=== PATIENT | male | born 1940 | race Caucasian/White ===

== ENCOUNTER 2019-05-07 10:10 | Outpatient (CLI) | payer MEDICARE, OTHER, SELFPAY ==
--- NOTE | 2019-05-07 12:27 | ECG_ITS ---
Measurements Intervals [place] Rate: 60 P: 12 TX: 214 QRS: 8 QRSD: 88 T: 8 QT: 441 QTc: 444 Interpretive Statements SINUS RHYTHM WITH FIRST DEGREE AV BLOCK BASELINE ARTIFACT- I, II, III, AVF ABNORMAL ECG Electronically Signed On 05-07-2019 14:38:44 POT WASHER by Melvin Ivey D.O.
[2019-05-07 13:06] LABS: Basophils Percent Auto 0.3 % (0.2-1.2); Eosinophils Absolute Auto 0.1 K/mm3 (0-0.3); Eosinophils Percent Auto 1.1 % (0-4.4); Hematocrit 39.8 % (42.0-52.0); Hemoglobin 13.2 g/dL (14.0-18.0); Immature Granulocyte Absolute 0.03 K/mm3 (0.00-0.031); Immature Granulocyte Percent A 0.3 % (0-0.5); Lymphocytes Percent Auto 54.4 % (18.3-44.2); Mean Corpuscular HGB Conc 33.2 g/dl (32-36); Mean Corpuscular Hemoglobin 31.1 pg (26-34); Mean Corpuscular Volume 93.6 fl (80-100); Mean Platelet Volume 9.8 fl (7.4-10.4); Monocytes Absolute Auto 0.7 K/mm3 (0.1-0.6); Monocytes Percent Auto 7.4 % (2.6-8.5); Neutrophils Absolute Auto 3.2 K/mm3 (1.3-6.7); Neutrophils Percent Auto 36.5 % (45.5-73.1); Platelet Count Result 148 k/mm3 (150-375); Red Blood Count 4.25 M/mm3 (4.6-6.20); White Blood Count 8.8 K/mm3 (4.5-10.0)
[2019-05-07 13:14] LABS: Albumin Level 4.6 g/dL (3.5-5.1); Blood Urea Nitrogen 16 mg/dL (9-20); Calcium 9.2 mg/dL (8.4-10.2); Carbon Dioxide 27 mmol/L (22-30); Chloride 99 mmol/L (98-107); Estimated Glomerular Filt Rate > 60; Glucose 90 mg/dL (75-110); Sodium 137 mmol/L (137-145)
[2019-05-07 13:18] LABS: Hemoglobin A1C 5.2 % (<5.7)
[2019-05-07 13:23] LABS: Urine Cotinine NEGATIVE
== END 2019-05-07 10:11 | disposition home or self-care (01) ==
LOC: ANHSURGERY 10:17
PROVIDERS: PCP Internal Medicine; Visit Provider Orthopaedic Surgery
DX: Z41.9 Encounter for procedure for purposes other than remedying health state, unspecified (principal); I44.0 Atrioventricular block, first degree
CPT/HCPCS: 36415; 80048; 80307; 82040; 83036; 85025; 87070; 93005

== ENCOUNTER 2019-05-27 13:27 | Inpatient (IN) | payer MEDICARE, OTHER, SELFPAY ==
[2019-05-07 11:04] VITALS: BMI 27.6
[2019-05-07 11:53] VITALS: BP 154/74; PULSE 68; RESP 20; TEMP 37.1; O2SAT 98
--- NOTE | 2019-05-24 09:24 | HP_ITS ---
DATE OF SERVICE: ADMIT DIAGNOSIS: Degenerative joint disease, left hip. HISTORY OF PRESENT ILLNESS: The patient is a 78-year-old male patient of Dr. Fraser who presents today for left total hip arthroplasty, anterior approach. He has been having increasing pain in the left groin over the last several months. He is finding it difficult to go up and down stairs or trying to flex his hip. He has x-rays that show he has moderately severe arthritis in the hip. He has had his right hip replaced in the past with Dr. Lindsey. This has done very well. The patient is unable to take anti-inflammatories due to being on Plavix. He is finding it difficult to deal with the pain on a daily basis and would rather proceed with total hip arthroplasty rather than continuing nonsurgical treatment. PAST HISTORY: He has had his right hip replaced and left knee replaced in the past. He has had a history of an MA with stent placements in the past. He has also had a history of large B-cell lymphoma. CURRENT MEDICATIONS: He takes baby aspirin daily, Plavix 75 mg daily, metoprolol 25 mg daily, lovastatin 10 mg daily, Ventolin inhaler p.r.n., and oseltamivir 75 mg daily. ALLERGIES: HE HAS NO KNOWN DRUG ALLERGIES. FAMILY HISTORY: Noncontributory. SOCIAL HISTORY: He is a former smoker. He quit smoking in 2001. REVIEW OF SYSTEMS: Positive for the previous MA as well as stent placement. PHYSICAL EXAMINATION: VITAL SIGNS: He is 5 feet 7-1/2 inch, 197 pounds. Other vital signs per nursing on the morning of surgery. HEENT: Grossly normal. LUNGS: Clear bilaterally. HEART: Regular rate and rhythm. EXTREMITIES: He walks with a mild limp relative to pain in the left hip. Left hip flexes to 110 with sharp pains, anterolateral hip. External rotation is 0 causing mild anterolateral hip pain, external rotation to 20. Stinchfield maneuver causes a moderate anterolateral hip pain. He has normal abduction strength in the lateral position. No tenderness over the trochanteric bursa. There is no edema in the lower extremities. He has 5/5 strength in all muscle groups of the lower extremities. Skin is normal around the groin. Complains of no numbness or tingling. IMAGING: X-rays demonstrate moderately severe arthritis of the left hip. IMPRESSION: The patient has moderately severe arthritis in the left hip with significant symptoms. Again, patient would like to proceed with total hip arthroplasty. He is very happy with his right hip and would like to proceed with the left. Surgical procedure as well as risks and complications were discussed. All questions were answered and we will proceed. The patient will see his primary care doctor as well as his parent educator for clearance before surgery. He will stop his Plavix 1 week prior to surgery, but will maintain his baby aspirin through the time of surgery due to his stent history. Nasal swab was negative. Chem panel is all within normal limits. Creatinine 0.80 and GFR is greater than 60. Hemoglobin is 13.2, platelets are 148. D I MT: Benedict
[2019-05-27] VITALS (14 sets, daily range): BP systolic 107–156; BP diastolic 58–80; PULSE 62–107; RESP 12–20; TEMP 36.2–36.9; O2SAT 94–100; BMI 27.4
--- NOTE | ~2019-05-27 | XR_ITS ---
EXAMINATION: XR hip LT 1V w AP pelvis DATE: 05/27/2019 11:20 INDICATION: Left hip arthroplasty. Postop. TECHNIQUE: An anteroposterior view of the pelvis and single view of left hip were obtained. COMPARISON: None. FINDINGS: There are bilateral total hip arthroplasties in near-anatomic alignment. No fracture. There is soft tissue gas around the left hip consistent with recent surgery. There is a surgical drain on the left. IMPRESSION: 1. Bilateral total hip arthroplasties in near-anatomic alignment. Reviewed, dictated and finalized at location A. LION KEEPER
--- NOTE | ~2019-05-27 | XR_ITS ---
EXAMINATION: XR surgery orthopedic DATE: 05/27/2019 10:53 INDICATION: Total left hip arthroplasty. TECHNIQUE: A single intraoperative fluoroscopic view of left hip was obtained. I was not present. Flu oroscopy exposure time was 35 seconds. COMPARISON: None. FINDINGS: There is a total left hip arthroplasty in near-anatomic alignment. No fracture. IMPRESSION: 1. Total left hip arthroplasty in near-anatomic alignment. Reviewed, dictated and finalized at location A. OM SANDER
[2019-05-27] MEDS: LACTATED RINGERS 1,000 ML 30 ML IV CONT ×2 (06:45→11:20)
--- NOTE | 2019-05-27 06:50 | WPDANESEPPF ---
Anes - Initial Pre Proc Eval Procedure: Operation Date: 05/27/19 07:30 Proposed Procedures p Left Total Hip Arthroplasty, Anterior Approach - Alexis Lindsey MD Date/Time: 05/27/19 06:50 Surgeon: Alexis Lindsey MD Pre Op Diagnosis: OA Left Hip Patient Data Age: 78 Gender: M Height: 1.83 m Weight: 91.9 kg Last Vital Signs Temp 36.6 C 05/27/19 06:32 Pulse 65 05/27/19 06:32 Resp 18 05/27/19 06:32 BP 156/77 H 05/27/19 06:32 Pulse Ox 98 05/27/19 06:32 Allergies Allergy/AdvReac Type Severity Reaction Status Date / Time No Known Allergies Allergy Unverified 04/07/14 08:22 Home Medications Medication Instructions Recorded Confirmed Type aspirin 81 mg PO DAILY 05/07/19 05/07/19 History clopidogrel 75 mg PO BID 05/07/19 05/07/19 History metoprolol tartrate 25 mg PO DAILY 05/07/19 05/07/19 History multivitamin 1 tablet PO WEEKLY 05/07/19 05/07/19 History rosuvastatin 10 mg PO DAILY 05/07/19 05/07/19 History ECG: Date of Service: 05/07/19 Procedure(s): CA 12 lead EKG Accession Number(s): [id number] cc: ~ Measurements Intervals [place] Rate: 60 P: 12 [place]: 214 QRS: 8 QRSD: 88 T: 8 QT: 441 QTc: 444 Interpretive Statements SINUS RHYTHM WITH FIRST DEGREE AV BLOCK BASELINE ARTIFACT- I, II, III, AVF ABNORMAL ECG Electronically Signed On 05-07-2019 14:38:44 [employer]ARD GOODS SALESPERSON by Melvin Ivey D.O. Dictated By: Melvin Ivey DO 05/07/19 1302 Patient hx anesthesia problems: none Family hx anesthesia problems: none PMFSH Past Medical History Medical History (Updated 05/27/19 @ 06:54 by Michael Mo MD) CAD (coronary artery disease) DENIES CARDIAC SYMPTOMS, SEES DR. RUTHERFORD LAST APPROX 4-6 MONTHS AGO Cancer NON HODGKINS LYMPHOMA 2015 HTN (hypertension) Hyperlipidemia Osteoarthritis Surgical History Surgical History (Updated 05/27/19 @ 06:54 by Michael Mo MD) History of coronary artery stent placement DEC 2017 X1 Anes - Eval Final PreProcedure Day of Procedure 05/27/19 06:50 Patient weight: overweight Heart: regular rate and rhythm Lungs: clear to auscultation and normal air movement Airway: Mallampati scale class II Neurological: alert and oriented Last oral intake: >/= 8 hours ASA classification: III Emergent: no Anesthetic plan: proceed Anesthesia type and monitoring: general LMA Informed Consent: The patient's anesthetic plan and its attendant risks and benefits were discussed with the patient/family/POA. Questions were solicited and answers provided to the satisfaction of the patient/family/POA.
--- NOTE | 2019-05-27 07:22 | WPDHPUPDATE1 ---
History and Physical Update Update Date/Time: 05/27/19 07:22 History and Physical has been reviewed, including an updated exam of the patient. There are NO changes in the patient's condition. Risks, benefits, and alternatives have been discussed and questions answered. Patient agrees to proceed with procedure.
[2019-05-27] MEDS: ceFAZolin 2 GM/D5W 50 ML 2 GM/50 ML BAG IVPB (07:38)
[2019-05-27] MEDS: ceFAZolin SODIUM 1 GM VIAL 3 GM IRRIGATION (08:53)
[2019-05-27] MEDS: ceFAZolin SODIUM 1 GM VIAL IV PUSH (10:40)
--- NOTE | 2019-05-27 11:01 | PM.PROC ---
Procedure Note - Detailed Date of procedure: 05/27/19 Pre-op diagnosis: OA Left Hip Post-op diagnosis: same Procedure performed: Direct anterior approach left total hip arthroplasty Description of procedure: Patient was brought to the operating room and general anesthesia was administered. He received 2 g of Ancef weight based vancomycin 1 g of tranexamic acid preoperatively. Extra padding was placed on the feet and view the feet were placed in the boots in the was transferred to the [facility] table and the left hip prepped draped usual fashion. The arms were carefully positioned and padded because of his bilateral shoulder replacements in the had significant flexion contracture of his left elbow as well. A 10 cm longitudinal incision was made starting 3 cm lateral to the ASIS. Dissection was carried down the fascia over the tensor fascia carmelo which was longitudinally incised and elevated off the anterior 1/2 of the TFL muscle. Interval between tensor fascia carmelo and rectus femoris was developed. Crossing branches of ascending branch of lateral femoral circumflex vessels were isolated. The the bifurcation was right there and we tied all 3 limbs and divided the vessels. retractor was placed anterior to capsule inferiorly after elevation of ileal capsule areas. The leg was then abducted internally rotated and the gluteus minimus carefully elevated off the lateral capsule. the leg back to neutral position standard anterior capsulotomy was performed. Femoral neck osteotomy according to preoperative templating napkin ring of bone removed the femoral head removed without difficulty. We looked at the femoral neck osteotomy under fluoro and we were still a bit long and I felt I could remove remove another 5 mm certainly. Acetabulum was exposed labrum excised. Leg externally rotated extended and interval between conjoined tendon and piriformis tendon width was recessed allowing the piriformis to sublux and flipped posteriorly. capsule was elevated off the anterior cortex of the femur. the additional 5 mm of femoral neck was removed with a saw. the acetabulum was curetted and the medial eyes 2 at the 44 Reamer and we reamed to 49 and 51 and the 51 was a snug fit with the trial we reamed to 52 and the 52 G7 acetabular component was chosen. We impacted this at 40? of abduction and anteversion such that the anterior edge of the shell was a mm of the anterior wall and this left the posterior superior and superior shell about 6 or 7 mm proud. Excellent Press-Fit was achieved. Single screw was placed in the ilium. Insertion hole cap was placed on the shell and the 36 mm inner diameter 0? liner was impacted. this seated without difficulty. The leg was externally rotated extended and we broached up to a size 11 which seemed to get medial carmelo resistance and had excellent axial stability. we reduced this with the 0 head and this was quite stable if not just a little bit tight. We brought in intra operative fluoro again and saw that the we were a couple of mm long. I also felt I could probably go up to a size 12 the size E had in the other side. We were able to countersink the 11 about 5 mm in we and inserted the 12 to the appropriate depth and calcar planed another to 3 mm. The standard offset size 12 taper lock stem was chosen. This was impacted and came to rest exactly at the level of the neck cut with Sriram rodriguez no further. We trialed with the 0 head found we had appropriate stability and soft tissue tension and equal leg lengths. The ceramic 0 x 36 head mated with the 0 trunnion sleeve construct impacted onto the clean and dry trunnion after again changing our gloves. Wound was again irrigated antibiotic solution and the hip reduced stability reconfirmed. Local anesthetic cocktail was injected. We did earlier excise the anterior aspect of the lateral flap of capsule for additional exposure the capsular flaps were allowed to rest in situ. The fascia was reapproximated using 1. Ru
--- NOTE | 2019-05-27 12:49 | SUR.PHASEI ---
DR. SANCHEZ MADE AWARE OF HEMATURIA IN PACU. STATES NO LEAVE NOWAK INTACT AND CONSULT UROLOGY
[2019-05-27] MEDS: PROPARACAINE HCL 0.5% 15 ML OPHTH SOLN 1 DROP EACH EYE (13:15)
[2019-05-27] MEDS: DICLOFENAC SODIUM 0.1% OPHTH SOLN 2.5 ML BOTTLE 1 DROP EACH EYE (13:15)
--- NOTE | 2019-05-27 13:21 | PC.NURSE ---
This patient, Camron Casillas, was admitted to -. Patient/family oriented to hospital policies and general routines including ID bracelet, bed and alarms, visiting hours, pain management, procedures, bathroom and other care routines, personal items, smoking policy, room service/diet, and visiting hours. Valuables list has been completed. Information on how to activate the Rapid Response Team has been discussed. Patient/Family are encouraged to report perceived risks to care and to ask questions if they do not understand what they are told or what they should do.
[2019-05-27 13:51] LABS: Hematocrit 39.2 % (42.0-52.0); Hemoglobin 12.4 g/dL (14.0-18.0)
[2019-05-27] MEDS: ACETAMINOPHEN 500 MG TABLET 1000 MG PO ×2 (14:16→20:09)
[2019-05-27] MEDS: SODIUM CHLORIDE 0.9% IV 1,000 ML 125 ML IV CONT (14:18)
[2019-05-27] MEDS: SENNA/DOCUSATE SODIUM TABLET 2 TAB PO (16:12)
[2019-05-27] MEDS: MAG HYDROX/AL HYDROX/SIMETH 30 ML UDC PO (16:18)
--- NOTE | 2019-05-27 16:21 | ECG_ITS ---
Measurements Intervals [place] Rate: 99 P: 11 AR: 187 QRS: 11 QRSD: 80 T: -1 QT: 345 QTc: 444 Interpretive Statements SINUS RHYTHM CONSIDER INFERIOR INFARCT, AGE INDETERMINATE BASELINE WANDER- I, II, III, AVR, AVL AVF, V1, V3-V6 ABNORMAL ECG Electronically Signed On 05-27-2019 19:03:15 CHEMICAL MACHINE TENDER by Melvin Ivey D.O.
--- NOTE | 2019-05-27 16:30 | WPDCN ---
Assessment and Plan Assessment and plan (1) Osteoarthritis of left hip: Code(s): M16.12 - Unilateral primary osteoarthritis, left hip Status: Acute Assessment and Plan: Status post left total hip per Dr. Lindsey. Wound care and pain control will be deferred to Dr. Lindsey. Will also defer DVT prophylaxis to Dr. Lindsey. (2) Hypertension: Code(s): I10 - Essential (primary) hypertension Status: Acute Assessment and Plan: Blood pressures were reviewed and they are stable. Continue antihypertensives and monitor daily. (3) Hyperlipidemia: Code(s): E78.5 - Hyperlipidemia, unspecified Status: Acute Assessment and Plan: Continue statin. (4) History of coronary artery stent placement: Code(s): Z95.5 - Presence of coronary angioplasty implant and graft Status: Acute Assessment and Plan: No acute issues. Patient was not having active chest pain this evening, but instead had some mild indigestion. Resume aspirin and Plavix per Dr. Lindsey. Continue beta-nba and statin. Supervising physician for this medical consultation is Dr. Mario Alberto Bertrand. [facility] Data of Consult Date/Time: 05/27/19 1630 Requesting Physician: Alexis Lindsey MD Primary Care Provider: Katia Fraser MD Consult Narrative Narrative: Camron Casillas is a 78 year old male whom the hospitalist service has been consulted for postoperative medical management. His medical history is significant for osteoarthritis, coronary artery disease with history of inferior STEMI in December 2017 status post drug-eluting stent to the right coronary artery, hypertension, dyslipidemia, paroxysmal atrial fibrillation, history of large B-cell lymphoma, and GERD. I was called by the nurse not long after the consult was placed, concerned that the patient was may be having chest pain. When I go evaluate the patient, he tells me it feels as though he has gas pains, and once he drank a white soda and was able to belch the discomfort went away. Other than that he feels quite well. He has minimal discomfort about the left hip. At the time my evaluation, he is sitting in a chair at the side of the bed and is eating dinner. He has not had postoperative fever, chills, sweats, chest pain, shortness of breath, nausea, and vomiting. He also denies paresthesias, skin color, and temperature changes distal to the surgical site. Review of Systems Review of Systems: Narrative: Twelve systems were reviewed with pertinent positives and negatives as per HPI. No fever, chills, or sweats. No recent cold or flu symptoms. He has not had exertional chest pain or shortness of breath. He is adamant that the discomfort that he had earlier today was not cardiac related, but instead was GI related as he felt better after belching. No personal or family history of venous thromboembolism. Except as documented, all other systems were reviewed and are negative. [facility] Past Medical History Medical History (Updated 05/27/19 @ 21:43 by Zoila Tapia PA-C) Coronary artery disease History of inferior STEMI on 12/29/2017. Right coronary was totally occluded and was revascularized with a drug-eluting stent. He also had high-grade stenosis of the mid LAD, which was not intervened upon. GERD (gastroesophageal reflux disease) Hyperlipidemia Hypertension Non-Hodgkin lymphoma Large B-cell lymphoma treated in 2016 at [place]. Osteoarthritis Paroxysmal atrial fibrillation Seasonal rhinitis Surgical History Surgical History (Updated 05/27/19 @ 21:40 by Zoila Tapia PA-C) History of bilateral carpal tunnel release History of coronary artery stent placement Drug-eluting stent to the right coronary artery 12/29/2017. History of lumbar fusion History of surgery on arm Left arm ORIF. History of total replacement of both shoulder joints Status post arthroscopy of left knee Status post bilateral total h
[2019-05-27 17:23] LABS: Troponin I < 0.012 ng/mL (0.000-0.034)
[2019-05-27 20:01] LABS: Troponin I < 0.012 ng/mL (0.000-0.034)
[2019-05-27] MEDS: FAMOTIDINE 20 MG TABLET PO (20:10)
[2019-05-27 23:37] LABS: Troponin I < 0.012 ng/mL (0.000-0.034)
[2019-05-28] VITALS (7 sets, daily range): BP systolic 124–135; BP diastolic 60–75; PULSE 96–120; RESP 18; TEMP 37–37.3; O2SAT 93–98
[2019-05-28] MEDS: ACETAMINOPHEN 500 MG TABLET 1000 MG PO ×2 (02:17→08:15)
[2019-05-28] MEDS: NEOMYCIN/POLYMYXIN/BACITRACIN OINTMENT PACKET 1 PACKET (04:21)
--- NOTE | 2019-05-28 06:14 | PM.PNORT ---
Progress Note: A&P Additional Plan POD 1 alert avss labs-pending, wd-dry drain is out, pt was walking in halls yesterday,pain is well controlled, plan to send home after morning PT Subjective Subjective Date/Time Seen: 05/28/19 06:14 Objective Data Vital Signs Vital Signs: Vital Signs - 24 hr 05/27/19 06:32 05/27/19 11:20 05/27/19 11:35 Temperature 36.6 C 36.2 C L Pulse Rate 65 84 70 Respiratory Rate 18 20 15 Blood Pressure 156/77 H 119/65 135/72 Pulse Oximetry 98 98 100 05/27/19 11:50 05/27/19 12:05 05/27/19 12:20 Temperature Pulse Rate 70 62 68 Respiratory Rate 16 14 13 Blood Pressure 136/70 138/72 132/75 Pulse Oximetry 96 95 97 05/27/19 12:35 05/27/19 12:50 05/27/19 13:27 Temperature 36.3 C L Pulse Rate 65 68 70 Respiratory Rate 12 12 18 Blood Pressure 132/71 132/78 141/71 H Pulse Oximetry 95 95 97 05/27/19 13:42 05/27/19 14:12 05/27/19 16:00 Temperature 36.3 C L 36.3 C L 36.9 C Pulse Rate 71 73 100 Respiratory Rate 18 18 20 Blood Pressure 137/74 155/80 H 107/58 L Pulse Oximetry 98 99 95 05/27/19 20:00 05/27/19 22:00 05/28/19 00:00 Temperature 36.8 C Pulse Rate 107 H 104 H 105 H Respiratory Rate 18 Blood Pressure 119/77 Pulse Oximetry 94 05/28/19 02:00 05/28/19 04:00 05/28/19 06:00 Temperature 37.0 C 37.3 C Pulse Rate 120 H 108 H 96 Respiratory Rate 18 18 Blood Pressure 124/75 135/60 Pulse Oximetry 95 98 Intake/Output Intake/Output: Intake & Output 05/25/19 05/26/19 05/27/19 05/28/19 23:59 23:59 23:59 23:59 Intake Total 3856 550 Output Total 5661 7215 Balance 2801 -1175 Meds/Results Medications: Active Medications Generic Name Dose Route Start Last Admin Trade Name Freq PRN Reason Stop Dose Admin Acetaminophen 1,000 mg 02/24/20 20:00 05/28/19 02:17 Tylenol Tablet PO 1,000 mg Q6H FLAVIO Administration Al Hydrox/Mg Hydrox/Simethicone 30 ml 05/27/19 13:27 05/27/19 16:18 Mylanta PO 30 ml Q6H PRN Administration Indigestion Apixaban 2.5 mg 05/28/19 09:00 Eliquis PO 07/01/19 21:01 Q12HR FLAVIO Artificial Tears 1 drop 05/27/19 12:59 05/27/19 13:16 Artificial Tears EACH EYE 1 drop Q2H PRN Administration Dry Eye(s) Aspirin 81 mg 05/28/19 09:00 Aspirin Ec PO DAILY [facility] Famotidine 20 mg 05/27/19 21:00 05/27/19 20:10 Pepcid PO 20 mg Q12HR FLAVIO Administration Hydroxyzine HCl 50 mg 05/27/19 13:27 Atarax Tablet PO Q4H PRN Itching Cefazolin Sodium 1 gm in 50 mls @ 100 mls/hr 05/27/19 16:00 05/27/19 23:57 Ancef 1 Gm/D5w 50 Ml Pm IVPB 05/28/19 08:29 Infused Q8H [facility] Infusion Vancomycin HCl 1,000 mg in 250 mls @ 250 mls/hr 05/27/19 19:00 05/27/19 19:30 Vancomycin 1,000 Mg/D5w 250 Ml IVPB 05/28/19 07:59 Infused Q12H [facility] Infusion Magnesium Hydroxide 30 ml 05/27/19 13:27 Milk Of Magnesia PO BID PRN Constipation Metoprolol Tartrate 25 mg 05/28/19 09:00 Lopressor PO DAILY [facility] Morphine Sulfate 2 mg 05/27/19 13:27 Morphine Sulfate Inj IV PUSH Q3H PRN Pain Rated 7-10 Naloxone HCl 0.1 mg 05/27/19 13:27 Narcan IV PUSH Q2M PRN Opiate Reversal Ondansetron HCl 4 mg 05/27/19 13:27 Zofran Inj IV PUSH Q4H PRN Nausea And Vomiting Oxycodone HCl 5 mg 05/27/19 13:27 Roxicodone Ir Tablet PO Q4H PRN Pain Rated 4-6 Oxycodone HCl 5 mg 05/27/19 14:00 05/28/19 02:18 Roxicodone Ir Tablet PO 5 mg Q4H FLAVIO Administration Polyethylene Glycol 17 gm 05/28/19 09:00 Miralax PO QAM FLAVIO Rosuvastatin Calcium 10 mg 05/28/19 09:00 Crestor PO DAILY [facility] Senna/Docusate Sodium 2 tab 05/27/19 17:00 05/27/19 16:12 Senokot S Tablet PO 2 tab BID FLAVIO Administration Radiology Results: ITS Impressions Hip/Pelvis X-Ray 05/27/19 12:06 IMPRESSION: 1. Bilateral total hip arthroplasties in near-anatomic alignment. Intraoperative
[2019-05-28 06:29] LABS: Basophils Percent Auto 0.2 % (0.2-1.2); Hematocrit 29.8 % (42.0-52.0); Hemoglobin 9.9 g/dL (14.0-18.0); Immature Granulocyte Absolute 0.05 K/mm3 (0.00-0.031); Immature Granulocyte Percent A 0.5 % (0-0.5); Lymphocytes Absolute Auto 3.08 K/mm3 (0.9-3.2); Lymphocytes Percent Auto 29.4 % (18.3-44.2); Mean Corpuscular HGB Conc 33.2 g/dl (32-36); Mean Corpuscular Hemoglobin 30.7 pg (26-34); Mean Corpuscular Volume 92.3 fl (80-100); Mean Platelet Volume 9.8 fl (7.4-10.4); Monocytes Percent Auto 9.8 % (2.6-8.5); Neutrophils Absolute Auto 6.3 K/mm3 (1.3-6.7); Neutrophils Percent Auto 60.1 % (45.5-73.1); Platelet Count Result 135 k/mm3 (150-375); Red Blood Count 3.23 M/mm3 (4.6-6.20); White Blood Count 10.5 K/mm3 (4.5-10.0)
--- NOTE | 2019-05-28 06:38 | DS_ITS ---
DATE OF DISCHARGE: 05/28/2019 DIAGNOSIS: Degenerative joint disease, left hip. HOSPITAL COURSE: The patient is a 78-year-old male, who underwent anterior left total hip arthroplasty by Dr. Lindsey on 05/27. Underwent procedure without any complications. Postoperatively, he has been afebrile. Vital signs were stable. Neurovascularly intact. His drain is out. He is weightbearing as tolerated. He is on Eliquis for 5 weeks for DVT prophylaxis. He is maintaining his baby aspirin through the time of surgery as well as postoperatively due to his cardiac history. He will be discharged home 05/28. He will go home on a regular diet. He will advance. He is using a walker at this point, may advance the cane as his comfort allows. He is going home with scheduled Tylenol as well as oxycodone 5 mg for pain as well as Senokot and MiraLAX for constipation. He is off his Plavix at this point until he finishes his 5-week course Eliquis and then he will resume his Plavix at that time. At the time of dictation, morning labs were not done. Immediately postop, his hemoglobin was 12.4. The patient was advised if any questions or concerns, he is to call the office, otherwise we will see him at his appointed date. Jason I MT: Benedict
[2019-05-28 06:41] LABS: Blood Urea Nitrogen 14 mg/dL (9-20); Calcium 8.2 mg/dL (8.4-10.2); Carbon Dioxide 25 mmol/L (22-30); Chloride 102 mmol/L (98-107); Estimated CRCL calculation 67 ml/min; Estimated Glomerular Filt Rate > 60; Glucose 135 mg/dL (75-110); Potassium 4.2 mmol/L (3.4-5.0); Sodium 138 mmol/L (137-145)
[2019-05-28] MEDS: SENNA/DOCUSATE SODIUM TABLET 2 TAB PO (08:21)
[2019-05-28] MEDS: APIXABAN 2.5 MG TABLET PO (08:21)
[2019-05-28] MEDS: ASPIRIN 81 MG ENTERIC TABLET PO (08:21)
[2019-05-28] MEDS: METOPROLOL TARTRATE 25 MG TABLET PO (08:22)
[2019-05-28] MEDS: FAMOTIDINE 20 MG TABLET PO (08:22)
[2019-05-28] MEDS: ROSUVASTATIN 10 MG TABLET PO (08:24)
[2019-05-28] MEDS: polyethylene glycoL 3350 17 GM POWD.PACK PO (08:24)
--- NOTE | 2019-05-28 11:21 | PM.IMPN ---
Progress Note: A&P Assessment and Plan (1) Osteoarthritis of left hip: Code(s): M16.12 - Unilateral primary osteoarthritis, left hip Status: Acute Assessment and Plan: Status post left total hip per Dr. Lindsey. POD1. Wound care, dvt ppx, PT/OT, pain control will be deferred to Dr. Lindsey. Patient to be discharged today Patient okay for discharge from hospitalist standpoint if okay with other services (2) Hypertension: Code(s): I10 - Essential (primary) hypertension Status: Acute Assessment and Plan: Blood pressures were reviewed and they are stable; 130s sys this morning Continue antihypertensives (3) Hyperlipidemia: Code(s): E78.5 - Hyperlipidemia, unspecified Status: Acute Assessment and Plan: No acute issues Continue statin. (4) History of coronary artery stent placement: Code(s): Z95.5 - Presence of coronary angioplasty implant and graft Status: Acute Assessment and Plan: No acute issues. Patient was not having active chest pain/palpitations. Resume aspirin and Plavix per Dr. Lindsey recommendations Continue beta-nba and statin. Follow up with Cardiology as outpatient (5) Hematuria: Code(s): R31.9 - Hematuria, unspecified Status: Acute Assessment and Plan: Noted in [place] bag while in PACU. Patient denies any hematuria since; nursing states no visible hematuria today. Patient to follow up with PCP if he notices hematuria Additional Plan Thank you for allowing the Hospitalist team to care for this patient during their stay. Okay for discharge from Hospitalist standpoint if okay with other services; will sign off. Please call with any questions Subjective Date/time seen: 05/28/19 11:21 This is a Hospitalist Consult Progress Note Interval history: PAtient is a 78 yo M with history of osteoarthritis, coronary artery disease with history of inferior STEMI in December 2017 status post drug-eluting stent to the right coronary artery, hypertension, dyslipidemia, paroxysmal atrial fibrillation, history of large B-cell lymphoma, and GERD who is here for Left total hip repair per Dr. Lindsey POD 1; Hospitalist service has been consulted for medical management. Patient is doing well today; his left hip pain is well controlled and he states he was up walking with PT today without issues. He denies any dizziness/lightheadedness. He denies any hematuria or painful urination since yesterday while in the PACU. Denies f/c/ns, headaches, loc, changes in v/h, cp/palpitations, sob/cough, n/v/d/c, abd pain, dysphagia, melena, brbpr, dysuria, hematuria, cloudy urine, calf pain/swelling, s/sx of stroke Review of Systems Review of Systems: All systems reviewed & are unremarkable except as noted in HPI and below Exam Narrative: Exam Narrative: Patient sitting upright in chair at time of visit Const: General: cooperative, healthy appearing, comfortable, no acute distress, well developed and alert Nutritional Appearance: well nourished Orientation/consciousness: patient oriented x3 HENMT: Head: normocephalic and atraumatic Ears: external ears normal General nose exam: Normal nares present Face and sinus: face symmetric Mouth: Yes lip normal, Yes tongue normal and Yes moist mucous membranes Teeth and gingiva: fair dentition Throat: posterior oropharynx normal and uvula midline Eyes: General: appearance normal, both eyes and all related structures Sclera: sclerae normal Pupils: Equal, round and reactive pupils present EOM: EOMs intact bilaterally Neck: Neck: trachea midline and supple Resp: Effort & Inspection: normal respiratory effort Auscultation: clear to auscultation bilaterally Cardio: Rate: regular rate Rhythm: regular rhythm Heart sounds
== END 2019-05-28 11:50 | disposition home or self-care (01) | DRG 470 ==
LOC: ANH3MEDSUR 13:30
PROVIDERS: Physician Assistant; Physician Assistant Surgical; Admitting Provider Orthopaedic Surgery; PCP Internal Medicine; Visit Provider Orthopaedic Surgery
PROC: 0SRB04A Replacement of Left Hip Joint with Ceramic on Polyethylene Synthetic Substitute, Uncemented, Open Approach (ICD-10-PCS; CPT 27130; principal; 2019-05-27 07:30)
DX: M16.12 Unilateral primary osteoarthritis, left hip (principal); Z96.641 Presence of right artificial hip joint; I25.2 Old myocardial infarction; Z96.652 Presence of left artificial knee joint; Z95.5 Presence of coronary angioplasty implant and graft; Z85.72 Personal history of non-Hodgkin lymphomas; Z79.82 Long term (current) use of aspirin; Z79.01 Long term (current) use of anticoagulants; Z87.891 Personal history of nicotine dependence; E78.5 Hyperlipidemia, unspecified; Z96.612 Presence of left artificial shoulder joint; Z96.611 Presence of right artificial shoulder joint; K21.9 Gastro-esophageal reflux disease without esophagitis; I25.10 Atherosclerotic heart disease of native coronary artery without angina pectoris; I10 Essential (primary) hypertension; Z98.49 Cataract extraction status, unspecified eye
CPT/HCPCS: 36415; 73501; 80048; 84484; 85014; 85018; 85025; 86850; 86900; 86901; 93005; 97110; 97116; 97161; 97165; A9270; C1776; J0131; J0171; J0690; J1100; J1170; J1885; J2250; J2270; J2370; J2405; J2704; J2710; J2795; J3010; J3370; J7030; J7120

== ENCOUNTER 2019-06-07 10:39 | Outpatient (CLI) | payer MEDICARE, OTHER, SELFPAY ==
--- NOTE | ~2019-06-07 | US_ITS ---
EXAMINATION:US venous doppler LE BI INDICATION:Bilateral lower extremity venous Doppler TECHNIQUE: Multiple grayscale, color flow and Doppler images of the lower extremity deep venous syste ms were obtained and reviewed. COMPARISON:No prior studies for comparison. FINDINGS: The common femoral, superficial femoral and popliteal veins demonstrate normal respiratory variation, augmentation and compressibility. Color flow is also seen within the posterior tibial, pe roneal, greater saphenous and profunda veins. IMPRESSION: 1: No lower extremity deep venous thrombosis. Reviewed, dictated and finalized at location B. ING SUPERVISOR
== END 2019-06-07 10:40 | disposition home or self-care (01) ==
PROVIDERS: PCP Internal Medicine; Visit Provider Physician Assistant Surgical
DX: M79.89 Other specified soft tissue disorders (principal)
CPT/HCPCS: 93970

== ENCOUNTER 2020-02-18 10:08 | Outpatient (CLI) | payer MEDICARE, OTHER, SELFPAY ==
--- NOTE | ~2020-02-18 | US_ITS ---
EXAMINATION: US carotid duplex BI DATE: 02/18/2020 10:55 INDICATION: Carotid stenosis. TECHNIQUE: Grayscale, color Doppler, and pulsed Doppler images of the cervical carotid arteries were obtained. The degree of vessel stenosis is placed in one of the following categories: normal, <50%, 5 0-69%, >=70% but less than near-occlusion, near-occlusion, or total occlusion. Note that percent sten osis relative to normal distal artery lumen diameter is indirectly measured from velocity measurement s as described by Amador, et al. Radiology 2003; 229:340-346. COMPARISON: Ultrasound 06/22/2017, chest CT 12/29/2017 FINDINGS: RIGHT: The right common carotid artery (CCA) peak systolic velocity (PSV) is 58 cm/s. The right internal car otid artery (ICA) PSV is 109 cm/s. The right ICA end-diastolic velocity (EDV) is 23 cm/s. The right I CA/CCA PSV ratio is 1.9. Grayscale and color Doppler images yield an estimate of <50% diameter reduct ion from plaque in the ICA. There is antegrade flow in the right vertebral artery. LEFT: The left CCA PSV is 81 cm/s. The left ICA PSV is 100 cm/s. The left ICA EDV is 32 cm/s. The left ICA/ CCA PSV ratio is 1.2. Grayscale and color Doppler images yield an estimate of <50% diameter reduction from plaque in the ICA. There is antegrade flow in the left vertebral artery. IMPRESSION: 1. <50% stenosis in the right internal carotid artery. 2. <50% stenosis in the left internal carotid artery. Reviewed, dictated and finalized at location A. H MACHINE OPERATOR
== END 2020-02-18 10:09 | disposition home or self-care (01) ==
LOC: CHSIMG 10:12
PROVIDERS: PCP Internal Medicine; Visit Provider Internal Medicine
DX: I65.23 Occlusion and stenosis of bilateral carotid arteries (principal)
CPT/HCPCS: 93880

== ENCOUNTER 2020-05-08 07:22 | Outpatient (CLI) | payer MEDICARE, OTHER, SELFPAY ==
--- NOTE | ~2020-05-08 | CT_ITS ---
EXAMINATION: CT pelvis wo con DATE: 05/08/2020 08:10 INDICATION: Left iliac crest pain. TECHNIQUE: Computed tomography (CT) of the pelvis was performed without intravenous contrast. Automat ed exposure control and iterative reconstruction technique were employed. The dose-length product was 511.05 mGy-cm. COMPARISON: CT abdomen 12/29/2017, CT abdomen and pelvis 11/05/15 FINDINGS: There is diverticulosis of the colon without evidence of diverticulitis. There is severe lo wer lumbar spondylosis. There are bilateral total hip arthroplasties. No periprosthetic lucency to rm ggest loosening or infection. There are numerous enthesophytes at the iliac bones and proximal femora including at the left iliac crest. There is no acute hematoma. Osteitis pubis is noted. There is mod erate osteoarthritis of the sacroiliac joints. IMPRESSION: 1. Bilateral total hip arthroplasties in near-anatomic alignment. Reviewed, dictated and finalized at location A. ENTARY SCHOOL TEACHER'S AIDE
== END 2020-05-08 07:23 | disposition home or self-care (01) ==
PROVIDERS: PCP Internal Medicine; Visit Provider Orthopaedic Surgery
DX: R10.2 Pelvic and perineal pain (principal)
CPT/HCPCS: 72192

== ENCOUNTER → 2020-07-20 01:51 | Outpatient (CLI) | payer MEDICARE, OTHER, SELFPAY ==
[2020-07-20 19:04] LABS: SARS-CoV-2 RNA PCR Negative
== END ==
PROVIDERS: PCP Internal Medicine; Visit Provider Plastic Surgery
DX: Z01.812 Encounter for preprocedural laboratory examination (principal); Z20.822 Contact with and (suspected) exposure to COVID-19
CPT/HCPCS: C9803; U0003; U0005

== ENCOUNTER 2020-07-23 03:12 | Day surgery (SDC) | payer MEDICARE, OTHER, SELFPAY ==
[2020-07-10 13:08] VITALS: BMI 27.8
--- NOTE | 2020-07-23 06:57 | WPDHPUPDATE1 ---
History and Physical Update Update Date/Time: 07/23/20 06:57 History and Physical has been reviewed, including an updated exam of the patient. There are NO changes in the patient's condition. Risks, benefits, and alternatives have been discussed and questions answered. Patient agrees to proceed with procedure.
--- NOTE | 2020-07-23 07:11 | ECG_ITS ---
Measurements Intervals [place] Rate: 67 P: 30 MN: 234 QRS: 12 QRSD: 87 T: 14 QT: 421 QTc: 447 Interpretive Statements SINUS RHYTHM WITH FIRST DEGREE AV BLOCK BASELINE ARTIFACT- II, III, AVF ABNORMAL ECG Electronically Signed On 07-23-2020 9:15:51 CDT by Melvin Ivey D.O.
[2020-07-23 07:27] VITALS: BP 152/74; PULSE 69; RESP 18; TEMP 36.3; O2SAT 99
[2020-07-23] MEDS: LACTATED RINGERS 1,000 ML 30 ML IV CONT (07:55)
--- NOTE | 2020-07-23 08:06 | WPDANESEPPF ---
Anes - Initial Pre Proc Eval Procedure: Operation Date: 07/23/20 09:00 Proposed Procedures p Excision of Squamous Cell Carcinoma of Right Cheek with Frozen Section(Right) - Gurpreet Santana MD Date/Time: 07/23/20 08:06 Surgeon: Gurpreet Santana MD Pre Op Diagnosis: Squamous Cell Carcinoma of Right Cheek Patient Data Age: 79 Gender: M Height: 5 ft 10 in Weight: 89.2 kg Last Vital Signs Temp 97.4 F L 07/23/20 07:27 Pulse 69 07/23/20 07:27 Resp 18 07/23/20 07:27 BP 152/74 H 07/23/20 07:27 Pulse Ox 99 07/23/20 07:27 Allergies Allergy/AdvReac Type Severity Reaction Status Date / Time No Known Allergies Allergy Verified 07/23/20 07:33 Home Medications Medication Instructions Recorded Confirmed Type aspirin 81 mg PO DAILY 05/07/19 07/23/20 History metoprolol tartrate 25 mg PO BID 05/07/19 07/23/20 History rosuvastatin 15 mg PO DAILY 05/07/19 07/23/20 History acetaminophen 1,000 mg PO Q6H #90 tablet 05/28/19 07/23/20 Rx clopidogrel 75 mg PO DAILY 07/10/20 07/23/20 History Patient hx anesthesia problems: none Family hx anesthesia problems: none PMFSH Past Medical History Medical History (Updated 05/28/19 @ 11:40 by Tashi Burns PA-C) Coronary artery disease History of inferior STEMI on 12/29/2017. Right coronary was totally occluded and was revascularized with a drug-eluting stent. He also had high-grade stenosis of the mid LAD, which was not intervened upon. GERD (gastroesophageal reflux disease) Hyperlipidemia Hypertension Non-Hodgkin lymphoma Large B-cell lymphoma treated in 2016 at [place]. Osteoarthritis Paroxysmal atrial fibrillation Seasonal rhinitis Surgical History Surgical History (Updated 05/27/19 @ 21:40 by Zoila Tapia PA-C) History of bilateral carpal tunnel release History of coronary artery stent placement Drug-eluting stent to the right coronary artery 12/29/2017. History of lumbar fusion History of surgery on arm Left arm ORIF. History of total replacement of both shoulder joints Status post arthroscopy of left knee Status post bilateral total hip replacement Status post cataract extraction Status post total right knee replacement Family History Family History (Updated 05/27/19 @ 21:41 by Zoila Tapia PA-C) Father Hypertension Mother Acute myocardial infarction Social History Social History (Updated 05/27/19 @ 21:42 by Zoila Tapia PA-C) Social History: The patient has been since 2015 after his from lung cancer. He has 1 daughter and 2 sons. He designates his qptfwwec-ho-ymw Karen as his surrogate decision maker and he wishes to be a full code. He smoked up to 2 packs of cigarettes per day for 45 years and quit 1999. He denies alcohol and drug use. 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 Smoking packs per day: 1.5 Smoking cigarettes per day: 30.0 Years smoked: 42 Smoking pack-years: 63.00 Tobacco type: cigarettes Smoking end date: 04/03/99 Living arrangements: alone Spiritual care concerns: No Agree to blood products: Yes Anes - Eval Final PreProcedure Day of Procedure 07/23/20 08:06 Patient weight: overweight Heart: regular rate and rhythm Lungs: clear to auscultation Airway: Mallampati scale class II Neurological: alert and oriented Last oral intake: >/= 8 hours ASA classification: III Emergent: no Anesthetic plan: proceed Anesthesia type and monitoring: general GIVS (may use LMA) and standard monitoring Informed Consent: The patient's anesthetic plan and its attendant risks and benefits were discussed with the patient/family/POA. Questions were solicited and answers provided to the satisfaction of the patient/family/POA.
--- NOTE | 2020-07-23 08:30 | PM.OP ---
Procedure Note - Brief Procedure Note - Brief Date of procedure: 07/23/20 Pre-op diagnosis: Squamous Cell Carcinoma of Right Cheek Post-op diagnosis: same Procedure performed: 2 cm excision of SCC or right cheek with FS and complex 4.5 cm repair Anesthesia: MAC Surgeon: Gurpreet Santana MD Drains: No Packing: No Pathology: yes Complications: No immediate complications Condition: stable Disposition: same day
[2020-07-23] MEDS: LIDO 1%/EPINEPHRINE 1:100,000 50 ML VIAL INFILTRATE (08:44)
[2020-07-23] MEDS: BALANCED SALT SOLN OPHTH IRRIG 30 ML BTL 15 ML EACH EYE (08:45)
--- NOTE | 2020-07-23 09:23 | PM.PROC ---
Procedure Note - Detailed Date of procedure: 07/23/20 Pre-op diagnosis: Squamous Cell Carcinoma of Right Cheek Post-op diagnosis: same Procedure performed: 2 cm excision of squamous cell carcinoma of the right cheek with frozen section and complex repair 4.5 cm Description of procedure: The site was marked on the patient's cheek in the holding area. He was taken to the operating room and placed supine on the operating table. A time-out was held and confirmed. He was given IV sedation with an LMA. The face was prepped and draped in usual fashion. The site was carefully examined and marked for excision. The area was infiltrated with 1% lidocaine with epinephrine. The site was excised as marked extending to subcutaneous tissue. It was marked at the nasal tip and sent for frozen section. Pathologist revealed retained squamous cell carcinoma and foreign body. The margins were free. The wound was extensively undermined, over 2 cm, anteriorly inferiorly and laterally to allow advancement of the cheek. The upper aspect of the incision lay in the thin skin of the lower eyelid. Closure was accomplished with transverse application of tension to avoid deforming the lower lid. Closure was accomplished with intradermal 4-0 Vicryl. A dog leg standing cone was removed along the inferior margin of the lower lid anteriorly helping to redistribute the skin tension. The skin was closed with a running 6 0 nylon. Bacitracin ointment was applied to the suture line. Op he is being discharged with instructions in wound care and follow-up and a prescription for tramadol 50 mg 8. Anesthesia: MAC Surgeon: Gurpreet Santana MD Estimated blood loss (mL): 2 Drains: No Packing: No Pathology: yes Complications: No immediate complications Condition: stable Disposition: same day
[2020-07-23 09:24] VITALS: BP 118/61; PULSE 78; RESP 22; O2SAT 94
[2020-07-23 10:04] VITALS: BP 134/73; PULSE 74; RESP 18
[2020-07-23 10:20] VITALS: BP 134/64; PULSE 78; RESP 18
== END 2020-07-23 10:23 | disposition home or self-care (01) ==
PROVIDERS: PCP Internal Medicine; Visit Provider Plastic Surgery
PROC: (CPT 11642; principal; 2020-07-23 09:00)
DX: C44.329 Squamous cell carcinoma of skin of other parts of face (principal); T81.41XA Infection following a procedure, superficial incisional surgical site, initial encounter; L02.01 Cutaneous abscess of face; Y83.8 Other surgical procedures as the cause of abnormal reaction of the patient, or of later complication, without mention of misadventure at the time of the procedure; I25.10 Atherosclerotic heart disease of native coronary artery without angina pectoris; I10 Essential (primary) hypertension; I25.2 Old myocardial infarction; I48.0 Paroxysmal atrial fibrillation; E78.5 Hyperlipidemia, unspecified; K21.9 Gastro-esophageal reflux disease without esophagitis; Z95.5 Presence of coronary angioplasty implant and graft; Z79.02 Long term (current) use of antithrombotics/antiplatelets; Z79.82 Long term (current) use of aspirin; Z85.72 Personal history of non-Hodgkin lymphomas; Z98.1 Arthrodesis status; Z87.891 Personal history of nicotine dependence
CPT/HCPCS: 11642; 13132; 88305; 88331; 88332; 93005; A9270; J2704; J7120

== ENCOUNTER 2020-10-08 11:16 | Emergency (ER) | payer MEDICARE, OTHER, SELFPAY ==
[2020-10-08 11:22] VITALS: BP 140/89; PULSE 63; RESP 20; TEMP 36.8; O2SAT 99
--- NOTE | 2020-10-08 11:34 | ED.URI ---
HPI - URI/Sore Throat General Chief Complaint: Upper Respiratory Infection Stated Complaint: poss sinus infection Time Seen by Provider: 10/08/20 11:34 Source: patient and RN notes reviewed Mode of arrival: ambulatory Limitations: no limitations History of Present Illness HPI Narrative: 79-year-old male presents concern for nasal congestion, rhinorrhea, cough for 1 week. Reports trying oykw-eas-fhhboeo medications with no relief. Denies fever, body aches, chills, sweats, shortness of breath, loss of sense of taste or smell. He has been vaccinated for Covid. MD elicited complaint: nasal congestion Related Data Home Medications Medication Instructions Recorded Confirmed aspirin 81 mg PO DAILY 05/07/19 10/08/20 metoprolol tartrate 25 mg PO BID 05/07/19 10/08/20 rosuvastatin 15 mg PO DAILY 05/07/19 10/08/20 clopidogrel 75 mg PO DAILY 07/10/20 10/08/20 isxwcnwk-ypx-pmxo-vitamin K [Adult 1 tablet PO DAILY 10/08/20 10/08/20 Multivitamin with Iron] Allergies Allergy/AdvReac Type Severity Reaction Status Date / Time No Known Allergies Allergy Verified 10/08/20 11:40 Review of Systems Review of Systems: Narrative: CONSTITUTIONAL: Denies malaise, chills, sweats, or fever. EYES: Denies visual changes, redness, or discharge. ENT: Reports rhinorrhea, congestion, sinus pain. Denies otalgia and sore throat. CARDIOVASCULAR: Denies chest pain, palpitations, or edema. RESPIRATORY: Reports cough. Denies dyspnea. GASTROINTESTINAL: Denies abdominal pain, nausea, vomiting, diarrhea SKIN: Denies rash or itching. MUSCULOSKELETAL: Denies myalgia. NEUROLOGIC: Denies headache. All systems reviewed & are unremarkable except as noted in HPI and below PMFSH Past Medical History Medical History (Updated 10/08/20 @ 11:39 by Latricia Almanza NP) Coronary artery disease History of inferior STEMI on 12/29/2017. Right coronary was totally occluded and was revascularized with a drug-eluting stent. He also had high-grade stenosis of the mid LAD, which was not intervened upon. GERD (gastroesophageal reflux disease) Hyperlipidemia Hypertension Non-Hodgkin lymphoma Large B-cell lymphoma treated in 2016 at [place]. Osteoarthritis Paroxysmal atrial fibrillation Seasonal rhinitis Surgical History Surgical History (Updated 05/27/19 @ 21:40 by Zoila Tapia PA-C) History of bilateral carpal tunnel release History of coronary artery stent placement Drug-eluting stent to the right coronary artery 12/29/2017. History of lumbar fusion History of surgery on arm Left arm ORIF. History of total replacement of both shoulder joints Status post arthroscopy of left knee Status post bilateral total hip replacement Status post cataract extraction Status post total right knee replacement Family History Family History (Updated 05/27/19 @ 21:41 by Zoila Tapia PA-C) Father Hypertension Mother Acute myocardial infarction Social History Social History (Updated 05/27/19 @ 21:42 by Zoila Tapia PA-C) Social History: The patient has been since 2015 after his from lung cancer. He has 1 daughter and 2 sons. He designates his pwcdoftn-ab-dgd Karen as his surrogate decision maker and he wishes to be a full code. He smoked up to 2 packs of cigarettes per day for 45 years and quit 1999. He denies alcohol and drug use. 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 Smoking packs per day: 1.5 Smoking cigarettes per day: 30.0 Years smoked: 42 Smoking pack-years: 63.00 Tobacco type: cigarettes Smoking end date: 04/03/99 Spiritual care concerns: No Agree to blood products: Yes Comments At time of signature, agree with nursing past medical, surgical, social and family history. There is no relevant family history pertinent to the presenting complaint Exam Narrative: Exam Narrative: GENERAL: Well-appearing, well-nourished, and in no acute distress. HEAD: Normocephalic EYES: PERRLA, conjuncti
== END 2020-10-08 11:45 | disposition home or self-care (01) ==
PROVIDERS: Emergency Provider Nurse Practitioner
DX: J32.9 Chronic sinusitis, unspecified (principal); J40 Bronchitis, not specified as acute or chronic; I25.10 Atherosclerotic heart disease of native coronary artery without angina pectoris; I25.2 Old myocardial infarction; Z95.5 Presence of coronary angioplasty implant and graft; K21.9 Gastro-esophageal reflux disease without esophagitis; E78.5 Hyperlipidemia, unspecified; I10 Essential (primary) hypertension; Z85.72 Personal history of non-Hodgkin lymphomas; M19.90 Unspecified osteoarthritis, unspecified site; I48.91 Unspecified atrial fibrillation; Z96.643 Presence of artificial hip joint, bilateral; Z96.651 Presence of right artificial knee joint; Z98.49 Cataract extraction status, unspecified eye; Z96.612 Presence of left artificial shoulder joint; Z96.611 Presence of right artificial shoulder joint
CPT/HCPCS: 99213; G0463

== ENCOUNTER 2020-11-18 12:36 | Emergency (ER) | payer MEDICARE, OTHER, SELFPAY ==
--- NOTE | ~2020-11-18 | XR_ITS ---
XR pelvis 1-2V 11/18/2020 13:20 Indication: Pelvic and left leg pain Procedure: AP pelvis Comparison: 05/27/2019 Findings: There are bilateral hip arthroplasties. Pelvic rings are intact. Sacral foramen are symmetr ic. No acute fracture or traumatic malalignment. There is heterotopic ossification in the soft tissue s adjacent to the lesser trochanter. Impression: 1: No acute fracture. Reviewed, dictated and finalized at location A. Impression: 1: No acute fracture.
--- NOTE | ~2020-11-18 | XR_ITS ---
EXAMINATION: XR tibia fibula LT 2V DATE: 11/18/2020 13:21 INDICATION: Left lower leg injury and pain. TECHNIQUE: 2 views of left tibia and fibula on 4 radiographs were obtained. COMPARISON: None. FINDINGS: There is varus angulation at the knee. No fracture. There is severe osteoarthritis of the m edial compartment and mild osteoarthritis of the lateral and patellofemoral compartments of the knee. IMPRESSION: 1. Severe left knee osteoarthritis. Reviewed, dictated and finalized at location B.
--- NOTE | ~2020-11-18 | XR_ITS ---
EXAMINATION: XR femur LT min 2V DATE: 11/18/2020 13:20 INDICATION: Left thigh pain. TECHNIQUE: 2 views of left femur on 4 radiographs were obtained. COMPARISON: None. FINDINGS: There is a total left hip arthroplasty in near-anatomic alignment. No fracture. No peripros thetic lucency to suggest loosening or infection. Left knee demonstrates severe osteoarthritis of the medial compartment and mild osteoarthritis of the lateral and patellofemoral compartments. No knee j oint effusion. IMPRESSION: 1. Total left knee arthroplasty in near-anatomic alignment. 2. Severe left knee osteoarthritis. Reviewed, dictated and finalized at location B.
[2020-11-18 12:48] VITALS: BP 137/66; PULSE 76; RESP 18; TEMP 37; O2SAT 100
--- NOTE | 2020-11-18 13:21 | ED.LOWEXIN ---
HPI - Extremity Injury (Lower) General Chief Complaint: Extremity Injury, Lower Stated Complaint: left side injury Time Seen by Provider: 11/18/20 13:21 Source: patient Mode of arrival: ambulatory Limitations: no limitations History of Present Illness HPI Narrative: Camron Casillas is a 80 yo male with PMH of hypertension, high cholesterol, chronic anticoagulation, who fell last Monday on a slippery wheelchair ramp leading out of his house during the rain. He has extensive bruising on his left hip leg posterior knee that can partially be attributed to the anticoagulation but states that he has had swelling since Monday in his left leg and is concerned about pain around his knee Related Data Home Medications Medication Instructions Recorded Confirmed aspirin 81 mg PO DAILY 05/07/19 11/18/20 metoprolol tartrate 25 mg PO BID 05/07/19 11/18/20 rosuvastatin 15 mg PO DAILY 05/07/19 11/18/20 clopidogrel 75 mg PO DAILY 07/10/20 11/18/20 tmpxrrdn-rbi-qqhz-vitamin K [Adult 1 tablet PO DAILY 10/08/20 11/18/20 Multivitamin with Iron] Allergies Allergy/AdvReac Type Severity Reaction Status Date / Time No Known Allergies Allergy Verified 11/18/20 12:57 Review of Systems Review of Systems: CONSTITUTIONAL: Denies fever, chills, sweats. EYES: Denies visual changes, redness, discharge. ENT: Denies rhinorrhea, congestion, sore throat, otalgia. CARDIOVASCULAR: Denies chest pain, palpitations, edema. RESPIRATORY: Denies dyspnea, wheezing, cough GASTROINTESTINAL: Denies abdominal pain, nausea, vomiting, diarrhea. GENITOURINARY: Denies dysuria, hematuria, abnormal discharge SKIN: Denies rash or itching. NEUROLOGIC: Denies numbness, or focal weakness. PSYCHIATRIC: Denies anxiety or depression. Left knee pain at the level of the tibial plateau and bruising at the left hip and posterior femur and knee PMFSH Past Medical History Medical History Coronary artery disease History of inferior STEMI on 12/29/2017. Right coronary was totally occluded and was revascularized with a drug-eluting stent. He also had high-grade stenosis of the mid LAD, which was not intervened upon. GERD (gastroesophageal reflux disease) Hyperlipidemia Hypertension Non-Hodgkin lymphoma Large B-cell lymphoma treated in 2016 at [place]. Osteoarthritis Paroxysmal atrial fibrillation Seasonal rhinitis Surgical History Surgical History History of bilateral carpal tunnel release History of coronary artery stent placement Drug-eluting stent to the right coronary artery 12/29/2017. History of lumbar fusion History of surgery on arm Left arm ORIF. History of total replacement of both shoulder joints Status post arthroscopy of left knee Status post bilateral total hip replacement Status post cataract extraction Status post total right knee replacement Family History Family History Father Hypertension Mother Acute myocardial infarction Social History Social History Social History: The patient has been since 2015 after his from lung cancer. He has 1 daughter and 2 sons. He designates his ijnbuefl-df-tik Karen as his surrogate decision maker and he wishes to be a full code. He smoked up to 2 packs of cigarettes per day for 45 years and quit 1999. He denies alcohol and drug use. 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 Smoking packs per day: 1.5 Smoking cigarettes per day: 30.0 Years smoked: 42 Smoking pack-years: 63.00 Tobacco type: cigarettes Smoking end date: 04/03/99 Spiritual care concerns: No Agree to blood products: Yes Comments At time of signature, I agree with nursing past medical, surgical, social and family history. There is no relevant family history pertinent to the presenting complai
--- NOTE | 2020-11-18 13:27 | PC.NURSE ---
PT DECLINED WHEELCHAIR TO RADIOLOGY
== END 2020-11-18 13:55 | disposition home or self-care (01) ==
PROVIDERS: Emergency Provider Nurse Practitioner; PCP Orthopaedic Surgery
DX: T14.90XA Injury, unspecified, initial encounter (principal); W01.0XXA Fall on same level from slipping, tripping and stumbling without subsequent striking against object, initial encounter; I25.10 Atherosclerotic heart disease of native coronary artery without angina pectoris; I25.2 Old myocardial infarction; K21.9 Gastro-esophageal reflux disease without esophagitis; E78.5 Hyperlipidemia, unspecified; I10 Essential (primary) hypertension; M19.90 Unspecified osteoarthritis, unspecified site; I48.91 Unspecified atrial fibrillation; Z85.72 Personal history of non-Hodgkin lymphomas; Z95.5 Presence of coronary angioplasty implant and graft; Z96.612 Presence of left artificial shoulder joint; Z96.611 Presence of right artificial shoulder joint; Z96.643 Presence of artificial hip joint, bilateral; Z96.651 Presence of right artificial knee joint; Z96.652 Presence of left artificial knee joint; Z98.49 Cataract extraction status, unspecified eye; Z87.891 Personal history of nicotine dependence
CPT/HCPCS: 72170; 73552; 73590; 99214; G0463

== ENCOUNTER 2021-08-11 09:31 | Outpatient (CLI) | payer MEDICARE, OTHER, SELFPAY ==
--- NOTE | 2021-08-11 09:54 | ECG_ITS ---
Measurements Intervals Marvin Rate: 60 P: 52 KS: 222 QRS: 11 QRSD: 88 T: 15 QT: 438 QTc: 440 Interpretive Statements SINUS RHYTHM WITH FIRST DEGREE AV BLOCK BASELINE ARTIFACT- I, III, AVR, AVL, AVF ABNORMAL ECG Electronically Signed On 08-11-2021 12:41:13 CDT by Melvin Ivey D.O.
== END 2021-08-11 09:32 | disposition home or self-care (01) ==
PROVIDERS: PCP Internal Medicine; Visit Provider Orthopaedic Surgery
DX: Z01.818 Encounter for other preprocedural examination (principal); I10 Essential (primary) hypertension; R94.31 Abnormal electrocardiogram [ECG] [EKG]
CPT/HCPCS: 93005

== ENCOUNTER 2021-08-16 00:48 | Day surgery (SDC) | payer MEDICARE, OTHER, SELFPAY ==
[2021-07-23 12:37] VITALS: BMI 28.8
--- NOTE | 2021-07-23 12:43 | PC.NURSE ---
Report to the Outpatient Waiting Room, entrance under the green pavilion located off [facility], at time _0930_ on date _08/02/21_. OR Time: __1130_. - You and your visitor will be asked a series of questions to screen for COVID 19 for your protection. - A mask is required within the hospital. One visitor will be allowed to accompany the patient into the hospital. Patients visitor will be instructed to remain with patient at all times or leave the building. We will allow the visitor to come back to the postoperative area when patient is ready. Preoperative COVID Testing Requirements: NONE Patients may have clear liquids (water, carbonated beverages, clear teas, apple juice) until 3 hours prior to surgery (0830 AM) with a maximum of 20 ounces. - No food from midnight until time of surgery Take the following medications with a SIP of water the morning of surgery: _METOPROLOL_ Medications to discontinue _FOLLOW DR. SANCHEZ'S INSTRUCTIONS REGARDING ASPIRIN AND CLOPIDOGREL_ Please no deodorant, or body powder the day of surgery. No jewelry (including any body piercings) or valuables the day of surgery, leave them at home. Please take a shower or bath the night before, or the morning of, surgery with an antibacterial soap. Wear comfortable, loose fitting clothing. - Jewelry must be removed prior to entering the operating room. Rings and piercings that are not removed may be cut off. - The hospital will not accept responsibility for valuables. - Please leave all valuables, including medications, at home the day of surgery. If you are going home after surgery, a licensed team driver must drive you home. - NO public transportation without another adult. - We recommend that an adult stay with you for 24 hours following discharge. - We also recommend that you do not drive, make important decision, drink alcoholic beverages, or take any drugs that were not prescribed by your health care provider for at least 24 hours after your discharge time. Follow any additional instructions given to you from your surgeon. Telephone instructions given to ____PT and asked if any additional questions and then verbalized understanding. Patient advised to call surgeon office or pre surgery nurse liaison [phone] if any additional questions.
--- NOTE | 2021-08-05 13:23 | PC.NURSE ---
Report to the Outpatient Waiting Room, entrance under the green pavilion located off [facility], at time _1000_ on date _08/16/21_. OR Time: _1200_. - You and your visitor will be asked a series of questions to screen for COVID 19 for your protection. - Only one visitor is allowed at this time. - The patient visitor is requested to leave or wait in car when not with patient. - A mask is required within the hospital. Patients may have clear liquids (water, carbonated beverages, clear teas, apple juice) until 3 hours prior to surgery (0900 AM) with a maximum of 20 ounces. - No food from midnight until time of surgery Take the following medications with a SIP of water the morning of surgery: _METOPROLOL__ Medications to discontinue per DR. SANCHEZ'S INSTRUCTIONS ASPIRIN AND CLOPIDOGREL__ Date to take last dose Please no make-up, nail turkish, hairspray, perfume, deodorant, or body powder the day of surgery. No jewelry (including any body piercings) or valuables the day of surgery, leave them at home. Please take a shower or bath the night before, or the morning of, surgery with an antibacterial soap. Wear comfortable, loose fitting clothing. Children are encouraged to wear pajamas. - Jewelry must be removed prior to entering the operating room. Rings and piercings that are not removed may be cut off. - The hospital will not accept responsibility for valuables. - Please leave all valuables, including medications, at home the day of surgery. If you are going home after surgery, a licensed motorcycle delivery driver must drive you home. - NO public transportation without another adult. - We recommend that an adult stay with you for 24 hours following discharge. - We also recommend that you do not drive, make important decision, drink alcoholic beverages, or take any drugs that were not prescribed by your health care provider for at least 24 hours after your discharge time. Follow any additional instructions given to you from your surgeon. If you or anyone in your household have experienced Covid symptoms in the past week, please notify your surgeon or the nurse liaison at the phone number below for possible testing. Telephone instructions given to ___PT and asked if any additional questions and then verbalized understanding. Patient advised to call surgeon office or pre surgery nurse liaison [phone] if any additional questions.
--- NOTE | 2021-08-13 08:22 | PM.IMHP ---
H&P: HPI History of Present Illness Date/Time: 08/13/21 08:22 72-year-old male presents today for revision left carpal tunnel release. He originally had his surgery in the 90s. He has been developing numbness and tingling particularly in the long fingers of both hands. His left is more symptomatic at this point than the right. He has had a recent EMG study which does correlate to this. He has severe left carpal tunnel and moderate right carpal. He has also had an MRI scan of his cervical spine which shows no significant central canal stenosis. Patient's symptoms are rather bothersome on a daily basis. His symptoms are mostly the central 3 fingers he has no symptoms in the 5th finger or the ulnar half of the hand. <MARYSE Brownlee - Last Filed: 08/13/21 08:32> Chief Complaint: Left carpal tunnel syndrome <MARYSE Brownlee - Last Filed: 08/13/21 08:32> Review of Systems Review of Systems: All systems reviewed & are unremarkable except as noted in HPI and below <MARYSE Brownlee - Last Filed: 08/13/21 08:32> [facility]LY [facility] Past Medical History Medical History: Medical History Coronary artery disease History of inferior STEMI on 12/29/2017. Right coronary was totally occluded and was revascularized with a drug-eluting stent. He also had high-grade stenosis of the mid LAD, which was not intervened upon. GERD (gastroesophageal reflux disease) Hyperlipidemia Hypertension Non-Hodgkin lymphoma Large B-cell lymphoma treated in 2016 at [place]. Osteoarthritis Paroxysmal atrial fibrillation Seasonal rhinitis <MARYSE Brownlee - Last Filed: 08/13/21 08:32> Surgical History Surgical History: Surgical History History of bilateral carpal tunnel release History of coronary artery stent placement Drug-eluting stent to the right coronary artery 12/29/2017. History of lumbar fusion History of surgery on arm Left arm ORIF. History of total replacement of both shoulder joints Status post arthroscopy of left knee Status post bilateral total hip replacement Status post cataract extraction Status post total right knee replacement <MARYSE Brownlee - Last Filed: 08/13/21 08:32> Family History Family History: Family History Father Hypertension Mother Acute myocardial infarction <MARYSE Brownlee - Last Filed: 08/13/21 08:32> Social History Social History: Social History Social History: The patient has been since 2016 after his from lung cancer. He has 1 daughter and 2 sons. He designates his jtcfonil-sy-nlo Karen as his surrogate decision maker and he wishes to be a full code. He smoked up to 2 packs of cigarettes per day for 45 years and quit 1999. He denies alcohol and drug use. 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 Smoking packs per day: 1.5 Smoking cigarettes per day: 30.0 Years smoked: 42 Smoking pack-years: 63.00 Smoking status: Former smoker Tobacco type: cigarettes Second hand tobacco smoke exposure: No Smoking end date: 04/03/99 Alcohol intake: never Substance use: never Living arrangements: alone Spiritual care concerns: No Agree to blood products: Yes <MARYSE Brownlee - Last Filed: 08/13/21 08:32> Meds Home Medications and Allergies Home medications: Home Medications Medication Instructions Recorded Confirmed Type aspirin 81 mg PO DAILY 05/07/19 08/16/21 History metoprolol tartrate 25 mg PO BID 05/07/19 08/16/21 History rosuvastatin 15 mg PO QAM 05/07/19 08/16/21 History clopidogrel 75 mg PO DAILY 07/10/20 08/16/21 History <MARYSE Brownlee - Last Filed: 08/13/21 08:32> Allergies/Adverse reactions: Allergies Allergy/AdvReac Type Severity Reaction Status Date / Time No Known
[2021-08-16] VITALS (7 sets, daily range): BP systolic 96–157; BP diastolic 56–83; PULSE 59–64; RESP 14–16; TEMP 36.1; O2SAT 93–99
[2021-08-16] MEDS: ACETAMINOPHEN 500 MG TABLET 1000 MG PO (09:59)
--- NOTE | 2021-08-16 10:17 | WPDANESEPPF ---
Anes - Initial Pre Proc Eval Procedure: Operation Date: 08/16/21 12:00 Proposed Procedures p Revision Left Carpal Tunnel Release - Alexis Lindsey MD Date/Time: 08/16/21 10:17 Surgeon: Alexis Lindsey MD Pre Op Diagnosis: recurrent left carpal tunnel syndrome Patient Data Age: 80 Gender: M Height: 1.75 m Weight: 92.5 kg Last Vital Signs Temp 36.1 C L 08/16/21 09:49 Pulse 61 08/16/21 09:49 Resp 16 08/16/21 09:49 BP 157/75 H 08/16/21 09:49 Pulse Ox 99 08/16/21 09:49 Allergies Allergy/AdvReac Type Severity Reaction Status Date / Time No Known Allergies Allergy Verified 08/16/21 09:56 Home Medications Medication Instructions Recorded Confirmed Type aspirin 81 mg PO DAILY 05/07/19 08/16/21 History metoprolol tartrate 25 mg PO BID 05/07/19 08/16/21 History rosuvastatin 15 mg PO QAM 05/07/19 08/16/21 History clopidogrel 75 mg PO DAILY 07/10/20 08/16/21 History Patient hx anesthesia problems: none Family hx anesthesia problems: none Results Review: All pre-operative results and documents have been reviewed as part of the pre-operative evaluation. [facility] Past Medical History Medical History Coronary artery disease History of inferior STEMI on 12/29/2017. Right coronary was totally occluded and was revascularized with a drug-eluting stent. He also had high-grade stenosis of the mid LAD, which was not intervened upon. GERD (gastroesophageal reflux disease) Hyperlipidemia Hypertension Non-Hodgkin lymphoma Large B-cell lymphoma treated in 2016 at [place]. Osteoarthritis Paroxysmal atrial fibrillation Seasonal rhinitis Surgical History Surgical History History of bilateral carpal tunnel release History of coronary artery stent placement Drug-eluting stent to the right coronary artery 12/29/2017. History of lumbar fusion History of surgery on arm Left arm ORIF. History of total replacement of both shoulder joints Status post arthroscopy of left knee Status post bilateral total hip replacement Status post cataract extraction Status post total right knee replacement Family History Family History Father Hypertension Mother Acute myocardial infarction Social History Social History Social History: The patient has been since 2016 after his from lung cancer. He has 1 daughter and 2 sons. He designates his krzduyov-bb-xhg Karen as his surrogate decision maker and he wishes to be a full code. He smoked up to 2 packs of cigarettes per day for 45 years and quit 1999. He denies alcohol and drug use. 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 Smoking packs per day: 1.5 Smoking cigarettes per day: 30.0 Years smoked: 42 Smoking pack-years: 63.00 Smoking status: Former smoker Tobacco type: cigarettes Second hand tobacco smoke exposure: No Smoking end date: 04/03/99 Alcohol intake: never Substance use: never Living arrangements: alone Spiritual care concerns: No Agree to blood products: Yes Anes - Eval Final PreProcedure Day of Procedure 08/16/21 10:17 Patient weight: obese Heart: regular rate and rhythm Lungs: clear to auscultation and normal air movement Airway: Mallampati scale class II Neurological: alert and oriented Last oral intake: >/= 8 hours ASA classification: III Emergent: no Anesthetic plan: proceed Anesthesia type and monitoring: general GIVS and LMA Results Review: All pre-operative results and documents have been reviewed as part of the pre-operative evaluation. Informed Consent: The patient's anesthetic plan and its attendant risks and benefits were discussed with the patient/family/POA. Questions were solicited and answers provided to the satisfaction of the patient/family/POA.
[2021-08-16] MEDS: LACTATED RINGERS 1,000 ML 30 ML IV CONT (10:21)
[2021-08-16] MEDS: KETOROLAC 15 MG/ML VIAL (*BKC) IV PUSH (10:21)
--- NOTE | 2021-08-16 11:00 | WPDHPUPDATE1 ---
History and Physical Update Update Date/Time: 08/16/21 11:00 History and Physical has been reviewed, including an updated exam of the patient. There are NO changes in the patient's condition. Risks, benefits, and alternatives have been discussed and questions answered. Patient agrees to proceed with procedure.
[2021-08-16] MEDS: ceFAZolin 2 GM/D5W 50 ML 2 GM/50 ML BAG IVPB (11:26)
--- NOTE | 2021-08-16 11:59 | W.PM.PROC2 ---
Procedure Note - Detailed Date of Procedure 08/16/21 Pre-op Diagnosis recurrent left carpal tunnel syndrome Post-op Diagnosis Same Procedure Performed Left carpal tunnel release Surgeon Alexis Lindsey MD Transmitter Engineer In Charge ray Anesthesia General Description of Procedure Patient was brought to the operating room. He was given sedation the left arm prepped draped usual fashion. Even though he was sedated he tended to constantly move even before tourniquet elevation so we converted to an IV general with LMA. Local anesthesia was injected with 1% plain lidocaine. Limb was exsanguinated tourniquet elevated to 250 mmHg. The previous 1 in incision was utilized. We increased this to about 1-1/4 inches for optimal exposure. We carefully dissected down through the scar tissue and enter the carpal tunnel on the far ulnar aspect of the transverse carpal ligament. Once this was entered we then released all the way proximally and a [place] elevator was passed underneath the fascia the from the underlying nerve and the subcutaneous tissue was elevated off the distal volar forearm fascia and the fascia split for a distance of 3 cm proximal to the flexor crease of the wrist completing the decompression. The nerve was surrounded by a little bit of scar tissue in looked a little bit flattened and hyperemic but otherwise no other abnormalities. Tourniquet was released and hemostasis was achieved easily. The wound irrigated with saline and closed with 4-0 nylon suture in a soft bulky dressing applied the patient transferred postop recovery room in stable condition. Estimated Blood Loss 0 Tourniquet Time 10 Drains No Packing No Pathology None sent Complications No immediate complications Condition Stable Disposition PACU
== END 2021-08-16 13:55 | disposition home or self-care (01) ==
PROVIDERS: PCP Internal Medicine; Visit Provider Orthopaedic Surgery
PROC: (CPT 64721; principal; 2021-08-16 12:00)
DX: G56.02 Carpal tunnel syndrome, left upper limb (principal); I10 Essential (primary) hypertension; I48.0 Paroxysmal atrial fibrillation; I25.10 Atherosclerotic heart disease of native coronary artery without angina pectoris; I25.2 Old myocardial infarction; E78.5 Hyperlipidemia, unspecified; K21.9 Gastro-esophageal reflux disease without esophagitis; Z85.72 Personal history of non-Hodgkin lymphomas; Z95.5 Presence of coronary angioplasty implant and graft; Z87.891 Personal history of nicotine dependence; Z79.02 Long term (current) use of antithrombotics/antiplatelets; Z79.82 Long term (current) use of aspirin; E66.9 Obesity, unspecified; Z68.30 Body mass index [BMI] 30.0-30.9, adult
CPT/HCPCS: 64721; A9270; J0690; J1100; J1885; J2250; J2405; J2704; J3010; J7120

== ENCOUNTER 2021-10-11 01:06 | Day surgery (SDC) | payer MEDICARE, OTHER, SELFPAY ==
[2021-09-28 13:10] VITALS: BMI 29.1
--- NOTE | 2021-09-28 13:27 | PC.NURSE ---
Report to the Outpatient Waiting Room, entrance under the green pavilion located off [facility], at time _10:00AM on date __10/11/21 . OR Time: __12:00PM . - You and your visitor will be asked a series of questions to screen for COVID 19 for your protection. - Only one visitor is allowed at this time. - The patient visitor is requested to leave or wait in car when not with patient. - A mask is required within the hospital. Patients may have clear liquids (water, carbonated beverages, clear teas, apple juice) until 3 hours prior to surgery with a maximum of 20 ounces. - No food from midnight until time of surgery Take the following medications with a SIP of water the morning of surgery: __METOPROLOL Medications to discontinue per physician __HOLD PLAVIX 7 DAYS PRE-OP- LAST DOSE 10/04/21. NO NEED TO HOLD ASPIRIN PER DR SANCHEZ. Please no make-up, nail hungarian, hairspray, perfume, deodorant, or body powder the day of surgery. No jewelry (including any body piercings) or valuables the day of surgery, leave them at home. Please take a shower or bath the night before, or the morning of, surgery with an antibacterial soap. Wear comfortable, loose fitting clothing. Children are encouraged to wear pajamas. - Jewelry must be removed prior to entering the operating room. Rings and piercings that are not removed may be cut off. - The hospital will not accept responsibility for valuables. - Please leave all valuables, including medications, at home the day of surgery. If you are going home after surgery, a licensed local truck driver must drive you home. - NO public transportation without another adult. - We recommend that an adult stay with you for 24 hours following discharge. - We also recommend that you do not drive, make important decision, drink alcoholic beverages, or take any drugs that were not prescribed by your health care provider for at least 24 hours after your discharge time. Follow any additional instructions given to you from your surgeon. If you or anyone in your household have experienced Covid symptoms in the past week, please notify your surgeon or the nurse liaison at the phone number below for possible testing. Telephone instructions given to __PATIENT and asked if any additional questions and then verbalized understanding. Patient advised to call surgeon office or pre surgery nurse liaison [phone] if any additional questions.
--- NOTE | 2021-10-08 08:34 | PM.IMHP ---
H&P: HPI History of Present Illness Date/Time: 10/08/21 08:34 Chief Complaint: Numbness right hand Narrative: 80-year-old male who presents today for revision right carpal tunnel release. He had the original surgery more than 20 years ago. He has had recurrence of his carpal tunnel in both of his hands. He had his left hand revised in August of this year which is doing well. His right hand continues to be symptomatic for him. It is the central 3 fingers that he gets numbness in. He has had a nerve conduction study which did show moderate right carpal tunnel syndrome. He feels that he is ready proceed with revision of the right carpal tunnel at this time. [facility] Past Medical History Medical History Coronary artery disease History of inferior STEMI on 12/29/2017. Right coronary was totally occluded and was revascularized with a drug-eluting stent. He also had high-grade stenosis of the mid LAD, which was not intervened upon. GERD (gastroesophageal reflux disease) Hyperlipidemia Hypertension Non-Hodgkin lymphoma Large B-cell lymphoma treated in 2016 at [place]. Osteoarthritis Paroxysmal atrial fibrillation Seasonal rhinitis Surgical History Surgical History History of bilateral carpal tunnel release History of coronary artery stent placement Drug-eluting stent to the right coronary artery 12/29/2017. History of lumbar fusion History of surgery on arm Left arm ORIF. History of total replacement of both shoulder joints Status post arthroscopy of left knee Status post bilateral total hip replacement Status post cataract extraction Status post total right knee replacement Family History Family History Father Hypertension Mother Acute myocardial infarction Social History Social History Social History: The patient has been since 2016 after his from lung cancer. He has 1 daughter and 2 sons. He designates his uijwbzcj-mr-jwq Karen as his surrogate decision maker and he wishes to be a full code. He smoked up to 2 packs of cigarettes per day for 45 years and quit 1999. He denies alcohol and drug use. 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 Smoking packs per day: 2 Smoking cigarettes per day: 40.0 Years smoked: 45 Smoking pack-years: 90.00 Smoking status: Former smoker Tobacco type: cigarettes Second hand tobacco smoke exposure: No Smoking end date: 10/01/01 Alcohol intake: never Alcohol use details: HEAVIER DRINKER IN PAST Substance use: never Gender identity (if verbalized by the patient): Male Sexual Orientation (if Verbalized by the Patient): Straight or Heterosexual Spiritual care concerns: No Agree to blood products: Yes Meds Home Medications and Allergies Home Medications Medication Instructions Recorded Confirmed Type aspirin 81 mg tablet,delayed 81 mg PO DAILY 05/07/19 09/28/21 History release metoprolol tartrate 25 mg tablet 25 mg PO BID 05/07/19 09/28/21 History rosuvastatin 10 mg tablet 15 mg PO QAM 05/07/19 09/28/21 History clopidogrel 75 mg tablet 75 mg PO DAILY 07/10/20 09/28/21 History Allergies Allergy/AdvReac Type Severity Reaction Status Date / Time No Known Allergies Allergy Verified 09/28/21 13:07 Exam Narrative: 80-year-old male alert pleasant. He has full range of motion of his wrist and fingers. He has a positive carpal tunnel compression test to the right wrist. Positive Tinel's over the median nerve. He has no symptoms in the 5th finger. He does complain of decreased sensation through the 1st through 4th finger. +radial pulse. Negative Tinel's over the cubital tunnel. Resp: Auscultation: clear to auscultation bilaterally Cardio: Rate: regular rate Rhythm: regular rhythm Assessment and Plan
--- NOTE | 2021-10-08 12:54 | WPDANESEPPF ---
Anes - Initial Pre Proc Eval Procedure: Operation Date: 10/11/21 12:00 Proposed Procedures p Revision Right Carpal Tunnel Release - Alexis Lindsey MD Date/Time: 10/08/21 12:54 Surgeon: Alexis Lindsey MD Pre Op Diagnosis: right carpal tunnel syndrome recurrence Patient Data Age: 80 Gender: M Height: 1.73 m Weight: 87 kg Allergies Allergy/AdvReac Type Severity Reaction Status Date / Time No Known Allergies Allergy Verified 09/28/21 13:07 Home Medications Medication Instructions Recorded Confirmed Type aspirin 81 mg tablet,delayed 81 mg PO DAILY 05/07/19 09/28/21 History release metoprolol tartrate 25 mg tablet 25 mg PO BID 05/07/19 09/28/21 History rosuvastatin 10 mg tablet 15 mg PO QAM 05/07/19 09/28/21 History clopidogrel 75 mg tablet 75 mg PO DAILY 07/10/20 09/28/21 History Patient hx anesthesia problems: none Family hx anesthesia problems: none Results Review: All pre-operative results and documents have been reviewed as part of the pre-operative evaluation. [facility] Past Medical History Medical History Coronary artery disease History of inferior STEMI on 12/29/2017. Right coronary was totally occluded and was revascularized with a drug-eluting stent. He also had high-grade stenosis of the mid LAD, which was not intervened upon. GERD (gastroesophageal reflux disease) Hyperlipidemia Hypertension Non-Hodgkin lymphoma Large B-cell lymphoma treated in 2016 at [facility]. Osteoarthritis Paroxysmal atrial fibrillation Seasonal rhinitis Surgical History Surgical History History of bilateral carpal tunnel release History of coronary artery stent placement Drug-eluting stent to the right coronary artery 12/29/2017. History of lumbar fusion History of surgery on arm Left arm ORIF. History of total replacement of both shoulder joints Status post arthroscopy of left knee Status post bilateral total hip replacement Status post cataract extraction Status post total right knee replacement Family History Family History Father Hypertension Mother Acute myocardial infarction Social History Social History Social History: The patient has been since 2016 after his from lung cancer. He has 1 daughter and 2 sons. He designates his [id number] Karen as his surrogate decision maker and he wishes to be a full code. He smoked up to 2 packs of cigarettes per day for 45 years and quit 1999. He denies alcohol and drug use. 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 Smoking packs per day: 2 Smoking cigarettes per day: 40.0 Years smoked: 45 Smoking pack-years: 90.00 Smoking status: Former smoker Tobacco type: cigarettes Second hand tobacco smoke exposure: No Smoking end date: 10/01/01 Alcohol intake: never Alcohol use details: HEAVIER DRINKER IN PAST Substance use: never Living arrangements: alone Gender identity (if verbalized by the patient): Male Sexual Orientation (if Verbalized by the Patient): Straight or Heterosexual Spiritual care concerns: No Agree to blood products: Yes Anes - Eval Final PreProcedure Day of Procedure 10/08/21 12:54 Patient weight: normal Heart: regular rate and rhythm Lungs: clear to auscultation Airway: Mallampati scale class II Neurological: alert and oriented Last oral intake: >/= 8 hours ASA classification: III Emergent: no Anesthetic plan: proceed Anesthesia type and monitoring: general LMA and standard monitoring Results Review: All pre-operative results and documents have been reviewed as part of the pre-operative evaluation. Informed Consent: The patient's anesthetic plan and its attendant risks and benefits were discussed with the patient/family/POA. Questions were solicited and an
[2021-10-11] VITALS (8 sets, daily range): BP systolic 124–159; BP diastolic 61–78; PULSE 68–76; RESP 14–16; TEMP 36.3–36.4; O2SAT 94–99
[2021-10-11] MEDS: LACTATED RINGERS 1,000 ML 30 ML IV CONT (11:00)
[2021-10-11] MEDS: ACETAMINOPHEN 500 MG TABLET 1000 MG PO (11:15)
[2021-10-11] MEDS: KETOROLAC 15 MG/ML VIAL (*BKC) IV PUSH (11:15)
--- NOTE | 2021-10-11 11:25 | WPDHPUPDATE1 ---
History and Physical Update Update Date/Time: 10/11/21 11:25 History and Physical has been reviewed, including an updated exam of the patient. There are NO changes in the patient's condition. Risks, benefits, and alternatives have been discussed and questions answered. Patient agrees to proceed with procedure.
[2021-10-11] MEDS: ceFAZolin 2 GM/D5W 50 ML 2 GM/50 ML BAG IVPB (12:00)
--- NOTE | 2021-10-11 12:27 | P.OP_ITS ---
Procedure Note - Detailed Date of Procedure 10/11/21 Pre-op Diagnosis right carpal tunnel syndrome recurrence Post-op Diagnosis Same Procedure Performed Revision right carpal tunnel release Surgeon Alexis Lindsey MD Environmental Permitting Specialist Lisandra Anesthesia General Description of Procedure Patient was brought to the operating room general anesthesia was administered the right arm prepped draped usual fashion. Local anesthesia was administered into the subcutaneous tissues with 1% plain lidocaine. Tourniquet was elevated to 250 mmHg. Previous 2.5 cm longitudinal incision was used. The knife traversed the scar tissue over the carpal tunnel distally and a Newport elevator passed underneath the carpal tunnel ligament scar tissue and complete release was achieved distally proximally. Subcutaneous fat was elevated off the distal volar forearm fascia under Newport underneath a Newport elevator passed underneath the psoas fascia from the underlying nerve the fascia was split for a distance of 3 cm proximal to the flexor crease of the wrist staying ulnar to midline and this completed the decompression. The nerve was visualized under the ulnar flap of ligament hyperemic. There was some bland tenosynovitis the tendons no masses palpable. Tourniquet was released hemostasis was achieved with pressure wound irrigated closed with 4-0 nylon suture in a soft bulky dressing applied.
== END 2021-10-11 14:02 | disposition home or self-care (01) ==
PROVIDERS: PCP Internal Medicine; Visit Provider Orthopaedic Surgery
PROC: (CPT 64721; principal; 2021-10-11 12:00)
DX: G56.01 Carpal tunnel syndrome, right upper limb (principal); I25.10 Atherosclerotic heart disease of native coronary artery without angina pectoris; K21.9 Gastro-esophageal reflux disease without esophagitis; E78.5 Hyperlipidemia, unspecified; I10 Essential (primary) hypertension; I48.0 Paroxysmal atrial fibrillation; Z85.72 Personal history of non-Hodgkin lymphomas; Z87.891 Personal history of nicotine dependence
CPT/HCPCS: 64721; A9270; J0690; J1100; J1885; J2405; J2704; J3010; J7120

== ENCOUNTER 2022-10-05 09:57 | Outpatient (CLI) | payer MEDICARE, OTHER, SELFPAY ==
[2022-10-05 10:38] LABS: Anion Gap 11 mmol/L (8-16); Blood Urea Nitrogen 17 mg/dL (7-18); Calcium 8.6 mg/dL (8.5-10.1); Carbon Dioxide 27 mmol/L (21-32); Chloride 103 mmol/L (98-108); Estimated Glomerular Filt Rate > 60; Glucose 100 mg/dL (70-99); Osmolality Calculated 293 mOsm/kg (285-295); Sodium 141 mmol/L (136-145)
== END 2022-10-05 09:58 | disposition home or self-care (01) ==
LOC: CHSLAB 09:58
PROVIDERS: PCP Internal Medicine; Visit Provider Internal Medicine
DX: I10 Essential (primary) hypertension (principal)
CPT/HCPCS: 36415; 80048

== ENCOUNTER 2023-05-26 10:25 | Outpatient (CLI) | payer MEDICARE, OTHER, SELFPAY ==
--- NOTE | ~2023-05-26 | CT_ITS ---
EXAMINATION: CTA chest PE protocol DATE: 05/26/2023 11:50 INDICATION: Chest pain and shortness of breath, history of non-Hodgkin lymphoma TECHNIQUE: Computed tomography angiography (CTA) of the chest was performed with 100 mL Omnipaque-350 intravenous contrast timed to evaluate the pulmonary arteries. Coronal maximum intensity projection 3D-reconstructions were created by the technologist. The dose-length product (DLP) was 903.17 mGy-cm. Automated exposure control and iterative reconstruction technique were employed. COMPARISON: 12/29/2017 FINDINGS: The pulmonary arteries are well-opacified. Although limited by respiratory motion, no pulmo nary embolism is identified. There are small to moderate-sized pleural effusions. Cardiomegaly is not ed. There is a small pericardial effusion. There is mild bilateral hilar lymphadenopathy. There are p atchy airspace opacities of the mid and lower lung zones. There to be areas of smooth interlobular se ptal thickening. There is no pneumothorax. Streak artifact from bilateral shoulder arthroplasties sli ghtly limits the examination. Cysts of the partially visualized kidneys measure up to 6.7 cm on the l eft. There is mild periportal lymphadenopathy. IMPRESSION: 1. No pulmonary embolus identified, sensitivity slightly limited by respiratory motion. 2. Small to moderate-sized pleural effusions. 3. Patchy airspace opacities of the mid and lower lung zones, consistent with pneumonia and/or pulmon vinod edema. 4. Cardiomegaly with small pericardial effusion. 5. Mild bilateral hilar lymphadenopathy, likely reactive. 6. Periportal lymphadenopathy of unclear significance. Follow-up is recommended given patient's histo ry of non-Hodgkin lymphoma. Reviewed, dictated and finalized at location B. E ALIGNER IMPRESSION: 1. No pulmonary embolus identified, sensitivity slightly limited by respiratory motion. 2. Small to moderate-sized pleural effusions. 3. Patchy airspace opacities of the mid and lower lung zones, consistent with p neumonia and/or pulmonary edema. 4. Cardiomegaly with small pericardial effusion. 5. Mild bilateral hilar lymphadenopathy, likely reactive. 6. Periportal lymphadenopathy of unclear significance. Follow-up is recommended given patient's history of non-Hodgkin lymphoma.
[2023-05-26 10:45] LABS: Hematocrit 32.5 % (37.0-46.0); Hemoglobin 10.1 g/dL (12.4-15.3); Mean Corpuscular HGB Conc 31.1 g/dL (32.0-36.0); Mean Corpuscular Hemoglobin 30.6 pg (27.0-31.0); Mean Corpuscular Volume 98.5 fL (78.0-102.0); Mean Platelet Volume 9.6 fl (8.7-11.0); Platelet Count Result 249 K/mm3 (150-420); Red Cell Distribution Width 15.4 % (11.6-14.4)
[2023-05-26 10:50] LABS: White Blood Count 38.5 K/mm3 (4.8-10.8)
[2023-05-26 11:05] LABS: D Dimer 0.79 mg/L (0.19-0.50)
[2023-05-26 11:22] LABS: Alanine Aminotransferase 29 U/L (16-63); Albumin Level 3.7 g/dL (3.4-5.0); Alkaline Phosphatase 120 U/L (46-116); Anion Gap 12 mmol/L (8-16); Aspartate Amino Transferase 22 U/L (15-37); Bilirubin,Total 0.8 mg/dL (0.00-1.00); Blood Urea Nitrogen 20 mg/dL (7-18); Calcium 8.7 mg/dL (8.5-10.1); Carbon Dioxide 22 mmol/L (21-32); Chloride 107 mmol/L (98-108); Estimated Glomerular Filt Rate 59; Glucose 109 mg/dL (70-99); Lactate Dehydrogenase 395 U/L (85-227); NT Pro B Type Natriuretic Pept 3590 pg/mL (0-450); Osmolality Calculated 295 mOsm/kg (285-295); Potassium 4.1 mmol/L (3.5-5.1); Sodium 141 mmol/L (136-145); Total Protein 7.5 g/dL (6.4-8.2); Troponin I 18.9 ng/L (0.00-60.4)
[2023-05-26 11:26] LABS: Band Neutrophils Percent 0 % (0-6); Basophils Percent Manual 0 % (0-1); Eosinophils Absolute Manual 0.38 K/mm3 (0.02-0.5); Eosinophils Percent Manual 1 % (1-6); Lymphocytes Absolute Manual 30.41 K/mm3 (1.1-4.5); Lymphocytes Percent Manual 79 % (18-44); Monocytes Absolute Manual 0.38 K/mm3 (0.1-0.90); Monocytes Percent Manual 1 % (3-9); Neutrophils Absolute Manual 7.31 K/mm3 (1.3-6.7); Neutrophils Percent Manual 19 % (46-73); Platelet Estimate Adequate (Adequate); Total Cells Counted 100
[2023-05-26 14:30] LABS: Creatine Kinase 82 U/L (39-308)
== END 2023-05-26 10:26 | disposition home or self-care (01) ==
LOC: CHSLAB 10:28
PROVIDERS: PCP Internal Medicine; Visit Provider Internal Medicine
DX: R07.9 Chest pain, unspecified (principal); R06.00 Dyspnea, unspecified; J90 Pleural effusion, not elsewhere classified; R91.8 Other nonspecific abnormal finding of lung field; I51.7 Cardiomegaly; R59.0 Localized enlarged lymph nodes
CPT/HCPCS: 36415; 71275; 80053; 82550; 82553; 83615; 83880; 84484; 85025; 85380; Q9967

== ENCOUNTER 2023-05-29 14:02 | Outpatient (CLI) | payer MEDICARE, SELFPAY ==
[2023-05-29 14:18] LABS: Hematocrit 33.6 % (37.0-46.0); Hemoglobin 10.4 g/dL (12.4-15.3); Mean Corpuscular Hemoglobin 30.6 pg (27.0-31.0); Mean Corpuscular Volume 98.8 fL (78.0-102.0); Mean Platelet Volume 9.7 fl (8.7-11.0); Platelet Count Result 278 K/mm3 (150-420); Red Cell Distribution Width 15.5 % (11.6-14.4)
[2023-05-29 14:27] LABS: Anion Gap 13 mmol/L (8-16); Blood Urea Nitrogen 24 mg/dL (7-18); Calcium 8.6 mg/dL (8.5-10.1); Carbon Dioxide 24 mmol/L (21-32); Chloride 103 mmol/L (98-108); Estimated Glomerular Filt Rate 48; Glucose 116 mg/dL (70-99); Osmolality Calculated 295 mOsm/kg (285-295); Potassium 4.3 mmol/L (3.5-5.1); Sodium 140 mmol/L (136-145)
[2023-05-29 14:34] LABS: Band Neutrophils Percent 77 % (0-6); Eosinophils Absolute Manual 0.39 K/mm3 (0.02-0.5); Eosinophils Percent Manual 1 % (1-6); Lymphocytes Absolute Manual 1.95 K/mm3 (1.1-4.5); Lymphocytes Percent Manual 5 % (18-44); Monocytes Absolute Manual 0.39 K/mm3 (0.1-0.90); Monocytes Percent Manual 1 % (3-9); Neutrophils Absolute Manual 36.27 K/mm3 (1.3-6.7); Neutrophils Percent Manual 16 % (46-73); Total Cells Counted 100
[2023-05-29 14:35] LABS: Platelet Estimate Adequate (Adequate)
[2023-05-29 15:41] LABS: NT Pro B Type Natriuretic Pept 2159 pg/mL (0-450)
== END 2023-05-29 14:03 | disposition home or self-care (01) ==
LOC: CHSLAB 14:04
PROVIDERS: PCP Internal Medicine; Visit Provider Internal Medicine
DX: I50.9 Heart failure, unspecified (principal)
CPT/HCPCS: 36415; 80048; 83880; 85025

== ENCOUNTER 2023-12-15 09:31 | Outpatient (CLI) | payer MEDICARE, OTHER, SELFPAY ==
--- NOTE | ~2023-12-15 | XR_ITS ---
EXAMINATION: XR chest 2V DATE: 12/15/2023 09:51 INDICATION: Cough and congestion. TECHNIQUE: Frontal and lateral views of the chest were obtained. COMPARISON: None. FINDINGS: There is no pneumonia, pleural effusion, or pneumothorax. The heart size is normal. There a re bilateral shoulder arthroplasties. There is mild chronic anterior wedging of T11 and T12 vertebral bodies. IMPRESSION: 1. No acute cardiopulmonary disease. Reviewed, dictated and finalized at location A.
[2023-12-15 09:48] LABS: Hematocrit 38.2 % (37.0-46.0); Hemoglobin 12.1 g/dL (12.4-15.3); Mean Corpuscular HGB Conc 31.7 g/dL (32-36); Mean Corpuscular Hemoglobin 30.7 pg (27.0-31.0); Mean Platelet Volume 9.8 fl (8.7-11.0); Platelet Count Result 246 K/mm3 (150-420); Red Blood Count 3.94 M/mm3 (4.70-6.10); Red Cell Distribution Width 14.9 % (11.6-14.4)
[2023-12-15 10:22] LABS: White Blood Count 70.9 K/mm3 (4.8-10.8)
[2023-12-15 12:39] LABS: Band Neutrophils Percent 0 % (0-6); Blastocytes 4 %; Lymphocytes Absolute Manual 58.84 K/mm3 (1.1-4.5); Lymphocytes Percent Manual 83 % (18-44); Monocytes Absolute Manual 2.12 K/mm3 (0.1-0.90); Monocytes Percent Manual 3 % (3-9); Neutrophils Absolute Manual 7.09 K/mm3 (1.3-6.7); Neutrophils Percent Manual 10 % (46-73); Smudge Cells MODERATE; Total Cells Counted 100
[2023-12-15 12:41] LABS: Platelet Estimate Adequate (Adequate); Schistocytes None Seen
[2023-12-15 14:12] LABS: Alanine Aminotransferase 44 U/L (16-63); Albumin Level 3.9 g/dL (3.4-5.0); Alkaline Phosphatase 176 U/L (46-116); Anion Gap 11 mmol/L (4-12); Aspartate Amino Transferase 34 U/L (15-37); Bilirubin,Total 0.4 mg/dL (0.00-1.00); Blood Urea Nitrogen 17 mg/dL (7-18); Calcium 9.3 mg/dL (8.5-10.1); Carbon Dioxide 24 mmol/L (21-32); Chloride 104 mmol/L (98-108); Estimated Glomerular Filt Rate 30; Glucose 108 mg/dL (70-99); NT Pro B Type Natriuretic Pept 2244 pg/mL (0-450); Osmolality Calculated 290 mOsm/kg (285-295); Potassium 3.8 mmol/L (3.5-5.1); Sodium 139 mmol/L (136-145); Total Protein 7.5 g/dL (6.4-8.2)
== END 2023-12-15 09:32 | disposition home or self-care (01) ==
LOC: CHSLAB 09:33
PROVIDERS: PCP Internal Medicine; Visit Provider Internal Medicine
DX: R05.9 Cough, unspecified (principal); I50.9 Heart failure, unspecified
CPT/HCPCS: 36415; 71046; 80053; 83880; 85025

== ENCOUNTER 2024-03-26 12:26 | Emergency (ER) | payer MEDICARE, OTHER, SELFPAY ==
[2024-03-26 12:27] VITALS: BP 125/73; PULSE 76; RESP 16; TEMP 36.4; O2SAT 100
[2024-03-26 12:52] VITALS: BP 132/69; PULSE 87; RESP 18; O2SAT 96
--- NOTE | 2024-03-26 12:58 | ED.RECABL ---
HPI - Recheck/Abnormal Lab/Rx General Chief Complaint: Recheck/Abnormal Lab/Rx Stated Complaint: abn labs Time Seen by Provider: 03/26/24 12:55 Source: patient Mode of arrival: ambulatory Limitations: no limitations History of Present Illness HPI narrative: This is an 83-year-old male who presents to the ED for evaluation of difficulty with urination. States that he did have a very small urine output overnight but he is usually a up in going multiple times per night. Reports that he did have some abnormal lab studies regarding kidney function outpatient. He gets these drawn once a month for routine with cancer treatment. Reporting a creatinine of 1.84 and a low GFR. He is currently on chemo pill for lymphoma. States that he has no other medical complaints at this time. Denies any pain with urination or abdominal pain. Denies hematuria, flank pain, fevers, chills, nausea, vomiting. Related Data Home Medications ?Medication ?Instructions ?Recorded ?Confirmed ?Last Taken ?Type aspirin 81 mg tablet,delayed 81 mg PO DAILY 05/07/19 10/11/21 10/08/21 History release metoprolol tartrate 25 mg tablet 25 mg PO BID 05/07/19 10/11/21 10/10/21 21:00 History rosuvastatin 10 mg tablet 15 mg PO QAM 05/07/19 09/28/21 08/16/21 History clopidogrel 75 mg tablet 75 mg PO DAILY 07/10/20 10/11/21 10/04/21 History Allergies Allergy/AdvReac Type Severity Reaction Status Date / Time No Known Allergies Allergy Verified 03/26/24 12:35 Review of Systems Review of Systems: All systems as dictated in HPI [facility] Past Medical History Medical History Coronary artery disease History of inferior STEMI on 12/29/2017. Right coronary was totally occluded and was revascularized with a drug-eluting stent. He also had high-grade stenosis of the mid LAD, which was not intervened upon. GERD (gastroesophageal reflux disease) Hyperlipidemia Hypertension Non-Hodgkin lymphoma Large B-cell lymphoma treated in 2016 at [place]. Osteoarthritis Paroxysmal atrial fibrillation Seasonal rhinitis Surgical History Surgical History History of bilateral carpal tunnel release History of coronary artery stent placement Drug-eluting stent to the right coronary artery 12/29/2017. History of lumbar fusion History of surgery on arm Left arm ORIF. History of total replacement of both shoulder joints Status post arthroscopy of left knee Status post bilateral total hip replacement Status post cataract extraction Status post total right knee replacement Family History Family History Father Hypertension Mother Acute myocardial infarction Social History Social History Social History: The patient has been since 2016 after his from lung cancer. He has 1 daughter and 2 sons. He designates his [id number] Karen as his surrogate decision maker and he wishes to be a full code. He smoked up to 2 packs of cigarettes per day for 45 years and quit 1999. He denies alcohol and drug use. 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 Smoking packs per day: 2 Smoking cigarettes per day: 40.0 Years smoked: 45 Smoking pack-years: 90.00 Smoking status: Former smoker Tobacco type: cigarettes Second hand tobacco smoke exposure: No Smoking end date: 10/01/01 Alcohol intake: never Alcohol use details: HEAVIER DRINKER IN PAST Substance use: never Living arrangements: alone Gender identity (if verbalized by the patient): Male Sexual Orientation (if Verbalized by the Patient): Straight or Heterosexual Spiritual care concerns: No Agree to blood products: Yes Exam Narrative: GENERAL: Well-appearing, well-nourished, and in no acute distress. HEAD: Normocephalic, atraumatic. EYES: PERRLA and EOMI. ENT: Nares clear, no rhinorrhea or epistaxis. Mucous membranes moist. Oropharynx without tonsillar hypertrophy exudate or other lesions. NECK: Supple. No adenopathy or masses. CHEST: No respiratory distress. Clear to auscultation. No wheezes rales or rhonchi HEART: Regular rate and rhythm. No murmur heard. Normal peripheral pulses. ABDOMEN: Soft, nontender, nondistended, normal active bowel sounds. MSK: Normal range of motion. No edema. SKIN: Warm, dry, no rash. NEURO: Alert and oriented x4. No focal deficits. PSYCH: Normal mood and affect. Course Reevaluation(s) Reevaluation #1: Patient is notified nursing staff and myself that he is feeling better after having adequate episode of urination. He would like to be discharged home and does not want any blood work drawn. His postvoid residual was 53. Date: 03/26/24 Time: 14:07 Vital Signs Vital signs: Vital Signs Temperature 97.5 F L 03/26/24 12:27 Pulse Rate 76 03/26/24 12:27 Respiratory Rate 16 03/26/24 12:27 Blood Pressure 125/73 03/26/24 12:27 Pulse Oximetry 100 03/26/24 12:27 Oxygen Delivery Room Air 03/26/24 12:27 Temperature 97.5 F L 03/26/24 12:27 Pulse Rate 87 03/26/24 12:52 Respiratory Rate 18 03/26/24 12:52 Blood Pressure 132/69 03/26/24 12:52 Pulse Oximetry 96 03/26/24 12:52 Oxygen Delivery Room Air 03/26/24 12:27 MDM - Recheck/Abnormal Lab/Rx MDM Narrative Medical decision making narrative: This is a 83-year-old male who presents to the ED for chief complaint of difficulty with urination. Vitals are normal. Exam is unremarkable. He is undergoing cancer treatment and was concern for possible elevated creatinine. He was able to give a full urine sample here. His postvoid residuals 53. He is feeling improved after giving the urine sample and does not want to have any lab work taken today. Patient will be discharged in stable condition. Supportive measures discussed and return precautions given. Patient is understanding and agreeable with plan for discharge with PCP follow-up. Lab Data Labs: Lab Results 03/26/24 Range/Units 13:57 Urine Color Yellow (Yellow) Urine Appearance Clear (Clear) Urine pH 6.0 (5.0-9.0) Ur Specific Douglass 1.006 (1.001-1.035) Urine Protein 2+ H (Negative) mg/dL Urine Glucose (UA) Negative (Negative) mg/dL Urine Ketones Negative (Negative) mg/dL Ur Blood (Man) Negative (Negative) Urine Nitrate Negative (Negative) Urine Bilirubin Negative (Negative) Urine Urobilinogen 0.2 (<2.0) mg/dL Leukocyte Esterase Rfl Negative (Negative) MANDEEP/UL Urine RBC 0-2 (0-2) /hpf Urine WBC 0-5 (0-3) /hpf Ur Squamous Epith Cells None seen (Few) /hpf Urine Bacteria None seen /hpf Urine Casts 0-2 Discharge Plan Discharge Clinical Impression: Difficulty in urination Patient Disposition: Home, Self-Care Condition: Stable Instructions: Antibiotic Form Additional Instructions: Exam is reassuring today. Your postvoid residual volume was good. Please follow-up with your regular doctors regarding your laboratory studies. If you have any new or worsening symptoms please return to the ER for further evaluation. Patient Language: Wolof Prescriptions: No Action aspirin 81 mg Tablet,Delayed Release (Dr/Ec) 81 mg PO DAILY rosuvastatin 10 mg Tablet 15 mg PO QAM metoprolol tartrate 25 mg Tablet 25 mg PO BID clopidogrel 75 mg tablet 75 mg PO DAILY cephalexin 500 mg capsule 500 mg PO Q6H Qty: 8 0RF hydrocodone-acetaminophen 5-325 mg tablet 1 tablet PO Q4H Qty: 20 0RF Follow-up/Referrals: Katia Fraser MD [Primary Care Provider] - Time of Disposition: 14:08
[2024-03-26 14:06] LABS: Add Urine Microscopic? YES; Appearance Urine Clear (Clear); Bacteria Urine None Seen /hpf; Bilirubin Urine Negative (Negative); Blood Urine Negative (Negative); Color Urine Yellow (Yellow); Glucose Urine UA Negative (Negative); Ketones Urine Negative (Negative); Leukocyte Esterase Ur Negative LEU/UL (Negative); Nitrate Urine Negative (Negative); Non Pathogenic Casts 0-2; Protein Urine 2+ mg/dL (Negative); RBC Urine 0-2 /hpf (0-2); Specific Grav Ur 1.006 (1.001-1.035); Squamous Epithelial Cell Urine None Seen /hpf (Few); Urobilinogen Urine 0.2 mg/dL (<2.0); WBC Urine 0-5 /hpf (0-3)
== END 2024-03-26 14:19 | disposition home or self-care (01) ==
PROVIDERS: Emergency Provider Physician Assistant; PCP Internal Medicine
DX: R30.0 Dysuria (principal); I25.10 Atherosclerotic heart disease of native coronary artery without angina pectoris; I25.2 Old myocardial infarction; K21.9 Gastro-esophageal reflux disease without esophagitis; E78.5 Hyperlipidemia, unspecified; I10 Essential (primary) hypertension; M19.90 Unspecified osteoarthritis, unspecified site; Z85.72 Personal history of non-Hodgkin lymphomas
CPT/HCPCS: 81001; 99283

== ENCOUNTER 2024-04-26 08:03 | Outpatient (CLI) | payer MEDICARE, OTHER, SELFPAY ==
--- NOTE | ~2024-04-26 | US_ITS ---
EXAMINATION: US carotid duplex BI DATE: 04/26/2024 08:29 INDICATION: Carotid stenosis. TECHNIQUE: Grayscale, color Doppler, and pulsed Doppler images of the cervical carotid arteries were obtained. The degree of vessel stenosis is placed in one of the following categories: normal, <50%, 5 0-69%, >=70% but less than near-occlusion, near-occlusion, or total occlusion. Note that percent sten osis relative to normal distal artery lumen diameter is indirectly measured from velocity measurement s as described by Amador, et al. Radiology 2003; 229:340-346. COMPARISON: Ultrasound 02/18/2020 FINDINGS: RIGHT: The right common carotid artery (CCA) peak systolic velocity (PSV) is 122 cm/s. The right internal ca rotid artery (ICA) PSV is 153 cm/s. The right ICA end-diastolic velocity (EDV) is 42 cm/s. The right ICA/CCA PSV ratio is 1.3. Grayscale and color Doppler images yield an estimate of >=50% diameter redu ction from plaque in the ICA. There is antegrade flow in the right vertebral artery. LEFT: The left CCA PSV is 117 cm/s. The left ICA PSV is 142 cm/s. The left ICA EDV is 33 cm/s. The left ICA /CCA PSV ratio is 1.2. Grayscale and color Doppler images yield an estimate of >= 50% diameter reduct ion from plaque in the ICA. There is antegrade flow in the left vertebral artery. IMPRESSION: 1. 50-69% stenosis in the right internal carotid artery. 2. 50-69% stenosis in the left internal carotid artery. Reviewed, dictated and finalized at location B. ASSEMBLER
== END 2024-04-26 08:04 | disposition home or self-care (01) ==
LOC: CHSIMG 08:06
PROVIDERS: PCP Internal Medicine; Visit Provider Internal Medicine
DX: I65.23 Occlusion and stenosis of bilateral carotid arteries (principal)
CPT/HCPCS: 93880

== ENCOUNTER 2024-06-01 09:22 | Emergency (ER) | payer MEDICARE, OTHER, SELFPAY ==
[2024-06-01 09:30] VITALS: BP 106/58; PULSE 78; RESP 16; TEMP 36.5; O2SAT 99
--- NOTE | 2024-06-01 09:31 | ED.MALEGU ---
HPI - Male Genitourinary General Chief complaint: Urogenital-Male Stated complaint: Urinary Problem Time Seen by Provider: 06/01/24 09:46 Source: patient and RN notes reviewed Mode of arrival: ambulatory Limitations: no limitations History of Present Illness HPI Narrative: 83-year-old male presents concern for hematuria, general malaise. Reports he had right flank pain yesterday and today has left flank pain. He denies dysuria, urgency. Reports slightly increased frequency. He denies nausea, vomiting, chills, sweats, fever. He denies testicular redness, swelling, warmth. Denies abdominal pain. He is taking an oral chemotherapy medication currently MD Complaint: other (hematuria) Related Data Home Medications ?Medication ?Instructions ?Recorded ?Confirmed ?Last Taken ?Type aspirin 81 mg tablet,delayed 81 mg PO DAILY 05/07/19 10/11/21 10/08/21 History release metoprolol tartrate 25 mg tablet 25 mg PO BID 05/07/19 10/11/21 10/10/21 21:00 History rosuvastatin 10 mg tablet 15 mg PO QAM 05/07/19 09/28/21 08/16/21 History clopidogrel 75 mg tablet 75 mg PO DAILY 07/10/20 10/11/21 10/04/21 History acalabrutinib maleate 100 mg mg PO 06/01/24 Unknown History tablet (Calquence (acalabrutinib maleate)) Allergies Allergy/AdvReac Type Severity Reaction Status Date / Time No Known Allergies Allergy Verified 06/01/24 09:31 Review of Systems Review of Systems: CONSTITUTIONAL: Reports malaise. Denies chills, sweats, or fever. CARDIOVASCULAR: Denies chest pain, palpitations, or edema. RESPIRATORY: Denies cough or dyspnea. GASTROINTESTINAL: Denies abdominal pain, nausea, vomiting, diarrhea GENITOURINARY: Denies dysuria, urgency, suprapubic pressure. Reports flank pain and hematuria. Reports mild increased frequency SKIN: Denies rash or itching. MUSCULOSKELETAL: Denies back pain or myalgia. All systems reviewed & are unremarkable except as noted in HPI and below PMFSH Past Medical History Medical History Coronary artery disease History of inferior STEMI on 12/29/2017. Right coronary was totally occluded and was revascularized with a drug-eluting stent. He also had high-grade stenosis of the mid LAD, which was not intervened upon. GERD (gastroesophageal reflux disease) Hyperlipidemia Hypertension Non-Hodgkin lymphoma Large B-cell lymphoma treated in 2016 at [place]. Osteoarthritis Paroxysmal atrial fibrillation Seasonal rhinitis Surgical History Surgical History History of bilateral carpal tunnel release History of coronary artery stent placement Drug-eluting stent to the right coronary artery 12/29/2017. History of lumbar fusion History of surgery on arm Left arm ORIF. History of total replacement of both shoulder joints Status post arthroscopy of left knee Status post bilateral total hip replacement Status post cataract extraction Status post total right knee replacement Family History Family History Father Hypertension Mother Acute myocardial infarction Social History Social History Social History: The patient has been since 2016 after his from lung cancer. He has 1 daughter and 2 sons. He designates his [id number]-hoc Karen as his surrogate decision maker and he wishes to be a full code. He smoked up to 2 packs of cigarettes per day for 45 years and quit 1999. He denies alcohol and drug use. 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 Smoking packs per day: 2 Smoking cigarettes per day: 40.0 Years smoked: 45 Smoking pack-years: 90.00 Smoking status: Former smoker Tobacco type: cigarettes Second hand tobacco smoke exposure: No Smoking end date: 10/01/01 Alcohol intake: never Alcohol use details: HEAVIER DRINKER IN PAST Substance use: never Living arrangements: alone Gender identity (if verbalized by the patient): Male Sexual Orientation (if Verbalized by the Patient): Straight or Heterosexual Spiritual care concerns: No Agree to blood products: Yes Comments At time of signature, agree with nursing past medical, surgical, social and family history. There is no relevant family history pertinent to the presenting complaint Exam Narrative: GENERAL: Well-appearing, well-nourished, and in no acute distress. HEAD: Normocephalic. EYES: PERRLA, conjunctivae clear. NECK: Supple. No lymphadenopathy CHEST: Clear to auscultation. No respiratory distress. HEART: Regular rate and rhythm. ABDOMEN: Soft, nontender upon palpation, nondistended, normal active bowel sounds, no palpable or pulsatile masses, no guarding. No CVA tenderness SKIN: Warm, dry, no rash. NEURO: Alert and oriented x3. PSYCH: Normal mood and affect Course Course Emergency Course: I discussed exam findings, UA and x-ray findings with patient. No obvious cause at this time for his hematuria. Concern for clotting factors based on patient's chemotherapy medication. Offered transfer to emergency room for further evaluation, patient prefers to call his doctor on Monday. I gave him reasons to go to the emergency room if symptoms worsen or change in the meantime. Patient and daughter are aware of, understands and agrees to treatment plan. Anticipatory guidance given. Patient agrees to follow-up as directed and is aware of reasons to seek care at the emergency department. Portions of this record may have been created with voice recognition software Level of Care: Express Care Visit Vital Signs Vital signs: Reviewed. MDM - Male Genitourinary Imaging Data My impression: Images reviewed, interpreted by radiologist, agree, see report. Radiologist's impression: EXAMINATION: XR abdomen/kub 1V DATE: 06/01/2024 10:05 INDICATION: Hematuria. Flank pain. TECHNIQUE: A supine view of the abdomen on 2 radiographs was obtained. COMPARISON: CT dated 12/21/2017 FINDINGS: Moderate amount of gas and some stool scattered throughout the colon. There is gas scattered throughout additional nondilated loops of small bowel in the abdomen. No dilated gas-filled bowel to suggest obstruction. Couple phlebolith in the inferior right pelvis, minimal linear atherosclerotic calcifications along the iliac arteries in the pelvis and prostatic calcifications projecting over the pubic symphysis. No calcification suspicious for urolithiasis identified in the abdomen or pelvis. Mild lumbar levocurvature with moderate spondylosis. Bilateral total hip arthroplasties. IMPRESSION: 1. Nonobstructive bowel gas pattern. No evident urolithiasis. Critical Care Time Critical Care Time Critical Care Time: No Discharge Plan Discharge Clinical Impression: Hematuria Patient Disposition: Home, Self-Care Condition: Stable Instructions: Hematuria (ED) Additional Instructions: 1) Please follow-up with your primary care doctor in the next 1-2 days. 2) If you have any worsening of symptoms or any other urgent concerns please go to the ER. 3) Please take medications as prescribed and continue taking your home medications as usual. 4) Please read and follow information included in discharge instructions. Please tell your doctor the symptoms you have been having, that you were seen in urgent care and had a normal KUB xray and no signs of infection. Please remind them that you take Calquence. Patient Language: Arabic Prescriptions: No Action Calquence (acalabrutinib mal) 100 mg tablet PO aspirin 81 mg Tablet,Delayed Release (Dr/Ec) 81 mg PO DAILY rosuvastatin 10 mg Tablet 15 mg PO QAM metoprolol tartrate 25 mg Tablet 25 mg PO BID clopidogrel 75 mg tablet 75 mg PO DAILY Follow-up/Referrals: Katia Fraser MD [Primary Care Provider] - Time of Disposition: 10:24
[2024-06-01 09:44] LABS: EDUAAPPEAR Cloudy; EDUABILI Negative (Negative); EDUABLOOD 3+ (Negative); EDUACOLOR1 Light/Pale; EDUAGLUCOSE Negative (Negative); EDUAKETONE Negative (Negative); EDUALEUKO Negative (Negative); EDUANITRATE Negative (Negative); EDUAPH 6.5; EDUAPROTEIN 2+ (Negative); EDUASPGRAVITY 1.025; EDUAUROBILI 0.2
== END 2024-06-01 10:26 | disposition home or self-care (01) ==
PROVIDERS: Emergency Provider Nurse Practitioner; PCP Internal Medicine
DX: R31.9 Hematuria, unspecified (principal); I25.10 Atherosclerotic heart disease of native coronary artery without angina pectoris; E78.5 Hyperlipidemia, unspecified; I10 Essential (primary) hypertension; I48.0 Paroxysmal atrial fibrillation; Z85.72 Personal history of non-Hodgkin lymphomas; Z87.891 Personal history of nicotine dependence
CPT/HCPCS: 74018; 81003; 99213; G0463

== ENCOUNTER 2024-06-02 08:46 | Emergency (ER) | payer MEDICARE, OTHER, SELFPAY ==
[2024-06-02 08:52] VITALS: BP 137/70; PULSE 65; RESP 16; TEMP 36.6; O2SAT 97
[2024-06-02 09:16] VITALS: BP 126/70; PULSE 63; RESP 16; TEMP 36.6; O2SAT 97
[2024-06-02 09:22] LABS: Basophils Percent Auto 0.5 % (0.2-1.2); Eosinophils Absolute Auto 0.1 K/mm3 (0-0.3); Eosinophils Percent Auto 2.2 % (0-4.4); Hematocrit 28.5 % (42.0-52.0); Hemoglobin 8.7 g/dL (14.0-18.0); Immature Granulocyte Absolute 0.02 K/mm3 (0.00-0.031); Immature Granulocyte Percent A 0.3 % (0-0.5); Lymphocytes Absolute Auto 2.86 K/mm3 (0.9-3.2); Lymphocytes Percent Auto 45.5 % (18.3-44.2); Mean Corpuscular HGB Conc 30.5 g/dl (32-36); Mean Corpuscular Hemoglobin 29.1 pg (26-34); Mean Corpuscular Volume 95.3 fl (80-100); Mean Platelet Volume 10.1 fl (7.4-10.4); Monocytes Absolute Auto 0.7 K/mm3 (0.1-0.6); Monocytes Percent Auto 11.1 % (2.6-8.5); Neutrophils Absolute Auto 2.5 K/mm3 (1.3-6.7); Neutrophils Percent Auto 40.4 % (45.5-73.1); Platelet Count Result 165 k/mm3 (150-375); Red Blood Count 2.99 M/mm3 (4.6-6.20); Red Cell Distribution Width 15.6 % (11.5-14.5); White Blood Count 6.3 K/mm3 (4.5-10.0)
[2024-06-02 09:34] LABS: Alanine Aminotransferase 18 U/L (6-50); Alkaline Phosphatase 87 U/L (38-126); Anion Gap 12 mmol/L (4-12); Aspartate Amino Transferase 21 U/L (17-59); Bilirubin,Total 0.5 mg/dL (0.2-1.3); Blood Urea Nitrogen 25 mg/dL (9-20); Calcium 9.3 mg/dL (8.4-10.2); Carbon Dioxide 22 mmol/L (22-30); Chloride 108 mmol/L (98-107); Estimated CRCL calculation 31 ml/min; Estimated Glomerular Filt Rate 38; Glucose 95 mg/dL (65-110); Sodium 142 mmol/L (137-145)
[2024-06-02 09:36] LABS: INR 1.1; Prothrombin Time 14.6 Seconds (11.1-14.7)
[2024-06-02 09:36] LABS: Bacteria Urine None Seen /hpf; Need Manual Microscopic Reviewed; Non Pathogenic Casts >20; RBC Urine >100 /hpf (0-2); Squamous Epithelial Cell Urine Occasional /hpf (Few)
[2024-06-02 09:37] LABS: Add Urine Microscopic? YES; Appearance Urine Turbid (Clear); Bilirubin Urine Negative (Negative); Blood Urine 3+ (Negative); Glucose Urine UA Negative (Negative); Ketones Urine Negative (Negative); Leukocyte Esterase Ur 1+ LEU/UL (Negative); Nitrate Urine Negative (Negative); Protein Urine 3+ mg/dL (Negative); Specific Grav Ur 1.019 (1.001-1.035); Urobilinogen Urine 0.2 mg/dL (<2.0)
[2024-06-02 09:37] LABS: Partial Thromboplastin Time 31.7 Seconds (22.3-36.8)
[2024-06-02 09:38] LABS: Color Urine Red (Yellow)
[2024-06-02 11:14] VITALS: BP 134/67; PULSE 71; RESP 16; O2SAT 100
--- NOTE | 2024-06-02 11:19 | ED.MALEGU ---
HPI - Male Genitourinary General Chief complaint: Urogenital-Male Stated complaint: hematuria Time Seen by Provider: 06/02/24 09:02 History of Present Illness HPI Narrative: Patient is an 83-year-old male who presents ER with reports hematuria. Ongoing over last 2 days. Was seen in urgent care yesterday and told that he should either come to the ER follow-up with PCP. He decided come in today. No urinary frequency urgency or dysuria. No trauma. Quit smoking 20 years ago. He does take Plavix/aspirin. Related Data Home Medications ?Medication ?Instructions ?Recorded ?Confirmed ?Last Taken ?Type aspirin 81 mg tablet,delayed 81 mg PO DAILY 05/07/19 10/11/21 10/08/21 History release metoprolol tartrate 25 mg tablet 25 mg PO BID 05/07/19 10/11/21 10/10/21 21:00 History rosuvastatin 10 mg tablet 15 mg PO QAM 05/07/19 09/28/21 08/16/21 History clopidogrel 75 mg tablet 75 mg PO DAILY 07/10/20 10/11/21 10/04/21 History acalabrutinib maleate 100 mg mg PO 06/01/24 Unknown History tablet (Calquence (acalabrutinib maleate)) Allergies Allergy/AdvReac Type Severity Reaction Status Date / Time No Known Allergies Allergy Verified 06/01/24 09:31 Review of Systems Review of Systems: All systems reviewed & are unremarkable except as noted in HPI and below Constitutional: Constitutional: Reports no additional constitutional complaints Cardiovascular: Cardiovascular: Reports no additional cardiovascular complaints Respiratory: Respiratory: Reports no additional respiratory complaints Gastrointestinal: Gastrointestinal: Reports no additional gastrointestinal complaints Genitourinary: Genitourinary: Reports no additional male genitourinary complaints [facility] Past Medical History Medical History Coronary artery disease History of inferior STEMI on 12/29/2017. Right coronary was totally occluded and was revascularized with a drug-eluting stent. He also had high-grade stenosis of the mid LAD, which was not intervened upon. GERD (gastroesophageal reflux disease) Hyperlipidemia Hypertension Non-Hodgkin lymphoma Large B-cell lymphoma treated in 2016 at [place]. Osteoarthritis Paroxysmal atrial fibrillation Seasonal rhinitis Surgical History Surgical History History of bilateral carpal tunnel release History of coronary artery stent placement Drug-eluting stent to the right coronary artery 12/29/2017. History of lumbar fusion History of surgery on arm Left arm ORIF. History of total replacement of both shoulder joints Status post arthroscopy of left knee Status post bilateral total hip replacement Status post cataract extraction Status post total right knee replacement Family History Family History Father Hypertension Mother Acute myocardial infarction Social History Social History Social History: The patient has been since 2016 after his from lung cancer. He has 1 daughter and 2 sons. He designates his [id number] Karen as his surrogate decision maker and he wishes to be a full code. He smoked up to 2 packs of cigarettes per day for 45 years and quit 1999. He denies alcohol and drug use. 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 Smoking packs per day: 2 Smoking cigarettes per day: 40.0 Years smoked: 45 Smoking pack-years: 90.00 Smoking status: Former smoker Tobacco type: cigarettes Second hand tobacco smoke exposure: No Smoking end date: 10/01/01 Alcohol intake: never Alcohol use details: HEAVIER DRINKER IN PAST Substance use: never Living arrangements: alone Gender identity (if verbalized by the patient): Male Sexual Orientation (if Verbalized by the Patient): Straight or Heterosexual Spiritual care concerns: No Agree to blood products: Yes Exam Narrative: GENERAL: Well-appearing, well-nourished, and in no acute distress. HEAD: Normocephalic, atraumatic. ENT: Mucous membranes moist. CHEST: Clear to auscultation. No respiratory distress. HEART: Regular rate and rhythm. Normal peripheral pulses. ABDOMEN: Soft, nontender, nondistended. EXTREMITIES: Normal range of motion. No edema. SKIN: Warm, dry, no rash. NEURO: Alert and oriented x3. PSYCH: Normal mood and affect. Course Course Emergency Course: Urine at the bedside has a pink tend but is not yang blood. Mild anemia the patient reports is chronic. Discussed with urology. Appropriate for outpatient follow-up. Will place on antibiotic for possibility of mild infection. Vital Signs Vital signs: Vital Signs Temperature 97.9 F 06/02/24 08:52 Pulse Rate 65 06/02/24 08:52 Respiratory Rate 16 06/02/24 08:52 Blood Pressure 137/70 06/02/24 08:52 Pulse Oximetry 97 06/02/24 08:52 Oxygen Delivery Room Air 06/02/24 08:52 Temperature 97.8 F 06/02/24 09:16 Pulse Rate 71 06/02/24 11:14 Respiratory Rate 16 06/02/24 11:14 Blood Pressure 134/67 06/02/24 11:14 Pulse Oximetry 100 06/02/24 11:14 Oxygen Delivery Room Air 06/02/24 08:52 MDM - Male Genitourinary Lab Data 06/02/24 09:10 06/02/24 09:10 Labs: Lab Results 06/02/24 06/02/24 Range/Units 09:10 09:15 WBC 6.3 (4.5-10.0) K/mm3 RBC 2.99 L (4.6-6.20) M/mm3 Hgb 8.7 L (14.0-18.0) g/dL Hct 28.5 L (42.0-52.0) % MCV 95.3 (80-100) fl MCH 29.1 (26-34) pg MCHC 30.5 L (32-36) g/dl RDW 15.6 H (11.5-14.5) % Plt Count 165 (150-375) k/mm3 MPV 10.1 (7.4-10.4) fl Immature Gran % (Auto) 0.3 (0-0.5) % Neut % (Auto) 40.4 L (45.5-73.1) % Lymph % (Auto) 45.5 H (18.3-44.2) % [place] % (Auto) 11.1 H (2.6-8.5) % Eos % (Auto) 2.2 (0-4.4) % Baso % (Auto) 0.5 (0.2-1.2) % Lymph # (Auto) 2.86 (0.9-3.2) K/mm3 [place] # (Auto) 0.7 H (0.1-0.6) K/mm3 Eos # (Auto) 0.1 (0-0.3) K/mm3 Baso # (Auto) 0.0 (0.0-0.1) K/mm3 Abs Immat Gran (auto) 0.02 (0.00-0.031) K/mm3 Absolute Neuts (auto) 2.5 (1.3-6.7) K/mm3 Absolute Nucleated RBC 0.000 (0.0-0.012) K/mm3 Nucleated RBC % 0.0 (0.0-0.2) % PT 14.6 (11.1-14.7) Seconds INR 1.1 APTT 31.7 (22.3-36.8) Seconds Sodium 142 (137-145) mmol/L Potassium 4.0 (3.4-5.0) mmol/L Chloride 108 H (98-107) mmol/L Carbon Dioxide 22 (22-30) mmol/L Anion Gap 12 (4-12) mmol/L BUN 25 H D (9-20) mg/dL Creatinine 1.73 H (0.7-1.3) mg/dL Estim Creat Clear Calc 31 ml/min Estimated GFR 38 L (59 - ) Glucose 95 (65-110) mg/dL Calcium 9.3 (8.4-10.2) mg/dL Total Bilirubin 0.5 (0.2-1.3) mg/dL AST 21 (17-59) U/L ALT 18 (6-50) U/L Alkaline Phosphatase 87 (38-126) U/L Total Protein 7.0 (6.3-8.2) g/dL Albumin 4.0 (3.5-5.1) g/dL Urine Color Red H (Yellow) Urine Appearance Turbid H (Clear) Urine pH 5.0 (5.0-9.0) Ur Specific [place] 1.019 (1.001-1.035) Urine Protein 3+ H (Negative) mg/dL Urine Glucose (UA) Negative (Negative) mg/dL Urine Ketones Negative (Negative) mg/dL Ur Blood (Man) 3+ H (Negative) Urine Nitrate Negative (Negative) Urine Bilirubin Negative (Negative) Urine Urobilinogen 0.2 (<2.0) mg/dL Add Ur Microanalysis Reviewed Leukocyte Esterase Rfl 1+ H (Negative) MANDEEP/UL Urine RBC >100 H (0-2) /hpf Urine WBC 11-20 H (0-3) /hpf Ur Squamous Epith Cells Occasional (Few) /hpf Urine Bacteria None seen /hpf Urine Casts >20 Imaging Data Radiologist's impression: ITS Impressions Abdomen/Pelvis CT 06/02/24 09:47 Impression: No etiology for hematuria identified. Urinary bladder and distal ureters are somewhat poorly evaluated due to extensive streak artifact in the pelvis from bilateral hip arthroplasty. Moderate pericardial effusion. Discharge Plan Discharge Clinical Impression: Hematuria Patient Disposition: Home, Self-Care Condition: Stable Instructions: Antibiotic Form, Hematuria (ED) Additional Instructions: Your passing blood in your urine. You need to follow-up with a urologist. Start an antibiotic in case there is mild infection. Return the ER if you are unable to urinate, you have lower abdominal pain, or you have additional concerns. Patient Language: Comoran Prescriptions: New cefuroxime axetil 500 mg tablet 500 mg PO BID Qty: 20 0RF No Action Calquence (acalabrutinib mal) 100 mg tablet PO aspirin 81 mg Tablet,Delayed Release (Dr/Ec) 81 mg PO DAILY rosuvastatin 10 mg Tablet 15 mg PO QAM metoprolol tartrate 25 mg Tablet 25 mg PO BID clopidogrel 75 mg tablet 75 mg PO DAILY Follow-up/Referrals: Dwayne Burns MD [Physician] - 1 Week
== END 2024-06-02 12:00 | disposition home or self-care (01) ==
PROVIDERS: Emergency Provider Emergency Medicine; PCP Internal Medicine
DX: R31.9 Hematuria, unspecified (principal); I25.10 Atherosclerotic heart disease of native coronary artery without angina pectoris; I25.2 Old myocardial infarction; I10 Essential (primary) hypertension; I48.0 Paroxysmal atrial fibrillation; E78.5 Hyperlipidemia, unspecified; D64.9 Anemia, unspecified; M19.90 Unspecified osteoarthritis, unspecified site; K21.9 Gastro-esophageal reflux disease without esophagitis; Z98.1 Arthrodesis status; Z95.5 Presence of coronary angioplasty implant and graft; Z96.612 Presence of left artificial shoulder joint; Z96.611 Presence of right artificial shoulder joint; Z96.643 Presence of artificial hip joint, bilateral; Z96.651 Presence of right artificial knee joint; Z85.72 Personal history of non-Hodgkin lymphomas; Z87.891 Personal history of nicotine dependence; Z98.49 Cataract extraction status, unspecified eye; Z79.82 Long term (current) use of aspirin; Z79.02 Long term (current) use of antithrombotics/antiplatelets; Z79.899 Other long term (current) drug therapy; I31.39 Other pericardial effusion (noninflammatory)
CPT/HCPCS: 36415; 74176; 80053; 81001; 85025; 85610; 85730; 87086; 99284

== ENCOUNTER 2024-07-30 00:35 | Day surgery (SDC) | payer MEDICARE, OTHER, SELFPAY ==
[2024-07-18 09:23] VITALS: BMI 26.6
--- NOTE | 2024-07-18 09:39 | PC.NURSE ---
Spoke with patient regarding medication Plavix. Patient verbalizes understanding that the last dose is to be taken on 07/24/2024 and the Endoscopist will instruct them when to restart after the procedure.
--- NOTE | 2024-07-29 14:31 | WPDANESEPPF ---
Anes - Initial Pre Proc Eval Procedure: Operation Date: 07/30/24 09:30 Proposed Procedures p Screening Colonoscopy - Glenroy Lauren DO Date/Time: 07/29/24 14:31 Surgeon: Glenroy Lauren DO Pre Op Diagnosis: Screening for malignant neoplasm of colon Patient Data Age: 83 Gender: M Height: 1.75 m Weight: 81.7 kg Allergies Allergy/AdvReac Type Severity Reaction Status Date / Time No Known Allergies Allergy Verified 07/30/24 08:27 Home Medications ?Medication ?Instructions ?Recorded ?Confirmed ?Type metoprolol tartrate 25 mg tablet 25 mg PO BID 05/07/19 07/30/24 History clopidogrel 75 mg tablet 75 mg PO DAILY 07/10/20 07/30/24 History acalabrutinib maleate 100 mg 100 mg PO DAILY 06/01/24 07/30/24 History tablet (Calquence (acalabrutinib maleate)) Vitamin B12 PO 07/24/24 07/24/24 History rosuvastatin 10 mg tablet 10 mg PO QAM 07/24/24 07/30/24 History Patient hx anesthesia problems: none Family hx anesthesia problems: none Results Review: All pre-operative results and documents have been reviewed as part of the pre-operative evaluation. [facility] Past Medical History Medical History Seasonal rhinitis GERD (gastroesophageal reflux disease) Paroxysmal atrial fibrillation Hypertension Non-Hodgkin lymphoma Large B-cell lymphoma treated in 2016 at [place]. Coronary artery disease History of inferior STEMI on 12/29/2017. Right coronary was totally occluded and was revascularized with a drug-eluting stent. He also had high-grade stenosis of the mid LAD, which was not intervened upon. Osteoarthritis Hyperlipidemia Surgical History Surgical History History of lumbar fusion History of surgery on arm Left arm ORIF. Status post total right knee replacement Status post bilateral total hip replacement History of total replacement of both shoulder joints Status post arthroscopy of left knee History of bilateral carpal tunnel release Status post cataract extraction History of coronary artery stent placement Drug-eluting stent to the right coronary artery 12/29/2017. Family History Family History Father Hypertension Mother Acute myocardial infarction Social History Social History (Updated 07/24/24 @ 13:35 by Estephania [place] [facility]) Social History: The patient has been since 2016 after his from lung cancer. He has 1 daughter and 2 sons. He designates his [id number]-zv-fct Karen as his surrogate decision maker and he wishes to be a full code. He smoked up to 2 packs of cigarettes per day for 45 years and quit 1999. He denies alcohol and drug use. 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 Smoking packs per day: 2 Smoking cigarettes per day: 40.0 Years smoked: 45 Smoking pack-years: 90.00 Smoking status: Former smoker Tobacco type: cigarettes Second hand tobacco smoke exposure: No Smoking end date: 10/01/01 Alcohol intake: never Alcohol use details: HEAVIER DRINKER IN PAST Substance use: never Substance use type: does not use Current Housing: Decline to Answer Concerned About Future Housing: Decline to Answer Difficulty Paying Gas/Electric Bills: Decline to Answer Difficulty Paying for Meds: Decline to Answer Currently Unemployed: Decline to Answer Education: Decline to Answer Difficulty w/ Childcare or Family Care: Decline to Answer Living arrangements: alone Gender identity (if verbalized by the patient): Male Sexual Orientation (if Verbalized by the Patient): Straight or Heterosexual Spiritual care concerns: No Agree to blood products: Yes Anes - Eval Final PreProcedure Day of Procedure 07/29/24 14:31 Patient weight: overweight Heart: regular rate and rhythm Lungs: clear to auscultation Airway: Mallampati scale class II Neurological: alert and oriented Last oral intake: >/= 8 hours ASA classification: III Emergent: no Anesthetic plan: proceed Anesthesia type and monitoring: general GIVS and standard monitoring Results Review: All pre-operative results and documents have been reviewed as part of the pre-operative evaluation. Informed Consent: The patient's anesthetic plan and its attendant risks and benefits were discussed with the patient/family/POA. Questions were solicited and answers provided to the satisfaction of the patient/family/POA.
--- OUTSIDE RECORDS SUMMARY | 2024-07-30 00:42 | XMS_ITS | Referral Summary ---
Author Organization [facility] Address [address] [place] [address] Care Team Providers Care Manager [employer] Name Role Phone Katia Fraser MD Primary Care Provider Encounters Date Type Department Care Team Description 07/11/[address] [facility] Gastroenterology at [address] [place] [address] Joaquina Courtney 07/10/[address] [facility] Gastroenterology at [address] [place] [address] Joaquina Courtney 06/17/2024 2:30 PM CDT Lab [facility] - Lab Collection [facility] [address] [place] [address] B12 deficiency; Iron deficiency anemia, unspecified iron deficiency anemia type; CLL (chronic lymphocytic leukemia) (HCC) 06/17/2024 2:15 PM CDT Lab [facility]0 [facility] 6 [place] [address] 06/17/2024 3:15 PM CDT Office Visit [facility] [address] [place] [address] 6 [place] [address] Marcy Hopkins MD B12 deficiency (Primary Dx); Iron deficiency anemia, unspecified iron deficiency anemia type; CLL (chronic lymphocytic leukemia) (HCC) 06/07/2024 Telephone [facility] [address] [place] [address] 6 [place] [address] Chani Clark RN 05/24/2024 Orders Only [facility] [address] [facility] Floor 6 [place] [address] Chani Clark RN CLL (chronic lymphocytic leukemia) (HCC) (Primary Dx); Anemia, unspecified type from Last 3 Months Allergies Active Allergy Reactions Criticality Noted Date Comments Haris Inhibitors Cough Low Medications levocetirizine (XYZAL) 5 mg tablet Take 1 tablet (5 mg total) by mouth nightly 4 Active acalabrutinib maleate (CALQUENCE) 100 mg tabletIndication s:Chronic Lymphocytic Leukemia Take 1 tablet (100 mg total) by mouth daily Swallow whole with water and with or without food 30 tablet 11 4 Active torsemide (DEMADEX) 10 mg tablet Take 1 tablet (10 mg total) by mouth daily 90 tablet 3 4 02/07/20 25 Active ferrous sulfate 325 mg (65 mg of elemental iron) tabletIndication s:Iron Deficiency Anemia Take 1 tablet (325 mg total) by mouth daily with breakfast 30 tablet 2 5 Active metoprolol tartrate (LOPRESSOR) 25 mg immediate release tablet Take 1 tablet by mouth twice daily 180 tablet 5 Active rosuvastatin (CRESTOR) 10 mg tablet Take 1 tablet by mouth once daily 90 tablet 5 Active clopidogreL (PLAVIX) 75 mg tablet TAKE 1 TABLET BY MOUTH ONCE DAILY IN THE MORNING 90 tablet 5 Active cyanocobalamin (Vitamin B-12) 1,000 mcg sublingual tabletIndication s:B12 deficiency Take 1 tablet (1,000 mcg total) by mouth daily 30 tablet 2 5 Active Active Problems Problem Noted Date Diagnosed Date History of colonic polyps 07/10/2024 Chronic diastolic heart failure 08/07/2023 CAD S/P percutaneous coronary angioplasty 2022 Preop cardiovascular exam 10/24/2022 Visit for wound check 04/02/2018 Coronary artery disease invo lving [place] coronary artery of [place] heart without angina pectoris 02/19/2018 Assessment & Plan (02/25/2018 1:56 PM [facility] At this time continue aspirin, Brilinta. Continue metoprolol. Patient has mid LAD stenosis that I will order a stress test to assess the significance of this stenosis. 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 I will increase Crestor from 5 mg to 10 mg daily. DLBCL (diffuse large B cell lymphoma) 11/23/2015 Hypertension 08/17/2013 Overview (07/07/2016): HYPERTENSION NOS Assessment & Plan (02/25/2018 1:57 PM [facility] Blood pressure controlled. Continue current treatment Insomnia 08/17/2013 Overview (07/07/2016): INSOMNIA NEC Hyperlipidemia 08/17/2013 Overview (07/09/2016): HYPERLIPIDEMIA NEC/NOS Depression 08/17/2013 Overview (07/09/2016): DEPRESSIVE DISORDER NEC Resolved Problems Problem Noted Date Diagnosed Date Resolved Date Preoperative cardiovascular examination 12/10/2018 11/22/2021 Immunizations Immunization Administration Dates Next Due Influenza, Quadrivalent, Split, Intramuscular Influenza, Quadrivalent, Spl it, Preservative Free, Intramuscular 01/01/2015 Influenza, Split 02/21/2013 Influenza, Trivalent, High D ose, Split, Preservative Free, Intramuscular 01/12/2019,01/01/2014 Influenza, Trivalent, Preservative Free, Intramu scular 02/21/2013 Influenza, Unspecified 01/06/2017 Pneumococcal Polysaccharide PPV23 04/12/2010 Tdap 05/04/2014 Social History Tobacco Use Types Packs/Day Years Used Date Smoking Tobacco: Former Cigarettes Q uit: 02/20/2000 Passive Smoke Exposure: Past Smokeless Tobacco: Former Tobacco Cessation:Counseling Given: Not Answered Comments:Smoking History Packs/day: 1 Cigarettes Alcohol Use Standard Drinks/Week Comments Yes 1 (1 standard drink = 0.6 oz pur e alcohol) occassionally AUDIT-C Answer Date Recorded Q1: How often do you have a drink containing alc ohol? Monthly or less 11/22/2022 Q2: How many drinks containi ng alcohol do you have on a typical day when you are drinking? 1 or 2 11/22/2022 Q3: How often do you have si x or more drinks on one occasion? Never 11/22/2022 Personal Safety Answer Date Recorded Have you ever been in or are you currently in a harmful physical or emotional relationship or is someone making you feel afraid or unsafe? Denies 05/23/2023 Sex and Gender Information Value Date Recorded Sex Assigned at Not on file Legal Sex Male 11:33 PM [facility] Gender Identity Male 07/19/2023 9:40 PM CDT Sexual Orientation Straight 07/19/2023 9: 40 PM CDT Last Filed Vital Signs Vital Sign Reading Time Taken Comments Blood Pressure 122/61 06/17/2024 2:45 PM CDT Pulse 73 06/17/2024 2:45 PM CDT Temperature 36.3 C (97.3 F) 06/17/2024 2:45 PM CDT Respiratory Rate 18 12/08/2023 10:51 AM CDT Oxygen Saturation 97% 06/17/2024 2:45 PM CDT Inhaled Oxygen Concentration - - Weight 85.3 kg (188 lb) 06/17/2024 2:45 PM CDT Height 171.2 cm (5' 7.4 ) 06/17/2024 2:45 PM CDT Body Mass Index 29.1 06/17/2024 2:45 PM CDT Plan of Treatment Not on file Medical Devices Implanted Type Area Bench Mechanic Device Identifier Shelf Expiration Date Model / Serial / Lot [employer] Jose Synergy Xd Monorail 3.5mm 24mm 144cm Delivery System 1 Access [id number] - [id number] Implanted:Qty: 1 on 11/22/2022 by Renetta Bai MD at [employer] 12/16/2023 [id number] / / [id number] [employer] Device Vascular Closure Femoral Artery Bioabsorbable Dual Method Vascade 6-7fr Collagen [id number] - [id number] Implanted:Qty: 1 on 11/22/2022 by Renetta Bai MD at [employer] 07/11/2024 [id number] / / [id number] Procedures Procedure Name Priority Date/Time Associated Diagnosis Comments LACTATE DEHYDROGENASE Routine 07/15/2024 1:23 PM CDT CLL (chronic lymphocytic leukemia) (HCC) CBC WITH AUTO DIFFERENTIAL Routine 07/15/2024 1:23 PM CDT CLL (chronic lymphocytic leukemia) (HCC) COMPREHENSIVE METABOLIC PANEL Routine 07/15/2024 1:23 PM CDT CLL (chronic lymphocytic leukemia) (HCC) EGFR Routine 06/17/2024 2:31 PM CDT CLL (chronic lymphocytic leukemia) (HCC) DIFFERENTIAL AUTO Routine 06/17/2024 2:3 1 PM CDT CLL (chronic lymphocytic leukemia) (HCC) CBC WITH AUTO DIFFERENTIAL Routine 06/17/2024 2:31 PM CDT CLL (chronic lymphocytic leukemia) (HCC) LACTATE DEHYDROGENASE Routine 06/17/2024 2:31 PM CDT CLL (chronic lymphocytic leukemia) (HCC) RETICULOCYTES Routine 06/17/2024 2:31 PM CDT CLL (chronic lymphocytic leukemia) (HCC) COMPREHENSIVE METABOLIC PANEL Routine 06/17/2024 2:31 PM CDT CLL (chronic lymphocytic leukemia) (HCC) VITAMIN B12 Routine 06/17/2024 2:31 PM CDT Iron deficiency anemia, unspecified iron deficiency anemia type IRON PROFILE W/ IBC Routine 06/17/2024 2 :31 PM CDT B12 deficiency FERRITIN Routine 06/17/2024 2:31 PM CDT B12 deficiency VITAMIN B12 Routine 05/27/2024 10:22 AM [facility] Anemia, unspecified type FOLATE Routine 05/27/2024 10:22 AM [facility] Anemia, unspecified type FERRITIN Routine 05/27/2024 10:22 AM [facility] Anemia, unspecified type RETICULOCYTES Routine 05/27/2024 10:22 AM [facility] Anemia, unspecified type IRON PROFILE W/ IBC Routine 05/27/2024 1 0:22 AM [facility] Anemia, unspecified type CBC WITH AUTO DIFFERENTIAL Routine 05/27/2024 10:22 AM [facility] Anemia, unspecified type COMPREHENSIVE METABOLIC PANEL Routine 05/16/2024 12:49 PM [facility] CLL (chronic lymphocytic leukemia) (HCC) CBC WITH AUTO DIFFERENTIAL Routine 05/16/2024 12:48 PM [facility] CLL (chronic lymphocytic leukemia) (HCC) LACTATE DEHYDROGENASE Routine 05/16/2024 12:46 PM [facility] CLL (chronic lymphocytic leukemia) (HCC) CT CHEST ABDOMEN PELVIS W CONTRAST Schedule Routine, Read Routine (OP Routine) 08/11/2023 9:41 AM CDT Diffuse large B-cell lymphoma, unspecified body region (HCC) from Last 3 Months or Most Recently Relevant to Health Maintenance Results * (ABNORMAL) CBC with auto differential (07/15/2024 1:23 PM CDT) Pathologist [facility] WBC 7.1 3.8 - 10.8 Thousand/u L [facility] RBC, POC 3.57(L) 4.20 - 5.80 Million/uL [facility] Hgb 10.7(L) 13.2 - 17.1 g/dL [facility] Hct 33.8(L) 38.5 - 50.0 % [facility] MCV 94.7 80.0 - 100.0 fL [facility] MCH 30.0 27.0 - 33.0 pg [facility] MCHC 31.7(L) 32.0 - 36.0 g/dL [facility] Comment: For adults, a slight decrease in the calculated MCHC value (in the range of 30 to 32 g/dL) is most likely not clinically significant; however, it should be interpreted with caution in correlation with other red cell parameters and the patient's clinical condition. Rdw 14.5 11.0 - 15.0 % [facility] Platelets 212 140 - 400 Thousand/u L [facility] MPV 10.7 7.5 - 12.5 fL [facility] Neutrophils, abs 3,522 1,500 - 7,800 cells/uL [facility] Lymphocytes, abs 2,840 850 - 3,900 cells/uL [facility] Monocyte abs 582 200 - 950 cells/uL [facility] Eosinophils, abs 128 15 - 500 cells/uL [facility] Basophils, abs 28 0 - 200 cells/uL [facility] Neutrophils 49.6 % [facility] Lymphocyte pct 40.0 % [facility] Monocytes 8.2 % [facility] Eosinophils 1.8 % [facility] Basophils 0.4 % [facility] Blood 07/15/2024 1:23 PM CDT 07/15/2024 1:23 PM CDT Narrative [facility] - 07/16/2024 7:31 AM CDT FASTING:NO FASTING: NO Marcy Hopkins MD LAB BLOOD ORDERABLES Final Result [facility] [address] [place] [address] * Lactate dehydrogenase (LD) (07/15/2024 1:23 PM CDT) Lactate dehydrogenase (LDH) 175 120 - 250 U/L [facility] Blood 07/15/2024 1:23 PM CDT 07/15/2024 1:23 PM CDT Narrative [facility] - 07/16/2024 7:31 AM CDT FASTING:NO FASTING: NO Marcy Hopkins MD LAB BLOOD ORDERABLES Final Result [facility] [address] [place] [address] * (ABNORMAL) Comprehensive metabolic panel (07/15/2024 1:23 PM CDT) Pathologist [facility] Glucose 154(H) 65 - 139 mg/dL [facility] Comment: Non-fasting reference interval BUN 21 7 - 25 mg/dL [facility] Creatinine 1.81(H) 0.70 - 1.22 mg/dL [facility] eGFR 37(L) > OR = 60 mL/min/1.7 3m2 [facility] BUN/creat ratio 12 6 - 22 (calc) [facility] Sodium 140 135 - 146 mmol/L [facility] Potassium, pl 3.8 3.5 - 5.3 mmol/L [facility] Chloride 109 98 - 110 mmol/L [facility] CO2 23 20 - 32 mmol/L [facility] Calcium 9.1 8.6 - 10.3 mg/dL [facility] Protein, sr 6.4 6.1 - 8.1 g/dL [facility] Albumin 4.1 3.6 - 5.1 g/dL [facility] GLOBULIN 2.3 1.9 - 3.7 g/dL (calc) [facility] Alb/glob ratio 1.8 1.0 - 2.5 (calc) [facility] Bilirubin, total 0.4 0.2 - 1.2 mg/dL [facility] Alk phos 92 35 - 144 U/L [facility] AST 18 10 - 35 U/L [facility] ALT (SGPT) 19 9 - 46 U/L [facility] Blood 07/15/2024 1:23 PM CDT 07/15/2024 1:23 PM CDT Narrative [facility] - 07/16/2024 7:31 AM CDT FASTING:NO FASTING: NO Marcy Hopkins MD LAB BLOOD ORDERABLES Final Result [facility] [address] [place] [address] * (ABNORMAL) eGFR (06/17/2024 2:31 PM CDT) eGFR 42(L) >=60 mL/min/1. 73 m2 Comment: Interpretive Data Reference Interval Normal >/= 90 mL/min/1.73m2 Mildly decreased* 60 - 89 mL/min/1.73m2 Mildly to moderately decreased 45 - 59 mL/min/1.73m2 Moderately to severely decreased 30 - 44 mL/min/1.73m2 Severely decreased 15 - 29 mL/min/1.73m2 Kidney Failure < 15 mL/min/1.73m2 *Relative to young adult level Estimated glomerular filtration rate is determined by the 2020 CKD-EPI equation recommended by the National Kidney Foundation (A Unifying Approach to GFR Estimation: Recommendations of the NKF-ASK Task Force on Reassessing the Inclusion of Race in Diagnosing Kidney Disease, JASN 2020). The CKD-EPI equation should not be used for patients with unstable renal function and has not been validated in children and those over 70. Current interpretive data was last reviewed 2021. Blood 06/17/2024 2:31 PM CDT 06/17/2024 2:47 PM CDT Marcy Hopkins MD LAB BLOOD ORDERABLES Final Result [facility] [place] [address] * Differential, auto (06/17/2024 2:31 PM CDT) Neutrophil abs 2.8 1.5 - 6.5 K/cumm Comment:Testing performed by : [facility], [address] [place] [address], [place] [phone] Lymphocyte abs 2.5 0.8 - 3.3 K/cumm [facility] Comment:Testing performed by : [facility], [facility] [place] [address] Monocyte abs 0.6 0.2 - 0.8 K/cumm [facility] Comment:Testing performed by : [facility], [address] [place] [phone] Eosinophil abs 0.1 0.0 - 0.5 K/cumm [facility] Comment:Testing performed by : [facility], [address] [place] [phone] Basophil abs 0.0 0.0 - 0.1 K/cumm [facility] Comment:Testing performed by : [facility], [address] [place] [phone] Neutrophil pct 45.2 % [facility] Comment: Interpretive Data Percent cell count reference ranges are not reported, since discordance with absolute values may lead to misinterpretation of CBC data. Current Interpretive Data was last revised on 2017. Testing performed by: [facility], [address] [place] [phone] Lymphocyte pct 41.7 % [facility] Comment: Interpretive Data Percent cell count reference ranges are not reported, since discordance with absolute values may lead to misinterpretation of CBC data. Current Interpretive Data was last revised on 2017. Testing performed by: [facility], [address] [place] [phone] Monocyte pct 10.6 % [facility] Comment: Interpretive Data Percent cell count reference ranges are not reported, since discordance with absolute values may lead to misinterpretation of CBC data. Current Interpretive Data was last revised on 2017. Testing performed by: [facility], [address] [place] [phone] Eosinophil pct 2.0 % [facility] Comment: Interpretive Data Percent cell count reference ranges are not reported, since discordance with absolute values may lead to misinterpretation of CBC data. Current Interpretive Data was last revised on 2017. Testing performed by: [facility], [address] [place] [phone] Basophil pct 0.5 % [facility] Comment: Interpretive Data Percent cell count reference ranges are not reported, since discordance with absolute values may lead to misinterpretation of CBC data. Current Interpretive Data was last revised on 2017. Testing performed by: [facility], [address] [place] [phone] Blood 06/17/2024 2:31 PM CDT 06/17/2024 2:44 PM CDT Marcy Hopkins MD LAB BLOOD ORDERABLES Final Result [facility] [place] [address] * (ABNORMAL) Iron profile w/ IBC (06/17/2024 2:31 PM CDT) Pathologist [facility] Iron 165(H) 50 - 150 mcg/dL TIBC 321 250 - 400 mcg/dL [facility] Transferrin saturation 51(H) 20 - 50 % [facility] Blood 06/17/2024 2:31 PM CDT 06/17/2024 2:47 PM CDT Marcy Hopkins MD LAB BLOOD ORDERABLES Final Result Performing Organization Address City/[facility]/ZIP Co de Phone Number [facility] [place] [address] * (ABNORMAL) CBC with auto differential (06/17/2024 2:31 PM CDT) WBC 6.1 3.8 - 9.9 K/cumm Comment:Testing performed by : [facility], [address] [place] [phone] Hgb 10.0(L) 13.0 - 17.5 g/dL [facility] Comment:Testing performed by : [facility], [address] [place] [phone] Hct 30.5(L) 38.9 - 50.3 % [facility] Comment:Testing performed by : [facility], [address] [place], [place] [phone] Plt 170 150 - 400 K/cumm [facility] Comment:Testing performed by : [facility], [address] [place], [place] [phone] MPV 8.1 6.8 - 10.4 fL [facility] Comment:Testing performed by : [facility], [address] [place], [place] [phone] RBC 3.35(L) 4.30 - 5.80 M/cumm [facility] Comment:Testing performed by : [facility], [address] [place], [place] [phone] MCV 91.0 81.3 - 96.4 fL [facility] Comment:Testing performed by : [facility], [address] [place], [place] [phone] MCH 29.9 27.1 - 33.3 pg [facility] Comment:Testing performed by : [facility], [address] [place], [place] [phone] MCHC 32.9 32.3 - 35.7 g/dL [facility] Comment:Testing performed by : [facility], [address] [place], [place] [phone] RDW CV 17.3(H) 11.1 - 14.9 % [facility] Comment:Testing performed by : [facility], [address] [place], [place] [phone] NRBC abs 0.00 0.00 - 0.01 K/cumm [facility] Comment:Testing performed by : [facility], [address] [place], [place] [phone] Blood 06/17/2024 2:31 PM CDT 06/17/2024 2:44 PM CDT us Marcy Hopkins MD LAB BLOOD [place] [address] * (ABNORMAL) Reticulocyte Count (06/17/2024 2:31 PM CDT) [facility] Retics, absolute 0.097 0.020 - 0.100 M/cumm Comment:Testing performed by : [facility], [address] [place] [phone] Retics 2.9(H) 0.5 - 1.8 % [facility] Comment:Testing performed by : [facility], [address] [place] [phone] Blood 06/17/2024 2:31 PM CDT 06/17/2024 2:44 PM CDT us Marcy Hopkins MD LAB BLOOD [place] [address] * Lactate dehydrogenase (LD) (06/17/2024 2:31 PM CDT) [facility] Lactate dehydrogenase (LDH) 208 100 - 250 Units/L Blood 06/17/2024 2:31 PM CDT 06/17/2024 2:47 PM CDT us Marcy Hopkins MD LAB BLOOD [place] [address] * Ferritin (06/17/2024 2:31 PM CDT) [facility] Ferritin 78 30 - 400 ng/mL Blood 06/17/2024 2:31 PM CDT 06/17/2024 2:47 PM CDT us Marcy Hopkins MD LAB BLOOD ORDERABLES Final Result [facility] Department [place] [address] * Vitamin B12 (06/17/2024 2:31 PM CDT) [facility] Vitamin B12 549 230 - 1,250 pg/mL Blood 06/17/2024 2:31 PM CDT 06/17/2024 3:08 PM CDT Marcy Hopkins MD LAB BLOOD ORDERABLES Final Result Performing Organization Address [facility] Co de Phone Number [facility] Department [place] [address] * (ABNORMAL) Comprehensive metabolic panel (06/17/2024 2:31 PM CDT) [facility] Sodium 142 135 - 145 mmol/L Potassium, pl 4.0 3.3 - 4.9 mmol/L [facility] Chloride 109 97 - 110 mmol/L [facility] CO2 24 22 - 32 mmol/L [facility] Anion gap 9 2 - 15 mmol/L [facility] BUN 20 6 - 25 mg/dL [facility] Creatinine 1.64(H) 0.80 - 1.30 mg/dL [facility] Glucose 93 70 - 199 mg/dL [facility] Comment: Interpretive Data Fasting glucose >/= 126 mg/dl is diagnostic for diabetes. Fasting is defined as no caloric intake for at least 8 hours. Fasting glucose between 100 mg/dl to 125 mg/dl is diagnostic of prediabetes. In a patient with classic symptoms of hyperglycemia or hyperglycemic crisis, a random glucose >/= 200 mg/dl is diagnostic for diabetes. In the absence of unequivocal hyperglycemia, results should be confirmed by repeat testing. The classification and Diagnosis of Diabetes Diabetes Care 2021; 46: S19-S40. Current interpretive data was last revised 2022. Calcium 9.9 8.5 - 10.3 mg/dL [facility] Bilirubin, total 0.3 0.1 - 1.2 mg/dL [facility] Protein, pl 7.4 6.5 - 8.5 g/dL [facility] Albumin 4.3 3.5 - 5.0 g/dL [facility] Alk phos 102 40 - 130 Units/L [facility] ALT 18 7 - 55 Units/L [facility] AST 23 10 - 50 Units/L [facility] Blood 06/17/2024 2:31 PM CDT 06/17/2024 2:47 PM CDT aMrcy Hopkins MD LAB BLOOD ORDERABLES Final Result Performing Organization Address City/[facility]/ZIP Co de Phone Number [facility] Department [place] [address] * (ABNORMAL) Iron profile w/ IBC (05/27/2024 10:22 AM [facility]) Pathologist [facility] Iron 46(L) 50 - 180 mcg/dL [facility] TIBC 356 250 - 425 mcg/dL (calc) [facility] Iron saturation 13(L) 20 - 48 % (calc) [facility] Blood 05/27/2024 10:2 2 AM [facility] 05/27/2024 10:22 AM [facility] Narrative [facility] - 05/28/2024 6:11 AM [facility] FASTING:NO FASTING: NO Marcy Hopkins MD LAB BLOOD ORDERABLES Final Result [facility] [address] [place] [address] * (ABNORMAL) CBC with auto differential (05/27/2024 10:22 AM [facility]) Pathologist [facility] WBC 5.9 3.8 - 10.8 Thousand/u L [facility] RBC, POC 3.05(L) 4.20 - 5.80 Million/uL [facility] Hgb 8.9(L) 13.2 - 17.1 g/dL [facility] Hct 28.6(L) 38.5 - 50.0 % [facility] MCV 93.8 80.0 - 100.0 fL [facility] MCH 29.2 27.0 - 33.0 pg [facility] MCHC 31.1(L) 32.0 - 36.0 g/dL [facility] Comment: For adults, a slight decrease in the calculated MCHC value (in the range of 30 to 32 g/dL) is most likely not clinically significant; however, it should be interpreted with caution in correlation with other red cell parameters and the patient's clinical condition. Rdw 13.8 11.0 - 15.0 % [facility] Platelets 164 140 - 400 Thousand/u L [facility] MPV 10.5 7.5 - 12.5 fL [facility] Neutrophils, abs 2,496 1,500 - 7,800 cells/uL [facility] Lymphocytes, abs 2,572 850 - 3,900 cells/uL [facility] Monocyte abs 667 200 - 950 cells/uL [facility] Eosinophils, abs 148 15 - 500 cells/uL [facility] Basophils, abs 18 0 - 200 cells/uL [facility] Neutrophils 42.3 % [facility] Lymphocyte pct 43.6 % [facility] Monocytes 11.3 % [facility] Eosinophils 2.5 % [facility] Basophils 0.3 % [facility] Blood 05/27/2024 10:2 2 AM [facility] 05/27/2024 10:22 AM [facility] Narrative [facility] - 05/28/2024 6:11 AM [facility] FASTING:NO FASTING: NO us Marcy Hopkins MD LAB BLOOD ORDERABLES Final Result [facility] [address] [address] * Reticulocyte Count (05/27/2024 10:22 AM [facility]) [facility] Reticulocyte count, automated 2.6 % [facility] Reticulocyte, absolute 79,300 25,000 - 90,000 cells/uL [facility] Blood 05/27/2024 10:2 2 AM [facility] 05/27/2024 10:22 AM [facility] Narrative [facility] - 05/28/2024 6:11 AM [facility] FASTING:NO FASTING: NO Marcy Hopkins MD LAB BLOOD ORDERABLES Final Result [facility] [address] [place] [address] * Folate (05/27/2024 10:22 AM [facility]) [facility] Folate, Serum 12.0 ng/mL [facility] Comment: Reference Range Low: <3.4 Borderline: 3.4-5.4 Normal: >5.4 Blood 05/27/2024 10:2 2 AM [facility] 05/27/2024 10:22 AM [facility] Narrative [facility] - 05/28/2024 6:11 AM [facility] FASTING:NO FASTING: NO us Marcy Hopkins MD LAB BLOOD ORDERABLES Final Result Performing Organization Address [facility] Co de Phone Number [facility] [address] [place] [address] * Ferritin (05/27/2024 10:22 AM [facility]) [facility] Ferritin 52 24 - 380 ng/mL [facility] Blood 05/27/2024 10:2 2 AM [facility] 05/27/2024 10:22 AM [facility] Narrative [facility] - 05/28/2024 6:11 AM [facility] FASTING:NO FASTING: NO us Marcy Hopkins MD LAB BLOOD ORDERABLES Final Result [facility] [address] [place] [address] * Vitamin B12 (05/27/2024 10:22 AM [facility]) [facility] Vitamin B12 258 200 - 1,100 pg/mL [facility] Comment: Please Note: Although the reference range for vitamin B12 is 200-1100 pg/mL, it has been reported that between 5 and 10% of patients with values between 200 and 400 pg/mL may experience neuropsychiatric and hematologic abnormalities due to occult B12 deficiency; less than 1% of patients with values above 400 pg/mL will have symptoms. Blood 05/27/2024 10:2 2 AM [facility] 05/27/2024 10:22 AM [facility] Narrative [facility] - 05/28/2024 6:11 AM [facility] FASTING:NO FASTING: NO Marcy Hopkins MD LAB BLOOD ORDERABLES Final Result Performing Organization Address City/State/[facility] Co de Phone Number [facility] [address] [place] [address] * (ABNORMAL) Comprehensive metabolic panel (05/16/2024 12:49 PM [facility]) [facility] Glucose 106(H) 65 - 99 mg/dL [facility] Comment: Fasting reference interval For someone without known diabetes, a glucose value between 100 and 125 mg/dL is consistent with prediabetes and should be confirmed with a follow-up test. BUN 18 7 - 25 mg/dL [facility] Creatinine 1.63(H) 0.70 - 1.22 mg/dL [facility] eGFR 42(L) > OR = 60 mL/min/1.7 3m2 [facility] BUN/creat ratio 11 6 - 22 (calc) [facility] Sodium 140 135 - 146 mmol/L [facility] Potassium, pl 3.7 3.5 - 5.3 mmol/L [facility] Chloride 110 98 - 110 mmol/L [facility] CO2 25 20 - 32 mmol/L [facility] Calcium 9.0 8.6 - 10.3 mg/dL [facility] Protein, sr 6.6 6.1 - 8.1 g/dL [facility] Albumin 4.1 3.6 - 5.1 g/dL [facility] GLOBULIN 2.5 1.9 - 3.7 g/dL (calc) [facility] Alb/glob ratio 1.6 1.0 - 2.5 (calc) [facility] Bilirubin, total 0.6 0.2 - 1.2 mg/dL [facility] Alk phos 86 35 - 144 U/L [facility] AST 12 10 - 35 U/L [facility] ALT (SGPT) 11 9 - 46 U/L [facility] Blood 05/16/2024 12:4 9 PM [facility] 05/16/2024 12:50 PM [facility] Narrative [facility] - 05/17/2024 5:54 AM [facility] FASTING:YES FASTING: YES us Marcy Hopkins MD LAB BLOOD ORDERABLES Final Result [facility] [address] [place] [address] * (ABNORMAL) CBC with auto differential (05/16/2024 12:48 PM [facility]) WBC 6.7 3.8 - 10.8 Thousand/u L [facility] RBC, POC 3.01(L) 4.20 - 5.80 Million/uL [facility] Hgb 9.0(L) 13.2 - 17.1 g/dL [facility] Hct 28.2(L) 38.5 - 50.0 % [facility] MCV 93.7 80.0 - 100.0 fL [facility] MCH 29.9 27.0 - 33.0 pg [facility] MCHC 31.9(L) 32.0 - 36.0 g/dL [facility] Comment: For adults, a slight decrease in the calculated MCHC value (in the range of 30 to 32 g/dL) is most likely not clinically significant; however, it should be interpreted with caution in correlation with other red cell parameters and the patient's clinical condition. Rdw 13.7 11.0 - 15.0 % [facility] Platelets 181 140 - 400 Thousand/u L [facility] MPV 10.8 7.5 - 12.5 fL [facility] Neutrophils, abs 2,995 1,500 - 7,800 cells/uL [facility] Lymphocytes, abs 2,901 850 - 3,900 cells/uL [facility] Monocyte abs 623 200 - 950 cells/uL [facility] Eosinophils, abs 141 15 - 500 cells/uL [facility] Basophils, abs 40 0 - 200 cells/uL [facility] Neutrophils 44.7 % [facility] Lymphocyte pct 43.3 % [facility] Monocytes 9.3 % [facility] Eosinophils 2.1 % [facility] Basophils 0.6 % [facility] Blood 05/16/2024 12:4 8 PM [facility] 05/16/2024 12:48 PM [facility] Narrative [facility] - 05/17/2024 6:17 AM [facility] FASTING:NO FASTING: NO Marcy Hopkins MD LAB BLOOD ORDERABLES Final Result [facility] [address] [place] [address] * Lactate dehydrogenase (LD) (05/16/2024 12:46 PM [facility]) Lactate dehydrogenase (LDH) 164 120 - 250 U/L [facility] Blood 05/16/2024 12:4 6 PM [facility] 05/16/2024 12:47 PM [facility] Narrative [facility] - 05/17/2024 4:49 AM [facility] FASTING:NO FASTING: NO us Marcy Hopkins MD LAB BLOOD ORDERABLES Final Result [facility] [address] [address] * CT Chest Abdomen Pelvis W Contrast (08/11/2023 9:41 AM CDT) Anatomical Region Laterality Modality Body N/A Computed Tomogra phy 08/11/2023 10:3 9 AM CDT Impressions 08/11/2023 10:46 AM CDT 1. Slight increased prominence of multiple lymph nodes above and below the diaphragm, left perinephric and omental fat stranding, which are nonspecific but could represent recurrent lymphoma. Recommend further characterization with PET/CT to determine the most appropriate site for possible biopsy. Dictated by: Baltazar Mir MD The radiology attending physician has personally reviewed this study, and had reviewed and/or edited this written report and agrees with it. Electronically signed by: Sonu Silva M.D. Narrative 08/11/2023 10:46 AM CDT EXAMINATION: Computed tomography of the chest, abdomen and pelvis with intravenous contrast HISTORY: History of diffuse large B-cell lymphoma, increased white blood cell count, concerning for recurrence TECHNIQUE: Transaxial computed tomographic images of the chest, abdomen and pelvis were obtained with intravenous contrast according to the standard protocol after the uneventful administration of 56 mL Opti-Ray 350 intravenous contrast. COMPARISON: Multiple prior CTs, most recently 01/07/2022 FINDINGS: Chest: Stable 2.6 x 2.0 cm right hemithyroid nodule, previously characterized as benign on biopsy. Increased prominence of multiple bilateral axillary lymph nodes. For example a left axillary lymph node measuring 1.4 cm in short axis (series 3 image 37). Mild prominence of several mediastinal lymph nodes is not significantly changed since 01/07/2022. Normal heart size. Severe coronary artery calcifications. There is a slightly increased small pericardial effusion with density slightly above that of simple fluid. No suspicious pulmonary nodules. 5 mm left lower lobe nodule (series 4 image 51). Mild basilar atelectasis. No pleural effusion or pneumothorax. Abdomen/Pelvis: Multiple hypoattenuating lesions in the liver, too small to characterize, are unchanged since 01/07/2022. Normal gallbladder. No intrahepatic or extrahepatic bile duct dilation. The portal, splenic, and superior mesenteric veins are patent. Normal pancreas, spleen, and adrenal glands. Multiple unchanged bilateral renal cysts. The kidneys enhance symmetrically. Mild nonspecific left perinephric and omental fat stranding (series 3 image 171). There is retained contrast material within the collecting system of the kidneys and bilateral ureters. Normal bladder. The prostate is present. Colonic diverticulosis without evidence of acute diverticulitis. Normal appendix. No evidence of small bowel obstruction or inflammation. Moderate atherosclerotic changes of the abdominal aorta and branch vessels. Slight increased prominence of multiple abdominal lymph nodes. For example, a 1.5 cm portacaval lymph node (series 3 image 137, previously 1.0 cm). Several prominent right external iliac lymph nodes. Multiple redemonstrated subcentimeter mesenteric lymph nodes. For example, an 8 mm lymph node (series 3 image 195). No suspicious osseous lesions. Partially imaged bilateral total hip and shoulder arthroplasties. Procedure Note Sonu Silva MD - 08/11/2023 EXAMINATION: Computed tomography of the chest, abdomen and pelvis with intravenous contrast HISTORY: History of diffuse large B-cell lymphoma, increased white blood cell count, concerning for recurrence TECHNIQUE: Transaxial computed tomographic images of the chest, abdomen and pelvis were obtained with intravenous contrast according to the standard protocol after the uneventful administration of 56 mL Opti-Ray 350 intravenous contrast. COMPARISON: Multiple prior CTs, most recently 01/07/2022 FINDINGS: Chest: Stable 2.6 x 2.0 cm right hemithyroid nodule, previously characterized as benign on biopsy. Increased prominence of multiple bilateral axillary lymph nodes. For example a left axillary lymph node measuring 1.4 cm in short axis (series 3 image 37). Mild prominence of several mediastinal lymph nodes is not significantly changed since 01/07/2022. Normal heart size. Severe coronary artery calcifications. There is a slightly increased small pericardial effusion with density slightly above that of simple fluid. No suspicious pulmonary nodules. 5 mm left lower lobe nodule (series 4 image 51). Mild basilar atelectasis. No pleural effusion or pneumothorax. Abdomen/Pelvis: Multiple hypoattenuating lesions in the liver, too small to characterize, are unchanged since 01/07/2022. Normal gallbladder. No intrahepatic or extrahepatic bile duct dilation. The portal, splenic, and superior mesenteric veins are patent. Normal pancreas, spleen, and adrenal glands. Multiple unchanged bilateral renal cysts. The kidneys enhance symmetrically. Mild nonspecific left perinephric and omental fat stranding (series 3 image 171). There is retained contrast material within the collecting system of the kidneys and bilateral ureters. Normal bladder. The prostate is present. Colonic diverticulosis without evidence of acute diverticulitis. Normal appendix. No evidence of small bowel obstruction or inflammation. Moderate atherosclerotic changes of the abdominal aorta and branch vessels. Slight increased prominence of multiple abdominal lymph nodes. For example, a 1.5 cm portacaval lymph node (series 3 image 137, previously 1.0 cm). Several prominent right external iliac lymph nodes. Multiple redemonstrated subcentimeter mesenteric lymph nodes. For example, an 8 mm lymph node (series 3 image 195). No suspicious osseous lesions. Partially imaged bilateral total hip and shoulder arthroplasties. IMPRESSION: 1. Slight increased prominence of multiple lymph nodes above and below the diaphragm, left perinephric and omental fat stranding, which are nonspecific but could represent recurrent lymphoma. Recommend further characterization with PET/CT to determine the most appropriate site for possible biopsy. Dictated by: Baltazar Mir MD The radiology attending physician has personally reviewed this study, and had reviewed and/or edited this written report and agrees with it. Electronically signed by: Sonu Silva M.D. 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
--- OUTSIDE RECORDS SUMMARY | 2024-07-30 00:42 | XMS_ITS ---
Author Organization [facility] Address [address] [place] [address] Care Team Providers Care Hot Roller Name Role Phone Katia Fraser MD Primary Care Provider + [phone] Active Problems Problem Noted Date Diagnosed Date History of colonic polyps 07/10/2024 Chronic diastolic heart failure 08/07/2023 CAD S/P percutaneous coronary angioplasty 2022 Preop cardiovascular exam 10/24/2022 Visit for wound check 04/02/2018 Coronary artery disease invo lving [place] coronary artery of [place] heart without angina pectoris 02/19/2018 Assessment & Plan (02/25/2018 1:56 PM PROCESS STRIPPER): At this time continue aspirin, Brilinta. Continue [...] NOS Assessment & Plan (02/25/2018 1:57 PM PROCESS STRIPPER): Blood pressure controlled. Continue current treatment Insomnia 08/17/2013 Overview (07/07/2016): INSOMNIA NEC Hyperlipidemia 08/17/2013 Overview (07/09/2016): HYPERLIPIDEMIA NEC/NOS Depression 08/17/2013 Overview (07/09/2016): DEPRESSIVE DISORDER NEC Current Treatment and Therapy Plans No current plan information found. Past Treatment and Therapy Plans No past plan information found. Lifetime Dose Tracking * Chemical Lifetime Dose Automatic Entry Manual Entr y Air kerma at the reference point (Ka,r) 1,172 mGy 0 mGy 1,172 mGy DLP 8,201 mGycm 8,201 mGycm 0 mGycm Resolved Problems Problem Noted Date Diagnosed Date Resolved Date Preoperative cardiovascular examination 12/10/2018 11/22/2021
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
--- OUTSIDE RECORDS SUMMARY | 2024-07-30 00:42 | XMS_ITS | Encounter Summary ---
Author Organization [facility] Address [address] [place] [address] Phone Care Team Providers Care Sheriff'S Officer Name Role Phone Katia Fraser MD Primary Care Provider + [phone] Encounter Details Date Type Department Care Team (Latest Contact Info) Description 01/22/2024 Orders Only [facility] Scanning, Provider Social History Tobacco Use Types Packs/Day Years Used Date Smoking Tobacco: Former Cigarettes Q uit: 02/20/2000 Passive Smoke Exposure: Past Smokeless Tobacco: Former Comments:Smoking History Pac ks/day: 1 Cigarettes Alcohol Use Standard Drinks/Week Comments [...] on file 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 Gender Identity Male 07/19/2023 9:40 PM CDT Sexual Orientation Straight 07/19/2023 9: 40 PM CDT documented as of this encounter Plan of Treatment Not on file documented as of this encounter Procedures Procedure Name Priority Date/Time Associated Diagnosis Comments SCAN - LABS 01/22/2024 documented in this encounter Results * SCAN - LABS (01/22/2024) us Provider Scanning Final Result documented in this encounter Visit Diagnoses Not on filedocumented in this encounter Care Teams Sheriff'S Officer Relationship Specialty Start Date End Date Katia Fraser MD [address] [place] [address] PCP - General 06/20/17 documented as of this encounter
--- OUTSIDE RECORDS SUMMARY | 2024-07-30 00:42 | XMS_ITS | Encounter Summary ---
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 Gender Identity Male 07/19/2023 9:40 PM CDT Sexual Orientation Straight 07/19/2023 9: 40 PM CDT documented as of this encounter Plan of Treatment Not on file documented as of this encounter Procedures Procedure Name Priority Date/Time Associated Diagnosis Comments SCAN - RADIOLOGY/IMAGING 05/26/2023 documented in this encounter Results * SCAN - RADIOLOGY/IMAGING (05/26/2023) Anatomical Region Laterality Modality Other us Provider Scanning Final Result documented in this encounter Visit Diagnoses Not on filedocumented in this encounter Care Teams Merit System Director Relationship Specialty Start Date End Date Katia Fraser MD [address] [place], [place] [id number] PCP - General 06/20/17 documented as of this encounter
[2024-07-30 08:30] VITALS: BP 130/71; PULSE 68; RESP 16; TEMP 36; O2SAT 98
--- NOTE | 2024-07-30 09:02 | PM.IMHP ---
H&P: HPI History of Present Illness Date/Time: 07/30/24 09:02 Chief Complaint: history of colon polyps Narrative: this is an 83-year-old man who presents for colonoscopy. He has a history of polyps from previous colonoscopies. His last colonoscopy was 9-10 years ago. He denies any hematochezia or melena. He denies family history colon cancer. Review of Systems Review of Systems: All systems reviewed & are unremarkable except as noted in HPI and below Constitutional: Constitutional: Denies chills, Denies fever(s), Denies headache(s) and Denies weight loss Eyes: Eyes: Denies change in vision ENT: Denies dizziness, Denies headache(s), Denies neck mass and Denies throat swelling Cardiovascular: Cardiovascular: Denies chest pain, Denies lightheadedness and Denies dyspnea Respiratory: Respiratory: Denies cough, Denies dyspnea and Denies wheezing Gastrointestinal: Gastrointestinal: Denies abdominal pain, Denies change in bowel habits, Denies nausea and Denies vomiting Genitourinary: Genitourinary: Denies hematuria and Denies dysuria Musculoskeletal: Musculoskeletal: Reports as per HPI Integumentary/Breasts: Skin/Breast: Reports as per HPI Neurologic: Denies dizziness and Denies headache(s) Allergic/Immunologic: Allergic/Immunologic: Denies throat swelling and Denies wheezing [facility] Past Medical History Medical History Seasonal rhinitis GERD (gastroesophageal reflux disease) Paroxysmal atrial fibrillation Hypertension Non-Hodgkin lymphoma Large B-cell lymphoma treated in 2016 at [facility]. Coronary artery disease History of inferior STEMI on 12/29/2017. Right coronary was totally occluded and was revascularized with a drug-eluting stent. He also had high-grade stenosis of the mid LAD, which was not intervened upon. Osteoarthritis Hyperlipidemia Surgical History Surgical History History of lumbar fusion History of surgery on arm Left arm ORIF. Status post total right knee replacement Status post bilateral total hip replacement History of total replacement of both shoulder joints Status post arthroscopy of left knee History of bilateral carpal tunnel release Status post cataract extraction History of coronary artery stent placement Drug-eluting stent to the right coronary artery 12/29/2017. Family History Family History Father Hypertension Mother Acute myocardial infarction Social History Social History (Updated 07/24/24 @ 13:35 by Estephania Bay [facility]) Social History: The patient has been since 2015 after his from lung cancer. He has 1 daughter and 2 sons. He designates his [id number] Karen as his surrogate decision maker and he wishes to be a full code. He smoked up to 2 packs of cigarettes per day for 45 years and quit 1999. He denies alcohol and drug use. 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 Smoking packs per day: 2 Smoking cigarettes per day: 40.0 Years smoked: 45 Smoking pack-years: 90.00 Smoking status: Former smoker Tobacco type: cigarettes Second hand tobacco smoke exposure: No Smoking end date: 10/01/01 Alcohol intake: never Alcohol use details: HEAVIER DRINKER IN PAST Substance use: never Substance use type: does not use Current Housing: Decline to Answer Concerned About Future Housing: Decline to Answer Difficulty Paying Gas/Electric Bills: Decline to Answer Difficulty Paying for Meds: Decline to Answer Currently Unemployed: Decline to Answer Education: Decline to Answer Difficulty w/ Childcare or Family Care: Decline to Answer Living arrangements: alone Gender identity (if verbalized by the patient): Male Sexual Orientation (if Verbalized by the Patient): Straight or Heterosexual Spiritual care concerns: No Agree to blood products: Yes Meds Home Medications and Allergies Home Medications ?Medication ?Instructions ?Recorded ?Confirmed ?Type metoprolol tartrate 25 mg tablet 25 mg PO BID 05/07/19 07/30/24 History clopidogrel 75 mg tablet 75 mg PO DAILY 07/10/20 07/30/24 History acalabrutinib maleate 100 mg 100 mg PO DAILY 06/01/24 07/30/24 History tablet ([place] (acalabrutinib maleate)) Vitamin B12 PO 07/24/24 07/24/24 History rosuvastatin 10 mg tablet 10 mg PO QAM 07/24/24 07/30/24 History Allergies Allergy/AdvReac Type Severity Reaction Status Date / Time No Known Allergies Allergy Verified 07/30/24 08:27 Vital Signs Vital Signs - 24 hr 07/30/24 08:30 Temperature 96.8 F L Pulse Rate 68 Respiratory Rate 16 Blood Pressure 130/71 Pulse Oximetry 98 Oxygen Delivery Room Air Exam Const: General: no acute distress and alert Orientation/consciousness: patient oriented x3 HENMT: Head: normocephalic and atraumatic Ears: hearing grossly normal bilaterally Face/Nose/Sinus: Normal nares present Mouth: Yes Normal oral and palatal mucosa present Eyes: Periorbital: periorbital findings normal Sclera: sclerae normal EOM: EOMs intact bilaterally Neck: Neck: normal visual inspection, no lymphadenopathy and trachea midline Chest: Chest palpation & inspection: normal inspection of the chest Resp: Effort & Inspection: normal respiratory effort Auscultation: clear to auscultation bilaterally Cardio: Jugular venous distension: no JVD Rate: regular rate Rhythm: regular rhythm Heart sounds: S1 normal heart sound present and S2 normal heart sound present Peripheral pulses: Peripheral pulses 2+ throughout GI: Inspection: normal to inspection GI Palp: Yes Soft to palpation, No Tenderness to palpation present (GI), No Guarding due to palpation present (GI) and No Rebound tenderness present Percussion: Yes normal to percussion Auscultation: normal bowel sounds : General: Yes no CVA tenderness Back/Spine/Pelvis: Back: no CVA tenderness Neuro: General: patient oriented x3, no focal motor deficits and CN's II-XI intact bilaterally Cognition (Neuro): normal cognition Speech: normal speech Motor exam (neuro): 5/5 motor strength present throughout Extrem: General: capillary refill normal and no clubbing, cyanosis or edema Assessment and Plan Assessment and plan (1) Hx of colonic polyps: Code(s): Z86.0100 - Personal history of colon polyps, unspecified Status: Acute Assessment and Plan: I have recommended colonoscopy. I have discussed the procedure, risks, benefits, and alternatives. Questions were answered. Patient is agreeable to proceed.
[2024-07-30] MEDS: LACTATED RINGERS 1,000 ML 150 ML IV CONT (09:46)
[2024-07-30 10:10] VITALS: BP 80/42; PULSE 55; RESP 17; O2SAT 96
[2024-07-30 10:20] VITALS: BP 128/67; PULSE 54; RESP 16; O2SAT 96
[2024-07-30 10:30] VITALS: BP 124/64; PULSE 60; RESP 14; O2SAT 96
== END 2024-07-30 10:43 | disposition home or self-care (01) ==
PROVIDERS: PCP Internal Medicine; Visit Provider Surgery
PROC: 0DJD8ZZ Inspection of Lower Intestinal Tract, Via Natural or Artificial Opening Endoscopic (ICD-10-PCS; CPT 45378; principal; 2024-07-30 09:30)
DX: Z12.11 Encounter for screening for malignant neoplasm of colon (principal); K57.30 Diverticulosis of large intestine without perforation or abscess without bleeding; I10 Essential (primary) hypertension; E78.5 Hyperlipidemia, unspecified; K21.9 Gastro-esophageal reflux disease without esophagitis; I25.10 Atherosclerotic heart disease of native coronary artery without angina pectoris; I48.0 Paroxysmal atrial fibrillation; M19.90 Unspecified osteoarthritis, unspecified site; Z79.02 Long term (current) use of antithrombotics/antiplatelets; Z98.890 Other specified postprocedural states; Z98.1 Arthrodesis status; Z95.5 Presence of coronary angioplasty implant and graft; Z87.891 Personal history of nicotine dependence; Z86.0100 Personal history of colon polyps, unspecified; Z85.72 Personal history of non-Hodgkin lymphomas; Z82.49 Family history of ischemic heart disease and other diseases of the circulatory system
CPT/HCPCS: G0105; J2704; J7120

== ENCOUNTER 2024-09-30 10:53 | Outpatient (CLI) | payer MEDICARE, OTHER, SELFPAY ==
--- NOTE | ~2024-09-30 | US_ITS ---
EXAMINATION: US venous doppler UE RT DATE: 09/30/2024 11:23 INDICATION: Right upper limb swelling TECHNIQUE: Grayscale images without and with compression and Doppler images of the right upper extrem ity veins were obtained. COMPARISON: None. FINDINGS: The right internal jugular vein, subclavian vein, axillary vein, brachial vein, basilic vein, cephali c vein, radial vein, and ulnar vein are patent. Subcutaneous edema at the ulnar side of the right for earm. IMPRESSION: 1. Patent right upper extremity veins. No evidence of venous thrombosis. Reviewed, dictated and finalized at location B.
--- OUTSIDE RECORDS SUMMARY | 2024-09-30 11:32 | XMS_ITS | Encounter Summary ---
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
--- OUTSIDE RECORDS SUMMARY | 2024-09-30 11:32 | XMS_ITS | Encounter Summary ---
Author Organization [facility] Address [address] [place] [address] Care Team Providers Care Human Factors Advisor Lead Name Role Phone Katia Fraser MD Primary Care Provider + [phone] Encounter Details Date Type Department Care Team (Late st Contact Info) Description 12/30/2017 Orders Only 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 Gender Identity Male 07/19/2023 9:40 PM CDT Sexual Orientation Straight 07/19/2023 9: 40 PM CDT documented as of this encounter Plan of Treatment Not on file documented as of this encounter Procedures Procedure Name Priority Date/Time Associated Diagnosis Comments SCAN - RADIOLOGY/IMAGING 12/30/2017 CARDIOLOGY DOCUMENT SCAN 12/30/2017 documented in this encounter Results * SCAN - RADIOLOGY/IMAGING (12/30/2017) Anatomical Region Laterality Modality Other us Provider Scanning Final Result * Cardiology Document Scan (12/30/2017) Anatomical Region Laterality Modality Other us Provider Scanning [facility] CARDIAC SERVICES PROCEDURES Final Result documented in this encounter Visit Diagnoses Not on filedocumented in this encounter Care Teams Human Factors Advisor Lead Relationship Specialty Start Date End Date Katia Fraser MD [address] [id number] PCP - General 06/20/17 documented as of this encounter
--- OUTSIDE RECORDS SUMMARY | 2024-09-30 11:32 | XMS_ITS | Clinical Summary ---
Author Organization [facility] Address [address] [place] [address] Care Team Providers Care Pattern Grader Cutter Name Role Phone Katia Fraser MD Primary Care Provider [phone] Allergies Active Allergy Reactions Criticality Noted Date Comments Haris Inhibitors Cough Low Medications acalabrutinib maleate (CALQUENCE) 100 mg tabletIndication s:Chronic Lymphocytic Leukemia Take 1 tablet (100 mg total) by mouth daily Swallow whole with water and with or without food 30 tablet 11 4 Active ferrous sulfate 325 mg (65 mg [...] check 04/02/2018 Coronary artery disease invo lving pechanga coronary artery of pechanga heart without angina pectoris 02/19/2018 Assessment & Plan (02/25/2018 1:56 PM ADVANCED MANUFACTURING VICE PRESIDENT): At this time continue aspirin, Brilinta. Continue [...] NOS Assessment & Plan (02/25/2018 1:57 PM ADVANCED MANUFACTURING VICE PRESIDENT): Blood pressure controlled. Continue current treatment Insomnia 08/17/2013 Overview (07/07/2016): INSOMNIA NEC Hyperlipidemia 08/17/2013 Overview (07/09/2016): HYPERLIPIDEMIA NEC/NOS Depression 08/17/2013 Overview (07/09/2016): DEPRESSIVE DISORDER NEC Resolved Problems Problem Noted Date Diagnosed Date Resolved Date Preoperative cardiovascular examination 12/10/2018 11/22/2021 Encounters Date Type Department Care Team Description 09/02/2024 10:15 AM CDT Office Visit [facility] Hematology [address] [place] [phone] Marcy Hopkins MD B12 deficiency; Iron deficiency anemia, unspecified iron deficiency anemia type; CLL (chronic lymphocytic leukemia) ([facility]) 09/02/2024 9:30 AM CDT Lab [facility] [address] [place] [address] B12 deficiency; Iron deficiency anemia, unspecified iron deficiency anemia type; CLL (chronic lymphocytic leukemia) ([facility]) 09/02/2024 9:15 AM CDT Lab [facility] Oncology Lab [address] [place] [phone] B12 deficiency; Iron deficiency anemia, unspecified iron deficiency anemia type; CLL (chronic lymphocytic leukemia) ([facility]) 08/15/2024 Results Follow-Up [facility] Bone Marrow Transplant [address] [facility] [address] [place] [address] Marcy Hopkins MD Comprehensive metabolic panel, Comprehensive metabolic panel, CBC with auto differential, Additional followed-up results: 3 08/12/2024 12:00 PM CDT Office Visit [facility] Cardiology [address] [place] [phone] Renetta Bai MD Coronary artery disease involving pechanga coronary artery of pechanga heart without angina pectoris (Primary Dx); Primary hypertension; Mixed hyperlipidemia 07/11/2024 Telephone [facility] Gastroenterology at [address] [place] [address] Joaquina Courtney 07/10/2024 Telephone [facility] Gastroenterology at [address] [place] [address] Joaquina Courtney from Last 3 Months Immunizations Immunization Administration [...] disease Hypertension Cancer (HCC) large cell lymph donnie Family History Medical History Relation Name Comments [...] on file Legal Sex Male 11:33 PM ADVANCED MANUFACTURING VICE PRESIDENT Gender Identity Male 07/19/2023 9:40 PM CDT Sexual Orientation Straight 07/19/2023 9: 40 PM CDT Obstetrics History Last Filed Vital Signs Vital Sign Reading Time Taken Comments Blood Pressure 147/75 09/02/2024 10:13 AM CDT Pulse 54 09/02/2024 10:13 AM CDT Temperature 36.2 C (97.2 F) 09/02/2024 10:13 AM CDT Respiratory Rate 18 09/02/2024 10:1 3 AM CDT Oxygen Saturation 99% 09/02/2024 10: 13 AM CDT Inhaled Oxygen Concentration - - Weight 83.8 kg (184 lb 12.8 oz) 025 10:13 AM CDT Height 175.3 cm (5' 9) 08/12/2024 11:5 8 AM CDT Body Mass Index 27.29 08/12/2024 11:58 AM CDT Plan of Treatment Health Maintenance Due [...] history exists Medical Devices Implanted Type Area Waste Treatment Operator Device Identifier Shelf Expiration Date Model / Serial / Lot [employer] Synergy Xd Monorail 3.5mm 24mm 144cm Delivery System 1 Access [id number] - [id number] Implanted:Qty: 1 on 11/22/2022 by Renetta Bai MD at [facility] Stent [employer] 12/16/2023 [id number] / / [id number] [id number] Device Vascular Closure Femoral Artery Bioabsorbable Dual Method Vascade 6-7fr Collagen [id number] - [id number] Implanted:Qty: 1 on 11/22/2022 by Renetta Bai MD at [facility] [employer] 07/11/2024 [id number] / / [id number] Procedures Procedure Name Priority Date/Time Associated Diagnosis Comments EGFR Routine 09/02/2024 9:21 AM CDT B12 deficiency Iron deficiency anemia, unspecified iron deficiency anemia type CLL (chronic lymphocytic leukemia) (HCC) DIFFERENTIAL AUTO Routine 09/02/2024 9:2 1 AM CDT B12 deficiency Iron deficiency anemia, unspecified iron deficiency anemia type CLL (chronic lymphocytic leukemia) (HCC) CBC WITH AUTO DIFFERENTIAL Routine 09/02/2024 9:21 AM CDT B12 deficiency Iron deficiency anemia, unspecified iron deficiency anemia type CLL (chronic lymphocytic leukemia) (HCC) RETICULOCYTES Routine 09/02/2024 9:21 AM CDT B12 deficiency Iron deficiency anemia, unspecified iron deficiency anemia type CLL (chronic lymphocytic leukemia) (HCC) COMPREHENSIVE METABOLIC PANEL Routine 09/02/2024 9:21 AM CDT B12 deficiency Iron deficiency anemia, unspecified iron deficiency anemia type CLL (chronic lymphocytic leukemia) (HCC) LACTATE DEHYDROGENASE Routine 09/02/2024 9:21 AM CDT B12 deficiency Iron deficiency anemia, unspecified iron deficiency anemia type CLL (chronic lymphocytic leukemia) (HCC) FERRITIN Routine 09/02/2024 9:21 AM CDT B12 deficiency Iron deficiency anemia, unspecified iron deficiency anemia type CLL (chronic lymphocytic leukemia) (HCC) IRON PROFILE W/ IBC Routine 09/02/2024 9 :21 AM CDT B12 deficiency Iron deficiency anemia, unspecified iron deficiency anemia type CLL (chronic lymphocytic leukemia) (HCC) VITAMIN B12 Routine 09/02/2024 9:21 AM CDT B12 deficiency Iron deficiency anemia, unspecified iron deficiency anemia type CLL (chronic lymphocytic leukemia) (HCC) CBC WITH AUTO DIFFERENTIAL Routine 08/14/2024 1:18 PM CDT CLL (chronic lymphocytic leukemia) (HCC) COMPREHENSIVE METABOLIC PANEL Routine 08/14/2024 1:16 PM CDT CLL (chronic lymphocytic leukemia) (HCC) LACTATE DEHYDROGENASE Routine 08/14/2024 1:14 PM CDT CLL (chronic lymphocytic leukemia) (HCC) LACTATE DEHYDROGENASE Routine 07/15/2024 1:23 PM CDT CLL (chronic lymphocytic leukemia) (HCC) CBC WITH AUTO DIFFERENTIAL Routine 07/15/2024 1:23 PM CDT CLL (chronic lymphocytic leukemia) (HCC) COMPREHENSIVE METABOLIC PANEL Routine 07/15/2024 1:23 PM CDT CLL (chronic lymphocytic leukemia) (HCC) CT CHEST ABDOMEN PELVIS W CONTRAST Schedule Routine, Read Routine (OP Routine) 08/11/2023 9:41 AM CDT Diffuse large B-cell lymphoma, unspecified body region (HCC) from Last 3 Months or Most Recently Relevant to Health Maintenance Results * (ABNORMAL) eGFR (09/02/2024 9:21 AM CDT) eGFR 42(L) >=60 mL/min/1. 73 m2 [...] interpretive data was last reviewed 2021. Blood 09/02/2024 9:21 AM CDT 09/02/2024 9:43 AM CDT Marcela Mane PATENT PROSECUTION PARALEGAL LAB BLOOD ORDERABLES Final Result ED [facility] [place] [address] * Differential, auto (09/02/2024 9:21 AM CDT) Neutrophil abs 2.95 1.50 - 6.50 K/cumm Comment:Testing performed by : [facility], [address] [place] [phone] Lymphocyte abs 2.77 0.80 - 3.30 K/cumm ED [facility] Comment:Testing performed by : [facility], [address] [place] [phone] Monocyte abs 0.70 0.20 - 0.80 K/cumm [facility] Comment:Testing performed by : [facility], [facility] [place] [address] Eosinophil abs 0.17 0.00 - 0.50 K/cumm [facility] Comment:Testing performed by : [facility], [address] [place] [phone] Basophil abs 0.03 0.00 - 0.10 K/cumm [facility] Comment:Testing performed by : [facility], [address] [place] [phone] Neutrophil pct 44.7 % [facility] Comment: Interpretive Data Percent cell count reference ranges are not reported, since discordance with absolute values may lead to misinterpretation of CBC data. Current Interpretive Data was last revised on 2017. Testing performed by: [facility], [address] [place] [phone] Lymphocyte pct 41.9 % [facility] Comment: Interpretive Data Percent cell count reference ranges are not reported, since discordance with absolute values may lead to misinterpretation of CBC data. Current Interpretive Data was last revised on 2017. Testing performed by: [facility], [address] [place] [phone] Monocyte pct 10.6 % [facility] Comment: Interpretive Data Percent cell count reference ranges are not reported, since discordance with absolute values may lead to misinterpretation of CBC data. Current Interpretive Data was last revised on 2017. Testing performed by: [facility], [address] [place] [phone] Eosinophil pct 2.5 % [facility] Comment: Interpretive Data Percent cell count reference ranges are not reported, since discordance with absolute values may lead to misinterpretation of CBC data. Current Interpretive Data was last revised on 2017. Testing performed by: [facility], [address] [place] [phone] Basophil pct 0.4 % [facility] Comment: Interpretive Data Percent cell count reference ranges are not reported, since discordance with absolute values may lead to misinterpretation of CBC data. Current Interpretive Data was last revised on 2017. Testing performed by: [facility], [address] [place] [phone] Blood 09/02/2024 9:21 AM CDT 09/02/2024 9:39 AM CDT Macrela Mane PATENT PROSECUTION PARALEGAL LAB BLOOD ORDERABLES Final Result Performing Organization Address City/[facility]/ZIP Co de Phone Number [facility] Department [place] [address] * Iron profile w/ IBC (09/02/2024 9:21 AM CDT) Pathologist [facility] Iron 77 50 - 150 mcg/dL TIBC 268 250 - 400 mcg/dL [facility] Transferrin saturation 29 20 - 50 % [facility] Blood 09/02/2024 9:21 AM CDT 09/02/2024 9:43 AM CDT Marcela Mane PATENT PROSECUTION PARALEGAL LAB BLOOD ORDERABLES Final Result Performing Organization Address City/[facility] Co de Phone Number [facility] Department [place] [address] * (ABNORMAL) CBC with auto differential (09/02/2024 9:21 AM CDT) Pathologist [facility] WBC 6.60 3.80 - 9.90 K/cumm Comment:Testing performed by : [facility], [address] [place] [phone] Hgb 11.3(L) 13.0 - 17.5 g/dL [facility] Comment:Testing performed by : [facility], [address] [place] [phone] Hct 33.9(L) 38.9 - 50.3 % [facility] Comment:Testing performed by : [facility], [address] [place] [address] Plt 170 150 - 400 K/cumm [facility] Comment:Testing performed by : [facility], [address] [place] [address] MPV 8.0 6.8 - 10.4 fL [facility] Comment:Testing performed by : [facility], [address] [place] [address] RBC 3.71(L) 4.30 - 5.80 M/cumm ED [facility] Comment:Testing performed by : [facility], [address] [place] [address] MCV 91.4 81.3 - 96.4 fL [facility] Comment:Testing performed by : [facility], [address] [place] [address] MCH 30.6 27.1 - 33.3 pg [facility] Comment:Testing performed by : [facility], [address] [place] [address] MCHC 33.5 32.3 - 35.7 g/dL [facility] Comment:Testing performed by : [facility], [address] [place] [address] RDW CV 15.5(H) 11.1 - 14.9 % [facility] Comment:Testing performed by : [facility], [address] [place] [address] NRBC abs 0.00 0.00 - 0.01 K/cumm [facility] Comment:Testing performed by : [facility], [address] [place] [address] Blood 09/02/2024 9:21 AM CDT 09/02/2024 9:39 AM CDT Marcela Mane PATENT PROSECUTION PARALEGAL LAB BLOOD ORDERABLES Final Result [facility] Department [place] [address] * (ABNORMAL) Reticulocyte Count (09/02/2024 9:21 AM CDT) Pathologist [facility] Retics, absolute 90 20 - 100 K/cumm Comment:Testing performed by : [facility], [address] [place] [phone] Retics 2.4(H) 0.5 - 1.8 % [facility] Comment:Testing performed by : [facility], [address] [place] [phone] Blood 09/02/2024 9:21 AM CDT 09/02/2024 9:39 AM CDT Marcela Mane PATENT PROSECUTION PARALEGAL LAB BLOOD ORDERABLES Final Result Performing Organization Address City/[facility]/ZIP Co de Phone Number [facility] [place] [address] * Lactate dehydrogenase (LD) (09/02/2024 9:21 AM CDT) [facility] Lactate dehydrogenase (LDH) 187 100 - 250 Units/L Blood 09/02/2024 9:21 AM CDT 09/02/2024 9:43 AM CDT Marcela Mane PATENT PROSECUTION PARALEGAL LAB BLOOD ORDERABLES Final Result Performing Organization Address City/[facility] Co de Phone Number [facility] Department [place] [address] * Ferritin (09/02/2024 9:21 AM CDT) Pathologist [facility] Ferritin 84 30 - 400 ng/mL Blood 09/02/2024 9:21 AM CDT 09/02/2024 9:43 AM CDT Marcela Mane PATENT PROSECUTION PARALEGAL LAB BLOOD ORDERABLES Final Result [facility] Department [place] [address] * Vitamin B12 (09/02/2024 9:21 AM CDT) Vitamin B12 1,002 230 - 1,250 pg/mL Blood 09/02/2024 9:21 AM CDT 09/02/2024 10:01 AM CDT Marcela Tammie Antonietta PATENT PROSECUTION PARALEGAL LAB BLOOD ORDERABLES Final Result [facility] Department [place] [address] * (ABNORMAL) Comprehensive metabolic panel (09/02/2024 9:21 AM CDT) Pathologist [facility] Sodium 139 135 - 145 mmol/L Potassium, pl 3.7 3.3 - 4.9 mmol/L [facility] Chloride 108 97 - 110 mmol/L [facility] CO2 22 22 - 32 mmol/L [facility] Anion gap 9 2 - 15 mmol/L [facility] BUN 18 6 - 25 mg/dL [facility] Creatinine 1.63(H) 0.80 - 1.30 mg/dL [facility] Glucose 83 70 - 199 mg/dL [facility] Comment: Interpretive Data Fasting glucose >/= 126 [...] interpretive data was last revised 2022. Calcium 9.6 8.5 - 10.3 mg/dL [facility] Bilirubin, total 0.4 0.1 - 1.2 mg/dL [facility] Protein, pl 7.0 6.5 - 8.5 g/dL [facility] Albumin 4.2 3.5 - 5.0 g/dL [facility] Alk phos 95 40 - 130 Units/L [facility] ALT 19 7 - 55 Units/L [facility] AST 17 10 - 50 Units/L [facility] Blood 09/02/2024 9:21 AM CDT 09/02/2024 9:43 AM CDT Marcela Riverse Antonietta PATENT PROSECUTION PARALEGAL LAB BLOOD ORDERABLES Final Result [facility] Department [place] [address] * (ABNORMAL) CBC with auto differential (08/14/2024 1:18 PM CDT) WBC 6.1 3.8 - 10.8 Thousand/u L [facility] RBC, POC 3.64(L) 4.20 - 5.80 Million/uL [facility] Hgb 11.1(L) 13.2 - 17.1 g/dL [facility] Hct 34.6(L) 38.5 - 50.0 % [facility] MCV 95.1 80.0 - 100.0 fL [facility] MCH 30.5 27.0 - 33.0 pg [facility] MCHC 32.1 32.0 - 36.0 g/dL [facility] Comment: For adults, a slight decrease in the calculated MCHC value (in the range of 30 to 32 g/dL) is most likely not clinically significant; however, it should be interpreted with caution in correlation with other red cell parameters and the patient's clinical condition. Rdw 13.9 11.0 - 15.0 % [facility] Platelets 177 140 - 400 Thousand/u L [facility] MPV 10.2 7.5 - 12.5 fL [facility] Neutrophils, abs 3,172 1,500 - 7,800 cells/uL [facility] Lymphocytes, abs 2,178 850 - 3,900 cells/uL [facility] Monocyte abs 628 200 - 950 cells/uL [facility] Eosinophils, abs 92 15 - 500 cells/uL [facility] Basophils, abs 31 0 - 200 cells/uL [facility] Neutrophils 52 % [facility] Lymphocyte pct 35.7 % [facility] Monocytes 10.3 % [facility] Eosinophils 1.5 % [facility] Basophils 0.5 % [facility] Blood 08/14/2024 1:18 PM CDT 08/14/2024 1:18 PM CDT Narrative [facility] - 08/15/2024 4:43 AM CDT FASTING:NO FASTING: NO us Marcy Hopkins MD LAB BLOOD ORDERABLES Final Result [facility] [address] [place] [address] * (ABNORMAL) Comprehensive metabolic panel (08/14/2024 1:16 PM CDT) Pathologist [facility] Glucose 91 65 - 139 mg/dL [facility] Comment: Non-fasting reference interval BUN 23 7 - 25 mg/dL [facility] Creatinine 1.85(H) 0.70 - 1.22 mg/dL [facility] eGFR 36(L) > OR = 60 mL/min/1.7 3m2 [facility] BUN/creat ratio 12 6 - 22 (calc) [facility] Sodium 140 135 - 146 mmol/L [facility] Potassium, pl 3.8 3.5 - 5.3 mmol/L [facility] Chloride 109 98 - 110 mmol/L [facility] CO2 22 20 - 32 mmol/L [facility] Calcium 9.2 8.6 - 10.3 mg/dL [facility] Protein, sr 6.5 6.1 - 8.1 g/dL [facility] Albumin 4.2 3.6 - 5.1 g/dL [facility] GLOBULIN 2.3 1.9 - 3.7 g/dL (calc) [facility] Alb/glob ratio 1.8 1.0 - 2.5 (calc) [facility] Bilirubin, total 0.5 0.2 - 1.2 mg/dL [facility] Alk phos 80 35 - 144 U/L [facility] AST 19 10 - 35 U/L [facility] ALT (SGPT) 17 9 - 46 U/L [facility] Blood 08/14/2024 1:16 PM CDT 08/14/2024 1:17 PM CDT Narrative [facility] - 08/15/2024 5:46 AM CDT FASTING:NO FASTING: NO Marcy Hopkins MD LAB BLOOD ORDERABLES Final Result Performing Organization Address [facility] de Phone Number [facility] [address] [place] [address] * Lactate dehydrogenase (LD) (08/14/2024 1:14 PM CDT) [facility] Lactate dehydrogenase (LDH) 175 120 - 250 U/L [facility] Blood 08/14/2024 1:14 PM CDT 08/14/2024 1:15 PM CDT Narrative [facility] - 08/15/2024 5:46 AM CDT FASTING:NO FASTING: NO Marcy Hopkins MD LAB BLOOD ORDERABLES Final Result Performing Organization Address [facility] de Phone Number [facility] [address] [place] [address] * (ABNORMAL) CBC with auto differential (07/15/2024 1:23 PM CDT) [facility] WBC 7.1 3.8 - 10.8 Thousand/u L [...] LAB BLOOD ORDERABLES Final Result [facility] [address] [phone] * Lactate dehydrogenase (LD) (07/15/2024 1:23 PM CDT) Lactate dehydrogenase (LDH) 175 120 - 250 U/L [facility] Blood 07/15/2024 1:23 PM CDT 07/15/2024 1:23 PM CDT Narrative [facility] - 07/16/2024 7:31 AM CDT FASTING:NO FASTING: NO Marcy Hopkins MD LAB BLOOD ORDERABLES Final Result [facility] [address] [place] [phone] * (ABNORMAL) Comprehensive metabolic panel (07/15/2024 1:23 [...] LAB BLOOD ORDERABLES Final Result [facility] [address] [place] [address] * CT Chest Abdomen Pelvis W Contrast [...] Recently Relevant to Health Maintenance Insurance [facility]IC[facility] MEDICARE [facility] [place] [address] ENGLEWOOD MARVA MENDIOLAAHA Advance Directives For more information, please contact: [phone] * Full Code (Latest Code Status on File) Date Activated Date Inactivated Comments 11/22/2022 12:13 PM 11/23/2022 4:22 PM Care Teams Pattern Grader Cutter Relationship Specialty Start Date End Date Katia Fraser MD [address] [place] [address] PCP - General 06/20/17
--- OUTSIDE RECORDS SUMMARY | 2024-09-30 11:32 | XMS_ITS | Encounter Summary ---
Author Organization [facility] Healthcare Address [address] [place] [address] Care Team Providers Care Market Research Senior Project Manager Name Role Phone Katia Fraser MD Primary Care Provider [phone] Encounter Details Date Type Department Care Team (Late st Contact Info) Description 12/31/2017 Orders Only [facility] Health Information Management [address] [place] [address] Scanning, Provider Social History Tobacco Use Types Packs/Day Years Used Date Smoking Tobacco: Former Smokeless Tobacco: Former Comments:Smoking History Pac ks/day: 1 Cigarettes Alcohol Use Standard Drinks/Week Comments Yes 0 (1 standard drink = 0.6 oz pur e alcohol) Sex and Gender Information Value Date Recorded Sex Assigned at Not on file Legal Sex Male 11:33 PM CASE PLANNER Gender Identity Male 07/19/2023 9:40 PM CDT Sexual Orientation Straight 07/19/2023 9: 40 PM CDT documented as of this encounter Plan of Treatment Not on file documented as of this encounter Procedures Procedure Name Priority Date/Time Associated Diagnosis Comments SCAN - RADIOLOGY/IMAGING 12/31/2017 documented in this encounter Results * SCAN - RADIOLOGY/IMAGING (12/31/2017) Anatomical Region Laterality Modality Other us Provider Scanning Final Result documented in this encounter Visit Diagnoses Not on filedocumented in this encounter Care Teams Market Research Senior Project Manager Relationship Specialty Start Date End Date Katia Fraser MD [address] [place], [place] [id number] PCP - General 06/20/17 documented as of this encounter
--- OUTSIDE RECORDS SUMMARY | 2024-09-30 11:32 | XMS_ITS ---
Author Organization [facility] Address [address] [place] [address] Care Team Providers Care Guidance Services Coordinator Name Role Phone Kaita Fraser MD Primary Care Provider + [phone] Active Problems Problem Noted Date Diagnosed Date History of colonic polyps 07/10/2024 Chronic diastolic heart failure 08/07/2023 CAD S/P percutaneous coronary angioplasty 2022 Preop cardiovascular exam 10/24/2022 Visit for wound check 04/02/2018 Coronary artery disease invo lving [place] coronary artery of prairie band heart without angina pectoris 02/19/2018 Assessment & Plan (02/25/2018 1:56 PM BISQUE GRADER): At this time continue aspirin, Brilinta. Continue [...] NOS Assessment & Plan (02/25/2018 1:57 PM BISQUE GRADER): Blood pressure controlled. Continue current treatment Insomnia [...]
--- OUTSIDE RECORDS SUMMARY | 2024-09-30 11:32 | XMS_ITS | Encounter Summary ---
Author Organization [facility] Address [address] [place] [address] Phone Care Team Providers Care Wirer Name Role Phone Katia Fraser MD Primary Care Provider + [phone] Encounter Details Date Type Department Care Team [...] on file Legal Sex Male 11:33 PM CASH POSTING REPRESENTATIVE Gender Identity Male 07/19/2023 9:40 PM CDT [...] on filedocumented in this encounter Care Teams Wirer Relationship Specialty Start Date End Date Katia Fraser MD [address] [place], [place] [id number] PCP - General 06/20/17 documented as of this encounter
--- OUTSIDE RECORDS SUMMARY | 2024-09-30 11:32 | XMS_ITS | Encounter Summary ---
Author Organization [facility] Address [address] [place] [address] Care Team Providers Care Resource Conservation Specialist Name Role Phone Katia Fraser MD Primary Care Provider [phone] Encounter Details Date Type Department Care Team (Late st Contact Info) Description 01/01/2018 Orders Only [facility] [address] [place] [address] Scanning, Provider Social History Tobacco Use Types Packs/Day Years Used Date Smoking Tobacco: Former Smokeless Tobacco: Former Comments:Smoking History Pac ks/day: 1 Cigarettes Alcohol Use Standard Drinks/Week Comments Yes 0 (1 standard drink = 0.6 oz pur e alcohol) Sex and Gender Information Value Date Recorded Sex Assigned at Not on file Legal Sex Male 11:33 PM MANAGER RELATIONSHIP Gender Identity Male 07/19/2023 9:40 PM CDT Sexual Orientation Straight 07/19/2023 9: 40 PM CDT documented as of this encounter Plan of Treatment Not on file documented as of this encounter Procedures Procedure Name Priority Date/Time Associated Diagnosis Comments SCAN - RADIOLOGY/IMAGING 01/01/2018 documented in this encounter Results * SCAN - RADIOLOGY/IMAGING (01/01/2018) Anatomical Region Laterality Modality Other us Provider Scanning Final Result documented in this encounter Visit Diagnoses Not on filedocumented in this encounter Care Teams Resource Conservation Specialist Relationship Specialty Start Date End Date Katia Fraser MD [address] [place], [place] [id number] PCP - General 06/20/17 documented as of this encounter
--- OUTSIDE RECORDS SUMMARY | 2024-09-30 11:32 | XMS_ITS | Encounter Summary ---
Author Organization [facility] Address [address] [place] [address] Phone Care Team Providers Care Mill Recorder Name Role Phone Katia Fraser MD Primary Care Provider + [phone] Encounter Details Date Type Department Care Team (Latest Contact Info) Description 08/15/2024 Results Follow-Up [facility] Bone Marrow Transplant [address] [facility] Floor 6 [place] [address] Marcy Hopkins MD [address] [place], [place] [id number] Comprehensive metabolic panel, Comprehensive metabolic panel, CBC with auto differential, Additional followed-up results: 3 Social History Tobacco Use Types Packs/Day Years [...] on file Legal Sex Male 11:33 PM SODA ROOM OPERATOR Gender Identity Male 07/19/2023 9:40 PM CDT Sexual Orientation Straight 07/19/2023 9: 40 PM CDT documented as of this encounter Plan of Treatment Not on file documented as of this encounter Visit Diagnoses Not on filedocumented in this encounter Care Teams Mill Recorder Relationship Specialty Start Date End Date Katia Fraser MD [address] [place] [address] PCP - General 06/20/17 documented as of this encounter
--- OUTSIDE RECORDS SUMMARY | 2024-09-30 11:32 | XMS_ITS | Referral Summary ---
Author Organization [facility] Address [address] [place] [address] Care Team Providers Care Program Clerk Name Role Phone Katia Fraser MD Primary Care Provider [phone] Encounters Date Type Department Care Team Description 09/02/2024 9:30 AM CDT Lab [facility] [place] - Lab Collection [facility] Floor 6 [place] [address] B12 deficiency; Iron deficiency anemia, unspecified iron deficiency anemia type; CLL (chronic lymphocytic leukemia) ([facility]) 09/02/2024 9:[address] [facility] Oncology Lab [address] [place] [address] [address] [place] [address] B12 deficiency; Iron deficiency anemia, unspecified iron deficiency anemia type; CLL (chronic lymphocytic leukemia) ([facility]) 09/02/2024 10:15 AM CDT Office Visit [facility] Hematology [address] [place] [address] 6 [place] [id number] Marcy Hopkins MD B12 deficiency; Iron deficiency anemia, unspecified iron deficiency anemia type; CLL (chronic lymphocytic leukemia) ([facility]) 08/15/2024 Results Follow-Up [facility] Bone Marrow Transplant [facility] [address] [place] [address] Marcy Hopkins MD Comprehensive metabolic panel, Comprehensive metabolic panel, CBC with auto differential, Additional followed-up results: 3 08/12/2024 12:00 PM CDT Office Visit [facility] Cardiology [address] [facility] [address] [place] [address] Renetta Bai MD Coronary artery disease involving [place] coronary artery of [place] heart without angina pectoris (Primary Dx); Primary hypertension; Mixed hyperlipidemia 07/11/2024 Telephone [facility] Gastroenterology at [address] [place] [address] Joaquina Courtney 07/10/2024 Telephone [facility] Gastroenterology at [address] [place] [address] Joaquina Courtney from Last 3 Months Allergies Active Allergy [...] check 04/02/2018 Coronary artery disease invo lving [place] coronary artery of [place] heart without angina pectoris 02/19/2018 Assessment & Plan (02/25/2018 1:56 PM CREATIVE TECHNOLOGIST): At this time continue aspirin, Brilinta. Continue [...] NOS Assessment & Plan (02/25/2018 1:57 PM CREATIVE TECHNOLOGIST): Blood pressure controlled. Continue current treatment Insomnia [...] on file Legal Sex Male 11:33 PM CREATIVE TECHNOLOGIST Gender Identity Male 07/19/2023 9:40 PM CDT [...] 08/12/2024 11:58 AM CDT Plan of Treatment Not on file Medical Devices Implanted Type Area Feed Project Engineer Device Identifier Shelf Expiration Date Model / Serial / Lot [employer] Synergy Xd Monorail 3.5mm 24mm 144cm Delivery System 1 Access [id number] - [id number] Implanted:Qty: 1 on 11/22/2022 by Renetta Bai MD at [facility] St[employer] 12/16/2023 [id number] / / [id number] [email or web address] Device Vascular Closure Femoral Artery Bioabsorbable Dual Method Vascade 6-7fr Collagen [id number] - [id number] Implanted:Qty: 1 on 11/22/2022 by Renetta Bai MD at [facility] [employer] 07/11/2024 [id number] / / [id number] Procedures Procedure Name Priority Date/Time Associated [...] of Race in Diagnosing Kidney Disease, JASN 202). The CKD-EPI equation should not be used for patients with unstable renal function and has not been validated in children and those over 70. Current interpretive data was last reviewed 2021. Blood 09/02/2024 9:21 AM CDT 09/02/2024 9:43 AM CDT Marcela Mane CULTURAL ANTHROPOLOGY PROFESSOR LAB BLOOD ORDERABLES Final Result [facility] One [facility] [place] [address] * Differential, auto (09/02/2024 9:21 AM CDT) Neutrophil abs 2.95 1.50 - 6.50 K/cumm Comment:Testing performed by : [facility] Heme [facility], [address] [place] [phone] Lymphocyte abs 2.77 0.80 - 3.30 K/cumm ED [facility] Comment:Testing performed by : [facility], [address] [place], [place] [phone] Monocyte abs 0.70 0.20 - 0.80 K/cumm ED [facility] Comment:Testing performed by : [facility], [address] [place], [place] [phone] Eosinophil abs 0.17 0.00 - 0.50 K/cumm ED [facility] Comment:Testing performed by : [facility], [address] [place] [phone] Basophil abs 0.03 0.00 - 0.10 K/cumm CERNAPOLEON HOBBS Comment:Testing performed by : [facility]e [facility], [address] [place] [phone] Neutrophil pct 44.7 % CERNER BJ Comment: Interpretive Data Percent cell count reference ranges are not reported, since discordance with absolute values may lead to misinterpretation of CBC data. Current Interpretive Data was last revised on 2017. Testing performed by: [facility], [address] [place] [phone] Lymphocyte pct 41.9 % [facility] Comment: Interpretive Data Percent cell count reference ranges are not reported, since discordance with absolute values may lead to misinterpretation of CBC data. Current Interpretive Data was last revised on 2017. Testing performed by: [facility]e [facility], [address] [place] [phone] Monocyte pct 10.6 % [facility] Comment: Interpretive Data Percent cell count reference ranges are not reported, since discordance with absolute values may lead to misinterpretation of CBC data. Current Interpretive Data was last revised on 2017. Testing performed by: [facility]e [facility], [address] [place] [phone] Eosinophil pct 2.5 % ED [facility] Comment: Interpretive Data Percent cell count reference ranges are not reported, since discordance with absolute values may lead to misinterpretation of CBC data. Current Interpretive Data was last revised on 2017. Testing performed by: [facility], [address] [place] [phone] Basophil pct 0.4 % ED [facility] Comment: Interpretive Data Percent cell count reference ranges are not reported, since discordance with absolute values may lead to misinterpretation of CBC data. Current Interpretive Data was last revised on 2017. Testing performed by: [facility], [address] [place] [phone] Blood 09/02/2024 9:21 AM CDT 09/02/2024 9:39 AM CDT Marcela Mane CULTURAL ANTHROPOLOGY PROFESSOR LAB BLOOD ORDERABLES Final Result [facility] Department [place] [address] * Iron profile w/ IBC (09/02/2024 9:21 AM CDT) Iron 77 50 - 150 mcg/dL TIBC 268 250 - 400 mcg/dL [facility] Transferrin saturation 29 20 - 50 % [facility] Blood 09/02/2024 9:21 AM CDT 09/02/2024 9:43 AM CDT Marcela Mane CULTURAL ANTHROPOLOGY PROFESSOR LAB BLOOD ORDERABLES Final Result [facility] Department [place] [address] * (ABNORMAL) CBC with auto differential (09/02/2024 9:21 AM CDT) WBC 6.60 3.80 - 9.90 K/cumm Comment:Testing performed by : [facility], [address] [place] [address] Hgb 11.3(L) 13.0 - 17.5 g/dL [facility] Comment:Testing performed by : [facility], [address] [place] [address] Hct 33.9(L) 38.9 - 50.3 % [facility] Comment:Testing performed by : [facility], [address] [place] [address] Plt 170 150 - 400 K/cumm [facility] Comment:Testing performed by : [facility]e [facility], [address] [place] [address] MPV 8.0 6.8 - 10.4 fL [facility] Comment:Testing performed by : [facility], [address] [place] [address] RBC 3.71(L) 4.30 - 5.80 M/cumm C[facility]ER BJ Comment:Testing performed by : [facility], [address] [place] [address] MCV 91.4 81.3 - 96.4 fL [facility] Comment:Testing performed by : [facility], [address] [place] [address] MCH 30.6 27.1 - 33.3 pg [facility] Comment:Testing performed by : [facility], [address] [place] [address] MCHC 33.5 32.3 - 35.7 g/dL [facility] Comment:Testing performed by : [facility], [address] [place] [address] RDW CV 15.5(H) 11.1 - 14.9 % [facility] Comment:Testing performed by : [facility], [address] [place], [place] [phone] NRBC abs 0.00 0.00 - 0.01 K/cumm ED [facility] Comment:Testing performed by : [facility], [address] [place], [place] [phone] Blood 09/02/2024 9:21 AM CDT 09/02/2024 9:39 AM CDT Marcela Mane CULTURAL ANTHROPOLOGY PROFESSOR LAB BLOOD ORDERABLES Final Result Performing Organization Address [facility] de Phone Number ED [facility] Department [place] [address] * (ABNORMAL) Reticulocyte Count (09/02/2024 9:21 AM CDT) Retics, absolute 90 20 - 100 K/cumm Comment:Testing performed by : [facility], [address] [place], [place] [phone] Retics 2.4(H) 0.5 - 1.8 % ED [facility] Comment:Testing performed by : [facility], [address] [place] [phone] Blood 09/02/2024 9:21 AM CDT 09/02/2024 9:39 AM CDT Marcela Mane CULTURAL ANTHROPOLOGY PROFESSOR LAB BLOOD ORDERABLES Final Result Performing Organization Address [facility] Co de Phone Number ED [facility] [place] [address] * Lactate dehydrogenase (LD) (09/02/2024 9:21 AM CDT) Lactate dehydrogenase (LDH) 187 100 - 250 Units/L Blood 09/02/2024 9:21 AM CDT 09/02/2024 9:43 AM CDT Marcela Mane CULTURAL ANTHROPOLOGY PROFESSOR LAB BLOOD ORDERABLES Final Result Performing Organization Address [facility] Co de Phone Number [facility] Department [place] [address] * Ferritin (09/02/2024 9:21 AM CDT) [facility] Ferritin 84 30 - 400 ng/mL Blood 09/02/2024 9:21 AM CDT 09/02/2024 9:43 AM CDT Marcela Mane CULTURAL ANTHROPOLOGY PROFESSOR LAB BLOOD ORDERABLES Final Result Performing Organization Address [facility] de Phone Number [facility] [place] [address] * Vitamin B12 (09/02/2024 9:21 AM CDT) [facility] Vitamin B12 1,002 230 - 1,250 pg/mL Blood 09/02/2024 9:21 AM CDT 09/02/2024 10:01 AM CDT Marcela Mane CULTURAL ANTHROPOLOGY PROFESSOR LAB BLOOD ORDERABLES Final Result Performing Organization Address [facility] de Phone Number [facility] Department [place] [address] * (ABNORMAL) Comprehensive metabolic panel (09/02/2024 9:21 AM CDT) [facility] Sodium 139 135 - 145 mmol/L Potassium, pl 3.7 3.3 - 4.9 mmol/L [facility] Chloride 108 97 - 110 mmol/L [facility] CO2 22 22 - 32 mmol/L [facility] Anion gap 9 2 - 15 mmol/L [facility] BUN 18 6 - 25 mg/dL [facility] Creatinine 1.63(H) 0.80 - 1.30 mg/dL [facility] Glucose 83 70 - 199 mg/dL [facility] Comment: Interpretive Data Fasting glucose >/= [...] 2022. Calcium 9.6 8.5 - 10.3 mg/dL [facility] Bilirubin, total 0.4 0.1 - 1.2 mg/dL [facility] Protein, pl 7.0 6.5 - 8.5 g/dL [facility] Albumin 4.2 3.5 - 5.0 g/dL [facility] Alk phos 95 40 - 130 Units/L [facility] ALT 19 7 - 55 Units/L [facility] AST 17 10 - 50 Units/L [facility] Blood 09/02/2024 9:21 AM CDT 09/02/2024 9:43 AM CDT us Marcela Mane CULTURAL ANTHROPOLOGY PROFESSOR LAB BLOOD ORDERABLES Final Result [facility] One [facility] [place] [address] * (ABNORMAL) CBC with auto differential (08/14/2024 [...] 08/15/2024 4:43 AM CDT FASTING:NO FASTING: NO Marcy Hopkins MD LAB BLOOD ORDERABLES Final Result [facility] [address] [facility] [place] [address] * (ABNORMAL) Comprehensive metabolic panel (08/14/2024 1:16 PM CDT) [facility] Glucose 91 65 - 139 mg/dL [facility] [...] LAB BLOOD ORDERABLES Final Result [facility] [address] [facility] [place] [address] * Lactate dehydrogenase (LD) (08/14/2024 1:14 PM CDT) Lactate dehydrogenase (LDH) 175 120 - 250 U/L [facility] Blood 08/14/2024 1:14 PM CDT 08/14/2024 1:15 PM CDT Narrative [facility] - 08/15/2024 5:46 AM CDT FASTING:NO FASTING: NO us Marcy Hopkins MD LAB BLOOD ORDERABLES Final Result [facility] [address] [address] [address] * (ABNORMAL) CBC with auto differential (07/15/2024 [...] BLOOD ORDERABLES Final Result Performing Organization Address [facility]/ZIP Co de Phone Number [facility] [address] [place] [address] * Lactate dehydrogenase (LD) (07/15/2024 1:23 PM CDT) Pathologist [facility] Lactate dehydrogenase (LDH) 175 120 - 250 U/L [facility] Blood 07/15/2024 1:23 PM CDT 07/15/2024 1:23 PM CDT Narrative [facility] - 07/16/2024 7:31 AM CDT FASTING:NO FASTING: NO Marcy Hopkins MD LAB BLOOD ORDERABLES Final Result Performing Organization Address [facility] de Phone Number [facility] [address] [place] [address] * (ABNORMAL) Comprehensive metabolic panel (07/15/2024 1:23 [...] LAB BLOOD ORDERABLES Final Result [facility] [address] [place] [address] * CT Chest Abdomen Pelvis W Contrast [...] Recently Relevant to Health Maintenance Insurance MEDICARE [facility] MEDICARE [employer] [place] [employer] [place] Advance Directives For more information, please contact: [phone] * Full Code (Latest Code Status on File) Date Activated Date Inactivated Comments 11/22/2022 12:13 PM 11/23/2022 4:22 PM Care Teams Program Clerk Relationship Specialty Start Date End Date Katia Fraser MD [address] [place] [address] PCP - General 06/20/17
== END 2024-09-30 10:54 | disposition home or self-care (01) ==
PROVIDERS: PCP Internal Medicine; Visit Provider Internal Medicine
DX: M79.89 Other specified soft tissue disorders (principal)
CPT/HCPCS: 93971

== ENCOUNTER 2024-11-04 10:55 | Emergency (ER) | payer MEDICARE, OTHER, SELFPAY ==
[2024-11-04 11:00] VITALS: BP 106/51; PULSE 98; RESP 20; TEMP 36.6; O2SAT 97
--- NOTE | 2024-11-04 11:00 | ED_ITS ---
HPI - URI/Sore Throat General Chief Complaint: Upper Respiratory Infection Stated Complaint: having trouble breathing Time Seen by Provider: 11/04/24 11:10 Source: patient and RN notes reviewed Mode of arrival: ambulatory Limitations: no limitations History of Present Illness HPI Narrative: 83-year-old male presents with concern for shortness of breath that started today. He reports he has had some mild upper respiratory infection symptoms recently but nothing severe. He denies any history of breathing problems. He reports he has similar symptoms in the past when he had a heart attack. He has stents in takes a blood thinner. He reports symptoms worsen with exertion. He denies any relieving symptoms. He reports chest pain and pain across his upper back. MD elicited complaint: other (Shortness of breath) Related Data Home Medications ?Medication ?Instructions ?Recorded ?Confirmed ?Last Taken ?Type metoprolol tartrate 25 mg tablet 25 mg PO BID 05/07/19 07/30/24 07/28/24 History clopidogrel 75 mg tablet 75 mg PO DAILY 07/10/20 07/30/24 07/24/24 History acalabrutinib maleate 100 mg 100 mg PO DAILY 06/01/24 07/30/24 07/28/24 History tablet (Calquence (acalabrutinib maleate)) rosuvastatin 10 mg tablet 10 mg PO QAM 07/24/24 07/30/24 07/28/24 History levocetirizine 5 mg tablet mg 11/04/24 Unknown History Allergies Allergy/AdvReac Type Severity Reaction Status Date / Time No Known Allergies Allergy Verified 11/04/24 11:07 Review of Systems Review of Systems: ENT: Reports rhinorrhea and sore throat. CARDIOVASCULAR: Reports chest pain, palpitations RESPIRATORY: Reports cough and dyspnea. GASTROINTESTINAL: Denies abdominal pain MUSCULOSKELETAL: Reports myalgia. NEUROLOGIC: Denies headache. All systems reviewed & are unremarkable except as noted in HPI and below PMFSH Past Medical History Medical History Seasonal rhinitis GERD (gastroesophageal reflux disease) Paroxysmal atrial fibrillation Hypertension Non-Hodgkin lymphoma Large B-cell lymphoma treated in 2016 at [place]. Coronary artery disease History of inferior STEMI on 12/29/2017. Right coronary was totally occluded and was revascularized with a drug-eluting stent. He also had high-grade stenosis of the mid LAD, which was not intervened upon. Osteoarthritis Hyperlipidemia Surgical History Surgical History History of lumbar fusion History of surgery on arm Left arm ORIF. Status post total right knee replacement Status post bilateral total hip replacement History of total replacement of both shoulder joints Status post arthroscopy of left knee History of bilateral carpal tunnel release Status post cataract extraction History of coronary artery stent placement Drug-eluting stent to the right coronary artery 12/29/2017. Family History Family History Father Hypertension Mother Acute myocardial infarction Social History Social History (Updated 07/24/24 @ 13:35 by [facility]) Social History: The patient has been since 2015 after his from lung cancer. He has 1 daughter and 2 sons. He designates his [id number] Karen as his surrogate decision maker and he wishes to be a full code. He smoked up to 2 packs of cigarettes per day for 45 years and quit 1999. He denies alcohol and drug use. 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 Smoking packs per day: 2 Smoking cigarettes per day: 40.0 Years smoked: 45 Smoking pack-years: 90.00 Smoking status: Former smoker Tobacco type: cigarettes Second hand tobacco smoke exposure: No Smoking end date: 10/01/01 Alcohol intake: never Alcohol use details: HEAVIER DRINKER IN PAST Substance use: never Substance use type: does not use Current Housing: Decline to Answer Concerned About Future Housing: Decline to Answer Difficulty Paying Gas/Electric Bills: Decline to Answer Difficulty Paying for Meds: Decline to Answer Currently Unemployed: Decline to Answer Education: Decline to Answer Difficulty w/ Childcare or Family Care: Decline to Answer Living arrangements: alone Gender identity (if verbalized by the patient): Male Sexual Orientation (if Verbalized by the Patient): Straight or Heterosexual Spiritual care concerns: No Agree to blood products: Yes Comments At time of signature, agree with nursing past medical, surgical, social and family history. There is no relevant family history pertinent to the presenting complaint Exam Narrative: GENERAL: Nontoxic-appearing, well-nourished, and in no acute distress. HEAD: Normocephalic EYES: PERRLA, conjunctivae clear ENT: Nares clear. Mucous membranes moist. NECK: Supple. CHEST: Clear to auscultation, breath sounds equal. No wheezing, rhonchi, rales, or stridor. No respiratory distress, speaks in full sentences. HEART: Irregular rhythm. Bilateral edema in hands noted SKIN: Warm, dry, no rash. NEURO: Alert and oriented x3. PSYCH: Normal mood and affect Course Course Emergency Course: Patient is aware of, understands and agrees to be sent to the emergency room via EMS. Portions of this record may have been created with voice recognition software Level of Care: Express Care Visit Vital Signs Vital signs: Reviewed. Transfer Transfered to: [facility]: ALS Transfer rationale: Shortness of breath abnormal EKG Accepting physician: Jose Armando CERVANTES - URI/Sore Throat BILLY Narrative Medical decision making narrative: I evaluated this patient in the express care. History is obtained from patient who is an independent historian and physical exam was performed.? Available medical records were reviewed. ? Exam findings and relevant testing show no acute concerns or changes; patient is non-toxic appearing and is in no distress. ? Differential diagnosis and treatment plan were discussed with the patient. Patient agrees with discussion and after shared medical decision making agrees with plan of care and agrees to transfer to the emergency room. Lab Data Attestation: I reviewed the patient's lab results. ECG Data EKG #1: ECG completion date: 11/04/24 ECG completion time: 11:20 Prior ECG tracings: available for review Interpretation: Rate 98, PA interval an a, QRS duration 92, QT 351, QTC 406, nonspecific T-wave abnormality EKG Interpretation: atrial fibrillation Critical Care Time Critical Care Time Critical Care Time: No Discharge Plan Discharge Clinical Impression: Shortness of breath Patient Disposition: Acute Care Hospital Condition: Stable Patient Language: Guamanian Prescriptions: No Action Calquence (acalabrutinib mal) 100 mg tablet 100 mg PO DAILY levocetirizine 5 mg tablet metoprolol tartrate 25 mg Tablet 25 mg PO BID rosuvastatin 10 mg tablet 10 mg PO QAM clopidogrel 75 mg tablet 75 mg PO DAILY Follow-up/Referrals: PHYSICIAN,MOLD BURNER [Primary Care Provider] - Time of Disposition: 11:29
--- NOTE | 2024-11-04 11:14 | ECG_ITS ---
Test Date: 2024-11-04 11:20:20 Measurements Intervals [place] Rate: 98 P: 0 [place]: 0 QRS: 26 QRSD: 92 T: 27 QT: 351 QTc: 449 Interpretive Statements ATRIAL FIBRILLATION NONSPECIFIC ST-T WAVE ABNORMALITY- INF/HIGH LAT LEADS BASELINE ARTIFACT- II, III, AVR, AVF ABNORMAL ECG No previous ECG available for comparison Electronically Signed On 11-04-2024 12:52:39 CDT by Melvin Ivey D.O.
--- OUTSIDE RECORDS SUMMARY | 2024-11-04 11:24 | XMS_ITS | Encounter Summary ---
Author Organization [facility] Address [address] [place] [address] Phone Care Team Providers Care Internal Control Analyst Name Role Phone Katia Fraser MD Primary Care Provider + [phone] Encounter Details Date Type Department Care Team [...] on file Legal Sex Male 11:33 PM [employer] Gender Identity Male 07/19/2023 9:40 PM CDT [...] on filedocumented in this encounter Care Teams Internal Control Analyst Relationship Specialty Start Date End Date Katia Fraser MD [address], [place] [id number] PCP - General 06/20/17 documented as of this encounter
--- OUTSIDE RECORDS SUMMARY | 2024-11-04 11:24 | XMS_ITS | Clinical Summary ---
Author Organization [facility] Address [address] [place] [address] Care Team Providers Care Termite Helper Name Role Phone Katia Fraser MD Primary Care Provider + [phone] Allergies Active Allergy Reactions Criticality Noted Date [...] check 04/02/2018 Coronary artery disease invo lving suquamish coronary artery of suquamish heart without angina pectoris 02/19/2018 Assessment & Plan (02/25/2018 1:56 PM STATUE MAKER): At this time continue aspirin, Brilinta. Continue [...] NOS Assessment & Plan (02/25/2018 1:57 PM STATUE MAKER): Blood pressure controlled. Continue current treatment Insomnia 08/17/2013 Overview (07/07/2016): INSOMNIA NEC Hyperlipidemia 08/17/2013 Overview (07/09/2016): HYPERLIPIDEMIA NEC/NOS Depression 08/17/2013 Overview (07/09/2016): DEPRESSIVE DISORDER NEC Resolved Problems Problem Noted Date Diagnosed Date Resolved Date Preoperative cardiovascular examination 12/10/2018 11/22/2021 Encounters Date Type Department Care Team Description 09/02/2024 10:15 AM CDT Office Visit [facility] Hematology [address] [place] [phone] Marcy Hopkins MD B12 deficiency; Iron deficiency anemia, unspecified iron deficiency anemia type; CLL (chronic lymphocytic leukemia) ([facility]) 09/02/2024 9:30 AM CDT Lab [facility] [place] - Lab Collection [facility] [address] [place] [address] B12 deficiency; Iron deficiency anemia, unspecified iron deficiency anemia type; CLL (chronic lymphocytic leukemia) ([facility]) 09/02/2024 9:15 AM CDT Lab [facility] Oncology Lab [address] [place] [phone] B12 deficiency; Iron deficiency anemia, unspecified iron deficiency anemia type; CLL (chronic lymphocytic leukemia) ([facility]) 08/15/2024 Results Follow-Up [facility] Bone Marrow Transplant [address] [facility] Floor [address] [place] [address] Marcy Hopkins MD Comprehensive metabolic panel, Comprehensive metabolic panel, CBC with auto differential, Additional followed-up results: 3 08/12/2024 12:00 PM CDT Office Visit [facility] Cardiology [address] [place] [address] Renetta Bai MD Coronary artery disease involving suquamish coronary artery of suquamish heart without angina pectoris (Primary Dx); Primary hypertension; Mixed hyperlipidemia from Last 3 Months Immunizations Immunization Administration [...] on file Legal Sex Male 11:33 PM STATUE MAKER Gender Identity Male 07/19/2023 9:40 PM CDT [...] Td or Tdap) 05/04/2024 05/04/2014 Influenza Vaccine (#1) 2024 9, 01/06/2017, 12/14/2015, Additional history exists Abdominal Aortic Aneurysm (A AA) Screen Completed 08/11/2023, 01/07/2022, 10/21/2020, Additional history exists Medical Devices Implanted Type Area Septic Tank Service Technician Device Identifier Shelf Expiration Date Model / Serial / Lot [employer] Synergy Xd Monorail 3.5mm 24mm 144cm Delivery System 1 Access [id number] - [id number] Implanted:Qty: 1 on 11/22/2022 by Renetta Bai MD at [facility] Stent [employer] Jose 12/16/2023 [id number] / / [id number] Active Circle Medical [facility] Device Vascular Closure Femoral Artery Bioabsorbable Dual Method Vascade 6-7fr Collagen [id number] - [id number] Implanted:Qty: 1 on 11/22/2022 by Renetta Bai MD at [facility] [employer] 07/11/2024 [id number] / / [id number] Procedures Procedure Name Priority Date/Time Associated Diagnosis Comments LACTATE DEHYDROGENASE Routine 11/01/2024 1:13 PM CDT CBC WITH AUTO DIFFERENTIAL Routine 11/01/2024 1:13 PM CDT COMPREHENSIVE METABOLIC PANEL Routine 11/01/2024 1:13 PM CDT CLL (chronic lymphocytic leukemia) (HCC) CBC WITH AUTO DIFFERENTIAL Routine 10/01/2024 10:39 AM CDT CLL (chronic lymphocytic leukemia) (HCC) LACTATE DEHYDROGENASE Routine 10/01/2024 10:37 AM CDT CLL (chronic lymphocytic leukemia) (HCC) COMPREHENSIVE METABOLIC PANEL Routine 10/01/2024 10:34 AM CDT CLL (chronic lymphocytic leukemia) (HCC) EGFR Routine 09/02/2024 9:21 AM CDT B12 [...] Results * (ABNORMAL) CBC with auto differential (11/01/2024 1:13 PM CDT) WBC 5.9 3.8 - 10.8 Thousand/u L [facility] RBC, POC 3.65(L) 4.20 - 5.80 Million/uL [facility] Hgb 11.4(L) 13.2 - 17.1 g/dL [facility] Hct 35.7(L) 38.5 - 50.0 % [facility] MCV 97.8 80.0 - 100.0 fL [facility] MCH 31.2 27.0 - 33.0 pg [facility] MCHC 31.9(L) 32.0 - 36.0 g/dL [facility] Comment: For adults, a slight decrease in the calculated MCHC value (in the range of 30 to 32 g/dL) is most likely not clinically significant; however, it should be interpreted with caution in correlation with other red cell parameters and the patient's clinical condition. Rdw 13.3 11.0 - 15.0 % [facility] Platelets 165 140 - 400 Thousand/u L [facility] MPV 10.0 7.5 - 12.5 fL [facility] Neutrophils, abs 3,251 1,500 - 7,800 cells/uL [facility] Lymphocytes, abs 1,988 850 - 3,900 cells/uL [facility] Monocyte abs 502 200 - 950 cells/uL [facility] Eosinophils, abs 142 15 - 500 cells/uL [facility] Basophils, abs 18 0 - 200 cells/uL [facility] Neutrophils 55.1 % [facility] Lymphocyte pct 33.7 % [facility] Monocytes 8.5 % [facility] Eosinophils 2.4 % [facility] Basophils 0.3 % [facility] 11/01/2024 1:13 PM CDT 11/01/2024 1:13 PM CDT Narrative [facility] - 11/02/2024 6:08 AM CDT FASTING:NO FASTING: NO Marcy Hopkins MD LAB BLOOD ORDERABLES Final Result Performing Organization Address [facility]/ZIP Co de Phone Number MICHEL[facility] [address] [place] [address] * Lactate dehydrogenase (LD) (11/01/2024 1:13 PM CDT) Lactate dehydrogenase (LDH) 149 120 - 250 U/L [facility] 11/01/2024 1:13 PM CDT 11/01/2024 1:13 PM CDT Narrative [facility] - 11/02/2024 6:08 AM CDT FASTING:NO FASTING: NO Marcy Hopkins MD LAB BLOOD ORDERABLES Final Result Performing Organization Address [facility] Co de Phone Number MICHELLE [facility] [address] [place] [address] * (ABNORMAL) Comprehensive metabolic panel (11/01/2024 1:13 PM CDT) Glucose 129 65 - 139 mg/dL [facility] Comment: Non-fasting reference interval BUN 19 7 - 25 mg/dL [facility] Creatinine 1.75(H) 0.70 - 1.22 mg/dL [facility] eGFR 39(L) > OR = 60 mL/min/1.7 3m2 [facility] BUN/creat ratio 11 6 - 22 (calc) [facility] Sodium 139 135 - 146 mmol/L [facility] Potassium, pl 3.8 3.5 - 5.3 mmol/L [facility] Chloride 106 98 - 110 mmol/L [facility] CO2 27 20 - 32 mmol/L [facility] Calcium 9.1 8.6 - 10.3 mg/dL [facility] Protein, sr 6.2 6.1 - 8.1 g/dL [facility] Albumin 4.1 3.6 - 5.1 g/dL [facility] GLOBULIN 2.1 1.9 - 3.7 g/dL (calc) [facility] Alb/glob ratio 2.0 1.0 - 2.5 (calc) [facility] Bilirubin, total 0.6 0.2 - 1.2 mg/dL [facility] Alk phos 73 35 - 144 U/L [facility] AST 6(L) 10 - 35 U/L [facility] ALT (SGPT) 9 9 - 46 U/L [facility] Blood 11/01/2024 1:13 PM CDT 11/01/2024 1:13 PM CDT Narrative [facility] - 11/02/2024 6:08 AM CDT FASTING:NO FASTING: NO us Marcy Hopkins MD LAB BLOOD ORDERABLES Final Result [facility] [address] [facility] [place] [phone] * (ABNORMAL) CBC with auto differential (10/01/2024 10:39 AM CDT) WBC 6.8 3.8 - 10.8 Thousand/u L [facility] RBC, POC 3.71(L) 4.20 - 5.80 Million/uL [facility] Hgb 11.6(L) 13.2 - 17.1 g/dL [facility] Hct 36.2(L) 38.5 - 50.0 % [facility] MCV 97.6 80.0 - 100.0 fL [facility] MCH 31.3 27.0 - 33.0 pg [facility] MCHC 32.0 32.0 - 36.0 g/dL [facility] Comment: For adults, a slight decrease in the calculated MCHC value (in the range of 30 to 32 g/dL) is most likely not clinically significant; however, it should be interpreted with caution in correlation with other red cell parameters and the patient's clinical condition. Rdw 13.5 11.0 - 15.0 % [facility] Platelets 169 140 - 400 Thousand/u L [facility] MPV 9.8 7.5 - 12.5 fL [facility] Neutrophils, abs 3,414 1,500 - 7,800 cells/uL [facility] Lymphocytes, abs 2,591 850 - 3,900 cells/uL [facility] Monocyte abs 619 200 - 950 cells/uL [facility] Eosinophils, abs 150 15 - 500 cells/uL [facility] Basophils, abs 27 0 - 200 cells/uL [facility] Neutrophils 50.2 % [facility] Lymphocyte pct 38.1 % [facility] Monocytes 9.1 % [facility] Eosinophils 2.2 % [facility] Basophils 0.4 % [facility] Blood 10/01/2024 10:3 9 AM CDT 10/01/2024 10:40 AM CDT Narrative [facility] - 10/02/2024 5:39 AM CDT FASTING:YES FASTING: YES Marcy Hopkins MD LAB BLOOD ORDERABLES Final Result [facility] [address] [place] [phone] * Lactate dehydrogenase (LD) (10/01/2024 10:37 AM CDT) Pathologist [facility] Lactate dehydrogenase (LDH) 154 120 - 250 U/L [facility] Blood 10/01/2024 10:3 7 AM CDT 10/01/2024 10:38 AM CDT Narrative [facility] - 10/02/2024 5:09 AM CDT FASTING:YES FASTING: YES us Marcy Hopkins MD LAB BLOOD ORDERABLES Final Result [facility] [id number] [place] [address] * (ABNORMAL) Comprehensive metabolic panel (10/01/2024 10:34 AM CDT) Pathologist [facility] Glucose 81 65 - 139 mg/dL [facility] Comment: Non-fasting reference interval BUN 20 7 - 25 mg/dL [facility] Creatinine 1.62(H) 0.70 - 1.22 mg/dL [facility] eGFR 42(L) > OR = 60 mL/min/1.7 3m2 [facility] BUN/creat ratio 12 6 - 22 (calc) [facility] Sodium 139 135 - 146 mmol/L [facility] [...] 1.2 mg/dL [facility] Alk phos 75 35 - 144 U/L [facility] AST 9(L) 10 - 35 U/L [facility] ALT (SGPT) 11 9 - 46 U/L [facility] Blood 10/01/2024 10:3 4 AM CDT 10/01/2024 10:35 AM CDT Narrative [facility] - 10/02/2024 4:50 AM CDT FASTING:NO FASTING: NO Marcy Hopkins MD LAB BLOOD ORDERABLES Final Result [facility] [id number] [place] [phone] * (ABNORMAL) eGFR (09/02/2024 9:21 AM CDT) [...] 09/02/2024 9:43 AM CDT us Marcela Mane STATE DIRECTOR LAB BLOOD ORDERABLES Final Result ED [facility] [place] [address] * Differential, auto (09/02/2024 9:21 AM CDT) Neutrophil abs 2.95 1.50 - 6.50 K/cumm Comment:Testing performed by : [facility], [address] [place] [phone] Lymphocyte abs 2.77 0.80 - 3.30 K/cumm [facility] Comment:Testing performed by : [facility], [address] [place] [phone] Monocyte abs 0.70 0.20 - 0.80 K/cumm [facility] Comment:Testing performed by : [facility], [address] [place], [place] [phone] Eosinophil abs 0.17 0.00 - 0.50 K/cumm [facility] Comment:Testing performed by : [facility], [address] [place] [phone] Basophil abs 0.03 0.00 - 0.10 K/cumm [facility] Comment:Testing performed by : [facility], [address] [place] [phone] Neutrophil pct 44.7 % [facility] Comment: Interpretive Data Percent cell count reference ranges are not reported, since discordance with absolute values may lead to misinterpretation of CBC data. Current Interpretive Data was last revised on 2017. Testing performed by: [facility], [address] [place] [phone] Lymphocyte pct 41.9 % [facility] Comment: Interpretive Data Percent cell count reference ranges are not reported, since discordance with absolute values may lead to misinterpretation of CBC data. Current Interpretive Data was last revised on 2017. Testing performed by: [facility], [address] [place] [phone] Monocyte pct 10.6 % [facility] Comment: Interpretive Data Percent cell count reference ranges are not reported, since discordance with absolute values may lead to misinterpretation of CBC data. Current Interpretive Data was last revised on 2017. Testing performed by: [facility], [address] [place] [phone] Eosinophil pct 2.5 % [facility] Comment: Interpretive Data Percent cell count reference ranges are not reported, since discordance with absolute values may lead to misinterpretation of CBC data. Current Interpretive Data was last revised on 2017. Testing performed by: [facility], [address] [place] [phone] Basophil pct 0.4 % [facility] Comment: Interpretive Data Percent cell count reference ranges are not reported, since discordance with absolute values may lead to misinterpretation of CBC data. Current Interpretive Data was last revised on 2017. Testing performed by: [facility], [address] [place] [phone] Blood 09/02/2024 9:21 AM CDT 09/02/2024 9:39 AM CDT Marcela Mane STATE DIRECTOR LAB BLOOD ORDERABLES Final Result Performing Organization Address City/[facility]/ZIP Co de Phone Number [facility] [place] [address] * Iron profile w/ IBC (09/02/2024 9:21 AM CDT) Pathologist [facility] Iron 77 50 - 150 mcg/dL TIBC 268 250 - 400 mcg/dL [facility] Transferrin saturation 29 20 - 50 % [facility] Blood 09/02/2024 9:21 AM CDT 09/02/2024 9:43 AM CDT Marcela Mane STATE DIRECTOR LAB BLOOD ORDERABLES Final Result Performing Organization Address City/[facility]/ZIP Co de Phone Number [facility] Department [place] [address] * (ABNORMAL) CBC with auto differential (09/02/2024 9:21 AM CDT) Pathologist [facility] WBC 6.60 3.80 - 9.90 K/cumm Comment:Testing performed by : [facility], [address] [place] [phone] Hgb 11.3(L) 13.0 - 17.5 g/dL [facility] Comment:Testing performed by : [facility], [address] [place] [address] Hct 33.9(L) 38.9 - 50.3 % [facility] Comment:Testing performed by : [facility], [address] [place], [place] [phone] Plt 170 150 - 400 K/cumm [facility] Comment:Testing performed by : [facility], [address] [place] [address] MPV 8.0 6.8 - 10.4 fL [facility] Comment:Testing performed by : [facility], [address] [place] [address] RBC 3.71(L) 4.30 - 5.80 M/cumm [facility]J Comment:Testing performed by : [facility], [address] [place], [place] [phone] MCV 91.4 81.3 - 96.4 fL [facility] Comment:Testing performed by : [facility], [address] [place] [address] MCH 30.6 27.1 - 33.3 pg [facility] Comment:Testing performed by : [facility], [address] [place] [address] MCHC 33.5 32.3 - 35.7 g/dL [facility] Comment:Testing performed by : [facility], [address] [place] [address] RDW CV 15.5(H) 11.1 - 14.9 % [facility] Comment:Testing performed by : [facility], [address] [place] [address] NRBC abs 0.00 0.00 - 0.01 K/cumm C[facility]ER BJ Comment:Testing performed by : [facility], [address] [place] [address] Blood 09/02/2024 9:21 AM CDT 09/02/2024 9:39 AM CDT Marcela Mane STATE DIRECTOR LAB BLOOD ORDERABLES Final Result Performing Organization Address City/State/[facility] Co de Phone Number [facility] [place] [address] * (ABNORMAL) Reticulocyte Count (09/02/2024 9:21 AM CDT) [facility] Retics, absolute 90 20 - 100 K/cumm Comment:Testing performed by : [facility] Heme [facility], [address] [place] [phone] Retics 2.4(H) 0.5 - 1.8 % [facility] Comment:Testing performed by : [facility] Heme [facility], [address] [place] [phone] Blood 09/02/2024 9:21 AM CDT 09/02/2024 9:39 AM CDT Marcela Mane STATE DIRECTOR LAB BLOOD ORDERABLES Final Result Performing Organization Address [facility] Co de Phone Number [facility] Department [place] [address] * Lactate dehydrogenase (LD) (09/02/2024 9:21 AM CDT) [facility] Lactate dehydrogenase (LDH) 187 100 - 250 Units/L Blood 09/02/2024 9:21 AM CDT 09/02/2024 9:43 AM CDT Marcela Mane STATE DIRECTOR LAB BLOOD ORDERABLES Final Result Performing Organization Address City/[facility] Co de Phone Number [facility] [place] [address] * Ferritin (09/02/2024 9:21 AM CDT) [facility] Ferritin 84 30 - 400 ng/mL Blood 09/02/2024 9:21 AM CDT 09/02/2024 9:43 AM CDT Marcela Mane STATE DIRECTOR LAB BLOOD ORDERABLES Final Result Performing Organization Address City/[facility]/ZIP Co de Phone Number [facility] [place] [address] * Vitamin B12 (09/02/2024 9:21 AM CDT) [facility] Vitamin B12 1,002 230 - 1,250 pg/mL Blood 09/02/2024 9:21 AM CDT 09/02/2024 10:01 AM CDT Marcela Mane STATE DIRECTOR LAB BLOOD ORDERABLES Final Result Performing Organization Address [facility] de Phone Number [facility] [place] [address] * (ABNORMAL) Comprehensive metabolic panel (09/02/2024 9:21 AM CDT) [facility] Sodium 139 135 - 145 mmol/L Potassium, pl 3.7 3.3 - 4.9 mmol/L [facility] Chloride 108 97 - 110 mmol/L [facility] CO2 22 22 - 32 mmol/L [facility] Anion gap 9 2 - 15 mmol/L [facility] BUN 18 6 - 25 mg/dL [facility] Creatinine 1.63(H) 0.80 - 1.30 mg/dL [facility] Glucose 83 70 - 199 mg/dL [facility] Comment: Interpretive Data Fasting glucose [...] 2022. Calcium 9.6 8.5 - 10.3 mg/dL [facility] Bilirubin, total 0.4 0.1 - 1.2 mg/dL [facility] Protein, pl 7.0 6.5 - 8.5 g/dL [facility] Albumin 4.2 3.5 - 5.0 g/dL [facility] Alk phos 95 40 - 130 Units/L [facility] ALT 19 7 - 55 Units/L [facility] AST 17 10 - 50 Units/L [facility] Blood 09/02/2024 9:21 AM CDT 09/02/2024 9:43 AM CDT us Marcela Mane NP LAB BLOOD ORDERABLES Final Result [facility] Department [place] [address] * (ABNORMAL) CBC with auto differential (08/14/2024 1:18 PM CDT) Pathologist [facility] WBC 6.1 3.8 - 10.8 Thousand/u L [...] LAB BLOOD ORDERABLES Final Result [facility] [address] [place] [address] * (ABNORMAL) Comprehensive metabolic panel (08/14/2024 1:16 PM CDT) [facility] Glucose 91 65 - 139 mg/dL [facility] [...] BLOOD ORDERABLES Final Result Performing Organization Address [facility]/ZIP Co de Phone Number [facility] [address] [place] [address] * Lactate dehydrogenase (LD) (08/14/2024 1:14 PM CDT) Pathologist [facility] Lactate dehydrogenase (LDH) 175 120 - 250 U/L [facility] Blood 08/14/2024 1:14 PM CDT 08/14/2024 1:15 PM CDT Narrative [facility] - 08/15/2024 5:46 AM CDT FASTING:NO FASTING: NO Marcy Hopkins MD LAB BLOOD ORDERABLES Final Result Performing Organization Address City/[facility] Co de Phone Number [facility] [address] [place] [address] * CT Chest Abdomen Pelvis W Contrast [...] Recently Relevant to Health Maintenance Insurance MEDICARE [facility] MEDICARE [employer]ICARE [employer] Advance Directives For more information, please contact: [phone] * Full Code (Latest Code Status on File) Date Activated Date Inactivated Comments 11/22/2022 12:13 PM 11/23/2022 4:22 PM Care Teams Termite Helper Relationship Specialty Start Date End Date Katia Fraser MD [address] [place] [address] PCP - General 06/20/17
--- OUTSIDE RECORDS SUMMARY | 2024-11-04 11:24 | XMS_ITS | Encounter Summary ---
Author Organization [facility] Healthcare Address [address] [place] [address] Care Team Providers Care Service Director Name Role Phone Katia Fraser MD Primary Care Provider + [phone] Encounter Details Date Type Department Care Team (Late st Contact Info) Description 12/30/2017 Orders Only [facility] Information Management [address] [place] [id number] Scanning, Provider Social History Tobacco Use Types Packs/Day Years Used Date Smoking Tobacco: Former Smokeless Tobacco: Former Comments:Smoking History Pac ks/day: 1 Cigarettes Alcohol Use Standard Drinks/Week Comments Yes 0 (1 standard drink = 0.6 oz pur e alcohol) Sex and Gender Information Value Date Recorded Sex Assigned at Not on file Legal Sex Male 11:33 PM ELEVATED GUARD Gender Identity Male 07/19/2023 9:40 PM CDT [...] on filedocumented in this encounter Care Teams Service Director Relationship Specialty Start Date End Date Katia Fraser MD [address] [place] [id number] PCP - General 06/20/17 documented as of this encounter
--- OUTSIDE RECORDS SUMMARY | 2024-11-04 11:24 | XMS_ITS ---
Author Organization [facility] Address [address] [place] [address] Care Team Providers Care Certified Shorthand Reporter Name Role Phone Katia Fraser MD Primary Care Provider + [phone] Active Problems Problem Noted Date Diagnosed Date History of colonic polyps 07/10/2024 Chronic diastolic heart failure 08/07/2023 CAD S/P percutaneous coronary angioplasty 2022 Preop cardiovascular exam 10/24/2022 Visit for wound check 04/02/2018 Coronary artery disease invo lving [place] coronary artery of [place] heart without angina pectoris 02/19/2018 Assessment & Plan (02/25/2018 1:56 PM GERIATRIC PSYCHIATRIST): At this time continue aspirin, Brilinta. Continue [...] NOS Assessment & Plan (02/25/2018 1:57 PM GERIATRIC PSYCHIATRIST): Blood pressure controlled. Continue current treatment Insomnia [...]
--- OUTSIDE RECORDS SUMMARY | 2024-11-04 11:24 | XMS_ITS | Encounter Summary ---
Author Organization [facility] Healthcare Address [address] [place] [address] Care Team Providers Care Aviation Metalsmith Name Role Phone Katia Fraser MD Primary Care Provider [phone] Encounter Details Date Type Department Care Team (Late st Contact Info) Description 01/01/2018 Orders Only [facility] Health Information Management [address] [place] [address] Scanning, Provider Social History Tobacco Use Types Packs/Day Years Used Date Smoking Tobacco: Former Smokeless Tobacco: Former Comments:Smoking History Pac ks/day: 1 Cigarettes Alcohol Use Standard Drinks/Week Comments Yes 0 (1 standard drink = 0.6 oz pur e alcohol) Sex and Gender Information Value Date Recorded Sex Assigned at Not on file Legal Sex Male 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
--- OUTSIDE RECORDS SUMMARY | 2024-11-04 11:24 | XMS_ITS | Referral Summary ---
Author Organization [facility] Address [address] [place] [address] Care Team Providers Care Marketing Account Manager Name Role Phone Katia Fraser MD Primary Care Provider Encounters Date Type Department Care Team Description 09/02/2024 9:30 AM CDT Lab [facility] [place] - Lab Collection [facility] [address] [place] [address] B12 deficiency; Iron deficiency anemia, unspecified iron deficiency anemia type; CLL (chronic lymphocytic leukemia) ([facility]) 09/02/2024 9:15 AM CDT Lab [facility] [address] [place] [address] [address] [place] [address] B12 deficiency; Iron deficiency anemia, unspecified iron deficiency anemia type; CLL (chronic lymphocytic leukemia) ([facility]) 09/02/2024 10:15 AM CDT Office Visit [facility] Hematology [address] [place] [address] [address] [place] [id number] Marcy Hopkins MD B12 deficiency; Iron deficiency anemia, unspecified iron deficiency anemia type; CLL (chronic lymphocytic leukemia) ([facility]) 08/15/2024 Results Follow-Up [facility] Bone Marrow Transplant [facility] [address] [place] [address] Marcy Hopkins MD Comprehensive metabolic panel, Comprehensive metabolic panel, CBC with auto differential, Additional followed-up results: 3 08/12/2024 12:00 PM CDT Office Visit [facility] Medical [facility] Cardiology [address] [facility] [address] [place] [address] Renetta Bai MD Coronary artery disease involving [place] coronary artery of [place] heart without angina pectoris (Primary Dx); Primary hypertension; Mixed hyperlipidemia from Last 3 Months Allergies Active Allergy [...] check 04/02/2018 Coronary artery disease invo lving [place] coronary artery of [place] heart without angina pectoris 02/19/2018 Assessment & Plan (02/25/2018 1:56 PM FILM COMPOSER): At this time continue aspirin, Brilinta. Continue [...] NOS Assessment & Plan (02/25/2018 1:57 PM FILM COMPOSER): Blood pressure controlled. Continue current treatment Insomnia [...] on file Legal Sex Male 11:33 PM FILM COMPOSER Gender Identity Male 07/19/2023 9:40 PM CDT [...] on file Medical Devices Implanted Type Area Consumer Analyst Device Identifier Shelf Expiration Date Model / Serial / Lot XipLink Synergy Xd Monorail 3.5mm 24mm 144cm Delivery System 1 Access [id number] - [id number] Implanted:Qty: 1 on 11/22/2022 by Renetta Bai MD at [facility] Stent [employer] Jose 12/16/2023 [id number] / / [id number] [facility] Device Vascular Closure Femoral Artery Bioabsorbable Dual Method Vascade 6-7fr Collagen [id number] - [id number] Implanted:Qty: 1 on 11/22/2022 by Renetta Bai MD at [facility] [employer] 07/11/2024 [id number] / / [id number] Procedures Procedure Name Priority Date/Time Associated [...] BLOOD ORDERABLES Final Result Performing Organization Address City/[facility]/ZIP Co de Phone Number [facility] [employer] [facility] [address] [place] [address] * Lactate dehydrogenase (LD) (11/01/2024 1:13 PM CDT) Lactate dehydrogenase (LDH) 149 120 - 250 U/L [facility] 11/01/2024 1:13 PM CDT 11/01/2024 1:13 PM CDT Narrative [facility] - 11/02/2024 6:08 AM CDT FASTING:NO FASTING: NO Marcy Hopkins MD LAB BLOOD ORDERABLES Final Result [facility] [address] [place] [address] * (ABNORMAL) Comprehensive metabolic panel (11/01/2024 1:13 PM CDT) [facility] Glucose 129 65 - 139 mg/dL [facility] [...] LAB BLOOD ORDERABLES Final Result [facility] [address] [place] [address] * (ABNORMAL) CBC with auto differential (10/01/2024 10:39 AM CDT) [facility] WBC 6.8 3.8 - 10.8 Thousand/u L [...] 10/02/2024 5:39 AM CDT FASTING:YES FASTING: YES us Marcy Hopkins MD LAB BLOOD ORDERABLES Final Result Performing Organization Address [facility] [[email or web address]] Co de Phone Number MICHELLE [facility] [address] [place] [address] * Lactate dehydrogenase (LD) (10/01/2024 10:37 AM CDT) Pathologist [facility] Lactate dehydrogenase (LDH) 154 120 - 250 U/L [facility] Blood 10/01/2024 10:3 7 AM CDT 10/01/2024 10:38 AM CDT Narrative [facility] - 10/02/2024 5:09 AM CDT FASTING:YES FASTING: YES us Marcy Hopkins MD LAB BLOOD ORDERABLES Final Result Performing Organization Address [facility] de Phone Number [facility] [address] [place] [address] * (ABNORMAL) Comprehensive metabolic panel (10/01/2024 10:34 AM CDT) [facility] Glucose 81 65 - 139 mg/dL [facility] [...] LAB BLOOD ORDERABLES Final Result [facility] [address] [place] [address] * (ABNORMAL) eGFR (09/02/2024 9:21 AM CDT) [...] CDT 09/02/2024 9:43 AM CDT Marcela Mane ARMATURE WINDER REPAIR LAB BLOOD ORDERABLES Final Result [facility] [place] [address] * Differential, auto (09/02/2024 9:21 AM CDT) Neutrophil abs 2.95 1.50 - 6.50 K/cumm Comment:Testing performed by : [facility], [address] [place] [phone] Lymphocyte abs 2.77 0.80 - 3.30 K/cumm [facility] Comment:Testing performed by : [facility], [address] [place] [phone] Monocyte abs 0.70 0.20 - 0.80 K/cumm CERNER [facility] Comment:Testing performed by : [facility], [address] [place] [phone] Eosinophil abs 0.17 0.00 - 0.50 K/cumm CERNER [facility] Comment:Testing performed by : [facility], [address] [place] [phone] Basophil abs 0.03 0.00 - 0.10 K/cumm [facility]ER [facility] Comment:Testing performed by : [facility], [address] [place] [phone] Neutrophil pct 44.7 % CERNER [facility] Comment: Interpretive Data Percent cell count reference ranges are not reported, since discordance with absolute values may lead to misinterpretation of CBC data. Current Interpretive Data was last revised on 2017. Testing performed by: [facility], [address] [place] [phone] Lymphocyte pct 41.9 % [facility] Comment: Interpretive Data Percent cell count reference ranges are not reported, since discordance with absolute values may lead to misinterpretation of CBC data. Current Interpretive Data was last revised on 2017. Testing performed by: [facility], [address] [place] [address] Monocyte pct 10.6 % [facility]ER[facility]PO[facility] Comment: Interpretive Data Percent cell count reference ranges are not reported, since discordance with absolute values may lead to misinterpretation of CBC data. Current Interpretive Data was last revised on 2017. Testing performed by: [facility], [address] [place] [phone] Eosinophil pct 2.5 % [facility]ERNAPO[facility]ON [facility] Comment: Interpretive Data Percent cell count reference ranges are not reported, since discordance with absolute values may lead to misinterpretation of CBC data. Current Interpretive Data was last revised on 2017. Testing performed by: [facility], [address] [place] [address] Basophil pct 0.4 % [facility]PO[facility] Comment: Interpretive Data Percent cell count reference ranges are not reported, since discordance with absolute values may lead to misinterpretation of CBC data. Current Interpretive Data was last revised on 2017. Testing performed by: [facility], [address] [place] [phone] Blood 09/02/2024 9:21 AM CDT 09/02/2024 9:39 AM CDT Marcela Mane ARMATURE WINDER REPAIR LAB BLOOD ORDERABLES Final Result [facility] [place] [address] * Iron profile w/ IBC (09/02/2024 9:21 AM CDT) Iron 77 50 - 150 mcg/dL TIBC 268 250 - 400 mcg/dL ED [facility] Transferrin saturation 29 20 - 50 % ED [facility] Blood 09/02/2024 9:21 AM CDT 09/02/2024 9:43 AM CDT Marcela Mane ARMATURE WINDER REPAIR LAB BLOOD ORDERABLES Final Result ED [facility] [place] [address] * (ABNORMAL) CBC with auto differential (09/02/2024 9:21 AM CDT) WBC 6.60 3.80 - 9.90 K/cumm Comment:Testing performed by : [facility], [address] [place] [address] Hgb 11.3(L) 13.0 - 17.5 g/dL ED [facility]BS Comment:Testing performed by : [facility], [address] [place] [address] Hct 33.9(L) 38.9 - 50.3 % ED [facility] Comment:Testing performed by : [facility], [address] [place] [address] Plt 170 150 - 400 K/cumm CERNAPOLEON [facility] Comment:Testing performed by : [facility], [address] [place] [address] MPV 8.0 6.8 - 10.4 fL CER[facility]PO[facility]ON [facility]J Comment:Testing performed by : [facility], [address] [place] [address] RBC 3.71(L) 4.30 - 5.80 M/cumm ED BJ Comment:Testing performed by : [facility], [address] [place] [address] MCV 91.4 81.3 - 96.4 fL [facility]ER[facility]PO[facility] BJ Comment:Testing performed by : [facility], [address] [place] [address] MCH 30.6 27.1 - 33.3 pg [facility]ER[facility]PO[facility] BJ Comment:Testing performed by : [facility], [address] [place] [address] MCHC 33.5 32.3 - 35.7 g/dL [facility]J Comment:Testing performed by : [facility], [address] [place] [phone] RDW CV 15.5(H) 11.1 - 14.9 % ED [facility] Comment:Testing performed by : [facility], [address] [place] [phone] NRBC abs 0.00 0.00 - 0.01 K/cumm ED [facility] Comment:Testing performed by : [facility], [address] [place] [phone] Blood 09/02/2024 9:21 AM CDT 09/02/2024 9:39 AM CDT Marcela Mane ARMATURE WINDER REPAIR LAB BLOOD ORDERABLES Final Result Performing Organization Address [facility] [[email or web address]] Co de Phone Number [facility] [place] [address] * (ABNORMAL) Reticulocyte Count (09/02/2024 9:21 AM CDT) [facility] Retics, absolute 90 20 - 100 K/cumm Comment:Testing performed by : [facility], [address] [place] [phone] Retics 2.4(H) 0.5 - 1.8 % ED [facility] Comment:Testing performed by : [facility], [address] [place] [phone] Blood 09/02/2024 9:21 AM CDT 09/02/2024 9:39 AM CDT Marcela Mane ARMATURE WINDER REPAIR LAB BLOOD ORDERABLES Final Result Performing Organization Address City/[facility] [[email or web address]] Co de Phone Number [facility] [place] [address] * Lactate dehydrogenase (LD) (09/02/2024 9:21 AM CDT) Pathologist [facility] Lactate dehydrogenase (LDH) 187 100 - 250 Units/L Blood 09/02/2024 9:21 AM CDT 09/02/2024 9:43 AM CDT Marcela Mane ARMATURE WINDER REPAIR LAB BLOOD ORDERABLES Final Result Performing Organization Address City/[facility] [[email or web address]] Co de Phone Number [facility] [place] [address] * Ferritin (09/02/2024 9:21 AM CDT) [facility] Ferritin 84 30 - 400 ng/mL Blood 09/02/2024 9:21 AM CDT 09/02/2024 9:43 AM CDT Marcela Mane ARMATURE WINDER REPAIR LAB BLOOD ORDERABLES Final Result Performing Organization Address [facility] [[email or web address]] Co de Phone Number [facility] [place] [address] * Vitamin B12 (09/02/2024 9:21 AM CDT) [facility] Vitamin B12 1,002 230 - 1,250 pg/mL Blood 09/02/2024 9:21 AM CDT 09/02/2024 10:01 AM CDT Marcela Mane ARMATURE WINDER REPAIR LAB BLOOD ORDERABLES Final Result Performing Organization Address [facility] [[email or web address]] Co de Phone Number [facility] [place] [address] * (ABNORMAL) Comprehensive metabolic panel (09/02/2024 9:21 AM CDT) [facility] Sodium 139 135 - 145 mmol/L Potassium, pl 3.7 3.3 - 4.9 mmol/L [facility] Chloride 108 97 - 110 mmol/L [facility] CO2 22 22 - 32 mmol/L [facility] Anion gap 9 2 - 15 mmol/L [facility] BUN 18 6 - 25 mg/dL [facility] Creatinine 1.63(H) 0.80 - 1.30 mg/dL [facility] Glucose 83 70 - 199 mg/dL [facility] Comment: Interpretive Data Fasting glucose [...] 2022. Calcium 9.6 8.5 - 10.3 mg/dL [facility] Bilirubin, total 0.4 0.1 - 1.2 mg/dL [facility] Protein, pl 7.0 6.5 - 8.5 g/dL [facility] Albumin 4.2 3.5 - 5.0 g/dL [facility] Alk phos 95 40 - 130 Units/L [facility] ALT 19 7 - 55 Units/L [facility] AST 17 10 - 50 Units/L [facility] Blood 09/02/2024 9:21 AM CDT 09/02/2024 9:43 AM CDT Marcela Mane NP LAB BLOOD ORDERABLES Final Result [facility] [place] [address] * (ABNORMAL) CBC with auto differential (08/14/2024 [...] LAB BLOOD ORDERABLES Final Result [facility] [address] [place] [address] * (ABNORMAL) Comprehensive metabolic panel (08/14/2024 1:16 PM CDT) [facility] Glucose 91 65 - 139 mg/dL [...] LAB BLOOD ORDERABLES Final Result [facility] [address] [address] [place] [address] * Lactate dehydrogenase (LD) (08/14/2024 1:14 PM CDT) Lactate dehydrogenase (LDH) 175 120 - 250 U/L [facility] Blood 08/14/2024 1:14 PM CDT 08/14/2024 1:15 PM CDT Narrative [facility] - 08/15/2024 5:46 AM CDT FASTING:NO FASTING: NO us Marcy Hopkins MD LAB BLOOD ORDERABLES Final Result [facility] [address] [place] [address] * CT Chest Abdomen Pelvis W Contrast [...] Recently Relevant to Health Maintenance Insurance [place]IC[place] MED[place] [employer] [facility] Advance Directives For more information, please contact: [phone] * Full Code (Latest Code Status on File) Date Activated Date Inactivated Comments 11/22/2022 12:13 PM 11/23/2022 4:22 PM Care Teams Marketing Account Manager Relationship Specialty Start Date End Date Katia Fraser MD [address] [place] [address] PCP - General 06/20/17
--- OUTSIDE RECORDS SUMMARY | 2024-11-04 11:24 | XMS_ITS | Encounter Summary ---
Author Organization [facility] Address [address] [place] [address] Phone Care Team Providers Care C T Tech Name Role Phone Katia Fraser MD Primary Care Provider + [phone] Encounter Details Date Type Department Care Team [...] on file Legal Sex Male 11:33 PM CONTROL ROOM AGENT Gender Identity Male 07/19/2023 9:40 PM CDT [...] on filedocumented in this encounter Care Teams C T Tech Relationship Specialty Start Date End Date Katia Fraser MD [address] [place] [address] PCP - General 06/20/17 documented as of this encounter
--- OUTSIDE RECORDS SUMMARY | 2024-11-04 11:24 | XMS_ITS | Encounter Summary ---
Author Organization [facility] Healthcare Address [address] [place] [address] Care Team Providers Care Counseling Psychologist Name Role Phone Katia Fraser MD Primary Care Provider [phone] Encounter Details Date Type Department Care Team (Late st Contact Info) Description 12/31/2017 Orders Only [facility] Health Information Management [address] [place] [address] Scanning, Provider Social History Tobacco Use Types Packs/Day Years Used Date Smoking Tobacco: Former Smokeless Tobacco: Former Comments:Smoking History Pac ks/day: 1 Cigarettes Alcohol Use Standard Drinks/Week Comments Yes 0 (1 standard drink = 0.6 oz pur e alcohol) Sex and Gender Information Value Date Recorded Sex Assigned at Not on file Legal Sex Male 11:33 PM PATIENT RESOURCE SPECIALIST Gender Identity Male 07/19/2023 9:40 PM CDT [...] on filedocumented in this encounter Care Teams Counseling Psychologist Relationship Specialty Start Date End Date Katia Fraser MD [address] [place], [place] [id number] PCP - General 06/20/17 documented as of this encounter
[2024-11-04 11:37] VITALS: BP 127/64; PULSE 106; RESP 20; O2SAT 100
--- NOTE | 2024-11-04 11:44 | PC.NURSE ---
Report to EMS transfer of care. Pt in stable condition.
== END 2024-11-04 11:45 | disposition short-term general hospital (02) ==
PROVIDERS: Emergency Provider Nurse Practitioner
DX: R06.02 Shortness of breath (principal); Z87.891 Personal history of nicotine dependence; I48.0 Paroxysmal atrial fibrillation; I10 Essential (primary) hypertension; I25.10 Atherosclerotic heart disease of native coronary artery without angina pectoris; I25.2 Old myocardial infarction; E78.5 Hyperlipidemia, unspecified; M19.90 Unspecified osteoarthritis, unspecified site; Z85.72 Personal history of non-Hodgkin lymphomas; Z96.651 Presence of right artificial knee joint; Z96.643 Presence of artificial hip joint, bilateral; Z96.612 Presence of left artificial shoulder joint; Z96.611 Presence of right artificial shoulder joint; Z95.5 Presence of coronary angioplasty implant and graft
CPT/HCPCS: 93005; 99215; G0463

== ENCOUNTER 2024-11-04 12:24 | Emergency (ER) | payer MEDICARE, OTHER, SELFPAY ==
--- NOTE | ~2024-11-04 | XR_ITS ---
XR chest 2V 11/04/2024 13:10 Indication: Chest palpitations Procedure: 2 view chest Comparison: Comparison to multiple prior studies sequentially, with oldest reviewed study dated 12/31. Findings: Cardiomegaly. There are bilateral shoulder arthroplasties. No focal air space disease, pulm onary edema, pleural effusion or suspected pneumothorax. Impression: 1: No acute cardiopulmonary disease. 2: Cardiomegaly. Reviewed, dictated and finalized at location A. Impression: 1: No acute cardiopulmonary disease. 2: Cardiomegaly.
[2024-11-04 12:18] VITALS: BP 128/74; PULSE 87; RESP 15; TEMP 36.7; O2SAT 99
--- NOTE | 2024-11-04 12:31 | ECG_ITS ---
Test Date: 2024-11-04 12:24:13 Measurements Intervals [place] Rate: 83 P: 0 IA: 0 QRS: 31 QRSD: 96 T: 31 QT: 378 QTc: 444 Interpretive Statements ATRIAL FIBRILLATION ABNORMAL ECG Compared to ECG 11/04/2024 11:20:20 NO SIGNIFICANT CHANGE Electronically Signed On 11-04-2024 12:52:03 CDT by Melvin Ivey D.O.
[2024-11-04 12:40] VITALS: PULSE 88
[2024-11-04 12:41] VITALS: BP 120/78; PULSE 80; RESP 14; O2SAT 98
[2024-11-04 12:41] LABS: Hematocrit 34.7 % (42.0-52.0); Hemoglobin 11.1 g/dL (14.0-18.0); Immature Granulocyte Percent A 0.4 % (0-0.5); Lymphocytes Absolute Auto 2.51 K/mm3 (0.9-3.2); Mean Corpuscular HGB Conc 32.0 g/dl (32-36); Mean Corpuscular Hemoglobin 30.6 pg (26-34); Mean Corpuscular Volume 95.6 fl (80-100); Nucleated Red Blood Cells Absolute Auto 0.000 K/mm3 (0.0-0.012); Nucleated Red Blood Cells Perc 0.0 % (0.0-0.2); Platelet Count Result 169 k/mm3 (150-375); Red Blood Count 3.63 M/mm3 (4.6-6.20); White Blood Count 7.5 K/mm3 (4.5-10.0)
--- OUTSIDE RECORDS SUMMARY | 2024-11-04 12:55 | XMS_ITS | Clinical Summary ---
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 Continue [...] NOS Assessment & Plan (02/25/2018 1:57 PM TRACK BROOM OPERATOR): Blood pressure controlled. Continue current treatment Insomnia 08/17/2013 Overview (07/07/2016): INSOMNIA NEC Hyperlipidemia 08/17/2013 Overview (07/09/2016): HYPERLIPIDEMIA NEC/NOS Depression 08/17/2013 Overview (07/09/2016): DEPRESSIVE DISORDER NEC Resolved Problems Problem Noted Date Diagnosed Date Resolved Date Preoperative cardiovascular examination 12/10/2018 11/22/2021 Encounters Date Type Department Care Team Description 09/02/2024 10:15 AM CDT Office Visit [facility] Hematology [address] [place] [phone] Marcy Hopkins MD B12 deficiency; Iron deficiency anemia, unspecified iron deficiency anemia type; CLL (chronic lymphocytic leukemia) ([facility]) 09/02/2024 9:30 AM CDT Lab [facility] - Lab Collection [facility] [address] [place] [address] B12 deficiency; Iron deficiency anemia, unspecified iron deficiency anemia type; CLL (chronic lymphocytic leukemia) ([facility]) 09/02/2024 9:15 AM CDT Lab [facility] Oncology Lab [address] [place] [phone] B12 deficiency; Iron deficiency anemia, unspecified iron deficiency anemia type; CLL (chronic lymphocytic leukemia) ([facility]) 08/15/2024 Results Follow-Up [facility] Bone Marrow Transplant [address] [facility] [place] [address] [place] [address] Marcy Hopkins MD Comprehensive metabolic panel, Comprehensive metabolic panel, CBC with auto differential, Additional followed-up results: 3 08/12/2024 12:00 PM CDT Office Visit [facility] Cardiology [address] [place] [address] Renetta Bai MD Coronary artery disease involving lower [place] coronary artery of [place] heart without angina pectoris (Primary Dx); Primary [...] on file Legal Sex Male 11:33 PM TRACK 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 OPERATOR Gender Identity Male 07/19/2023 9:40 PM [...] history exists Medical Devices Implanted Type 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 Device Identifier Shelf Expiration Date Model / Serial / Lot [employer] Jose Synergy Xd Monorail 3.5mm 24mm 144cm Delivery System 1 Access [id number] - [id number] Implanted:Qty: 1 on 11/22/2022 by Renetta Bai MD at [facility] Stent [employer] Jose 12/16/2023 [id number] / / [id number] [employer] [facility] Device Vascular Closure Femoral Artery Bioabsorbable Dual Method Vascade 6-7fr Collagen [id number] - [id number] Implanted:Qty: 1 on 11/22/2022 by Renetta Bai MD at [facility] [employer] 07/11/2024 [id number] / / [id number] Procedures Procedure Name Priority Date/Time Associated [...] BLOOD ORDERABLES Final Result Performing Organization Address [facility]/ZIP Co de Phone Number MICHELLE [facility] [address] [place] [address] * Lactate dehydrogenase (LD) (11/01/2024 1:13 PM CDT) Lactate dehydrogenase (LDH) 149 120 - 250 U/L [facility] 11/01/2024 1:13 PM CDT 11/01/2024 1:13 PM CDT Narrative [facility] - 11/02/2024 6:08 AM CDT FASTING:NO FASTING: NO Marcy Hopkins MD LAB BLOOD ORDERABLES Final Result Performing Organization Address [facility] Co de Phone Number MICHELLE [facility] [address] [place] [address] * (ABNORMAL) Comprehensive metabolic panel (11/01/2024 1:13 [...] LAB BLOOD ORDERABLES Final Result [facility] [address] [facility] [place] [address] * (ABNORMAL) CBC with auto differential (10/01/2024 [...] LAB BLOOD ORDERABLES Final Result [facility] [address] [place] [address] * Lactate dehydrogenase (LD) (10/01/2024 10:37 AM CDT) Pathologist [facility] Lactate dehydrogenase (LDH) 154 120 - 250 U/L [facility] Blood 10/01/2024 10:3 7 AM CDT 10/01/2024 10:38 AM CDT Narrative [facility] - 10/02/2024 5:09 AM CDT FASTING:YES FASTING: YES us Marcy Hopkins MD LAB BLOOD ORDERABLES Final Result [facility] [address] [place] [address] * (ABNORMAL) Comprehensive metabolic panel (10/01/2024 10:34 AM CDT) Pathologist [facility] Glucose 81 65 - 139 mg/dL [facility] [...] BLOOD ORDERABLES Final Result [facility] [address] [place] [address] * (ABNORMAL) eGFR (09/02/2024 9:21 AM CDT) [...] 09/02/2024 9:43 AM CDT us Marcela Mane BROACH GRINDER LAB BLOOD ORDERABLES Final Result ED [facility] Department [place] [address] * Differential, auto (09/02/2024 9:21 AM CDT) Neutrophil abs 2.95 1.50 - 6.50 K/cumm Comment:Testing performed by : [facility], [address] [place] [phone] Lymphocyte abs 2.77 0.80 - 3.30 K/cumm [facility] Comment:Testing performed by : [facility], [address] [place] [phone] Monocyte abs 0.70 0.20 - 0.80 K/cumm [facility] Comment:Testing performed by : [facility], [address] [place], [place] [id number] Eosinophil abs 0.17 0.00 - 0.50 K/cumm [facility] Comment:Testing performed by : [facility], [address] [place] [phone] Basophil abs 0.03 0.00 - 0.10 K/cumm [facility] Comment:Testing performed by : [facility], [address] [place] [phone] Neutrophil pct 44.7 % [facility] Comment: Interpretive Data Percent cell count reference ranges are not reported, since discordance with absolute values may lead to misinterpretation of CBC data. Current Interpretive Data was last revised on 2017. Testing performed by: [facility], [address] [place] [phone] Lymphocyte pct 41.9 % [facility] Comment: Interpretive Data Percent cell count reference ranges are not reported, since discordance with absolute values may lead to misinterpretation of CBC data. Current Interpretive Data was last revised on 2017. Testing performed by: [facility], [address] [place] [phone] Monocyte pct 10.6 % [facility] Comment: Interpretive Data Percent cell count reference ranges are not reported, since discordance with absolute values may lead to misinterpretation of CBC data. Current Interpretive Data was last revised on 2017. Testing performed by: [facility], [address] [place] [phone] Eosinophil pct 2.5 % [facility] Comment: Interpretive Data Percent cell count reference ranges are not reported, since discordance with absolute values may lead to misinterpretation of CBC data. Current Interpretive Data was last revised on 2017. Testing performed by: [facility], [address] [place] [phone] Basophil pct 0.4 % [facility] Comment: Interpretive Data Percent cell count reference ranges are not reported, since discordance with absolute values may lead to misinterpretation of CBC data. Current Interpretive Data was last revised on 2017. Testing performed by: [facility], [address] [place] [phone] Blood 09/02/2024 9:21 AM CDT 09/02/2024 9:39 AM CDT Marcela Mane BROACH GRINDER LAB BLOOD ORDERABLES Final Result Performing Organization Address City/[facility]/ZIP Co de Phone Number [facility] [place] [address] * Iron profile w/ IBC (09/02/2024 9:21 AM CDT) Pathologist [facility] Iron 77 50 - 150 mcg/dL TIBC 268 250 - 400 mcg/dL [facility] Transferrin saturation 29 20 - 50 % [facility] Blood 09/02/2024 9:21 AM CDT 09/02/2024 9:43 AM CDT Marcela Mane BROACH GRINDER LAB BLOOD ORDERABLES Final Result Performing Organization Address City/[facility]/ZIP Co de Phone Number [facility] [place] [address] * (ABNORMAL) CBC with auto differential (09/02/2024 9:21 AM CDT) Pathologist [facility] WBC 6.60 3.80 - 9.90 K/cumm Comment:Testing performed by : [facility], [address] [place] [phone] Hgb 11.3(L) 13.0 - 17.5 g/dL [facility] Comment:Testing performed by : [facility], [address] [place] [address] Hct 33.9(L) 38.9 - 50.3 % [facility] Comment:Testing performed by : [facility], [address] [place], [place] [phone] Plt 170 150 - 400 K/cumm [facility] Comment:Testing performed by : [facility], [address] [place] [address] MPV 8.0 6.8 - 10.4 fL [facility] Comment:Testing performed by : [facility], [address] [place] [address] RBC 3.71(L) 4.30 - 5.80 M/cumm [facility] Comment:Testing performed by : [facility], [address] [place], [place] [phone] MCV 91.4 81.3 - 96.4 fL [facility] Comment:Testing performed by : [facility], [address] [place] [address] MCH 30.6 27.1 - 33.3 pg [facility] Comment:Testing performed by : [facility], [address] [place] [address] MCHC 33.5 32.3 - 35.7 g/dL [facility] Comment:Testing performed by : [facility], [address] [place] [address] RDW CV 15.5(H) 11.1 - 14.9 % [facility] Comment:Testing performed by : [facility], [address] [place] [address] NRBC abs 0.00 0.00 - 0.01 K/cumm [facility] Comment:Testing performed by : [facility], [address] [place] [address] Blood 09/02/2024 9:21 AM CDT 09/02/2024 9:39 AM CDT Marcela Mane BROACH GRINDER LAB BLOOD ORDERABLES Final Result Performing Organization Address City/State/[facility] Co de Phone Number [facility] [place] [address] * (ABNORMAL) Reticulocyte Count (09/02/2024 9:21 AM CDT) [facility] Retics, absolute 90 20 - 100 K/cumm Comment:Testing performed by : [facility], [address] [place] [phone] Retics 2.4(H) 0.5 - 1.8 % [facility] Comment:Testing performed by : [facility], [address] [place] [phone] Blood 09/02/2024 9:21 AM CDT 09/02/2024 9:39 AM CDT Marcela Mane BROACH GRINDER LAB BLOOD ORDERABLES Final Result Performing Organization Address [facility] Co de Phone Number [facility] [place] [address] * Lactate dehydrogenase (LD) (09/02/2024 9:21 AM CDT) [facility] Lactate dehydrogenase (LDH) 187 100 - 250 Units/L Blood 09/02/2024 9:21 AM CDT 09/02/2024 9:43 AM CDT Marcela Mane BROACH GRINDER LAB BLOOD ORDERABLES Final Result Performing Organization Address City/[facility] Co de Phone Number [facility] [place] [address] * Ferritin (09/02/2024 9:21 AM CDT) [facility] Ferritin 84 30 - 400 ng/mL Blood 09/02/2024 9:21 AM CDT 09/02/2024 9:43 AM CDT Marcela Mane BROACH GRINDER LAB BLOOD ORDERABLES Final Result Performing Organization Address City/[facility]/ZIP Co de Phone Number [facility] [place] [address] * Vitamin B12 (09/02/2024 9:21 AM CDT) [facility] Vitamin B12 1,002 230 - 1,250 pg/mL Blood 09/02/2024 9:21 AM CDT 09/02/2024 10:01 AM CDT Marcela Mane BROACH GRINDER LAB BLOOD ORDERABLES Final Result Performing Organization Address [facility] de Phone Number [facility] [place] [address] * (ABNORMAL) Comprehensive metabolic panel (09/02/2024 9:21 AM CDT) [facility] Sodium 139 135 - 145 mmol/L Potassium, pl 3.7 3.3 - 4.9 mmol/L [facility] Chloride 108 97 - 110 mmol/L [facility] CO2 22 22 - 32 mmol/L [facility] Anion gap 9 2 - 15 mmol/L [facility] BUN 18 6 - 25 mg/dL [facility] Creatinine 1.63(H) 0.80 - 1.30 mg/dL [facility] Glucose 83 70 - 199 mg/dL [facility] Comment: Interpretive Data Fasting glucose [...] 2022. Calcium 9.6 8.5 - 10.3 mg/dL [facility] Bilirubin, total 0.4 0.1 - 1.2 mg/dL [facility] Protein, pl 7.0 6.5 - 8.5 g/dL [facility] Albumin 4.2 3.5 - 5.0 g/dL [facility] Alk phos 95 40 - 130 Units/L [facility] ALT 19 7 - 55 Units/L [facility] AST 17 10 - 50 Units/L [facility] Blood 09/02/2024 9:21 AM CDT 09/02/2024 9:43 AM CDT us Marcela Mane NP LAB BLOOD ORDERABLES Final Result [facility] [place] [address] * (ABNORMAL) CBC with auto differential (08/14/2024 1:18 PM CDT) Pathologist [facility] WBC 6.1 3.8 - 10.8 Thousand/u L [...] LAB BLOOD ORDERABLES Final Result [facility] [address] [place] [address] * (ABNORMAL) Comprehensive metabolic panel (08/14/2024 1:16 PM CDT) [facility] Glucose 91 65 - 139 mg/dL [...] BLOOD ORDERABLES Final Result Performing Organization Address [facility]/ZIP Co de Phone Number [employer] [facility] [address] [place] [address] * Lactate dehydrogenase (LD) (08/14/2024 1:14 PM CDT) Pathologist [facility] Lactate dehydrogenase (LDH) 175 120 - 250 U/L [facility] Blood 08/14/2024 1:14 PM CDT 08/14/2024 1:15 PM CDT Narrative [facility] - 08/15/2024 5:46 AM CDT FASTING:NO FASTING: NO Marcy Hopkins MD LAB BLOOD ORDERABLES Final Result Performing Organization Address City/[facility] Co de Phone Number [employer] [address] [place] [address] * CT Chest Abdomen Pelvis W Contrast [...] Recently Relevant to Health Maintenance Insurance MEDICARE [facility] MEDICARE [employer]ICARE [employer] Advance Directives For more information, please contact: [phone] * Full Code (Latest Code Status on File) Date Activated Date Inactivated Comments 11/22/2022 12:13 PM 11/23/2022 4:22 PM Care Teams Iv Rn Relationship Specialty Start Date End Date Katia Fraser MD [address] [place] [address] PCP - General 06/20/17
--- OUTSIDE RECORDS SUMMARY | 2024-11-04 12:55 | XMS_ITS | Encounter Summary ---
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
--- OUTSIDE RECORDS SUMMARY | 2024-11-04 12:55 | XMS_ITS | Encounter Summary ---
Author Organization [facility] Address [address] [place] [address] Care Team Providers Care Credit Card Analyst Name Role Phone Katia Fraser MD Primary Care Provider [phone] Encounter Details Date Type Department Care Team (Late st Contact Info) Description 12/31/2017 Orders Only [facility] Health Information Management [address] [place] [address] Scanning, Provider Social History Tobacco Use Types Packs/Day Years Used Date Smoking Tobacco: Former Smokeless Tobacco: Former Comments:Smoking History Pac ks/day: 1 Cigarettes Alcohol Use Standard Drinks/Week Comments Yes 0 (1 standard drink = 0.6 oz pur e alcohol) Sex and Gender Information Value Date Recorded Sex Assigned at Not on file 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
--- OUTSIDE RECORDS SUMMARY | 2024-11-04 12:55 | XMS_ITS | Encounter Summary ---
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
--- OUTSIDE RECORDS SUMMARY | 2024-11-04 12:55 | XMS_ITS | Encounter Summary ---
Author Organization [facility] Address [address] [place] [address] Care Team Providers Care Detailer Pharmaceuticals Name Role Phone Katia Fraser MD Primary Care Provider + [phone] Encounter Details Date Type Department Care Team (Late st Contact Info) Description 12/30/2017 Orders Only [facility] Health Information Management [address] [place] [id number] Scanning, Provider Social History Tobacco Use Types Packs/Day Years Used Date Smoking Tobacco: Former Smokeless Tobacco: Former Comments:Smoking History Pac ks/day: 1 Cigarettes Alcohol Use Standard Drinks/Week Comments Yes 0 (1 standard drink = 0.6 oz pur e alcohol) Sex and Gender Information Value Date Recorded Sex Assigned at Not on file 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
--- OUTSIDE RECORDS SUMMARY | 2024-11-04 12:55 | XMS_ITS | Referral Summary ---
Author Organization [facility] Address [address] [place] [address] Care Team Providers Care Molding Fitter Name Role Phone Katia Fraser MD Primary Care Provider [phone] Encounters Date Type Department Care Team Description 09/02/2024 9:[address] [facility] [place] - Lab Collection [facility] [address] [place] [address] B12 deficiency; Iron deficiency anemia, unspecified iron deficiency anemia type; CLL (chronic lymphocytic leukemia) ([facility]) 09/02/2024 9:15 AM CDT Lab [facility] Oncology Lab [address] [place] [address] [address] [place] [address] B12 deficiency; Iron deficiency anemia, unspecified iron deficiency anemia type; CLL (chronic lymphocytic leukemia) ([facility]) 09/02/2024 10:15 AM CDT Office Visit [facility] Hematology [address] [place] [address] [address] [place] [id number] Marcy Hopkins MD B12 deficiency; Iron deficiency anemia, unspecified iron deficiency anemia type; CLL (chronic lymphocytic leukemia) ([facility]) 08/15/2024 Results Follow-Up [facility] Bone Marrow Transplant [facility] [address] [place] [address] Marcy Hopkins MD Comprehensive metabolic panel, Comprehensive metabolic panel, CBC with auto differential, Additional followed-up results: 3 08/12/2024 12:00 PM CDT Office Visit [facility] Cardiology [address] [facility] [address] [place] [address] Renetta Bai MD Coronary artery disease involving [place] coronary artery of [place] heart without angina pectoris (Primary Dx); Primary [...] check 04/02/2018 Coronary artery disease invo lving [place] coronary artery of [place] heart without angina pectoris 02/19/2018 Assessment & Plan (02/25/2018 1:56 PM SENIOR INTERACTIVE PRODUCER): At this time continue aspirin, Brilinta. Continue [...] NOS Assessment & Plan (02/25/2018 1:57 PM SENIOR INTERACTIVE PRODUCER): Blood pressure controlled. Continue current treatment Insomnia [...] on file Legal Sex Male 11:33 PM SENIOR INTERACTIVE PRODUCER Gender Identity Male 07/19/2023 9:40 PM CDT [...] on file Medical Devices Implanted Type Area Sat Instructor Device Identifier Shelf Expiration Date Model / Serial / Lot Har[employer] Synergy Xd Monorail 3.5mm 24mm 144cm Delivery System 1 Access [id number] - [id number] Implanted:Qty: 1 on 11/22/2022 by Renetta Bai MD at [facility] [employer] 12/16/2023 [id number] / / [id number] [facility] Device Vascular Closure Femoral Artery Bioabsorbable Dual Method Vascade 6-7fr Collagen [id number] - [id number] Implanted:Qty: 1 on 11/22/2022 by Renetta Bai MD at [facility] [employer] 07/11/2024 [id number] / / [id number] Procedures Procedure Name Priority Date/Time Associated [...] BLOOD ORDERABLES Final Result Performing Organization Address City/[facility]/ZIP Co de Phone Number [facility] [address] [place] [address] * Lactate dehydrogenase (LD) (11/01/2024 1:13 PM CDT) Lactate dehydrogenase (LDH) 149 120 - 250 U/L [facility] 11/01/2024 1:13 PM CDT 11/01/2024 1:13 PM CDT Narrative [facility] - 11/02/2024 6:08 AM CDT FASTING:NO FASTING: NO Marcy Hopkins MD LAB BLOOD ORDERABLES Final Result [facility] [address] [place] [address] * (ABNORMAL) Comprehensive metabolic panel (11/01/2024 1:13 PM CDT) [facility] Glucose 129 65 - 139 mg/dL [facility] [...] LAB BLOOD ORDERABLES Final Result [facility] [address] [place] [address] * (ABNORMAL) CBC with auto differential (10/01/2024 10:39 AM CDT) [facility] WBC 6.8 3.8 - 10.8 Thousand/u L [...] BLOOD ORDERABLES Final Result Performing Organization Address [facility] Co de Phone Number MICHELLE [facility] [address] [place] [address] * Lactate dehydrogenase (LD) (10/01/2024 10:37 AM CDT) Pathologist [facility] [place] Lactate dehydrogenase (LDH) 154 120 - 250 U/L [facility] Blood 10/01/2024 10:3 7 AM CDT 10/01/2024 10:38 AM CDT Narrative [facility] - 10/02/2024 5:09 AM CDT FASTING:YES FASTING: YES us Marcy Hopkins MD LAB BLOOD ORDERABLES Final Result Performing Organization Address [facility] de Phone Number [facility] [address] [place] [address] * (ABNORMAL) Comprehensive metabolic panel (10/01/2024 10:34 AM CDT) [facility] Glucose 81 65 - 139 mg/dL [facility] [...] LAB BLOOD ORDERABLES Final Result [facility] [address] [place] [address] * (ABNORMAL) eGFR (09/02/2024 9:21 AM CDT) [...] CDT 09/02/2024 9:43 AM CDT Marcela Mane DIVE MASTER LAB BLOOD ORDERABLES Final Result [facility] [place] [address] * Differential, auto (09/02/2024 9:21 AM CDT) Neutrophil abs 2.95 1.50 - 6.50 K/cumm Comment:Testing performed by : [facility]e [facility], [address] [place] [phone] Lymphocyte abs 2.77 0.80 - 3.30 K/cumm [facility]ER [facility] Comment:Testing performed by : [facility], [address] [place] [phone] Monocyte abs 0.70 0.20 - 0.80 K/cumm [facility] Comment:Testing performed by : [facility], [address] [place] [phone] Eosinophil abs 0.17 0.00 - 0.50 K/cumm [facility] Comment:Testing performed by : [facility], [address] [place] [phone] Basophil abs 0.03 0.00 - 0.10 K/cumm [facility] Comment:Testing performed by : [facility], [address] [place] [phone] Neutrophil pct 44.7 % CERNER [facility] Comment: Interpretive Data Percent cell count reference ranges are not reported, since discordance with absolute values may lead to misinterpretation of CBC data. Current Interpretive Data was last revised on 2017. Testing performed by: [facility], [address] [place] [phone] Lymphocyte pct 41.9 % [facility] Comment: Interpretive Data Percent cell count reference ranges are not reported, since discordance with absolute values may lead to misinterpretation of CBC data. Current Interpretive Data was last revised on 2017. Testing performed by: [facility], [address] [place] [address] Monocyte pct 10.6 % [facility]PO[facility] Comment: Interpretive Data Percent cell count reference ranges are not reported, since discordance with absolute values may lead to misinterpretation of CBC data. Current Interpretive Data was last revised on 2017. Testing performed by: [facility], [address] [place] [phone] Eosinophil pct 2.5 % [facility]ER[facility]PO[facility]ON [facility] Comment: Interpretive Data Percent cell count reference ranges are not reported, since discordance with absolute values may lead to misinterpretation of CBC data. Current Interpretive Data was last revised on 2017. Testing performed by: [facility], [address] [place] [address] Basophil pct 0.4 % [facility]ER[facility]PO[facility] Comment: Interpretive Data Percent cell count reference ranges are not reported, since discordance with absolute values may lead to misinterpretation of CBC data. Current Interpretive Data was last revised on 2017. Testing performed by: [facility], [address] [place] [phone] Blood 09/02/2024 9:21 AM CDT 09/02/2024 9:39 AM CDT Marcela Mane DIVE MASTER LAB BLOOD ORDERABLES Final Result [facility] Department [place] [address] * Iron profile w/ IBC (09/02/2024 9:21 AM CDT) Iron 77 50 - 150 mcg/dL TIBC 268 250 - 400 mcg/dL ED [facility] Transferrin saturation 29 20 - 50 % ED [facility] Blood 09/02/2024 9:21 AM CDT 09/02/2024 9:43 AM CDT Marcela Mane DIVE MASTER LAB BLOOD ORDERABLES Final Result ED [facility] Department [place] [address] * (ABNORMAL) CBC with auto differential (09/02/2024 9:21 AM CDT) WBC 6.60 3.80 - 9.90 K/cumm Comment:Testing performed by : [facility], [address] [place] [address] Hgb 11.3(L) 13.0 - 17.5 g/dL ED [facility] Comment:Testing performed by : [facility], [address] [place] [address] Hct 33.9(L) 38.9 - 50.3 % ED [facility] Comment:Testing performed by : [facility], [address] [place] [address] Plt 170 150 - 400 K/cumm CERNAPOLEON [facility] Comment:Testing performed by : [facility], [address] [place] [address] MPV 8.0 6.8 - 10.4 fL [facility]ER[facility]PO[facility]ON [facility]J Comment:Testing performed by : [facility], [address] [place] [address] RBC 3.71(L) 4.30 - 5.80 M/cumm ED BJ Comment:Testing performed by : [facility], [address] [place] [address] MCV 91.4 81.3 - 96.4 fL [facility]ER[facility]PO[facility]J Comment:Testing performed by : [facility], [address] [place] [address] MCH 30.6 27.1 - 33.3 pg [facility] Comment:Testing performed by : [facility], [address] [place] [address] MCHC 33.5 32.3 - 35.7 g/dL [facility]J Comment:Testing performed by : [facility], [address] [place] [phone] RDW CV 15.5(H) 11.1 - 14.9 % ED [facility] Comment:Testing performed by : [facility], [address] [place] [phone] NRBC abs 0.00 0.00 - 0.01 K/cumm ED [facility] Comment:Testing performed by : [facility], [address] [place] [phone] Blood 09/02/2024 9:21 AM CDT 09/02/2024 9:39 AM CDT Marcela Mane DIVE MASTER LAB BLOOD ORDERABLES Final Result Performing Organization Address [facility] Co de Phone Number [facility] [place] [address] * (ABNORMAL) Reticulocyte Count (09/02/2024 9:21 AM CDT) [facility] Retics, absolute 90 20 - 100 K/cumm Comment:Testing performed by : [facility], [address] [place] [phone] Retics 2.4(H) 0.5 - 1.8 % ED [facility] Comment:Testing performed by : [facility], [address] [place] [phone] Blood 09/02/2024 9:21 AM CDT 09/02/2024 9:39 AM CDT Marcela Mane DIVE MASTER LAB BLOOD ORDERABLES Final Result Performing Organization Address City/[facility] Co de Phone Number [facility] [place] [address] * Lactate dehydrogenase (LD) (09/02/2024 9:21 AM CDT) Pathologist [facility] [place] Lactate dehydrogenase (LDH) 187 100 - 250 Units/L Blood 09/02/2024 9:21 AM CDT 09/02/2024 9:43 AM CDT Marcela Mane DIVE MASTER LAB BLOOD ORDERABLES Final Result Performing Organization Address City/[facility] Co de Phone Number [facility] [place] [address] * Ferritin (09/02/2024 9:21 AM CDT) [facility] Ferritin 84 30 - 400 ng/mL Blood 09/02/2024 9:21 AM CDT 09/02/2024 9:43 AM CDT Marcela Mane DIVE MASTER LAB BLOOD ORDERABLES Final Result Performing Organization Address [facility] Co de Phone Number [facility] Department [place] [address] * Vitamin B12 (09/02/2024 9:21 AM CDT) [facility] Vitamin B12 1,002 230 - 1,250 pg/mL Blood 09/02/2024 9:21 AM CDT 09/02/2024 10:01 AM CDT Marcela Mane DIVE MASTER LAB BLOOD ORDERABLES Final Result Performing Organization Address [facility] Co de Phone Number [facility] Department [place] [address] * (ABNORMAL) Comprehensive metabolic panel (09/02/2024 9:21 AM CDT) [facility] Sodium 139 135 - 145 mmol/L Potassium, pl 3.7 3.3 - 4.9 mmol/L [facility] Chloride 108 97 - 110 mmol/L [facility] CO2 22 22 - 32 mmol/L [facility] Anion gap 9 2 - 15 mmol/L [facility] BUN 18 6 - 25 mg/dL [facility] Creatinine 1.63(H) 0.80 - 1.30 mg/dL [facility] Glucose 83 70 - 199 mg/dL [facility] Comment: Interpretive Data Fasting glucose >/= [...] 2022. Calcium 9.6 8.5 - 10.3 mg/dL [facility] Bilirubin, total 0.4 0.1 - 1.2 mg/dL [facility] Protein, pl 7.0 6.5 - 8.5 g/dL [facility] Albumin 4.2 3.5 - 5.0 g/dL [facility] Alk phos 95 40 - 130 Units/L [facility] ALT 19 7 - 55 Units/L [facility] AST 17 10 - 50 Units/L [facility] Blood 09/02/2024 9:21 AM CDT 09/02/2024 9:43 AM CDT Marcela Mane NP LAB BLOOD ORDERABLES Final Result [facility] [place] [address] * (ABNORMAL) CBC with auto differential (08/14/2024 [...] LAB BLOOD ORDERABLES Final Result [facility] [address] [place] [phone] * (ABNORMAL) Comprehensive metabolic panel (08/14/2024 1:16 PM CDT) [facility] Glucose 91 65 - 139 mg/dL [facility] [...] LAB BLOOD ORDERABLES Final Result [facility] [address] [address] [place] [phone] * Lactate dehydrogenase (LD) (08/14/2024 1:14 PM CDT) Lactate dehydrogenase (LDH) 175 120 - 250 U/L [facility] Blood 08/14/2024 1:14 PM CDT 08/14/2024 1:15 PM CDT Narrative [facility] - 08/15/2024 5:46 AM CDT FASTING:NO FASTING: NO us Marcy Hopkins MD LAB BLOOD ORDERABLES Final Result [facility] [address] [place] [phone] * CT Chest Abdomen Pelvis W Contrast [...] Recently Relevant to Health Maintenance Insurance MEDICARE [place] [employer] [employer] [place] [employer] [facility] [employer] Address: [address] [place] [address] Advance Directives For more information, please contact: [phone] * Full Code (Latest Code Status on File) Date Activated Date Inactivated Comments 11/22/2022 12:13 PM 11/23/2022 4:22 PM Care Teams Molding Fitter Relationship Specialty Start Date End Date Katia Fraser MD [address] [place] [address] PCP - General 06/20/17
--- OUTSIDE RECORDS SUMMARY | 2024-11-04 12:55 | XMS_ITS ---
Author Organization [facility] Address [address] [place] [address] Care Team Providers Care Auto Air Conditioning Apprentice Name Role Phone Katia Fraser MD Primary Care Provider + [phone] Active Problems Problem Noted Date Diagnosed Date History of colonic polyps 07/10/2024 Chronic diastolic heart failure 08/07/2023 CAD S/P percutaneous coronary angioplasty 2022 Preop cardiovascular exam 10/24/2022 Visit for wound check 04/02/2018 Coronary artery disease invo lving [place] coronary artery of [place] heart without angina pectoris 02/19/2018 Assessment & Plan (02/25/2018 1:56 PM VIDEO GAME DEVELOPER): At this time continue aspirin, Brilinta. Continue [...] NOS Assessment & Plan (02/25/2018 1:57 PM VIDEO GAME DEVELOPER): Blood pressure controlled. Continue current treatment Insomnia [...]
--- OUTSIDE RECORDS SUMMARY | 2024-11-04 12:55 | XMS_ITS | Encounter Summary ---
Author Organization [facility] Address [address] [place] [address] Care Team Providers Care Airborne Electronics Analyst Name Role Phone Katia Fraser MD Primary Care Provider [phone] Encounter Details Date Type Department Care Team (Late st Contact Info) Description 01/01/2018 Orders Only [facility] Health Information Management [address] [place] [id number] Scanning, Provider Social History Tobacco Use Types Packs/Day Years Used Date Smoking Tobacco: Former Smokeless Tobacco: Former Comments:Smoking History Pac ks/day: 1 Cigarettes Alcohol Use Standard Drinks/Week Comments Yes 0 (1 standard drink = 0.6 oz pur e alcohol) Sex and Gender Information Value Date Recorded Sex Assigned at Not on file Legal Sex Male 11:33 PM VENEREAL DISEASE CONTROL HEAD Gender Identity Male 07/19/2023 9:40 PM CDT [...] on filedocumented in this encounter Care Teams Airborne Electronics Analyst Relationship Specialty Start Date End Date Katia Fraser MD [address] [place], [place] [id number] PCP - General 06/20/17 documented as of this encounter
[2024-11-04 12:57] LABS: INR 1.1; Prothrombin Time 14.4 Seconds (11.1-14.7)
[2024-11-04 12:58] LABS: Partial Thromboplastin Time 30.1 Seconds (22.3-36.8)
[2024-11-04 13:01] LABS: Alanine Aminotransferase 16 U/L (6-50); Albumin Level 4.2 g/dL (3.5-5.1); Alkaline Phosphatase 75 U/L (38-126); Anion Gap 11 mmol/L (4-12); Aspartate Amino Transferase 19 U/L (17-59); Bilirubin,Total 0.7 mg/dL (0.2-1.3); Blood Urea Nitrogen 20 mg/dL (9-20); Calcium 9.5 mg/dL (8.4-10.2); Carbon Dioxide 20 mmol/L (22-30); Chloride 108 mmol/L (98-107); Estimated CRCL calculation 30 ml/min; Estimated Glomerular Filt Rate 35; Glucose 102 mg/dL (65-110); Lipase 71 U/L (23-300); Potassium 3.7 mmol/L (3.4-5.0); Sodium 139 mmol/L (137-145); Total Protein 7.3 g/dL (6.3-8.2)
[2024-11-04 13:12] LABS: Troponin I < 0.012 ng/mL (0.000-0.034)
--- NOTE | 2024-11-04 14:10 | ED.ARRPALP ---
HPI - Arrhythmia/Palpitations General Chief Complaint: Arrhythmia/Palpitations Stated Complaint: new onset afib Time Seen by Provider: 11/04/24 12:35 History of Present Illness HPI narrative: Patient is an 83-year-old male who presents ER with shortness of breath. Woke up this morning and has had exertional dyspnea. No hypoxia. No cough. No orthopnea. Feels better arrest. Went to Urgent Care was found to be in atrial fibrillation and referred here for further evaluation. Patient sees Dr. Bai. He has history of cardiac stenting. He is on Plavix. He has chronic swelling to the upper extremities and has had a recent ultrasound rule out DVT. Related Data Home Medications ?Medication ?Instructions ?Recorded ?Confirmed ?Last Taken ?Type metoprolol tartrate 25 mg tablet 25 mg PO BID 05/07/19 07/30/24 07/28/24 History acalabrutinib maleate 100 mg 100 mg PO DAILY 06/01/24 07/30/24 07/28/24 History tablet (Calquence (acalabrutinib maleate)) rosuvastatin 10 mg tablet 10 mg PO QAM 07/24/24 07/30/24 07/28/24 History levocetirizine 5 mg tablet mg 11/04/24 Unknown History Allergies Allergy/AdvReac Type Severity Reaction Status Date / Time No Known Allergies Allergy Verified 11/04/24 12:32 Review of Systems Review of Systems: All systems reviewed & are unremarkable except as noted in HPI and below Constitutional: Constitutional: Reports no additional constitutional complaints Cardiovascular: Cardiovascular: Reports no additional cardiovascular complaints Respiratory: Respiratory: Reports no additional respiratory complaints Gastrointestinal: Gastrointestinal: Reports no additional gastrointestinal complaints Genitourinary: Genitourinary: Reports no additional male genitourinary complaints [facility] Past Medical History Medical History Seasonal rhinitis GERD (gastroesophageal reflux disease) Paroxysmal atrial fibrillation Hypertension Non-Hodgkin lymphoma Large B-cell lymphoma treated in 2016 at [facility]. Coronary artery disease History of inferior STEMI on 12/29/2017. Right coronary was totally occluded and was revascularized with a drug-eluting stent. He also had high-grade stenosis of the mid LAD, which was not intervened upon. Osteoarthritis Hyperlipidemia Surgical History Surgical History History of lumbar fusion History of surgery on arm Left arm ORIF. Status post total right knee replacement Status post bilateral total hip replacement History of total replacement of both shoulder joints Status post arthroscopy of left knee History of bilateral carpal tunnel release Status post cataract extraction History of coronary artery stent placement Drug-eluting stent to the right coronary artery 12/29/2017. Family History Family History Father Hypertension Mother Acute myocardial infarction Social History Social History (Updated 07/24/24 @ 13:35 by Estephania Bay [facility]) Social History: The patient has been since 2016 after his from lung cancer. He has 1 daughter and 2 sons. He designates his [id number] Karen as his surrogate decision maker and he wishes to be a full code. He smoked up to 2 packs of cigarettes per day for 45 years and quit 1999. He denies alcohol and drug use. 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 Smoking packs per day: 2 Smoking cigarettes per day: 40.0 Years smoked: 45 Smoking pack-years: 90.00 Smoking status: Former smoker Tobacco type: cigarettes Second hand tobacco smoke exposure: No Smoking end date: 10/01/01 Alcohol intake: never Alcohol use details: HEAVIER DRINKER IN PAST Substance use: never Substance use type: does not use Current Housing: Decline to Answer Concerned About Future Housing: Decline to Answer Difficulty Paying Gas/Electric Bills: Decline to Answer Difficulty Paying for Meds: Decline to Answer Currently Unemployed: Decline to Answer Education: Decline to Answer Difficulty w/ Childcare or Family Care: Decline to Answer Living arrangements: alone Gender identity (if verbalized by the patient): Male Sexual Orientation (if Verbalized by the Patient): Straight or Heterosexual Spiritual care concerns: No Agree to blood products: Yes Exam Narrative: GENERAL: Well-appearing, well-nourished, and in no acute distress. HEAD: Normocephalic, atraumatic. ENT: Mucous membranes moist. CHEST: Clear to auscultation. No respiratory distress. HEART: Irregularly irregular rhythm. Normal peripheral pulses. ABDOMEN: Soft, nontender, nondistended. EXTREMITIES: Normal range of motion. +2 edema bilateral upper extremities. SKIN: Warm, dry, no rash. NEURO: Alert and oriented x3. PSYCH: Normal mood and affect. Course Course Emergency Course: Patient resting comfortably. Has chronic renal disease. Discussed with patient's fish and wildlife scientific aid Dr. Marsh. Patient is rate controlled. No hypoxia. Chest x-ray without edema. Patient's Plavix will be discontinued, he will be started on a baby aspirin and Eliquis 2.5 mg twice a day with recommendation Cardiology. Patient verbalized understanding treatment plan. Vital Signs Vital signs: Vital Signs Temperature 98.1 F 11/04/24 12:18 Pulse Rate 87 11/04/24 12:18 Respiratory Rate 15 11/04/24 12:18 Blood Pressure 128/74 11/04/24 12:18 Pulse Oximetry 99 11/04/24 12:18 Oxygen Delivery Room Air 11/04/24 12:18 Temperature 98.1 F 11/04/24 12:18 Pulse Rate 80 11/04/24 12:41 Respiratory Rate 14 11/04/24 12:41 Blood Pressure 120/78 11/04/24 12:41 Pulse Oximetry 98 11/04/24 12:41 Oxygen Delivery Room Air 11/04/24 12:18 MDM - Arrhythmia/Palpitations Lab Data 11/04/24 12:35 11/04/24 12:35 Labs: Lab Results 11/04/24 Range/Units 12:35 WBC 7.5 (4.5-10.0) K/mm3 RBC 3.63 L (4.6-6.20) M/mm3 Hgb 11.1 L (14.0-18.0) g/dL Hct 34.7 L (42.0-52.0) % MCV 95.6 (80-100) fl MCH 30.6 (26-34) pg MCHC 32.0 (32-36) g/dl RDW 14.8 H (11.5-14.5) % Plt Count 169 (150-375) k/mm3 MPV 9.6 (7.4-10.4) fl Immature Gran % (Auto) 0.4 (0-0.5) % Neut % (Auto) 54.6 (45.5-73.1) % Lymph % (Auto) 33.6 (18.3-44.2) % Meagher % (Auto) 8.8 H (2.6-8.5) % Eos % (Auto) 1.9 (0-4.4) % Baso % (Auto) 0.7 (0.2-1.2) % Lymph # (Auto) 2.51 (0.9-3.2) K/mm3 Meagher # (Auto) 0.7 H (0.1-0.6) K/mm3 Eos # (Auto) 0.1 (0-0.3) K/mm3 Baso # (Auto) 0.1 (0.0-0.1) K/mm3 Abs Immat Gran (auto) 0.03 (0.00-0.031) K/mm3 Absolute Neuts (auto) 4.1 (1.3-6.7) K/mm3 Absolute Nucleated RBC 0.000 (0.0-0.012) K/mm3 Nucleated RBC % 0.0 (0.0-0.2) % PT 14.4 (11.1-14.7) Seconds INR 1.1 APTT 30.1 (22.3-36.8) Seconds Sodium 139 (137-145) mmol/L Potassium 3.7 (3.4-5.0) mmol/L Chloride 108 H (98-107) mmol/L Carbon Dioxide 20 L (22-30) mmol/L Anion Gap 11 (4-12) mmol/L BUN 20 (9-20) mg/dL Creatinine 1.84 H (0.7-1.3) mg/dL Estim Creat Clear Calc 30 ml/min Estimated GFR 35 L (59 - ) Glucose 102 (65-110) mg/dL Calcium 9.5 (8.4-10.2) mg/dL Total Bilirubin 0.7 (0.2-1.3) mg/dL AST 19 (17-59) U/L ALT 16 (6-50) U/L Alkaline Phosphatase 75 (38-126) U/L Troponin I < 0.012 (0.000-0.034) ng/mL Total Protein 7.3 (6.3-8.2) g/dL Albumin 4.2 (3.5-5.1) g/dL Lipase 71 (23-300) U/L Imaging Data Radiologist's impression: ITS Impressions Chest X-Ray 11/04/24 13:11 Impression: 1: No acute cardiopulmonary disease. 2: Cardiomegaly. ECG Data EKG #1: ECG completion date: 11/04/24 ECG completion time: 12:24 EKG Interpretation: normal rate (83), atrial fibrillation, non-specific ST changes and normal QRS Discharge Plan Discharge Clinical Impression: New onset a-fib Patient Disposition: Home Condition: Stable Instructions: A-fib (Atrial Fibrillation) (ED), Blood Thinners (ED) Additional Instructions: Discontinue your clopidogrel. Start taking baby aspirin daily and also take Eliquis 2.5 mg twice a day. Please return to the emergency department if you develop severe and persistent chest pain, difficulty breathing, dizziness, leg swelling or if you are coughing up blood as these can be signs of a medical emergency. Please call your doctor for a follow up appointment to determine the need for further testing. Patient Language: Japanese Prescriptions: New Eliquis 2.5 mg tablet 2.5 mg PO BID Qty: 60 0RF aspirin 81 mg tablet 81 mg PO DAILY Qty: 30 0RF Discontinued clopidogrel 75 mg tablet 75 mg PO DAILY No Action Calquence (acalabrutinib mal) 100 mg tablet 100 mg PO DAILY levocetirizine 5 mg tablet metoprolol tartrate 25 mg Tablet 25 mg PO BID rosuvastatin 10 mg tablet 10 mg PO QAM Follow-up/Referrals: Renetta Bai MD [Physician] - 1 Week
== END 2024-11-04 14:56 | disposition home or self-care (01) ==
PROVIDERS: Family Medicine; Emergency Provider Emergency Medicine
DX: I48.91 Unspecified atrial fibrillation (principal); K21.9 Gastro-esophageal reflux disease without esophagitis; I10 Essential (primary) hypertension; I25.10 Atherosclerotic heart disease of native coronary artery without angina pectoris; M19.90 Unspecified osteoarthritis, unspecified site; E78.5 Hyperlipidemia, unspecified; Z85.72 Personal history of non-Hodgkin lymphomas
CPT/HCPCS: 36415; 71046; 80053; 83690; 84484; 85025; 85610; 85730; 93005; 99284

== ENCOUNTER 2025-01-28 08:59 | Outpatient (CLI) | payer MEDICARE, OTHER, SELFPAY ==
--- NOTE | ~2025-01-28 | CT_ITS ---
EXAMINATION: CTA chest PE protocol, 01/28/2025 9:15 CDT HISTORY: SOB COMPARISON: No comparisons available. TECHNIQUE: CTA examination is obtained with contrast CTA examination technique is performed with arterial phase of contrast-enhancement. 3-D reconstruction with thin MIP axial and MPR coronal imaging is provided Isovue 300, 92cc injected IV. One or more of the following dose reduction techniques were used: automated exposure control, adjustment of the mA and/or kV according to patient size, use of iterative reconstruction technique. FINDINGS: No significant coronary calcification is present ([id number]) LUNGS: Moderate to large simple appearing bilateral pleural effusions. The contrast bolus is adequate, there is no pulmonary embolism identified. Moderate pulmonary venous congestion. No tracheomalacia. No bronchiectasis. Moderate emphysematous changes. No significant pulmonary fibrotic changes. HEART AND PERICARDIUM: Mild cardiomegaly. Moderate simple appearing pericardial effusion. AORTA: Normal caliber aorta.. PULMONARY ARTERIES: No pulmonary embolism ADENOPATHY/MEDIASTINUM: None. LIMITED VIEWS OF THE ABDOMEN: Probable left renal cyst 3 x 3 cm. right kidney superior pole simple appearing renal cyst 4 x 4 5 cm. OSSEOUS STRUCTURES: Right shoulder arthroplasty. Left shoulder arthroplasty. No sclerotic or lytic lesions. No acute rib fractures. Moderate loss of vertebral heights and disc height throughout with anterior osteophyte formation, no acute fracture or subluxation. OVERLYING SOFT TISSUES: Unremarkable. THYROID: Probable exophytic right thyroid nodule 1.2 x 1 cm, outpatient ultrasound recommended. IMPRESSION: Negative for pulmonary embolism. Moderate to severe probable CHF. Incidental findings above Reviewed, dictated and finalized at location P. IMPRESSION: Negative for pulmonary embolism. Moderate to severe probable CHF. Incidental fi ndings above
[2025-01-28 09:23] LABS: Estimated Glomerular Filt Rate 42
--- OUTSIDE RECORDS SUMMARY | 2025-01-28 09:44 | XMS_ITS | Encounter Summary ---
Author Organization [facility] Address [address] [place] [address] Phone Care Team Providers Care Thermoscrew Operator Name Role Phone Katia Fraser MD Primary Care Provider + [phone] Encounter Details Date Type Department Care Team [...] on file Legal Sex Male 11:33 PM OPTICAL LAB TECHNICIAN Gender Identity Male 07/19/2023 9:40 PM CDT [...] on filedocumented in this encounter Care Teams Thermoscrew Operator Relationship Specialty Start Date End Date Katia Fraser MD [address] [place], [place] [id number] PCP - General 06/20/17 documented as of this encounter
--- OUTSIDE RECORDS SUMMARY | 2025-01-28 09:44 | XMS_ITS | Encounter Summary ---
Author Organization [facility] Healthcare Address [address] [place] [address] Care Team Providers Care Butcher Name Role Phone Katia Fraser MD Primary Care Provider [phone] Encounter Details Date Type Department Care Team (Late st Contact Info) Description 12/31/2017 [place] Only [facility] [place] [address] [place] [id number] Scanning, Provider Social History Tobacco Use Types Packs/Day Years Used Date Smoking Tobacco: Former Smokeless Tobacco: Former Comments:Smoking History Pac ks/day: 1 Cigarettes Alcohol Use Standard Drinks/Week Comments Yes 0 (1 standard drink = 0.6 oz pur e alcohol) Sex and Gender Information Value Date Recorded Sex Assigned at Not on file 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
--- OUTSIDE RECORDS SUMMARY | 2025-01-28 09:44 | XMS_ITS | Encounter Summary ---
Author Organization [facility] Healthcare Address [address] [place] [address] Care Team Providers Care Type Proof Reproducer Name Role Phone Katia Fraser MD Primary Care Provider + [phone] Encounter Details Date Type Department Care Team (Late st Contact Info) Description 12/30/2017 Orders Only [facility] Health Information Management [address] [place] [address] Scanning, Provider Social History Tobacco Use Types Packs/Day Years Used Date Smoking Tobacco: Former Smokeless Tobacco: Former Comments:Smoking History Pac ks/day: 1 Cigarettes Alcohol Use Standard Drinks/Week Comments Yes 0 (1 standard drink = 0.6 oz pur e alcohol) Sex and Gender Information Value Date Recorded Sex Assigned at Not on file 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
--- OUTSIDE RECORDS SUMMARY | 2025-01-28 09:44 | XMS_ITS | Encounter Summary ---
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 Hopkins, pt to proceed with CT/PE due to new onset shortness of breath. Per [place] scheduling, CT scan must be ordered as urgent to be scheduled before next week. Ordersupdated and faxed back to [facility] (fax# [phone]), and patient scheduled for tomorrow, 01/28 @ 9am. Pt aware of day/time/location and verbalized understanding. Pt reports his SOB is 'about the same' and has not worsened over the weekend. Pt given instructions as follows for CT scan: -NPO 4 hours prior (with the exception of water and medications). documented in this encounter Plan of Treatment Not on file documented as of this encounter Visit Diagnoses Not on filedocumented in this encounter Care Teams Clinical Office Technician Relationship Specialty Start Date End Date Katia Fraser MD [address] [place] [address] PCP - General 06/20/17 documented as of this encounter
--- OUTSIDE RECORDS SUMMARY | 2025-01-28 09:44 | XMS_ITS | Encounter Summary ---
Author Organization [facility] Healthcare Address [address] [place] [address] Care Team Providers Care Resourcing Consultant Name Role Phone Katia Fraser MD Primary Care Provider [phone] Encounter Details Date Type Department Care Team (Late st Contact Info) Description 01/01/2018 Orders Only [facility] [place] Management [address] [place] [address] Scanning, Provider Social History Tobacco Use Types Packs/Day Years Used Date Smoking Tobacco: Former Smokeless Tobacco: Former Comments:Smoking History Pac ks/day: 1 Cigarettes Alcohol Use Standard Drinks/Week Comments Yes 0 (1 standard drink = 0.6 oz pur e alcohol) Sex and Gender Information Value Date Recorded Sex Assigned at Not on file 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
--- OUTSIDE RECORDS SUMMARY | 2025-01-28 09:44 | XMS_ITS | Clinical Summary ---
Author Organization [facility] Address [address] [place] [address] Care Team Providers Care Artificial Insemination Technician Name Role Phone Katia Fraser MD Primary Care Provider + [phone] Allergies Active Allergy Reactions Criticality Noted Date Comments Haris Inhibitors Cough Low Medications ferrous sulfate 325 mg (65 mg of elemental iron) tabletIndicatio ns:Iron Deficiency Anemia Take 1 tablet (325 mg total) by mouth daily with breakfast 30 tablet 2 05/29/19 25 Active cyanocobalamin (Vitamin B-12) 1,000 mcg sublingual tabletIndicatio ns:B12 deficiency Take 1 tablet (1,000 mcg total) by mouth daily 30 tablet 2 06/08/19 25 Active tadalafiL (ADCIRCA) 2.5 mg tablet Take 1 tablet (2.5 mg total) by mouth daily 10 tablet 2 12/07/19 25 Active Eliquis 2.5 mg tablet Take 1 tablet (2.5 mg total) by mouth 2 (two) times a day 60 tablet 3 12/13/19 25 Active rosuvastatin (CRESTOR) 10 mg tablet Take 1 tablet by mouth once daily 90 tablet 01/15/20 25 Active metoprolol tartrate (LOPRESSOR) 25 mg immediate release tablet Take 1 tablet by mouth twice daily 180 tablet 01/15/20 25 Active acalabrutinib maleate (CALQUENCE) 100 mg tabletIndicatio ns:Chronic Lymphocytic Leukemia Take 1 tablet (100 mg total) by mouth daily Swallow whole with water and with or without food 30 tablet 11 01/28/20 25 Active acalabrutinib maleate (CALQUENCE) 100 mg tabletIndicatio ns:Chronic Lymphocytic Leukemia Take 1 tablet (100 mg total) by mouth daily Swallow whole with water and with or without food 30 tablet 11 01/25/20 24 025 Discontinued(Re order) rosuvastatin (CRESTOR) 10 mg tablet Take 1 tablet by mouth once daily 90 tablet 11/09/19 025 Discontinued metoprolol tartrate (LOPRESSOR) 25 mg immediate release tablet Take 1 tablet by mouth twice daily 180 tablet 11/09/19 025 Discontinued Active Problems Problem Noted Date Diagnosed Date History of colonic polyps 07/10/2024 Chronic diastolic heart failure 08/07/2023 CAD S/P percutaneous coronary angioplasty 2022 Preop cardiovascular exam 10/24/2022 Visit for wound check 04/02/2018 Coronary artery disease invo lving [place] coronary artery of [place] heart without angina pectoris 02/19/2018 Assessment & Plan (02/25/2018 1:56 PM PLASTERER STUCCO): At this time continue aspirin, Brilinta. Continue [...] NOS Assessment & Plan (02/25/2018 1:57 PM PLASTERER STUCCO): Blood pressure controlled. Continue current treatment Insomnia 08/17/2013 Overview (07/07/2016): INSOMNIA NEC Hyperlipidemia 08/17/2013 Overview (07/09/2016): HYPERLIPIDEMIA NEC/NOS Depression 08/17/2013 Overview (07/09/2016): DEPRESSIVE DISORDER NEC Resolved Problems Problem Noted Date Diagnosed Date Resolved Date Preoperative cardiovascular examination 12/10/2018 11/22/2021 Encounters Date Type Department Care Team Description 01/27/2025 Telephone [facility] [address] [place] [address] Samantha Hernandez RN 01/21/[address] [facility] [address] [place] [address] 6 [place] [address] Samantha Hernandez RN 01/21/[address] [facility] [address] [place] [address] 6 [place] [address] Samantha Hernandez RN Diffuse large B-cell lymphoma, unspecified body region (HCC) (Primary Dx); Primary hypertension; CLL (chronic lymphocytic leukemia) 12/31/2024 Results Follow-Up [facility] Cardiology [address] [place] [address] [place] [phone] Margarita Pratt NP Transthoracic Echo (TTE) Limited/Followup 12/30/2024 1:00 PM CDT Ancillary Procedure [facility] [address] [place] [address] [place] [phone] Pericardial effusion 12/12/2024 Telephone [facility] [address] [place] [address] [place] [phone] Renetta Bai MD 12/09/2024 Orders Only [facility] [address] [place] [address] [place] [phone] ProviderAr MD 12/05/2024 Results Follow-Up [facility] [address] [place] [address] [place] [phone] Margarita Pratt NP Transthoracic Echo (TTE) Complete W Doppler/CF, Thyroid Function [place] 12/04/2024 10:15 AM CDT Ancillary Procedure [facility] [address] [place] [address] [place] [phone] New onset atrial fibrillation (HCC) 12/03/2024 Telephone [facility] [address] [place] [address] [place] [phone] Renetta Bai MD Med Refill 11/21/2024 2:30 PM CDT Office Visit [facility] [address] [place] [phone] Margarita Pratt NP New onset atrial fibrillation (HCC) (Primary Dx); Encounter for anticoagulation discussion and counseling; Coronary artery disease involving [place] coronary artery of [place] heart without angina pectoris; Primary hypertension 11/04/2024 11:49 AM CDT - 11/04/2024 11:59 PM CDT Hospital Encounter [facility] Emergency, Room R Discharge Disposition: Discharge to home or self care from Last 3 Months Immunizations Immunization Administration [...] on file Legal Sex Male 11:33 PM PLASTERER STUCCO Gender Identity Male 07/19/2023 9:40 PM CDT Sexual Orientation Straight 07/19/2023 9: 40 PM CDT Obstetrics History Last Filed Vital Signs Vital Sign Reading Time Taken Comments Blood Pressure 110/60 11/21/2024 2:26 PM CDT Pulse 59 11/21/2024 2:26 PM CDT Temperature 36.2 C (97.2 F) 09/02/2024 10:13 AM CDT Respiratory Rate 18 09/02/2024 10:13 AM CDT Oxygen Saturation 97% 11/21/2024 2:26 PM CDT Inhaled Oxygen Concentration - - Weight 83.5 kg (184 lb) 11/21/2024 2:26 PM CDT Height 175.3 cm (5' 9) 11/21/2024 2:26 PM CDT Body Mass Index 27.17 11/21/2024 2:26 PM CDT Plan of Treatment Health Maintenance [...] history exists Medical Devices Implanted Type Area Voice Studies Director Device Identifier Shelf Expiration Date Model / Serial / Lot [employer] Jose Synergy Xd Monorail 3.5mm 24mm 144cm Delivery System 1 Access [id number] - [id number] Implanted:Qty: 1 on 11/22/2022 by Renetta Bai MD at [facility] [employer] Jose 12/16/2023 [id number] / / [id number] [employer] Device Vascular Closure Femoral Artery Bioabsorbable Dual Method Vascade 6-7fr Collagen [id number] - [id number] Implanted:Qty: 1 on 11/22/2022 by Renetta Bai MD at [facility] [employer] 07/11/2024 [id number] / / [id number] Procedures Procedure Name Priority Date/Time Associated Diagnosis Comments VITAMIN B12 Routine 01/22/2025 8:57 AM CDT Diffuse large B-cell lymphoma, unspecified body region (HCC) Primary hypertension D-DIMER, QUANTITATIVE Routine 01/22/2025 8:57 AM CDT Diffuse large B-cell lymphoma, unspecified body region (HCC) Primary hypertension LACTATE DEHYDROGENASE Routine 01/22/2025 8:57 AM CDT Diffuse large B-cell lymphoma, unspecified body region (HCC) Primary hypertension IRON PROFILE W/ IBC Routine 01/22/2025 8 :57 AM CDT Diffuse large B-cell lymphoma, unspecified body region (HCC) Primary hypertension FERRITIN Routine 01/22/2025 8:57 AM CDT Diffuse large B-cell lymphoma, unspecified body region (HCC) Primary hypertension CBC WITH AUTO DIFFERENTIAL Routine 01/22/2025 8:57 AM CDT Diffuse large B-cell lymphoma, unspecified body region (HCC) Primary hypertension COMPREHENSIVE METABOLIC PANEL Routine 01/22/2025 8:57 AM CDT Diffuse large B-cell lymphoma, unspecified body region (HCC) Primary hypertension COMPREHENSIVE METABOLIC PANEL Routine 01/01/2025 2:10 PM CDT CLL (chronic lymphocytic leukemia) TRANSTHORACIC ECHO (TTE) LIMITED/FOLLOW UP W LTD DOPPLER/CF WO CONTRAST Routine 12/30/2024 2:02 PM CDT Pericardial effusion TRANSTHORACIC ECHO (TTE) COMPLETE W DOPPLER/CF WO CONTRAST Routine 12/04/2024 11:26 AM CDT New onset atrial fibrillation (HCC) CBC WITH AUTO DIFFERENTIAL Routine 12/03/2024 8:10 AM CDT LACTATE DEHYDROGENASE Routine 12/03/2024 8:10 AM CDT COMPREHENSIVE METABOLIC PANEL Routine 12/03/2024 8:10 AM CDT CLL (chronic lymphocytic leukemia) THYROID FUNCTION CASCADE Routine 12/03/2024 8:08 AM CDT New onset atrial fibrillation (HCC) LACTATE DEHYDROGENASE Routine 11/01/2024 1:13 PM CDT [...] Relevant to Health Maintenance Results * (ABNORMAL) Iron profile w/ IBC (01/22/2025 8:57 AM CDT) Iron 47(L) 50 - 180 mcg/dL [facility] TIBC 338 250 - 425 mcg/dL (calc) [facility] Iron saturation 14(L) 20 - 48 % (calc) [facility] Blood 01/22/2025 8:57 AM CDT 01/22/2025 8:58 AM CDT us Marcy Hopkins MD LAB BLOOD ORDERABLES Final Result [facility] [address] [place] [address] * (ABNORMAL) CBC with auto differential (01/22/2025 8:57 AM CDT) WBC 6.0 3.8 - 10.8 Thousand/u L [facility] RBC, POC 2.91(L) 4.20 - 5.80 Million/uL [facility] Hgb 8.9(L) 13.2 - 17.1 g/dL [facility] Hct 28.1(L) 38.5 - 50.0 % [facility] MCV 96.6 80.0 - 100.0 fL [facility] MCH 30.6 27.0 - 33.0 pg [facility] MCHC 31.7(L) 32.0 - 36.0 g/dL [facility] Comment: For adults, a slight decrease in the calculated MCHC value (in the range of 30 to 32 g/dL) is most likely not clinically significant; however, it should be interpreted with caution in correlation with other red cell parameters and the patient's clinical condition. Rdw 12.6 11.0 - 15.0 % [facility] Platelets 189 140 - 400 Thousand/u L [facility] MPV 10.6 7.5 - 12.5 fL [facility] Neutrophils, abs 3,594 1,500 - 7,800 cells/uL [facility] Lymphocytes, abs 1,650 850 - 3,900 cells/uL [facility] Monocyte abs 606 200 - 950 cells/uL [facility] Eosinophils, abs 120 15 - 500 cells/uL [facility] Basophils, abs 30 0 - 200 cells/uL [facility] Neutrophils 59.9 % [facility] Lymphocyte pct 27.5 % [facility] Monocytes 10.1 % [facility] Eosinophils 2.0 % [facility] Basophils 0.5 % [facility] Blood 01/22/2025 8:57 AM CDT 01/22/2025 8:58 AM CDT Marcy Hopkins MD LAB BLOOD ORDERABLES Final Result Performing Organization Address [facility]/ZIP Co de Phone Number MICHELLE [facility] [address] [address] [place] [phone] * (ABNORMAL) D-dimer, quantitative (01/22/2025 8:57 AM CDT) D-dimer 0.55(H) <0.50 mcg/mL FEU [facility] Comment: Elevated D-dimer levels are associated with DIC, malignancies, inflammation, sepsis, surgery, trauma, and . A D-dimer result less than 0.5 mcg/mL FEU, in conjunction with a non-high clinical pre-test probability assessment model, excludes deep vein thrombosis and pulmonary embolism. However, since D-dimer values increase with age, the [employer] recommends an age-adjusted cut-off value in patients older than 50. The calculation for an age adjusted cut-off value is age (years) x 0.01 mcg/mL FEU. For example, the cut-off for a 70-year-old patient would be 70 x 0.01 mcg/mL FEU. For additional information, please refer to http://[email or web address]/[email or web address] (This link is being provided for informational/educational purposes only.) Blood 01/22/2025 8:57 AM CDT 01/22/2025 8:58 AM CDT Marcy Hopkins MD LAB BLOOD ORDERABLES Final Result MICHELLE [facility] [address] [place] [address] * Lactate dehydrogenase (LD) (01/22/2025 8:57 AM CDT) [facility] Lactate dehydrogenase (LDH) 177 120 - 250 U/L [facility] Blood 01/22/2025 8:57 AM CDT 01/22/2025 8:58 AM CDT Marcy Hopkins MD LAB BLOOD ORDERABLES Final Result [facility] [address] [place] [address] * Ferritin (01/22/2025 8:57 AM CDT) [facility] Ferritin 47 24 - 380 ng/mL [facility] Blood 01/22/2025 8:57 AM CDT 01/22/2025 8:58 AM CDT Marcy Hopkins MD LAB BLOOD ORDERABLES Final Result Performing Organization Address City/[facility]/ZIP Co de Phone Number [facility] [address] [place] [address] * (ABNORMAL) Vitamin B12 (01/22/2025 8:57 AM CDT) [facility] Vitamin B12 >2000(H) 200 - 1100 pg/mL [facility] Blood 01/22/2025 8:57 AM CDT 01/22/2025 8:58 AM CDT Marcy Hopkins MD LAB BLOOD ORDERABLES Final Result Performing Organization Address [facility]/ZIP Co de Phone Number [facility] [address] [place] [address] * (ABNORMAL) Comprehensive metabolic panel (01/22/2025 8:57 AM CDT) Glucose 90 65 - 99 mg/dL [facility] Comment: Fasting reference interval BUN 17 7 - 25 mg/dL [facility] Creatinine 1.61(H) 0.70 - 1.22 mg/dL [facility] [...] 10.3 mg/dL [facility] Protein, sr 6.3 6.1 - 8.1 g/dL [facility] Albumin 4.1 3.6 - 5.1 g/dL [facility] GLOBULIN 2.2 1.9 - 3.7 g/dL (calc) [facility] Alb/glob ratio 1.9 1.0 - 2.5 (calc) [facility] Bilirubin, total 1.0 0.2 - 1.2 mg/dL [facility] Alk phos 70 35 - 144 U/L [facility] AST 14 10 - 35 U/L [facility] ALT (SGPT) 19 9 - 46 U/L [facility] Blood 01/22/2025 8:57 AM CDT 01/22/2025 8:58 AM CDT us Marcy Hopkins MD LAB BLOOD ORDERABLES Final Result [facility] [address] [address] [place] [phone] * (ABNORMAL) Comprehensive metabolic panel (01/01/2025 2:10 PM CDT) Glucose 121(H) 65 - 99 mg/dL [facility] Comment: Fasting reference interval For someone without known diabetes, a glucose value between 100 and 125 mg/dL is consistent with prediabetes and should be confirmed with a follow-up test. BUN 21 7 - 25 mg/dL [facility] Creatinine 1.67(H) 0.70 - 1.22 mg/dL [facility] eGFR 41(L) > OR = 60 mL/min/1.7 3m2 [facility] BUN/creat ratio 13 6 - 22 (calc) [facility] Sodium 139 135 - 146 mmol/L [facility] Potassium, pl 3.8 3.5 - 5.3 mmol/L [facility] Chloride 111(H) 98 - 110 mmol/L [facility] CO2 23 20 - 32 mmol/L [facility] Calcium 9.1 8.6 - 10.3 mg/dL [facility] Protein, sr 6.0(L) 6.1 - 8.1 g/dL [facility] Albumin 3.9 3.6 - 5.1 g/dL [facility] GLOBULIN 2.1 1.9 - 3.7 g/dL (calc) [facility] Alb/glob ratio 1.9 1.0 - 2.5 (calc) [facility] Bilirubin, total 0.5 0.2 - 1.2 mg/dL [facility] Alk phos 68 35 - 144 U/L [facility] AST 10 10 - 35 U/L [facility] ALT (SGPT) 11 9 - 46 U/L [facility] Blood 01/01/2025 2:10 PM CDT 01/01/2025 2:10 PM CDT us Marcy Hopkins MD LAB BLOOD ORDERABLES Final Result [facility] [address] [address] [place] [phone] * TRANSTHORACIC ECHO (TTE) LIMITED/FOLLOW UP W LTD DOPPLER/CF WO CONTRAST (12/30/2024 2:02 PM CDT) Estimated EF 65 % CONS SCIMAGE Anatomical Region Laterality Modality Ultrasound 12/30/2024 1:16 PM CDT Narrative 12/30/2024 7:15 PM CDT [facility] [address] [facility] [address], [place] [address] [address] [facility] [address], [place] [address] P:[phone] P:[phone] Echocardiographic Report Patient Name: LIBAN CASILLAS D : 1940 Study Date: 12/30/2024 1:16:54 PM Sex: M Perfumer: Mikki Baxter)(CT), [facility] Location: [place] Ref Provider: MARGARITA PRATT Height(Cm): 175 BSA: 2.01 Weight(Kg): 83.5 Heart Rate: 113 BP: 110 / 60 Quality: Good Order Provider: MARGARITA PRATT PROCEDURES: Echocardiographic Report: Limited Transthoracic Echocardiogram with complete 2D, M-Mode, and Doppler Examination. INDICATIONS: I31.39 Other pericardial effusion (noninflammatory). MEASUREMENTS: 2D/MM Value Range Estimated EF 65 % 2D/MM Value Range - FINDINGS: Interpretation Site: Exam was interpreted at [facility]. Left Ventricle: Normal left ventricular systolic function. No focal wall motion abnormalities. Normal left ventricular size. Mild concentric left ventricular hypertrophy. Ejection Fraction is visually estimated to be 65 %. Right Ventricle: Normal right ventricular size. Normal right ventricular systolic function. Left Atrium: The left atrium is normal in size. Right Atrium: The right atrium is normal in size. Atrial Septum: The atrial septum is not well visualized. Mitral Valve: Normal appearance of the mitral valve. Aortic Valve: Aortic valve not well visualized. Tricuspid Valve: Normal appearance of the tricuspid valve. Pulmonic Valve: Pulmonic valve not well visualized. Pericardium: Moderate pericardial effusion. No echocardiographic evidence to suggest pericardial tamponade. Aorta: Sinus of Valsalva is normal. IVC: The IVC is not well visualized. Pulmonary Artery: Normal pulmonary artery size. CONCLUSIONS: Moderate pericardial effusion. No echocardiographic evidence to suggest pericardial tamponade. Compared to prior study, pericardial effusion appears to be larger. Recommend to repeat a limited echocardiogram 3-4 weeks from now. Electronically Signed By: Dr. Renetta Bai [facility] 12/30/2024 7:14:18 PM CDT Procedure Note Renetta Bai MD - 12/30/2024 [facility] [address] [facility] [address], [place] [address] [address] [facility] [address], [place] [address] P:[phone] P:[phone] Echocardiographic Report Patient Name: LIBAN CASILLAS D : 1940 Study Date: 12/30/2024 1:16:54 PM Sex: M Perfumer: Mikki Santoro (Robbie)(ME), [facility] Location: [facility] Provider: MARGARITA PRATT Height(Cm): 175 BSA: 2.01 Weight(Kg): 83.5 Heart Rate: 113 BP: 110 / 60 Quality: Good Order Provider: MARGARITA PRATT PROCEDURES: Echocardiographic Report: Limited Transthoracic Echocardiogram with complete 2D, M-Mode, and DopplerExamination. INDICATIONS: I31.39 Other pericardial effusion (noninflammatory). MEASUREMENTS: 2D/MM Value Range Estimated EF 65 % 2D/MM Value Range - FINDINGS: Interpretation Site: Exam was interpreted at [facility]. Left Ventricle: Normal left ventricular systolic function. No focal wall motionabnormalities. Normal left ventricular size. Mild concentric left ventricular hypertrophy.Ejection Fraction is visually estimated to be 65 %. Right Ventricle: Normal right ventricular size. Normal right ventricular systolicfunction. Left Atrium: The left atrium is normal in size. Right Atrium: The right atrium is normal in size. Atrial Septum: The atrial septum is not well visualized. Mitral Valve: Normal appearance of the mitral valve. Aortic Valve: Aortic valve not well visualized. Tricuspid Valve: Normal appearance of the tricuspid valve. Pulmonic Valve: Pulmonic valve not well visualized. Pericardium: Moderate pericardial effusion. No echocardiographic evidence to suggestpericardial tamponade. Aorta: Sinus of Valsalva is normal. IVC: The IVC is not well visualized. Pulmonary Artery: Normal pulmonary artery size. CONCLUSIONS: Moderate pericardial effusion. No echocardiographic evidence to suggestpericardial tamponade. Compared to prior study, pericardial effusion appears to be larger. Recommend to repeat a limited echocardiogram 3-4 weeks from now. Electronically Signed By: Dr. Renetta Bai [facility] 12/30/2024 7:14:18 PM CDT Margarita Pratt NP CV ECHO PROCEDURES Final Result * TRANSTHORACIC ECHO (TTE) COMPLETE W DOPPLER/CF WO CONTRAST (12/04/2024 11:26 AM CDT) EF Mod BP 55 % CONS SCIMAGE Anatomical Region Laterality Modality Ultrasound 12/04/2024 10:2 6 AM CDT Narrative 12/04/2024 4:45 PM CDT [facility] [address], [place] [address] [address] [facility] [address], [place] [address] P:[phone] P:[phone] Echocardiographic Report Patient Name: LIBAN CASILLAS D : 1940 Study Date: 12/04/2024 10:26:59 AM Sex: M Perfumer: Mikki Baxter)(ME), [facility] Location[facility] Provider: MARGARITA PRATT Height(Cm): 175 BSA: 2.01 Weight(Kg): 83.5 Heart Rate: 70 BP: 110 / 60 Quality: Good Order Provider: MARGARITA PRATT PROCEDURES: Echocardiographic Report: Transthoracic echocardiogram with complete 2D, M-Mode, and color Doppler examination. With Strain Analysis. INDICATIONS: I48.91 Unspecified atrial fibrillation. MEASUREMENTS: 2D/MM Value Range Doppler Value Range EF Mod BP 55 % [ 52 - 72 ] ULICES Vmax 2.12 cm2 [ 2.00 - 4.00 ] LV GLS -14.65 % AV Mean PG 6 mmHg LVIDd 2D 4.42 cm [ 4.20 - 5.80 ] AV Peak Vinay 1.61 m/s [ 1.00 - 1.70 ] LVIDs 2D 2.96 cm [ 2.50 - 4.00 ] AV Peak PG 10 mmHg LVPWd 2D 1.21 cm [ 0.60 - 1.00 ] AV VTI 36.53 cm IVSd 2D 1.23 cm [ 0.60 - 1.00 ] LVOT Diam 2.04 cm [ 1.70 - 2.10 ] AoR Diam 2D 4.44 cm [ 3.10 - 3.70 ] LVOT Peak Vinay 1.05 m/s [ 0.70 - 1.10 ] LA Volume 75.49 ml [ 18.00 - 58.00 ] LVOT VTI 24.49 cm LA Volume Index 38 cc/m2 [ 16 - 28 ] MV E Peak Vinay 0.73 m/s [ 0.60 - 1.30 ] RA Volume 52.22 ml MV A Peak Vinay 1.01 m/s [ 1.00 - 1.20 ] MV Decel Time 385 msec [ 104 - 258 ] PV Peak Vinay 0.88 m/s [ 0.40 - 0.80 ] TR Peak Vinay 2.38 m/s [ 1.00 - 2.80 ] TR Peak PG 23 mmHg RVSP 28.00 mmHg [ 10.00 - 36.00 ] RV S` 13.23 mmHg Lateral E` 0.06 m/s [ 0.10 - 0.15 ] Septal E` 0.05 m/s [ 0.08 - 0.15 ] E` 0.05 m/s E/E` 13 Tapse 2.35 cm [ 1.71 - 5.00 ] 2D/MM Value Range Doppler Value Range - FINDINGS: Interpretation Site: Exam was interpreted at home. Left Ventricle: Normal left ventricular size. Mild concentric left ventricular hypertrophy. Left ventricular systolic function at the lower limit of normal. Impaired diastolic relaxation Grade I. Ejection fraction is measured at 55 %. Global Longitudinal Strain is - 15 %. Right Ventricle: Normal right ventricular size. Normal right ventricular systolic function. Left Atrium: There is mild enlargement of left atrium. Right Atrium: Right atrium within upper limits of normal. Atrial Septum: Normal atrial septum. Mitral Valve: Mild mitral annular calcification. Trivial regurgitation of the mitral valve. Aortic Valve: Mild aortic stenosis. Valve area of 1.9 cm2. Aortic cusps appear mildly sclerotic. Trileaflet aortic valve. Tricuspid Valve: Normal appearance of the tricuspid valve. Estimated peak RVSP is 28 mmHg. Trivial regurgitation in the tricuspid valve. Pulmonic Valve: Normal appearance of the pulmonic valve. Trivial regurgitation in the pulmonic valve. Pericardium: Moderate pericardial effusion along LV and RV wall. No echocardiographic evidence to suggest pericardial tamponade. Aorta: Sinus of Valsalva is dilated. Sinus of Valsalva 4.3 cm. Ascending Aorta 3.9 cm. IVC: The IVC is not well visualized. CONCLUSIONS: Normal left ventricular size. Mild concentric left ventricular hypertrophy. Left ventricular systolic function at the lower limit of normal. Impaired diastolic relaxation Grade I. Ejection fraction is measured at 55 %. Global Longitudinal Strain is - 15 %. Normal right ventricular size and systolic function. Mild enlargement of left atrium. Mitral annular calcification. Trivial regurgitation of the mitral valve. Aortic cusps appear mildly sclerotic. Trileaflet aortic valve. Mild aortic stenosis. ULICES 1.9 cm2. Estimated peak RVSP is 28 mmHg. Trivial regurgitation in the tricuspid valve. Moderate pericardial effusion, predominantly along LV and RV wall. No echo evidence to suggest pericardial tamponade. Clinical correlation recommended. Electronically Signed By: Freddy Dahl MD, [facility] 12/04/2024 4:44:42 PM CDT Procedure Note Freddy Dahl MD - 12/04/2024 [facility] Cardiology [address] [facility] [address], [place] [address] [address] [facility] [address], [place] [address] P:[phone] P:[phone] Echocardiographic Report Patient Name: LIBAN CASILLASJason : 1940 Study Date: 12/04/2024 10:26:59 AM Sex: M Perfumer: Mikki Santoro (Robbie)(ME), [facility] Location[facility] Provider: MARGARITA PRATT Height(Cm): 175 BSA: 2.01 Weight(Kg): 83.5 Heart Rate: 70 BP: 110 / 60 Quality: Good Order Provider: MARGARITA PRATT PROCEDURES: Echocardiographic Report: Transthoracic echocardiogram with complete 2D, M-Mode, and color Dopplerexamination. With Strain Analysis. INDICATIONS: I48.91 Unspecified atrial fibrillation. MEASUREMENTS: 2D/MM Value Range Doppler ValueRange EF Mod BP 55 % [ 52 - 72 ] ULICES Vmax 2.12cm2 [ 2.00 - 4.00 ] LV GLS -14.65 % AV Mean PG 6mmHg LVIDd 2D 4.42 cm [ 4.20 - 5.80 ] AV Peak Vinay 1.61m/s [ 1.00 - 1.70 ] LVIDs 2D 2.96 cm [ 2.50 - 4.00 ] AV Peak PG 10mmHg LVPWd 2D 1.21 cm [ 0.60 - 1.00 ] AV VTI 36.53cm IVSd 2D 1.23 cm [ 0.60 - 1.00 ] LVOT Diam 2.04cm [ 1.70 - 2.10 ] AoR Diam 2D 4.44 cm [ 3.10 - 3.70 ] LVOT Peak Vinay 1.05m/s [ 0.70 - 1.10 ] LA Volume 75.49 ml [ 18.00 - 58.00 ] LVOT VTI 24.49cm LA Volume Index 38 cc/m2 [ 16 - 28 ] MV E Peak Vinay 0.73m/s [ 0.60 - 1.30 ] RA Volume 52.22 ml MV A Peak Vinay 1.01m/s [ 1.00 - 1.20 ] MV Decel Time 385 msec [ 104 - 258 ] PV Peak Vinay 0.88 m/s [ 0.40 - 0.80 ] TR Peak Vinay 2.38 m/s [ 1.00 - 2.80 ] TR Peak PG 23 mmHg RVSP 28.00 mmHg [ 10.00 - 36.00 ] RV S` 13.23 mmHg Lateral E` 0.06 m/s [ 0.10 - 0.15 ] Septal E` 0.05 m/s [ 0.08 - 0.15 ] E` 0.05 m/s E/E` 13 Tapse 2.35 cm [ 1.71 - 5.00 ] 2D/MM Value Range Doppler ValueRange - FINDINGS: Interpretation Site: Exam was interpreted at home. Left Ventricle: Normal left ventricular size. Mild concentric left ventricularhypertrophy. Left ventricular systolic function at the lower limit of normal. Impaireddiastolic relaxation Grade I. Ejection fraction is measured at 55 %. Global Longitudinal Strainis -15 %. Right Ventricle: Normal right ventricular size. Normal right ventricular systolicfunction. Left Atrium: There is mild enlargement of left atrium. Right Atrium: Right atrium within upper limits of normal. Atrial Septum: Normal atrial septum. Mitral Valve: Mild mitral annular calcification. Trivial regurgitation of the mitralvalve. Aortic Valve: Mild aortic stenosis. Valve area of 1.9 cm2. Aortic cusps appear mildlysclerotic. Trileaflet aortic valve. Tricuspid Valve: Normal appearance of the tricuspid valve. Estimated peak RVSP is 28 mmHg.Trivial regurgitation in the tricuspid valve. Pulmonic Valve: Normal appearance of the pulmonic valve. Trivial regurgitation in thepulmonic valve. Pericardium: Moderate pericardial effusion along LV and RV wall. No echocardiographicevidence to suggest pericardial tamponade. Aorta: Sinus of Valsalva is dilated. Sinus of Valsalva 4.3 cm. Ascending Aorta3.9 cm. IVC: The IVC is not well visualized. CONCLUSIONS: Normal left ventricular size. Mild concentric left ventricularhypertrophy. Left ventricular systolic function at the lower limit of normal. Impaireddiastolic relaxation Grade I. Ejection fraction is measured at 55 %. Global Longitudinal Strainis -15 %. Normal right ventricular size and systolic function. Mild enlargement of left atrium. Mitral annular calcification. Trivial regurgitation of the mitral valve. Aortic cusps appear mildly sclerotic. Trileaflet aortic valve. Mild aorticstenosis. ULICES 1.9 cm2. Estimated peak RVSP is 28 mmHg. Trivial regurgitation in the tricuspidvalve. Moderate pericardial effusion, predominantly along LV and RV wall. No echoevidence to suggest pericardial tamponade. Clinical correlation recommended. Electronically Signed By: Freddy Dahl MD, [facility] 12/04/2024 4:44:42 PM CDT Margarita Pratt NP CV ECHO PROCEDURES Final Result * (ABNORMAL) CBC with auto differential (12/03/2024 8:10 AM CDT) WBC 5.7 3.8 - 10.8 Thousand/u L [facility] RBC, POC 3.26(L) 4.20 - 5.80 Million/uL [facility] Hgb 10.3(L) 13.2 - 17.1 g/dL [facility] Hct 32.1(L) 38.5 - 50.0 % [facility] MCV 98.5 80.0 - 100.0 fL [facility] MCH 31.6 27.0 - 33.0 pg [facility] MCHC 32.1 32.0 - 36.0 g/dL [facility] Comment: For adults, a slight decrease in the calculated MCHC value (in the range of 30 to 32 g/dL) is most likely not clinically significant; however, it should be interpreted with caution in correlation with other red cell parameters and the patient's clinical condition. Rdw 13.1 11.0 - 15.0 % [facility] Platelets 172 140 - 400 Thousand/u L [facility] MPV 10.0 7.5 - 12.5 fL [facility] Neutrophils, abs 3,221 1,500 - 7,800 cells/uL [facility] Lymphocytes, abs 1,721 850 - 3,900 cells/uL [facility] Monocyte abs 559 200 - 950 cells/uL [facility] Eosinophils, abs 171 15 - 500 cells/uL [facility] Basophils, abs 29 0 - 200 cells/uL [facility] Neutrophils 56.5 % [facility] Lymphocyte pct 30.2 % [facility] Monocytes 9.8 % [facility] Eosinophils 3.0 % [facility] Basophils 0.5 % [facility] 12/03/2024 8:10 AM CDT 12/03/2024 8:11 AM CDT Narrative [facility] - 12/04/2024 2:30 AM CDT FASTING:YES FASTING: YES us Marcy Hopkins MD LAB BLOOD ORDERABLES Final Result [facility] [address] [place] [place] [address] * Lactate dehydrogenase (LD) (12/03/2024 8:10 AM CDT) Pathologist [facility] Lactate dehydrogenase (LDH) 158 120 - 250 U/L [facility] 12/03/2024 8:10 AM CDT 12/03/2024 8:11 AM CDT Narrative [facility] - 12/04/2024 2:30 AM CDT FASTING:YES FASTING: YES us Marcy Hopkins MD LAB BLOOD ORDERABLES Final Result [facility] [address] [place] [address] * (ABNORMAL) Comprehensive metabolic panel (12/03/2024 8:10 AM CDT) Pathologist [facility] Glucose 87 65 - 99 mg/dL [facility] Comment: Fasting reference interval BUN 19 7 - 25 mg/dL [facility] Creatinine 1.67(H) 0.70 - 1.22 mg/dL [facility] eGFR 41(L) > OR = 60 mL/min/1.7 3m2 [facility] BUN/creat ratio 11 6 - 22 (calc) [facility] Sodium 140 135 - 146 mmol/L [facility] Potassium, pl 3.8 3.5 - 5.3 mmol/L [facility] Chloride 109 98 - 110 mmol/L [facility] CO2 24 20 - 32 mmol/L [facility] Calcium 9.1 8.6 - 10.3 mg/dL [facility] Protein, sr 6.3 6.1 - 8.1 g/dL [facility] Albumin 4.3 3.6 - 5.1 g/dL [facility] GLOBULIN 2.0 1.9 - 3.7 g/dL (calc) [facility] Alb/glob ratio 2.2 1.0 - 2.5 (calc) [facility] Bilirubin, total 0.6 0.2 - 1.2 mg/dL [facility] Alk phos 64 35 - 144 U/L [facility] AST 13 10 - 35 U/L [facility] ALT (SGPT) 13 9 - 46 U/L [facility] Blood 12/03/2024 8:10 AM CDT 12/03/2024 8:11 AM CDT Narrative [facility] - 12/04/2024 2:30 AM CDT FASTING:YES FASTING: YES Marcy Hopkins MD LAB BLOOD ORDERABLES Final Result Performing Organization Address [facility]/ZIP Co de Phone Number [facility] [address] [place] [address] * Thyroid Function [place] (12/03/2024 8:08 AM CDT) Pathologist [facility] TSH 2.52 0.40 - 4.50 mIU/L [facility] Blood 12/03/2024 8:08 AM CDT 12/03/2024 8:09 AM CDT Margarita Pratt NP LAB BLOOD ORDERABLES Alanna l Result Performing Organization Address [facility] Co de Phone Number [facility] [address] [place] [address] * (ABNORMAL) CBC with auto differential (11/01/2024 1:13 PM CDT) Pathologist [facility] WBC 5.9 3.8 - 10.8 Thousand/u L [...] BLOOD ORDERABLES Final Result Performing Organization Address City/[facility]/ZIP Co de Phone Number [facility] [address] [place] [address] * Lactate dehydrogenase (LD) (11/01/2024 1:13 PM CDT) Lactate dehydrogenase (LDH) 149 120 - 250 U/L [facility] 11/01/2024 1:13 PM CDT 11/01/2024 1:13 PM CDT Narrative [facility] - 11/02/2024 6:08 AM CDT FASTING:NO FASTING: NO Marcy Hopkins MD LAB BLOOD ORDERABLES Final Result [facility] [address] [address] [address] * (ABNORMAL) Comprehensive metabolic panel (11/01/2024 1:13 [...] Hopkins MD LAB BLOOD ORDERABLES Final Result [facility] [address] [address] [facility] [place] [address] * CT Chest Abdomen Pelvis W Contrast [...] Recently Relevant to Health Maintenance Insurance [place] MEDICARE [employer] [facility] [place] [address] Advance Directives For more information, please contact: [phone] * Full Code (Latest Code Status on File) Date Activated Date Inactivated Comments 11/22/2022 12:13 PM 11/23/2022 4:22 PM Care Teams Artificial Insemination Technician Relationship Specialty Start Date End Date Katia Fraser MD [address] [place] [address] PCP - General 06/20/17
--- OUTSIDE RECORDS SUMMARY | 2025-01-28 09:44 | XMS_ITS | Encounter Summary ---
Author Organization [facility] Address [address] [place] [address] Phone Care Team Providers Care Umbrella Supervisor Name Role Phone Katia Fraser MD Primary Care Provider + [phone] Reason for Referral * MRI/CAT/PET Scan (Urgent) - Authorized Specialty Diagnoses / Procedures Referred By Contac t Referred To Contact Diagnoses Diffuse large B-cell lymphoma, unspecified body region (HCC) Primary hypertension Procedures CT Chest PE (CTA) W Contrast CT Chest PE (CTA) W Contrast CT Chest PE (CTA) W Contrast Marcy Hopkins MD [address] [place] [address] Phone: tel: fax: External Order Referral ID Status Reason Start Date Expiration Date V isits Requested Visits Authorized [id number] Authorized 01/24/2025 02/23/2026 1 1 Encounter Details Date Type Department Care Team (Late st Contact Info) Description 01/21/2025 Orders Only [facility] Medicine Hematology [address] [facility] [address] [place] [address] Juanito Ricci RN Diffuse large B-cell lymphoma, unspecified body region (HCC) (Primary Dx); Primary hypertension; CLL (chronic lymphocytic leukemia) Social History Tobacco Use Types Packs/Day Years [...] on file 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 Gender Identity Male 07/19/2023 9:40 PM CDT Sexual Orientation Straight 07/19/2023 9: 40 PM CDT documented as of this encounter Ordered Prescriptions Prescription Sig Dispense Quantity Refills Last Filled Start Date End Date acalabrutinib maleate (CALQUENCE) 100 mg tabletIndications: Chronic Lymphocytic Leukemia Take 1 tablet (100 mg total) by mouth daily Swallow whole with water and with or without food 30 tablet 11 01/27/2025 documented in this encounter Miscellaneous Notes * Addendum Note - Juanito Ricci RN - 01/21/2025 1:45 PM CDTAddended by: JUANITO RICCI on: 01/22/2025 11:21 AM Modules accepted: Orders * Addendum Note - Juanito Ricci RN - 01/21/2025 1:45 PM CDTAddended by: JUANITO RICCI on: 01/24/2025 05:10 PM Modules accepted: Orders * Addendum Note - Juanito Ricci RN - 01/21/2025 1:45 PM CDTAddended by: JUANITO RICCI on: 01/27/2025 10:54 AM Modules accepted: Orders documented in this encounter Plan of Treatment Scheduled Orders Name Type Priority Associated Diagnoses Orde r Schedule CT Chest PE (CTA) W Contrast Imaging Urgent Diffuse large B-cell lymphoma, unspecified body region (HCC) Primary hypertension Expected: 01/28/2025, Expires: 01/27/2026 documented as of this encounter Procedures Procedure Name Priority Date/Time Associated Diagnosis Comments IRON PROFILE W/ IBC Routine 01/22/2025 8 [...] lymphoma, unspecified body region (HCC) Primary hypertension VITAMIN B12 Routine 01/22/2025 8:57 AM CDT Diffuse large B-cell lymphoma, unspecified body region (HCC) Primary hypertension COMPREHENSIVE METABOLIC PANEL Routine 01/22/2025 8:57 AM CDT Diffuse large B-cell lymphoma, unspecified body region (HCC) Primary hypertension documented in this encounter Results * (ABNORMAL) Vitamin B12 (01/22/2025 8:57 AM CDT) Vitamin B12 >2000(H) 200 - 1100 pg/mL [facility] Blood 01/22/2025 8:57 AM CDT 01/22/2025 8:58 AM CDT Marcy Hopkins MD LAB BLOOD ORDERABLES Final Result Performing Organization Address [facility] Co de Phone Number [facility] [address] [place] [address] * (ABNORMAL) D-dimer, quantitative (01/22/2025 8:57 AM [...] since D-dimer values increase with age, the [employer] recommends an age-adjusted cut-off value in patients older than 50. The calculation for an age adjusted cut-off value is age (years) x 0.01 mcg/mL FEU. For example, the cut-off for a 70-year-old patient would be 70 x 0.01 mcg/mL FEU. For additional information, please refer to http://education.5173.com.[employer]/faq/FSA233 (This link is being provided for informational/educational purposes only.) Blood 01/22/2025 8:57 AM CDT 01/22/2025 8:58 AM CDT Marcy Hopkins MD LAB BLOOD ORDERABLES Final Result Performing Organization Address City/[facility]/ZIP Co de Phone Number [facility] [address] [address] [address] * Lactate dehydrogenase (LD) (01/22/2025 8:57 AM CDT) Lactate dehydrogenase (LDH) 177 120 - 250 U/L [facility] Blood 01/22/2025 8:57 AM CDT 01/22/2025 8:58 AM CDT Marcy Hopkins MD LAB BLOOD ORDERABLES Final Result Performing Organization Address [facility] Co de Phone Number [facility] [address] [place] [address] * (ABNORMAL) Iron profile w/ IBC (01/22/2025 8:57 AM CDT) Pathologist [facility] Iron 47(L) 50 - 180 mcg/dL [facility] TIBC 338 250 - 425 mcg/dL (calc) [facility] Iron saturation 14(L) 20 - 48 % (calc) [facility] Blood 01/22/2025 8:57 AM CDT 01/22/2025 8:58 AM CDT Marcy Hopkins MD LAB BLOOD ORDERABLES Final Result Performing Organization Address [facility] Co de Phone Number [facility] [address] [place] [address] * Ferritin (01/22/2025 8:57 AM CDT) Pathologist [facility] Ferritin 47 24 - 380 ng/mL [facility] Blood 01/22/2025 8:57 AM CDT 01/22/2025 8:58 AM CDT Marcy Hopkins MD LAB BLOOD ORDERABLES Final Result Performing Organization Address [facility] Co de Phone Number [facility] [address] [facility] [place] [address] * (ABNORMAL) CBC with auto differential (01/22/2025 8:57 AM CDT) Pathologist [facility] WBC 6.0 3.8 - 10.8 Thousand/u L [...] LAB BLOOD ORDERABLES Final Result [facility] [address] [place] [address] * (ABNORMAL) Comprehensive metabolic panel (01/22/2025 8:57 AM CDT) [facility] Glucose 90 65 - 99 mg/dL [facility] [...] LAB BLOOD ORDERABLES Final Result [facility] [address] [place] [address] documented in this encounter Visit Diagnoses Diagnosis Diffuse large B-cell lymphoma, unspecified body region (HCC)- Primary Primary hypertension Unspecified essential hypertension CLL (chronic lymphocytic leukemia) Chronic lymphoid leukemia, without mention of having achieved remission documented in this encounter Discontinued Medications Medication Sig Discontinue Reason Start Date End Da te acalabrutinib maleate (CALQUENCE) 100 mg tabletIndications:Chroni c Lymphocytic Leukemia Take 1 tablet (100 mg total) by mouth daily Swallow whole with water and with or without food Reorder 01/25/2024 01/27/2025 documented as of this encounter Care Teams Umbrella Supervisor Relationship Specialty Start Date End Date Katia Fraser MD [address] [id number] PCP - General 06/20/17 documented as of this encounter
--- OUTSIDE RECORDS SUMMARY | 2025-01-28 09:44 | XMS_ITS ---
Author Organization [facility] Address [address] [place] [address] Care Team Providers Care Grinder Set Up Operator Surface Name Role Phone Katia Fraser MD Primary Care Provider + [phone] Active Problems Problem Noted Date Diagnosed Date History of colonic polyps 07/10/2024 Chronic diastolic heart failure 08/07/2023 CAD S/P percutaneous coronary angioplasty 2022 Preop cardiovascular exam 10/24/2022 Visit for wound check 04/02/2018 Coronary artery disease invo lving [place] coronary artery of [place] heart without angina pectoris 02/19/2018 Assessment & Plan (02/25/2018 1:56 PM JUDICIAL LAW CLERK): At this time continue aspirin, Brilinta. Continue [...] NOS Assessment & Plan (02/25/2018 1:57 PM JUDICIAL LAW CLERK): Blood pressure controlled. Continue current treatment Insomnia 08/17/2013 Overview (07/07/2016): INSOMNIA NEC Hyperlipidemia 08/17/2013 Overview (07/09/2016): HYPERLIPIDEMIA NEC/NOS Depression 08/17/2013 Overview (07/09/2016): DEPRESSIVE DISORDER NEC Current Treatment and Therapy Plans No current plan information found. Past Treatment and Therapy Plans No past plan information found. Lifetime Dose Tracking * Chemical Lifetime Dose Automatic Entry Manual Entr y Fluoro Time 15.1 minutes 0 minutes 15.1 minutes Air kerma at the reference p oint (Ka,r) 1,172 mGy 0 mGy 1,172 mGy DLP 8,201 mGycm 8,201 mGycm 0 mGycm DAP 10,755.88 Gy-cm2 0 Gy-cm2 10,755.88 G y-cm2 Resolved Problems Problem Noted Date Diagnosed Date Resolved Date Preoperative cardiovascular examination 12/10/2018 11/22/2021
--- OUTSIDE RECORDS SUMMARY | 2025-01-28 09:44 | XMS_ITS | Encounter Summary ---
Author Organization 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
== END 2025-01-28 09:00 | disposition home or self-care (01) ==
PROVIDERS: PCP Internal Medicine
DX: C83.30 Diffuse large B-cell lymphoma, unspecified site (principal); I10 Essential (primary) hypertension; R06.02 Shortness of breath
CPT/HCPCS: 71275; Q9967

== ENCOUNTER 2025-02-14 15:14 | Emergency (ER) | payer MEDICARE, OTHER, SELFPAY ==
[2025-02-14 15:25] VITALS: BP 127/59; PULSE 83; RESP 18; O2SAT 98
--- NOTE | 2025-02-14 15:59 | ED_ITS ---
HPI - Wound/Laceration General Chief Complaint: Wound/Laceration Stated Complaint: bleeding from cardiac cath site Time Seen by Provider: 02/14/25 15:29 Source: patient Mode of arrival: ambulatory Limitations: no limitations History of Present Illness HPI narrative: This is a 84-year-old male with history of hypertension, hyperlipidemia, CAD status post stents x2 and status post catheterization 2 days ago who presents the ED for catheterization site bleeding. Patient states that he was doing well from his catheterization until today when he noticed some bleeding to his right groin. He does not recall hitting it. Denies numbness, tingling, pain to his lower leg. He is on his Eliquis as prescribed. Related Data Home Medications ?Medication ?Instructions ?Recorded ?Confirmed ?Last Taken ?Type metoprolol tartrate 25 mg tablet 25 mg PO BID 05/07/19 07/30/24 07/28/24 History acalabrutinib maleate 100 mg 100 mg PO DAILY 06/01/24 07/30/24 07/28/24 History tablet (Calquence (acalabrutinib maleate)) rosuvastatin 10 mg tablet 10 mg PO QAM 07/24/2407/28/24 History levocetirizine 5 mg tablet mg 11/04/24 Unknown Histor y Allergies Allergy/AdvReac Type Severity Reaction Status Date / Time No Known Allergies Allergy Verified 11/04/24 12:32 Review of Systems Review of Systems: Gen.: Denies fevers or chills Eyes: Denies eye pain or visual change ENT: Denies congestion Respiratory: Denies shortness of breath or cough CV: Denies chest pain or palpitations GI: Denies abdominal pain nausea, emesis or diarrhea denies burning, urgency, frequency or hematuria Musculoskeletal: Denies back pain or muscle pain Neuro: Denies numbness, tingling, weakness or focal weakness Skin: Denies rash Except as documented, all other systems reviewed and negative PMFSH Past Medical History Medical History Seasonal rhinitis GERD (gastroesophageal reflux disease) Paroxysmal atrial fibrillation Hypertension Non-Hodgkin lymphoma Large B-cell lymphoma treated in 2016 at [place]. Coronary artery disease History of inferior STEMI on 12/29/2017. Right coronary was totally occluded and was revascularized with a drug-eluting stent. He also had high-grade stenosis of the mid LAD, which was not intervened upon. Osteoarthritis Hyperlipidemia Surgical History Surgical History History of lumbar fusion History of surgery on arm Left arm ORIF. Status post total right knee replacement Status post bilateral total hip replacement History of total replacement of both shoulder joints Status post arthroscopy of left knee History of bilateral carpal tunnel release Status post cataract extraction History of coronary artery stent placement Drug-eluting stent to the right coronary artery 12/29/2017. Family History Family History Father Hypertension Mother Acute myocardial infarction Social History Social History Social History: The patient has been since 2015 after his from lung cancer. He has 1 daughter and 2 sons. He designates his ujypzxrr-xa-oxy Karen as his surrogate decision maker and he wishes to be a full code. He smoked up to 2 packs of cigarettes per day for 45 years and quit 1999. He denies alcohol and drug use. 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 Smoking packs per day: 2 Smoking cigarettes per day: 40.0 Years smoked: 45 Smoking pack-years: 90.00 Smoking status: Former smoker Tobacco type: cigarettes Second hand tobacco smoke exposure: No Smoking end date: 10/01/01 Alcohol intake: never Alcohol use details: HEAVIER DRINKER IN PAST Substance use: never Substance use type: does not use Current Housing: Decline to Answer Concerned About Future Housing: Decline to Answer Difficulty Paying Gas/Electric Bills: Decline to Answer Difficulty Paying for Meds: Decline to Answer Currently Unemployed: Decline to Answer Education: Decline to Answer Difficulty w/ Childcare or Family Care: Decline to Answer Living arrangements: alone Gender identity (if verbalized by the patient): Male Sexual Orientation (if Verbalized by the Patient): Straight or Heterosexual Spiritual care concerns: No Agree to blood products: Yes Exam Narrative: APPEARANCE: No acute distress, nontoxic, resting in bed HEENT: Normocephalic, atraumatic, OMM RESPIRATORY: No respiratory distress CARDIOVASCULAR: Appears well perfused ABDOMINAL: Nondistended MUSCULOSKELETAl: Moves all extremities. No obvious deformities NEURO: Awake and alert. SKIN:: Ecchymosis over the right groin with a small punctate lesion with a sc ab, no active bleeding. Palpable femoral pulse with no thrill. PSYCHIATRIC: Normal affect/mood, Course Vital Signs Vital signs: Vital Signs Pulse Rate 83 02/14/25 15:25 Respiratory Rate 18 02/14/25 15:25 Blood Pressure 127/59 L 02/14/25 15:25 Pulse Oximetry 98 02/14/25 15:25 Oxygen Delivery Room Air 02/14/25 15:25 Pulse Rate 78 02/14/25 16:27 Respiratory Rate 16 02/14/25 16:27 Blood Pressure 120/58 L 02/14/25 16:27 Pulse Oximetry 98 02/14/25 16:27 Oxygen Delivery Room Air 02/14/25 15:25 MDM - Wound/Laceration MDM Narrative Medical decision making narrative: 84-year-old male Presenting for bleeding from cath site. On initial evaluation patient was in no acute distress afebrile, hemodynamic stable. Differentials include but are not limited to: Cath site bleeding, pseudoaneurysm, ecchymosis Notable exam findings: Areas of ecchymosis over the right groin with a small punctate region that is not actively bleeding with a small amount of associated tenderness no palpable thrill Patient's bleeding had already been controlled by nursing in triage prior to my evaluation. There was blood on his clothes so there was clearly a moderate amount of blood loss. Because of this, a pressure dressing will be placed. He was advised to call his stores assistant on Monday for further evaluation. Patient was agreeable to this plan. Given strict return precautions. Medical Records Attestation: I reviewed the patient's medical records. Discharge Plan Discharge Clinical Impression: Bleeding at insertion site CAD (coronary artery disease) Qualifiers: Coronary Disease-Associated Artery/Lesion type: unspecified vessel or lesion type [place] vs. transplanted heart: unspecified whether [place] or transplanted heart Associated angina: unspecified whether angina present Qualified Code(s): I25.10 - Atherosclerotic heart disease of [place] coronary artery without angina pectoris Patient Disposition: Home Condition: Stable Instructions: Antibiotic Form, Right Heart Catheterization (DC) Additional Instructions: Keep the pressure dressing in place. Call your stores assistant on Monday to discuss follow-up appointment. Return to the ED for any new or worsening symptoms. Patient Language: Chinese Prescriptions: No Action Calquence (acalabrutinib mal) 100 mg tablet 100 mg PO DAILY levocetirizine 5 mg tablet Eliquis 2.5 mg tablet 2.5 mg PO BID Qty: 60 0RF aspirin 81 mg tablet 81 mg PO DAILY Qty: 30 0RF metoprolol tartrate 25 mg Tablet 25 mg PO BID rosuvastatin 10 mg tablet 10 mg PO QAM Follow-up/Referrals: Renetta Bai MD [Primary Care Provider, Cardiology]
[2025-02-14 16:27] VITALS: BP 120/58; PULSE 78; RESP 16; O2SAT 98
--- OUTSIDE RECORDS SUMMARY | 2025-02-14 19:41 | XMS_ITS | Encounter Summary ---
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
--- OUTSIDE RECORDS SUMMARY | 2025-02-14 19:41 | XMS_ITS | Encounter Summary ---
Author Organization [facility] Healthcare Address [address] [place] [address] Care Team Providers Care Public Policy Analyst Name Role Phone Katia Fraser MD Primary Care Provider [phone] Encounter Details Date Type Department Care Team (Late st Contact Info) Description 01/01/2018 Orders Only [facility] [place] Management [address] [place] [id number] Scanning, Provider Social History Tobacco Use Types Packs/Day Years Used Date Smoking Tobacco: Former Smokeless Tobacco: Former Comments:Smoking History Pac ks/day: 1 Cigarettes Alcohol Use Standard Drinks/Week Comments Yes 0 (1 standard drink = 0.6 oz pur e alcohol) Sex and Gender Information Value Date Recorded Sex Assigned at Not on file Legal Sex Male 11:33 PM 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
--- OUTSIDE RECORDS SUMMARY | 2025-02-14 19:42 | XMS_ITS | Encounter Summary ---
Author Organization [facility] Healthcare Address [address] [place] [address] Care Team Providers Care Cutter And Presser Name Role Phone Katia Fraser MD Primary Care Provider [phone] Encounter Details Date Type Department Care Team (Late st Contact Info) Description 12/31/2017 [place] [facility] [place] [address] [place] [id number] Scanning, Provider Social History Tobacco Use Types Packs/Day Years Used Date Smoking Tobacco: Former Smokeless Tobacco: Former Comments:Smoking History Pac ks/day: 1 Cigarettes Alcohol Use Standard Drinks/Week Comments Yes 0 (1 standard drink = 0.6 oz pur e alcohol) Sex and Gender Information Value Date Recorded Sex Assigned at Not on file Legal Sex Male 11:33 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
--- OUTSIDE RECORDS SUMMARY | 2025-02-14 19:42 | XMS_ITS | Encounter Summary ---
Author Organization [facility] Address [address] [place] [address] Phone Care Team Providers Care Supervisor Malt House Name Role Phone Katia Fraser MD Primary Care Provider + [phone] Encounter Details Date Type Department Care Team (Latest Contact Info) Description 02/11/2025 Results Follow-Up [facility] Medicine Hematology [address] [facility] Floor [address] [place] [address] Marcy Hopkins MD [address] [place] [address] Comprehensive metabolic panel, CBC with auto differential, Lactate dehydrogenase (LD) Social History Tobacco Use Types Packs/Day Years Used Date Smoking Tobacco: Former Cigarettes Q uit: 02/20/2000 Passive Smoke Exposure: Past Smokeless Tobacco: Former Comments:Smoking History Pac ks/day: 1 Cigarettes Alcohol Use Standard Drinks/Week Comments Yes 1 (1 standard drink = 0.6 oz pur e alcohol) occassionally AUDIT-C Answer Date Recorded Q1: How often do you have a drink containing alc ohol? 2-4 times a month 02/12/2025 Q2: How many drinks containi ng alcohol do you have on a typical day when you are drinking? 1 or 2 02/12/2025 Q3: How often do you have si x or more drinks on one occasion? Never 02/12/2025 Personal Safety Answer Date Recorded Have you ever been in or are you currently in a harmful physical or emotional relationship or is someone making you feel afraid or unsafe? 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 Gender Identity Male 07/19/2023 9:40 PM CDT Sexual Orientation Straight 07/19/2023 9: 40 PM CDT documented as of this encounter Functional Status * Question Answer Date of Assessment Author MAP (mmHg) 105 02/12/2025 2:00 PM Neisha Freeman RN * Question Answer Date of Assessment Author BP Location Left arm 02/12/2025 2:00 PM Neisha Freeman RN * Mcnulty Fall Risk Question Answer Date of Assessment Author History of Falling 0 02/12/2025 11:45 AM Oriana Gan RN Secondary Diagnosis 15 02/12/2025 11:45 AM Oriana Prado RN Ambulatory Aids 0 02/12/2025 11:45 AM Oriana Mccauley RN Intravenous Therapy/Heparin/Saline Lock 20 02/12/2025 11:45 AM Jovanny Juarez RN Gait/Transferring 10 02/12/2025 11:45 AM Oriana Juarez RN Mental Status 0 02/12/2025 11:45 AM Oriana Wang RN Mcnulty Fall Risk Score (Score >= 45 places fall precaution order) 45 02/12/2025 11:45 AM Jovanny Juarez RN Prior Fall Event (Autopopulated from EMR) None found 02/12/2025 11:45 AM Norris Juarez RN * AUDIT-C Score Answer Date of Assessment Author 2 02/12/2025 8:36 AM Me sandy Beavers RN * Alcohol Use Question Answer Date of Assessment Author Q1: How often do you have a drink containing alcohol? 2-4 times a month 02/12/2025 8:36 AM Ghislaine Beavers, RN Q2: How many drinks containing alcohol do you have on a typical day when you are drinking? 1 or 2 02/12/2025 8:36 AM Ghislaine Beavers RN Q3: How often do you have six or more drinks on one occasion? Never 02/12/2025 8:36 AM Ghislaine Beavers RN * Integumentary Question Answer Date of Assessment Author Skin Color Javier 02/12/2025 8:09 AM Ghislaine Beavers RN Integumentary (L) X 02/12/2025 8:09 AM CS T Ghislaine Mcleod RN Skin Location RUE/LUE 02/12/2025 8:09 AM Ghislaine Bean RN documented as of this encounter Mental Status * Question Answer Entry Date Author Neuro (RAMESHL) WDL 02/12/2025 8:09 AM Ghislaine Beavers RN documented in this encounter Miscellaneous Notes * Result Encounter Note - Marcy Hopkins MD - 02/11/2025 11:31 AM CST I do worry this is cardiac with Cr rising and ALT elevated. Seems to suggest poor forward flow. Canyou confirm cards followed up? TRY AND FISH BUTCHER documented in this encounter Plan of Treatment Not on file documented as of this encounter Visit Diagnoses Not on filedocumented in this encounter Care Teams Supervisor Malt House Relationship Specialty Start Date End Date Katia Fraser MD [address] [place] [address] PCP - General 06/20/17 documented as of this encounter
--- OUTSIDE RECORDS SUMMARY | 2025-02-14 19:42 | XMS_ITS ---
Author Organization [facility] Address [address] [place] [address] Care Team Providers Care Supervisor Respiratory Name Role Phone Katia Fraser MD Primary Care Provider + [phone] Active Problems Problem Noted Date Diagnosed Date Dyspnea on exertion 02/04/2025 History of colonic polyps 07/10/2024 Chronic diastolic heart failure 08/07/2023 CAD S/P percutaneous coronary angioplasty 2022 Preop cardiovascular exam 10/24/2022 Visit for wound check 04/02/2018 Coronary artery disease invo lving [place] coronary artery of [place] heart without angina pectoris 02/19/2018 Assessment & Plan (02/25/2018 1:56 PM MATERIAL EXPEDITER): At this time continue aspirin, Brilinta. Continue [...] NOS Assessment & Plan (02/25/2018 1:57 PM MATERIAL EXPEDITER): Blood pressure controlled. Continue current treatment Insomnia 08/17/2013 Overview (07/07/2016): INSOMNIA NEC Hyperlipidemia 08/17/2013 Overview (07/09/2016): HYPERLIPIDEMIA NEC/NOS Depression 08/17/2013 Overview (07/09/2016): DEPRESSIVE DISORDER NEC Current Treatment and Therapy Plans No current plan information found. Past Treatment and Therapy Plans No past plan information found. Lifetime Dose Tracking * Chemical Lifetime Dose Automatic Entry Manual Entr y Fluoro Time 22.7 minutes 0 minutes 22.7 minutes Air kerma at the reference p oint (Ka,r) 1,955 mGy 0 mGy 1,955 mGy DLP 8,201 mGycm 8,201 mGycm 0 mGycm DAP 17,246.88 Gy-cm2 0 Gy-cm2 17,246.88 G y-cm2 Resolved Problems Problem Noted Date Diagnosed Date Resolved Date Preoperative cardiovascular examination 12/10/2018 11/22/2021
--- OUTSIDE RECORDS SUMMARY | 2025-02-14 19:42 | XMS_ITS | Encounter Summary ---
Author Organization [facility] Healthcare Address [address] [place] [address] Care Team Providers Care Energy Management Specialist Name Role Phone Katia Fraser MD Primary Care Provider [phone] Encounter Details Date Type Department Care Team (Late st Contact Info) Description 12/30/2017 Orders Only [facility] [place] Health Information Management [address] [place] [id number] Scanning, Provider Social History Tobacco Use Types Packs/Day Years Used Date Smoking Tobacco: Former Smokeless Tobacco: Former Comments:Smoking History Pac ks/day: 1 Cigarettes Alcohol Use Standard Drinks/Week Comments Yes 0 (1 standard drink = 0.6 oz pur e alcohol) Sex and Gender Information Value Date Recorded Sex Assigned at Not on file Legal Sex Male 11:33 PM CASEWORKER PROTECTIVE SERVICES Gender Identity Male 07/19/2023 9:40 PM CDT [...] on filedocumented in this encounter Care Teams Energy Management Specialist Relationship Specialty Start Date End Date Katia Fraser MD [address] [place] [id number] PCP - General 06/20/17 documented as of this encounter
--- OUTSIDE RECORDS SUMMARY | 2025-02-14 19:42 | XMS_ITS | Encounter Summary ---
Author Organization [facility] Healthcare Address [address] [place] [address] Care Team Providers Care Automotive Center Manager Name Role Phone Katia Fraser MD Primary Care Provider [phone] Encounter Details Date Type Department Care Team (Late st Contact Info) Description 01/28/2025 Results Follow-Up [facility] Medical Group Cardiology [address] [place] [address] Margarita Robertson NP [address] [place] [address] Transthoracic Echo (TTE) Limited/Followup Social History Tobacco Use Types Packs/Day Years [...] on file Legal Sex Male 11:33 PM 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
--- OUTSIDE RECORDS SUMMARY | 2025-02-14 19:43 | XMS_ITS | Clinical Summary ---
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 INDICATIONS: I31.39 Other pericardial effusion (noninflammatory). MEASUREMENTS: 2D/MM Value Range Doppler ValueRange EF Mod BP 61 % [ 52 - 72 ] LVOT Peak Vinay 0.96 m/s [0.70 - 1.10 ] LVIDd 2D 4.70 cm [ 4.20 - 5.80 ] LVOT VTI 22.58 cm LVIDs 2D 3.05 cm [ 2.50 - 4.00 ] MV E Peak Vinay 1.13 m/s [0.60 - 1.30 ] LVPWd 2D 1.08 cm [ 0.60 - 1.00 ] MV A Peak Vinay 0.89 m/s [1.00 - 1.20 ] IVSd 2D 1.06 cm [ 0.60 - 1.00 ] MV Decel Time 214 msec [104 - 258 ] Lateral E` 0.06 m/s [ 0.10 - 0.15 ] Septal E` 0.05 m/s [ 0.08 - 0.15 ] E` 0.06 m/s E/E` 19 2D/MM Value Range Doppler ValueRange - FINDINGS: Interpretation Site: Exam was interpreted at [facility]. Left Ventricle: The left ventricle is normal in size and systolic function. The leftventricular ejection fraction is visually estimated to be 60-65%. Right Ventricle: Normal right ventricular size. Normal right ventricular systolicfunction. Mitral Valve: The mitral valve leaflets are sclerotic. Tricuspid Valve: Normal appearance of the tricuspid valve. Pericardium: There is a large size circumferential pericardial effusion with themajority of the fluid along the posterior wall of the left ventricle. IVC: The IVC is not well visualized. CONCLUSIONS: There is a large size circumferential pericardial effusion with themajority of the fluid along the posterior wall of the left ventricle. The IVC was not well visualized and there were no definiteechocardiographic evidence of cardiac tamponade. Electronically Signed By: Dr. Daniele Jain 01/28/2025 12:47:52 PM CDT Margarita Pratt NP CV ECHO PROCEDURES Final Result * SCAN - RADIOLOGY/IMAGING (01/28/2025) Anatomical Region Laterality Modality Other us Provider Scanning Final Result * (ABNORMAL) Iron profile w/ IBC (01/22/2025 8:57 AM CDT) Iron 47(L) 50 - 180 mcg/dL [facility] TIBC 338 250 - 425 mcg/dL (calc) [facility] Iron saturation 14(L) 20 - 48 % (calc) [facility] Blood 01/22/2025 8:57 AM CDT 01/22/2025 8:58 AM CDT us Marcy Hopkins MD LAB BLOOD ORDERABLES Final Result [facility] [address] [address] * (ABNORMAL) CBC with auto differential (01/22/2025 [...] LAB BLOOD ORDERABLES Final Result [facility] [address] [place] [phone] * (ABNORMAL) D-dimer, quantitative (01/22/2025 8:57 AM [...] since D-dimer values increase with age, the [employer] recommends an age-adjusted cut-off value in patients older than 50. The calculation for an age adjusted cut-off value is age (years) x 0.01 mcg/mL FEU. For example, the cut-off for a 70-year-old patient would be 70 x 0.01 mcg/mL FEU. For additional information, please refer to http://education.Cubeyou.Re.nooble/faq/GJV897 (This link is being provided for informational/educational purposes only.) Blood 01/22/2025 8:57 AM CDT 01/22/2025 8:58 AM CDT us Marcy Hopkins MD LAB BLOOD ORDERABLES Final Result Performing Organization Address [facility] de Phone Number [facility] [address] [place] [address] * Lactate dehydrogenase (LD) (01/22/2025 8:57 AM CDT) Lactate dehydrogenase (LDH) 177 120 - 250 U/L [facility] Blood 01/22/2025 8:57 AM CDT 01/22/2025 8:58 AM CDT us Marcy Hopkins MD LAB BLOOD ORDERABLES Final Result Performing Organization Address [facility] Phone Number [facility] [address] [place] [address] * Ferritin (01/22/2025 8:57 AM CDT) Pathologist [facility] Ferritin 47 24 - 380 ng/mL [facility] Blood 01/22/2025 8:57 AM CDT 01/22/2025 8:58 AM CDT us Marcy Hopkins MD LAB BLOOD ORDERABLES Final Result Performing Organization Address [facility] de Phone Number [facility] [address] [place] [address] * (ABNORMAL) Vitamin B12 (01/22/2025 8:57 AM CDT) Vitamin B12 >2000(H) 200 - 1100 pg/mL [facility] Blood 01/22/2025 8:57 AM CDT 01/22/2025 8:58 AM CDT us Marcy Hopkins MD LAB BLOOD ORDERABLES Final Result Performing Organization Address City/[facility] Co de Phone Number [facility] [address] [facility] [place] [address] * (ABNORMAL) Comprehensive metabolic panel (01/22/2025 8:57 AM CDT) [facility] Glucose 90 65 - 99 mg/dL [facility] [...] LAB BLOOD ORDERABLES Final Result [facility] [address] [place] [phone] * (ABNORMAL) Comprehensive metabolic panel (01/01/2025 2:10 [...] 2:10 PM CDT 01/01/2025 2:10 PM CDT Marcy Hopkins MD LAB BLOOD ORDERABLES Final Result [facility] [address] [place] [phone] * TRANSTHORACIC ECHO (TTE) LIMITED/FOLLOW UP W LTD DOPPLER/CF WO CONTRAST (12/30/2024 2:02 PM CDT) Estimated EF 65 % CONS SCIMAGE Anatomical Region Laterality Modality Ultrasound 12/30/2024 1:16 PM CDT Narrative 12/30/2024 7:15 PM CDT [facility] Medical Group Cardiology [address] [facility] [address] [address] [address] [facility] [address], [place] [address] P:[phone] P:[phone] Echocardiographic Report Patient Name: LIBAN CASILLASJason : 1940 Study Date: 12/30/2024 1:16:54 PM 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 INDICATIONS: I31.39 Other pericardial effusion (noninflammatory). MEASUREMENTS: 2D/MM Value Range Estimated EF 65 % 2D/MM Value Range - FINDINGS: Interpretation Site: Exam was interpreted at [facility]. Left Ventricle: Normal left ventricular systolic function. [...] now. Electronically Signed By: Dr. 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 INDICATIONS: I31.39 Other pericardial effusion (noninflammatory). MEASUREMENTS: 2D/MM Value Range Estimated EF 65 % 2D/MM Value Range - FINDINGS: Interpretation Site: Exam was interpreted at [facility]. Left Ventricle: Normal left ventricular systolic function. [...] now. Electronically Signed By: Dr. Renetta Bai [facility] 12/30/2024 7:14:18 PM CDT Margarita Pratt NP CV ECHO PROCEDURES Final Result * TRANSTHORACIC ECHO (TTE) COMPLETE W DOPPLER/CF WO CONTRAST (12/04/2024 11:26 AM CDT) EF Mod BP 55 % CONS SCIMAGE Anatomical Region Laterality Modality Ultrasound 12/04/2024 10:2 6 AM CDT Narrative 12/04/2024 4:45 PM CDT [facility] Medical Group Cardiology [address], [place] [address] [address] [facility] [address], [place] [address] P:[phone] P:[phone] Echocardiographic Report Patient Name: LIBAN CASILLAS D : 1940 Study Date: 12/04/2024 10:26:59 AM 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 Electronically Signed By: Freddy Dahl MD, FACC 12/04/2024 4:44:42 PM CDT Margarita Pratt NP [...] LAB BLOOD ORDERABLES Final Result [facility] [address] [address] * Lactate dehydrogenase (LD) (12/03/2024 8:10 AM CDT) Lactate dehydrogenase (LDH) 158 120 - 250 U/L [facility] 12/03/2024 8:10 AM CDT 12/03/2024 8:11 AM CDT Narrative [facility] - 12/04/2024 2:30 AM CDT FASTING:YES FASTING: YES Marcy Hopkins MD LAB BLOOD ORDERABLES Final Result [facility] [address] [place] [phone] * (ABNORMAL) Comprehensive metabolic panel (12/03/2024 8:10 AM CDT) Pathologist [facility] Glucose 87 65 - 99 [...] BLOOD ORDERABLES Final Result Performing Organization Address City/[facility]/ZIP Co de Phone Number [facility] [address] [place] [address] * Thyroid Function [place] (12/03/2024 8:08 AM CDT) TSH 2.52 0.40 - 4.50 mIU/L [facility] Blood 12/03/2024 8:08 AM CDT 12/03/2024 8:09 AM CDT us Margarita Pratt NP LAB BLOOD ORDERABLES Alanna l Result Performing Organization Address [facility] Co de Phone Number [facility] [address] [place] [address] * CT Chest Abdomen Pelvis W Contrast [...] Recently Relevant to Health Maintenance Insurance MEDICARE [facility] MEDICARE [facility] MEDICARE [facility] Advance Directives For more information, please contact: [phone] * Full Code (Latest Code Status on File) Date Activated Date Inactivated Comments 11/22/2022 12:13 PM 11/23/2022 4:22 PM Care Teams Pin Pusher Relationship Specialty Start Date End Date Katia Fraser MD [address] [place] [address] PCP - General 06/20/17
--- OUTSIDE RECORDS SUMMARY | 2025-02-14 19:43 | XMS_ITS | Encounter Summary ---
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
== END 2025-02-14 16:28 | disposition home or self-care (01) ==
PROVIDERS: Emergency Provider Student in an Organized Health Care Education/Training Program; PCP Internal Medicine Cardiovascular Disease
DX: I97.610 Postprocedural hemorrhage of a circulatory system organ or structure following a cardiac catheterization (principal); I25.10 Atherosclerotic heart disease of native coronary artery without angina pectoris; I48.0 Paroxysmal atrial fibrillation; E78.5 Hyperlipidemia, unspecified; K21.9 Gastro-esophageal reflux disease without esophagitis; M19.90 Unspecified osteoarthritis, unspecified site; Z98.1 Arthrodesis status; Z96.643 Presence of artificial hip joint, bilateral; Z96.612 Presence of left artificial shoulder joint; Z96.611 Presence of right artificial shoulder joint; Z96.653 Presence of artificial knee joint, bilateral; Z85.72 Personal history of non-Hodgkin lymphomas; Z87.891 Personal history of nicotine dependence; Y84.0 Cardiac catheterization as the cause of abnormal reaction of the patient, or of later complication, without mention of misadventure at the time of the procedure
CPT/HCPCS: 99282